=== PATIENT | female | born 1965 | race Two or more races ===

== ENCOUNTER 2022-05-23 09:28 | Outpatient (REF) | payer OTHER, SELFPAY ==
--- NOTE | ~2022-05-23 | XR_ITS ---
EXAMINATION: XR PELVIS CLINICAL INFORMATION: Pain COMPARISON: None TECHNIQUE: AP view of the pelvis. FINDINGS: There are bilateral hip prosthesis in satisfactory alignment. No periprosthetic loosening or fracture seen. The SI joints are symmetrical. Rest of the visualized pelvis is unremarkable. XR/XR pelvis 1-2V IMPRESSION: Bilateral hip prosthesis are stable.
== END 2022-05-23 09:29 | disposition home or self-care (01) ==
LOC: HO.HOSX 09:28
PROVIDERS: Visit Provider Orthopaedic Surgery
DX: T84.84XA Pain due to internal orthopedic prosthetic devices, implants and grafts, initial encounter (principal); Z96.9 Presence of functional implant, unspecified; Z96.642 Presence of left artificial hip joint
CPT/HCPCS: 72170; 99202

== ENCOUNTER 2022-09-29 11:08 | Outpatient (REF) | payer OTHER, SELFPAY ==
--- NOTE | ~2022-09-29 | XR_ITS ---
EXAMINATION: XR AP PELVIS XR HIP, LEFT. CLINICAL INFORMATION: Pain left hip COMPARISON: None TECHNIQUE: AP pelvis 1 view. Left hip 2 views. FINDINGS: AP PELVIS: There is a bilateral hip prosthesis in satisfactory alignment. The SI joints are normal. No bony or abnormality seen. LEFT HIP: Lateral and AP view of the left hip reveals a total hip prosthesis in satisfactory alignment. No periprosthetic loosening or fracture seen. The soft tissues are normal. XR/XR pelvis 1-2V IMPRESSION: Unremarkable bilateral hip prosthesis. Especially left hip prosthesis is unremarkable. The soft tissues are normal.
--- NOTE | ~2022-09-29 | XR_ITS ---
EXAMINATION: XR AP PELVIS XR HIP, LEFT. CLINICAL INFORMATION: Pain left hip COMPARISON: None TECHNIQUE: AP pelvis 1 view. Left hip 2 views. FINDINGS: AP PELVIS: There is a bilateral hip prosthesis in satisfactory alignment. The SI joints are normal. No bony or abnormality seen. LEFT HIP: Lateral and AP view of the left hip reveals a total hip prosthesis in satisfactory alignment. No periprosthetic loosening or fracture seen. The soft tissues are normal. XR/XR hip LT 1V IMPRESSION: Unremarkable bilateral hip prosthesis. Especially left hip prosthesis is unremarkable. The soft tissues are normal.
== END 2022-09-29 11:09 | disposition home or self-care (01) ==
LOC: HO.HOSX 11:08
PROVIDERS: Visit Provider Orthopaedic Surgery
DX: Z96.642 Presence of left artificial hip joint (principal); Z96.9 Presence of functional implant, unspecified
CPT/HCPCS: 72170; 73501; 99212

== ENCOUNTER 2022-11-10 10:25 | Outpatient (REF) | payer OTHER, SELFPAY ==
--- NOTE | ~2022-11-10 | XR_ITS ---
EXAMINATION: XR PELVIS CLINICAL INFORMATION: Hip pain COMPARISON: Radiographs from 05/23/2022 and 09/29/2022. CT imaging from 11/02/2019. TECHNIQUE: AP view of the pelvis. FINDINGS: The pelvic bones are intact. Alignment is normal at the sacroiliac joints and pubic symphysis. Again noted is the changed position of the left acetabular cup compared to 11/02/2019. There is approximately 65 degrees of lateral tilt of the cup (compared to approximately 45 degrees on 11/02/2019). Again noted is the zone of lucency around the superior aspect of the cup and around the acetabular screw. No acute periprosthetic fracture. There is no evidence of loosening of the femoral component of the left hip arthroplasty. The components of the noncemented right total hip arthroplasty remain in stable position. XR/XR pelvis 1-2V IMPRESSION: * No acute findings at either hip compared to 09/29/2022. 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
== END 2022-11-10 10:26 | disposition home or self-care (01) ==
LOC: HO.HOSX 10:25
PROVIDERS: PCP Internal Medicine; Visit Provider Orthopaedic Surgery
DX: Z96.642 Presence of left artificial hip joint (principal); Z96.9 Presence of functional implant, unspecified
CPT/HCPCS: 72170; 99212

== ENCOUNTER 2022-11-14 11:26 | Outpatient (REF) | payer OTHER, SELFPAY ==
[2022-11-14 13:42] LABS: Amphetamine Screen Urine Not Detected (Not Detect); Barbiturates, Urine Not Detected (Not Detect); Benzodiazepines Screen Urine Not Detected (Not Detect); Cannabinoid Screen Urine POSITIVE (Not Detect); Cocaine Screen Urine POSITIVE (Not Detect); Fentanyl, urine POSITIVE (Not Detect); Opiate Screen Urine Not Detected (Not Detect); Phencyclidine Screen Urine Not Detected (Not Detect)
== END 2022-11-14 11:27 | disposition home or self-care (01) ==
LOC: HO.LAB 11:26
PROVIDERS: PCP Internal Medicine; Visit Provider Orthopaedic Surgery
DX: F19.20 Other psychoactive substance dependence, uncomplicated (principal)
CPT/HCPCS: 80307

== ENCOUNTER 2023-03-30 10:39 | Outpatient (AMB) | payer OTHER, SELFPAY ==
[2023-03-30 10:41] VITALS: BMI 27.5
--- NOTE | 2023-03-30 10:41 | MHC.OFFVIS ---
Intake Vital Signs 03/30/23 10:41 Height 5 ft 4 in Weight 160 lb BMI 27.5 Intake Visit Reasons: OV- Left hip pain, last seen 11/10/22 Intake Note: Leanne is a 57 year old female who presnets today for a follow up of her left hip pain. Hx of left YVONNE, 03/16/[address] Perez @ [facility]. Allergies Penicillins Allergy (Verified 05/23/22 10:11) Rash HPI OV- Left hip pain, last seen 11/10/22 HPI Details Leanne is a 57 year old woman who returns to discuss her ongoing infected left hip prosthetic and her ongoing drug abuse. She has a Hx of left YVONNE, 03/16/[address] Perez @ [facility]. She has been following with an outside clinic concerning her hip pain. Based on scanned medical records, there was a suggestion of left acetabular component loosening. There was also c. acnes growth from an aspiration performed on 03/07/22. She continues to complain of pain with daily activity and is severely limited in her physical capacity. She is unable to walk without pain or assistance, and she is unable to use stairs. She says she has been using a cane recently which has increased her hip pain.? She denies any recent drug use, and has been trying to remain clean in the hopes of discussing surgery. She says she has only been using Marijuana recently, but says this is cut with Fentanyl. She reports being clean of any MARIIA for ~3-4 months. She denies any IVDU. [facility] Medical History (Updated 05/23/22 @ 11:05 by Williams Sylvester) Anxiety Depression Surgical History (Updated 05/23/22 @ 11:05 by Williams Sylvester) History of total left hip arthroplasty (03/16/08) Review of Systems Const All systems reviewed & are unremarkable except as noted in HPI and below Physical Exam Vital Signs: BMI result Body Mass Index 27.5 Const General: no acute distress and alert Orientation/consciousness: patient oriented x3 Neuro General: patient oriented x3 Extrem Other: Left Hip: Severely antalgic gait Pain with IR Can barely weight-bear 2+DP pulse Psych Appearance: grossly normal Affect: normal affect Attitude: cooperative Assessment & Plan Assessment & Plan (1) 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: Code(s): Z96.9 - Presence of functional implant, unspecified Plan: This is a 56 year old woman with 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 Perez. She has pain with daily activity for ~4 years and is unable to engage in daily activity. She is miserable and cannot walk, even with use of an assistive device, and reports GI upset from her oral Abx. She reports smoking Marijuana with Fentanyl, but denies any MARIIA in the last ~3-4 months. She denies any IVDU. She is on Methadone and is in a support group, and she is insistent that she can stop anytime she needs to prior to surgery. I discussed treatment options. I recommend a left YVONNE with an antibiotic spacer, along with a course of IV abx followed by a second re-implantation procedure. Obviously her drug use is a severe problem for both present and future risk, mostly of continued infection. Removal of the infected prosthesis is indicated however. I discussed the risks, benefits, and alternatives including, but not limited to, the risk of pain, infection, stiffness, need for further surgery as well as potential medical complications such as blood clots, pulmonary embolism and cardiac complications. I discussed the recovery timeline and process as well as the importance of PT. Leanne would benefit from this procedure She will speak with Kelsea to coordinate. (2) History of total left hip arthroplasty: Comment: 03/16/[address] Perez @ [facility] Code(s): Z96.642 - Presence of left artificial hip joint Plan Scribed for Sam Callahan MD by Williams Sylvester medical reimbursement specialist, on 03/30/23 at 11:25 AM, EST. Coding Level of Care Code Est Pt Level 4 (52623) Diagnoses 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 Z96.9 History of total left hip arthroplasty Z96.642
== END 2023-03-30 11:58 | disposition home or self-care (01) ==
PROVIDERS: PCP Internal Medicine; Visit Provider Orthopaedic Surgery
DX: M25.552 Pain in left hip (principal); Z96.642 Presence of left artificial hip joint
CPT/HCPCS: 99214

== ENCOUNTER → 2023-03-30 10:39 | Outpatient (BNVA) | payer OTHER, SELFPAY | PROVIDERS: PCP Internal Medicine; Visit Provider Orthopaedic Surgery | DX: Z96.9 Presence of functional implant, unspecified (principal); Z96.642 Presence of left artificial hip joint | CPT/HCPCS: 99212 ==

== ENCOUNTER 2023-04-14 | Outpatient (REF) | payer OTHER, SELFPAY ==
--- NOTE | 2023-04-14 | ECG_ITS ---
Test Reason : pre op Blood Pressure : / mmHG Vent. Rate : 042 BPM Atrial Rate : 042 BPM P-R Int : 132 ms QRS Dur : 086 ms QT Int : 512 ms P-R-T Axes : 055 050 046 degrees QTc Int : 427 ms Marked sinus bradycardia Possible Left atrial enlargement Abnormal ECG No previous ECGs available Referred By: Destiny Martin Electronically Signed By:WIL WILCOX
--- NOTE | 2023-04-14 10:36 | HO.ANESPROP2 ---
HPI - Anesthesia Eval Consult details Narrative: Cx'd DOS for +utox 57yo F for Left Hip Replacement Revision Total,removal of prosthesis with insertion of anitbiotic spacer, 04/21/23 Medically optimized (Marked SB on EKG) Original Left YVONNE 2008 at outside facility. No recent illness Limited activity d/t pain No CP/SOB. Rare albuterol use for controlled asthma. Methadone daily. Will get dose at clinic DOS. PMFSH Active Problems Active Problems: All Active Problems (Updated 04/14/23 @ 10:17 by Celia Kelly, RN) History of total left hip arthroplasty (Acute) 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 (Acute) Past Medical History Medical History (Updated 04/20/23 @ 07:05 by Celia Kelly RN) Anxiety Arthritis Asthma Bilateral knee pain Cannabis abuse Cervical myelopathy Clostridium difficile infection Cocaine abuse COPD (chronic obstructive pulmonary disease) Depression Eczema Epigastric pain GERD (gastroesophageal reflux disease) Hepatitis B virus infection History of headache History of Helicobacter pylori infection Insomnia Irritable bowel syndrome Left hand paresthesia Migraine Numbness Osteoarthritis Polysubstance abuse Raspy voice Sinusitis Skull lesion Tobacco abuse disorder Vitamin B12 deficiency Vitamin D deficiency Weight loss Surgical History Surgical History (Updated 04/20/23 @ 07:10 by Celia Kelly RN) H/O tubal ligation History of appendectomy History of bilateral knee arthroplasty History of hip replacement History of total left hip arthroplasty (03/16/08) Hx of cervical spine surgery Social History Social History Are you a primary child care centre director to a significant other at home: No 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 If so, by whom?: No Are you DNR?: No Advance Directives: No Advance Directives Information Provided: Yes Advance Directives on File: No Recently lost weight without trying: No Eating poorly because of decreased appetite: No Nutrition Risks: No Nutritional Risk Patient : No : No Poor oral hygiene: Yes (missing tooth) Meds Allergies Allergy/AdvReac Type Severity Reaction Status Date / Time Penicillins Allergy Rash Verified 05/23/22 10:11 Home Medications Medication Instructions Recorded Confirmed Last Taken Type acetaminophen 500 mg tablet 500 mg PO TID PRN pain 05/23/22 04/14/23 Unknown History albuterol sulfate 90 mcg/actuation 2 puff inhalation QID PRN wheezing 05/23/22 04/14/23 Unknown History aerosol inhaler (ProAir HFA) methadone 74 mg PO DAILY 05/23/22 04/14/23 Unknown History naproxen 500 mg tablet 500 mg PO BID 05/23/22 04/14/23 Unknown History omeprazole 20 mg capsule,delayed 20 mg PO DAILY 05/23/22 04/14/23 Unknown History release cholecalciferol (vitamin D3) 50 50 mcg PO DAILY 04/20/23 04/20/23 Unknown History mcg (2,000 unit) tablet cyanocobalamin (vitamin B-12) 500 500 mcg PO DAILY 04/20/23 04/20/23 Unknown History mcg tablet diclofenac sodium 1 % topical gel 4 g topical BID 04/20/23 04/20/23 Unknown History loperamide 2 mg capsule 2 mg PO Q6H PRN Diarrhea 04/20/23 04/20/23 Unknown History loratadine 10 mg tablet 10 mg PO DAILY PRN allergies 04/20/23 04/20/23 Unknown History risperidone 1 mg tablet 1 mg PO BEDTIME 04/20/23 Unknown History tizanidine 4 mg tablet 4 mg PO Q8H PRN muscle spasm 04/20/23 Unknown History Exam Exam Date and Time: April 14, 2023 1036 Pertinent Lab Results Pertinent Lab Results: Lab Results 04/14/23 04/14/23 04/14/23 Range/Units 11:00 11:17 11:26 WBC 10.7 (4.8-10.8) X10*3/uL RBC 4.64 (4.20-5.50) X10*6/uL Hgb 14.4 (12.0-16.0) g/dl Hct 45.3 (37.0-47.0) % MCV 97.6 (80.0-98.0) fL MCH 31.0 (27.0-33.0) pg MCHC 31.8 (31.0-35.0) g/dl RDW 13.4 (11.0-16.0) % Plt Count 235 (160-400) X10*3/uL MPV 11.3 (9.4-12.3) fL Absolute Nucleated RBC 0.000 (0.0-0.012) X10*3/uL Nucleated RBC % (auto) 0.0 (0.0-0.2) /100WBC Sodium (135-145) mmol/L Potassium (3.3-5.1) mmol/L Chloride (96-108) mmol/L Carbon Dioxide (22-29) mmol/L Anion Gap (12-20) BUN (9-16) mg/dL Creatinine (0.5-1.4) mg/dL Estim Creat Clear Calc Estimated GFR Random Glucose (60-115) mg/dL Calcium (8.4-10.2) mg/dL Nasal Screen MRSA (PCR) NEGATIVE (Negative) Nasal S. aureus Screen NEGATIVE (Negative) Nasal MRSA/S.aureus Interp SEE NOTE Blood Type O Positive Antibody Screen NEGATIVE 04/14/23 Range/Units 11:26 WBC (4.8-10.8) X10*3/uL RBC (4.20-5.50) X10*6/uL Hgb (12.0-16.0) g/dl Hct (37.0-47.0) % MCV (80.0-98.0) fL MCH (27.0-33.0) pg MCHC (31.0-35.0) g/dl RDW (11.0-16.0) % Plt Count (160-400) X10*3/uL MPV (9.4-12.3) fL Absolute Nucleated RBC (0.0-0.012) X10*3/uL Nucleated RBC % (auto) (0.0-0.2) /100WBC Sodium 141 (135-145) mmol/L Potassium 4.4 (3.3-5.1) mmol/L Chloride 108 (96-108) mmol/L Carbon Dioxide 30 H (22-29) mmol/L Anion Gap 7 L (12-20) BUN 9 (9-16) mg/dL Creatinine 0.68 (0.5-1.4) mg/dL Estim Creat Clear Calc 89.6 Estimated GFR > 60 Random Glucose 99 (60-115) mg/dL Calcium 9.6 (8.4-10.2) mg/dL Nasal Screen MRSA (PCR) (Negative) Nasal S. aureus Screen (Negative) Nasal MRSA/S.aureus Interp Blood Type Antibody Screen Narrative Narrative: EKG 03/2023 Vent. Rate : 042 BPM ? ? Atrial Rate : 042 BPM ?? P-R Int : 132 ms? QRS Dur : 086 ms ? ? QT Int : 512 ms ? ? ? P-R-T Axes : 055 050 046 degrees ?? QTc Int : 427 ms ? Marked sinus bradycardia Possible Left atrial enlargement Abnormal ECG No previous ECGs available Airway Mallampati Class: II TM Dist: >3cm Neck ROM: Limited (s/p anterior c spine surgery 2022) Loose/Missing/Broken Teeth: Yes (Right upper molar broken) Heart: [place], regular Lungs: CTAB Assessment and Plan Assessment Anesthesia Assessment: Anesthesia Plan Discussed, Smoking Cess. Discussed and PAT Visit
[2023-04-14 10:44] VITALS: BP 140/81; PULSE 51; RESP 16; O2SAT 98; BMI 27.1
[2023-04-14 11:58] LABS: Hematocrit 45.3 % (37.0-47.0); Hemoglobin 14.4 g/dl (12.0-16.0); Mean Corpuscular HGB Conc 31.8 g/dl (31.0-35.0); Mean Corpuscular Volume 97.6 fL (80.0-98.0); Mean Platelet Volume 11.3 fL (9.4-12.3); Platelet Count 235 X10*3/uL (160-400); Red Blood Count 4.64 X10*6/uL (4.20-5.50); Red Cell Distribution Width 13.4 % (11.0-16.0); White Blood Count 10.7 X10*3/uL (4.8-10.8)
[2023-04-14 12:23] LABS: Anion Gap 7 (12-20); Blood Urea Nitrogen 9 mg/dL (9-16); Calcium 9.6 mg/dL (8.4-10.2); Carbon Dioxide 30 mmol/L (22-29); Chloride 108 mmol/L (96-108); Creatinine Clr Calc Pharmacy 89.6; Estimated Glomerular Filt Rate > 60; Glucose Random 99 mg/dL (60-115); Potassium 4.4 mmol/L (3.3-5.1); Sodium 141 mmol/L (135-145)
[2023-04-14 12:40] LABS: MRSA Nasal PCR NEGATIVE (Negative); SA Nasal PCR NEGATIVE (Negative)
--- NOTE | 2023-04-21 07:53 | PC.NURSE ---
pt stssmoked crack cocaine last night anesthesia and dr engle aware at bedside speaking to pateint
--- NOTE | 2023-04-21 07:59 | PC.NURSE ---
dr engle at bedside pat being cancelled reschedule in 1 week pt verbalized understanding of new careplan
== END 2023-04-14 00:01 ==
LOC: HO.PAT
PROVIDERS: Nurse Practitioner; Physician Assistant; PCP Internal Medicine; Visit Provider Orthopaedic Surgery
DX: Z01.818 Encounter for other preprocedural examination (principal); M25.552 Pain in left hip; F19.10 Other psychoactive substance abuse, uncomplicated; Z96.9 Presence of functional implant, unspecified; Z96.642 Presence of left artificial hip joint
CPT/HCPCS: 36415; 80048; 85027; 86850; 86900; 86901; 87640; 87641; 93005; J0131; J0690

== ENCOUNTER 2023-04-29 12:55 | Outpatient (AMB) | payer OTHER, SELFPAY ==
--- NOTE | 2023-04-29 12:57 | MHC.OFFVIS ---
Intake Vital Signs 04/29/23 12:59 Height 5 ft 4 in Weight 158 lb BMI 27.1 Intake Visit Reasons: Preop Removal of LT hip prosthesis 05/05/23 NE Intake Note: Leanne is a 57 year old female who presents today for a pre op appointment for a removal of left hip prosthesis on 05/05/23 NE. Allergies Penicillins Allergy (Verified 04/29/23 12:59) Rash HPI HPI Comments History of Present Illness Details Ms Back presents to the office today for preop visit. She is scheduled for removal left total hip arthroplasty and placement abx spacer with Dr. Callahan. She continues to have ongoing pain and difficulty with ambulation in the leftt hip, which is affecting her quality of life; therefore, she has elected to move forward with surgery. [facility] Medical History (Updated 04/20/23 @ 07:05 by Celia Kelly RN) Raspy voice Bilateral knee pain COPD (chronic obstructive pulmonary disease) Left hand paresthesia Vitamin D deficiency Skull lesion Irritable bowel syndrome Insomnia GERD (gastroesophageal reflux disease) History of Helicobacter pylori infection Vitamin B12 deficiency Clostridium difficile infection Weight loss Epigastric pain Cocaine abuse Cannabis abuse Eczema Hepatitis B virus infection Migraine Osteoarthritis Polysubstance abuse Sinusitis Tobacco abuse disorder Cervical myelopathy Arthritis History of headache Numbness Asthma Anxiety Depression Surgical History (Updated 04/20/23 @ 07:10 by Celia Kelly RN) History of bilateral knee arthroplasty History of hip replacement Hx of cervical spine surgery History of appendectomy H/O tubal ligation History of total left hip arthroplasty (03/16/08) Social History Are you a primary patient care representative to a significant other at home: No 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 If so, by whom?: No Advance Directives: No Advance Directives Information Provided: No Advance Directives on File: No Recently lost weight without trying: No Eating poorly because of decreased appetite: No Nutrition Risks: No Nutritional Risk Patient : No : No Poor oral hygiene: No Review of Systems Const All systems reviewed & are unremarkable except as noted in HPI and below Physical Exam Vital Signs: BMI result Body Mass Index 27.1 Const General: no acute distress and alert Orientation/consciousness: patient oriented x3 Neuro General: patient oriented x3 Extrem Other: Left Hip: Severely antalgic gait Pain with IR Can barely weight-bear 2+DP pulse Psych Appearance: grossly normal Affect: normal affect Attitude: cooperative Assessment & Plan Assessment & Plan (1) 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: Code(s): Z96.9 - Presence of functional implant, unspecified (2) History of total left hip arthroplasty: Comment: 03/16/[address] Perez @ [facility] Code(s): Z96.642 - Presence of left artificial hip joint Plan I discussed in detail the procedure and what to expect pre and post operatively. We discussed the risks, benefits and alternatives to the surgery as well as the rehabilitation course. The risks; which include, but are not limited to infection, bleeding, nerve injury, ongoing pain, swelling, and stiffness, perioperative risk of injury to bones and soft tissues, and blood clots. I?ve answered all questions and with their understanding they have consented to move forward with Removal Left total hip arthroplasty with placement abx spacer with Dr. Callahan Coding Level of Care Code Est Pt Level 3 (09734) Diagnoses 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 Z96.9 History of total left hip arthroplasty Z96.642
[2023-04-29 12:59] VITALS: BMI 27.1
== END 2023-04-29 15:21 | disposition home or self-care (01) ==
PROVIDERS: PCP Internal Medicine; Visit Provider Physician Assistant
DX: Z96.9 Presence of functional implant, unspecified (principal); Z96.642 Presence of left artificial hip joint
CPT/HCPCS: 99024

== ENCOUNTER → 2023-04-29 12:55 | Outpatient (BNVA) | payer OTHER, SELFPAY | PROVIDERS: PCP Internal Medicine; Visit Provider Physician Assistant ==

== ENCOUNTER → 2023-05-05 11:51 | Outpatient (BNV) | payer OTHER, SELFPAY | PROVIDERS: PCP Internal Medicine; Visit Provider Orthopaedic Surgery | DX: Z89.629 Acquired absence of unspecified hip joint (principal) | CPT/HCPCS: 27091; 99024 ==

== ENCOUNTER 2023-05-05 17:07 | Inpatient (IN) | payer OTHER, SELFPAY ==
[2023-04-24 09:56] VITALS: BMI 27.5
--- NOTE | 2023-05-04 08:50 | HO.ANESPROP2 ---
Documented by User: Destiny Martin NP 05/04/23 08:50 HPI - Anesthesia Eval Consult details Narrative: Previously Cx'd DOS for +utox 57yo F for Left Hip Replacement Revision Total,removal of prosthesis with insertion of anitbiotic spacer, 04/21/23 Medically optimized (Marked SB on EKG) Original Left YVONNE 2008 at outside facility. No recent illness Limited activity d/t pain No CP/SOB. Rare albuterol use for controlled asthma. Methadone daily. Will get dose at clinic DOS. PMFSH Active Problems Active Problems: All Active Problems (Updated 04/20/23 @ 07:10 by Celia Kelly RN) 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 (Acute) History of total left hip arthroplasty (Acute) Past Medical History Medical History Raspy voice Bilateral knee pain COPD (chronic obstructive pulmonary disease) Left hand paresthesia Vitamin D deficiency Skull lesion Irritable bowel syndrome Insomnia GERD (gastroesophageal reflux disease) History of Helicobacter pylori infection Vitamin B12 deficiency Clostridium difficile infection Weight loss Epigastric pain Cocaine abuse Cannabis abuse Eczema Hepatitis B virus infection Migraine Osteoarthritis Polysubstance abuse Sinusitis Tobacco abuse disorder Cervical myelopathy Arthritis History of headache Numbness Asthma Anxiety Depression Surgical History Surgical History History of bilateral knee arthroplasty History of hip replacement Hx of cervical spine surgery History of appendectomy H/O tubal ligation History of total left hip arthroplasty (03/16/08) Social History Social History Are you a primary progressive care unit registered nurse to a significant other at home: No Do you presently have visiting nurse or 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 If so, by whom?: No Advance Directives: No Advance Directives Information Provided: Yes Advance Directives on File: No Recently lost weight without trying: No Eating poorly because of decreased appetite: No Nutrition Risks: No Nutritional Risk Patient : No : No Poor oral hygiene: No Meds Allergies Allergy/AdvReac Type Severity Reaction Status Date / Time Penicillins Allergy Rash Verified 05/05/23 12:03 Home Medications Medication Instructions Recorded Confirmed Last Taken Type acetaminophen 500 mg tablet 500 mg PO TID PRN pain 05/23/22 05/05/23 05/05/23 History albuterol sulfate 90 mcg/actuation 2 puff inhalation QID PRN wheezing 05/23/22 05/05/23 Unknown History aerosol inhaler (ProAir HFA) methadone 74 mg PO DAILY 05/23/22 05/05/23 05/05/23 History naproxen 500 mg tablet 500 mg PO BID 05/23/22 05/05/23 Unknown History omeprazole 20 mg capsule,delayed 20 mg PO DAILY 05/23/22 05/05/23 Unknown History release cholecalciferol (vitamin D3) 50 50 mcg PO DAILY 04/20/23 05/05/23 Unknown History mcg (2,000 unit) tablet cyanocobalamin (vitamin B-12) 500 500 mcg PO DAILY 04/20/23 05/05/23 Unknown History mcg tablet diclofenac sodium 1 % topical gel 4 g topical BID 04/20/23 05/05/23 Unknown History loratadine 10 mg tablet 10 mg PO DAILY PRN allergies 04/20/23 05/05/23 Unknown History tizanidine 4 mg tablet 4 mg PO Q8H PRN muscle spasm 04/20/23 05/05/23 Unknown History Exam Exam Date and Time: May 04, 2023 0850 Height,Weight and Vital Signs: Height 5 ft 4 in Weight 72.575 kg Pertinent Lab Results Pertinent Lab Results: Lab Results 04/14/23 04/14/23 04/14/23 Range/Units 11:00 11:17 11:26 WBC 10.7 (4.8-10.8) X10*3/uL RBC 4.64 (4.20-5.50) X10*6/uL Hgb 14.4 (12.0-16.0) g/dl Hct 45.3 (37.0-47.0) % MCV 97.6 (80.0-98.0) fL MCH 31.0 (27.0-33.0) pg MCHC 31.8 (31.0-35.0) g/dl RDW 13.4 (11.0-16.0) % Plt Count 235 (160-400) X10*3/uL MPV 11.3 (9.4-12.3) fL Absolute Nucleated RBC 0.000 (0.0-0.012) X10*3/uL Nucleated RBC % (auto) 0.0 (0.0-0.2) /100WBC Sodium (135-145) mmol/L Potassium (3.3-5.1) mmol/L Chloride (96-108) mmol/L Carbon Dioxide (22-29) mmol/L Anion Gap (12-20) BUN (9-16) mg/dL Creatinine (0.5-1.4) mg/dL Estim Creat Clear Calc Estimated GFR Random Glucose (60-115) mg/dL Calcium (8.4-10.2) mg/dL Nasal Screen MRSA (PCR) NEGATIVE (Negative) Nasal S. aureus Screen NEGATIVE (Negative) Nasal MRSA/S.aureus Interp SEE NOTE Blood Type O Positive Antibody Screen NEGATIVE 04/14/23 Range/Units 11:26 WBC (4.8-10.8) X10*3/uL RBC (4.20-5.50) X10*6/uL Hgb (12.0-16.0) g/dl Hct (37.0-47.0) % MCV (80.0-98.0) fL MCH (27.0-33.0) pg MCHC (31.0-35.0) g/dl RDW (11.0-16.0) % Plt Count (160-400) X10*3/uL MPV (9.4-12.3) fL Absolute Nucleated RBC (0.0-0.012) X10*3/uL Nucleated RBC % (auto) (0.0-0.2) /100WBC Sodium 141 (135-145) mmol/L Potassium 4.4 (3.3-5.1) mmol/L Chloride 108 (96-108) mmol/L Carbon Dioxide 30 H (22-29) mmol/L Anion Gap 7 L (12-20) BUN 9 (9-16) mg/dL Creatinine 0.68 (0.5-1.4) mg/dL Estim Creat Clear Calc 89.6 Estimated GFR > 60 Random Glucose 99 (60-115) mg/dL Calcium 9.6 (8.4-10.2) mg/dL Nasal Screen MRSA (PCR) (Negative) Nasal S. aureus Screen (Negative) Nasal MRSA/S.aureus Interp Blood Type Antibody Screen Narrative Narrative: EKG 03/2023 Vent. Rate : 042 BPM ? ? Atrial Rate : 042 BPM ?? P-R Int : 132 ms? QRS Dur : 086 ms ? ? QT Int : 512 ms ? ? ? P-R-T Axes : 055 050 046 degrees ?? QTc Int : 427 ms ? Marked sinus bradycardia Possible Left atrial enlargement Abnormal ECG No previous ECGs available Airway Mallampati Class: II TM Dist: >3cm Neck ROM: Limited (s/p anterior c spine surgery 2022) Loose/Missing/Broken Teeth: Yes (Right upper molar broken) Heart: [place], regular Lungs: CTAB Assessment and Plan Assessment Anesthesia Assessment: Chart Reviewed (Seen in PAT 04/14/23) Documented by User: Randy Shankar MD 05/05/23 18:00 HPI - Anesthesia Eval Consult details Narrative: Previously Cx'd DOS for +utox 57yo F for Left Hip Replacement Revision Total,removal of prosthesis with insertion of anitbiotic spacer, 04/21/23 Medically optimized (Marked SB on EKG) Original Left YVONNE 2007 at outside facility. No recent illness Limited activity d/t pain No CP/SOB. Rare albuterol use for controlled asthma. Methadone daily. Will get dose at clinic DOS. Patient still positive for fentanyl . Case discussed with the surgeon , as per him she has an ongoing infection and this procedure needs to be done urgently as benefits outweighs the risks . Discussed with the patient as well . She understands the increased risk and would like to proceed as well PMFSH Past Medical History Medical History Raspy voice Bilateral knee pain COPD (chronic obstructive pulmonary disease) Left hand paresthesia Vitamin D deficiency Skull lesion Irritable bowel syndrome Insomnia GERD (gastroesophageal reflux disease) History of Helicobacter pylori infection Vitamin B12 deficiency Clostridium difficile infection Weight loss Epigastric pain Cocaine abuse Cannabis abuse Eczema Hepatitis B virus infection Migraine Osteoarthritis Polysubstance abuse Sinusitis Tobacco abuse disorder Cervical myelopathy Arthritis History of headache Numbness Asthma Anxiety Depression Family History Family history of problems with anesthesia: No Surgical History Surgical History History of bilateral knee arthroplasty History of hip replacement Hx of cervical spine surgery History of appendectomy H/O tubal ligation History of total left hip arthroplasty (03/16/08) History of Problems with Anesthesia: No Social History Social History Are you a primary progressive care unit registered nurse to a significant other at home: No Do you presently have visiting nurse or 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 If so, by whom?: No Advance Directives: No Advance Directives Information Provided: Yes Advance Directives on File: No Recently lost weight without trying: No Eating poorly because of decreased appetite: No Nutrition Risks: No Nutritional Risk Patient : No : No Poor oral hygiene: No Meds Allergies Allergy/AdvReac Type Severity Reaction Status Date / Time Penicillins Allergy Rash Verified 05/05/23 12:03 Home Medications Medication Instructions Recorded Confirmed Last Taken Type acetaminophen 500 mg tablet 500 mg PO TID PRN pain 05/23/22 05/05/23 05/05/23 History albuterol sulfate 90 mcg/actuation 2 puff inhalation QID PRN wheezing 05/23/22 05/05/23 Unknown History aerosol inhaler (ProAir HFA) methadone 74 mg PO DAILY 05/23/22 05/05/23 05/05/23 History naproxen 500 mg tablet 500 mg PO BID 05/23/22 05/05/23 Unknown History omeprazole 20 mg capsule,delayed 20 mg PO DAILY 05/23/22 05/05/23 Unknown History release cholecalciferol (vitamin D3) 50 50 mcg PO DAILY 04/20/23 05/05/23 Unknown History mcg (2,000 unit) tablet cyanocobalamin (vitamin B-12) 500 500 mcg PO DAILY 04/20/23 05/05/23 Unknown History mcg tablet diclofenac sodium 1 % topical gel 4 g topical BID 04/20/23 05/05/23 Unknown History loratadine 10 mg tablet 10 mg PO DAILY PRN allergies 04/20/23 05/05/23 Unknown History tizanidine 4 mg tablet 4 mg PO Q8H PRN muscle spasm 04/20/23 05/05/23 Unknown History Exam Airway Loose/Missing/Broken Teeth: Yes (Right upper molar broken, poor dentition globally) Assessment and Plan Assessment Anesthesia Assessment: Anesthesia Plan Discussed Final Anesthetic Review Family History of Problems with Anesthesia: No History of Problems with Anesthesia: No NPO: Yes ASA Class: III (urgent ) Final Preanesthetic Review: Consent Obtained/Reviewed and Anes Risks/Benef Reviewed Patient Risk: High Procedure Risk: Intermediate Anesthetic Plan Anesthetic Plan: GA and Agree w/ Assess. and Plan Disposition: Standard PACU
[2023-05-05] VITALS (8 sets, daily range): BP systolic 124–140; BP diastolic 64–94; PULSE 47–76; RESP 14–18; TEMP 36.2–36.6; O2SAT 94–100
--- NOTE | ~2023-05-05 | XR_ITS ---
EXAMINATION: XR PELVIS CLINICAL INFORMATION: Left hip prosthesis removal and placement of antibiotic spacer. COMPARISON: Radiographs of the pelvis done on 11/10/2022. TECHNIQUE: AP view of the pelvis. FINDINGS: Postsurgical changes are noted at right hip with the visualized hardware appear intact. Interval removal of left hip prosthesis and placement of antibiotic spacer. Multiple Cerclage wires are present within the proximal femur. Specific note is made of significant asymmetric soft tissue swelling and presence of soft tissue gas, likely represent postsurgical changes. The findings may represent soft tissue hematoma. Attention to follow-up is recommended. XR/XR pelvis 1-2V IMPRESSION: Interval removal of left hip prosthesis and placement of antibiotic spacer. Asymmetric soft tissue swelling and presence of soft tissue gas within the proximal left thigh, may represent postsurgical changes. Possibility of soft tissue hematoma is not excluded. Attention to follow-up and clinical correlation as appropriate is recommended.
[2023-05-05 12:23] LABS: Amphetamine Screen Urine Not Detected (Not Detect); Barbiturates, Urine Not Detected (Not Detect); Benzodiazepines Screen Urine Not Detected (Not Detect); Cannabinoid Screen Urine POSITIVE (Not Detect); Cocaine Screen Urine Not Detected (Not Detect); Fentanyl, urine POSITIVE (Not Detect); Opiate Screen Urine Not Detected (Not Detect); Phencyclidine Screen Urine Not Detected (Not Detect)
[2023-05-05] MEDS: Lactated Ringers 1,000 ML 100 ML IVCONT ×2 (12:56→19:50)
[2023-05-05] MEDS: Albuterol/Iprat 2.5/0.5MG 3 ML AMPUL.NEB INHALE (13:00)
--- NOTE | 2023-05-05 13:01 | PC.NURSE ---
dr. valero and dr. engle aware of toxicology screen results. okay to proceed.
--- NOTE | 2023-05-05 13:56 | PC.NURSE ---
per dr. engle no preop antibiotic
[2023-05-05 16:24] LABS: Hemoglobin 11.8 g/dl (12.0-16.0); Mean Corpuscular HGB Conc 32.8 g/dl (31.0-35.0); Mean Corpuscular Hemoglobin 31.6 pg (27.0-33.0); Mean Corpuscular Volume 96.5 fL (80.0-98.0); Mean Platelet Volume 11.4 fL (9.4-12.3); Platelet Count 201 X10*3/uL (160-400); Red Blood Count 3.73 X10*6/uL (4.20-5.50); Red Cell Distribution Width 13.3 % (11.0-16.0); White Blood Count 9.9 X10*3/uL (4.8-10.8)
--- NOTE | 2023-05-05 16:58 | P.BOP_ITS ---
Brief Operative Note Date of Service: 05/05/23 Pre-op diagnosis: Infected left hip prosthesis Post-op diagnosis: same Procedure: Resection arthroplasty left hip and placement of antibiotic spacer Implants: osteoremedy small long femoral componenet with 46 unipolar head Surgeon: Sam Callahan MD Anesthesia: GETA and local Was an Park Landscape [employer] used for this Procedure?: Yes [employer] Landscape Architect: Daniella Aguirre Estimated blood loss (mL): 450 IV fluids (mL): 1,200 Pathology: other Condition: stable Disposition: PACU
[2023-05-05] MEDS: Gabapentin 600 MG TABLET PO (17:59)
--- NOTE | 2023-05-05 18:00 | PC.NURSE ---
patient taking po fluids. medicated 600 mg gabapentin at 1747. unable scan barcode.
--- NOTE | 2023-05-05 18:43 | PHA.MEDREC ---
Pharmacy Consult ? Medication Reconciliation Pharmacy has reviewed the medication reconciliation completed by nursing.
--- NOTE | 2023-05-05 19:20 | P.HPHOSP_ITS ---
History of Present Illness Date of Service: 05/05/23 Attending physician on admission: Sam Callahan Chief Complaint: medical management 57-year-old female with history of COPD, GERD, history C diff, history of polysubstance abuse, opiate dependence on methadone, asthma, and unspecified mood disorder current for cigarette per day smoker admitted to Orthopedic surgery for resection of left hip prosthesis due to infection with consult placed to hospitalist service for medical management. [facility] Medical History Raspy voice Bilateral knee pain COPD (chronic obstructive pulmonary disease) Left hand paresthesia Vitamin D deficiency Skull lesion Irritable bowel syndrome Insomnia GERD (gastroesophageal reflux disease) History of Helicobacter pylori infection Vitamin B12 deficiency Clostridium difficile infection Weight loss Epigastric pain Cocaine abuse Cannabis abuse Eczema Hepatitis B virus infection Migraine Osteoarthritis Polysubstance abuse Sinusitis Tobacco abuse disorder Cervical myelopathy Arthritis History of headache Numbness Asthma Anxiety Depression Surgical History History of bilateral knee arthroplasty History of hip replacement Hx of cervical spine surgery History of appendectomy H/O tubal ligation History of total left hip arthroplasty (03/16/08) Social History Are you a primary rn critical care to a significant other at home: No Do you presently have visiting nurse or 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 If so, by whom?: No Advance Directives: No Advance Directives Information Provided: Yes Advance Directives on File: No Recently lost weight without trying: No Eating poorly because of decreased appetite: No Nutrition Risks: No Nutritional Risk Patient : No : No Poor oral hygiene: No Meds Allergies Allergy/AdvReac Type Severity Reaction Status Date / Time Penicillins Allergy Rash Verified 05/05/23 12:03 Active Medications: Current Medications Acetaminophen (Acetaminophen 325 Mg Tablet) 650 mg PO Q6H PRN PRN Reason: Pain, Mild (Pain Scale 1-3) Aspirin (Aspirin 325 Mg Tablet) 325 mg PO BID [facility] Celecoxib (Celecoxib 200 Mg Capsule) 200 mg PO BID [facility] Docusate Sodium (Docusate Sodium 100 Mg Capsule) 100 mg PO BID [facility] Hydromorphone HCl (Hydromorphone Hcl 0.5 Mg/0.5 Ml Syringe) 0.25 mg IVPUSH Q5M PRN; Protocol PRN Reason: Pain, Severe (Pain Scale 7-10) Hydromorphone HCl (Hydromorphone Hcl 0.5 Mg/0.5 Ml Syringe) 0.25 mg IVPUSH Q4H PRN; Protocol PRN Reason: Pain, Severe (Pain Scale 7-10) Lactated Ringer's (Lr) 1,000 mls @ 100 mls/hr IVCONT .Q10H [facility] Stop: 05/06/23 17:09 Vancomycin HCl 750 mg/ Sodium (Chloride) 265 mls @ 265 mls/hr IV Q12H [facility] Non-Formulary Medication (Methadone) 74 mg PO DAILY [facility] Omeprazole (Omeprazole 20 Mg Capsule.Dr) 20 mg PO DAILY@0630 [facility] Ondansetron HCl (Ondansetron Hcl 4 Mg/2 Ml Vial) 4 mg IVPUSH Q8H PRN PRN Reason: Nausea and Vomiting Oxycodone HCl (Oxycodone Hcl Immed Release 5 Mg Tablet) 10 mg PO Q4H PRN PRN Reason: Pain, Moderate(Pain Scale 4-6) Oxycodone HCl (Oxycodone Hcl Er 10 Mg Tab.Er.12h) 10 mg PO BID [facility] Pharmacy Consult (Consult Rx Vancomycin Dosing) 1 each MISCELLANE DAILY PRN PRN Reason: Consult order Sodium Chloride (0.9 % Sodium Chloride Flush 3 Ml Syringe) 3 ml IVFLUSH QSHIFT [facility] Tizanidine HCl (Tizanidine Hcl 4 Mg Tablet) 4 mg PO Q8H PRN PRN Reason: muscle spasm Home Medications Medication Instructions Recorded Confirmed Last Taken Type acetaminophen 500 mg tablet 500 mg PO TID PRN pain 05/23/22 05/05/23 05/05/23 History albuterol sulfate 90 mcg/actuation 2 puff inhalation QID PRN wheezing 05/23/22 05/05/23 Unknown History aerosol inhaler (ProAir HFA) methadone 74 mg PO DAILY 05/23/22 05/05/23 05/05/23 History naproxen 500 mg tablet 500 mg PO BID 05/23/22 05/05/23 Unknown History omeprazole 20 mg capsule,delayed 20 mg PO DAILY 05/23/22 05/05/23 Unknown History release cholecalciferol (vitamin D3) 50 50 mcg PO DAILY 04/20/23 05/05/23 Unknown History mcg (2,000 unit) tablet cyanocobalamin (vitamin B-12) 500 500 mcg PO DAILY 04/20/23 05/05/23 Unknown History mcg tablet diclofenac sodium 1 % topical gel 4 g topical BID 04/20/23 05/05/23 Unknown History loratadine 10 mg tablet 10 mg PO DAILY PRN allergies 04/20/23 05/05/23 Unknown History tizanidine 4 mg tablet 4 mg PO Q8H PRN muscle spasm 04/20/23 05/05/23 Unknown History Physical Exam 2 Vital Signs and Narrative: Vital Signs: Last Vital Signs Temp 97.6 F 05/05/23 18:20 Pulse 65 05/05/23 18:20 Resp 16 05/05/23 18:20 BP 131/72 05/05/23 18:20 Pulse Ox 100 05/05/23 18:20 O2 Del Method Nasal Cannula 05/05/23 18:20 O2 Flow Rate 2 05/05/23 18:20 BMI result Body Mass Index 27.5 Results Labs 05/05/23 16:20 Labs: Laboratory Results - last 24 hr 05/05/23 05/05/23 05/05/23 11:45 12:22 16:20 MCV 96.5 MCH 31.6 MCHC 32.8 RDW 13.3 Plt Count 201 MPV 11.4 Absolute Nucleated RBC 0.000 Nucleated RBC % (auto) 0.0 Urine Opiates Screen Not Detected Urine Fentanyl Screen POSITIVE H Ur Barbiturates Screen Not Detected Ur Phencyclidine Scrn Not Detected Ur Amphetamines Screen Not Detected U Benzodiazepines Scrn Not Detected Urine Cocaine Screen Not Detected U Marijuana (THC) Screen POSITIVE H Blood Type O Positive Antibody Screen NEGATIVE Crossmatch See Detail Assessment and Plan Time Spent With Patient Time: Total time managing care of this patient today ____ minutes.
--- NOTE | 2023-05-05 19:36 | P.CONHOSP_ITS ---
History of Present Illness Data of Consult Service Date: 05/05/23 Requesting physician: Sam Callahan Primary Care Provider: Barbara Wolf MD HPI Reason for consult: medical management 57-year-old female with history of COPD, GERD, history C diff, history of polysubstance abuse, opiate dependence on methadone, asthma, and unspecified mood disorder current for cigarette per day smoker admitted to Orthopedic surgery for resection of left hip prosthesis due to infection with consult placed to hospitalist service for medical management. She tells me she has not used illicit substances in months but does smoke MJ regularly. Utox positive for fentanyl and MJ. Currently reporting pain LLE. No other complaints at this time. Review of Systems 2 Review of Systems: General: No fevers, malaise, unintentional weight loss HEENT: No blurred vision, diplopia. No sore throat, nasal congestion, rhinorrhea, sinus pain, ear pain Cardiovascular: No chest pain, palpitations, or leg edema Respiratory: No shortness of breath, wheezing, cough GI: No abdominal pain, nausea, vomiting, diarrhea, constipation, melena, hematochezia : No dysuria, hematuria, increased urinary frequency, decreased urinary output MSK: No myalgia, back pain. +pain lle Neuro: No headaches, weakness, paresthesias Skin: No rashes or lesions PMFSH Medical History Raspy voice Bilateral knee pain COPD (chronic obstructive pulmonary disease) Left hand paresthesia Vitamin D deficiency Skull lesion Irritable bowel syndrome Insomnia GERD (gastroesophageal reflux disease) History of Helicobacter pylori infection Vitamin B12 deficiency Clostridium difficile infection Weight loss Epigastric pain Cocaine abuse Cannabis abuse Eczema Hepatitis B virus infection Migraine Osteoarthritis Polysubstance abuse Sinusitis Tobacco abuse disorder Cervical myelopathy Arthritis History of headache Numbness Asthma Anxiety Depression Surgical History History of bilateral knee arthroplasty History of hip replacement Hx of cervical spine surgery History of appendectomy H/O tubal ligation History of total left hip arthroplasty (03/16/08) Social History Are you a primary director of medicare to a significant other at home: No Do you presently have visiting nurse or other home services: Yes (director of consumer affairs) Patient Tobacco Use Status: Current everyday Tobacco user Tobacco use type: Cigarette Cigarettes Per Day: 4 Smoked in Last 30 Days: Yes Use of substances other than those prescribed or required for medical reasons: Yes Substance Use Frequency: Daily Have you been hit, kicked, punched, or otherwise hurt by someone within the past year? If so, by whom?: No Advance Directives: No Advance Directives Information Provided: Yes Advance Directives on File: No Recently lost weight without trying: No Eating poorly because of decreased appetite: No Nutrition Risks: No Nutritional Risk Patient : No : No Poor oral hygiene: No Meds Allergies Allergy/AdvReac Type Severity Reaction Status Date / Time Penicillins Allergy Rash Verified 05/05/23 12:03 Active Medications: Current Medications Acetaminophen (Acetaminophen 325 Mg Tablet) 650 mg PO Q6H PRN PRN Reason: Pain, Mild (Pain Scale 1-3) Aspirin (Aspirin 325 Mg Tablet) 325 mg PO BID [facility] Celecoxib (Celecoxib 200 Mg Capsule) 200 mg PO BID [facility] Docusate Sodium (Docusate Sodium 100 Mg Capsule) 100 mg PO BID [facility] Hydromorphone HCl (Hydromorphone Hcl 0.5 Mg/0.5 Ml Syringe) 0.25 mg IVPUSH Q5M PRN; Protocol PRN Reason: Pain, Severe (Pain Scale 7-10) Hydromorphone HCl (Hydromorphone Hcl 0.5 Mg/0.5 Ml Syringe) 0.25 mg IVPUSH Q4H PRN; Protocol PRN Reason: Pain, Severe (Pain Scale 7-10) Lactated Ringer's (Lr) 1,000 mls @ 100 mls/hr IVCONT .Q10H [facility] Stop: 05/06/23 17:09 Vancomycin HCl 750 mg/ Sodium (Chloride) 265 mls @ 265 mls/hr IV Q12H [facility] Non-Formulary Medication (Methadone) 74 mg PO DAILY [facility] Omeprazole (Omeprazole 20 Mg Capsule.Dr) 20 mg PO DAILY@0630 [facility] Ondansetron HCl (Ondansetron Hcl 4 Mg/2 Ml Vial) 4 mg IVPUSH Q8H PRN PRN Reason: Nausea and Vomiting Oxycodone HCl (Oxycodone Hcl Immed Release 5 Mg Tablet) 10 mg PO Q4H PRN PRN Reason: Pain, Moderate(Pain Scale 4-6) Oxycodone HCl (Oxycodone Hcl Er 10 Mg Tab.Er.12h) 10 mg PO BID [facility] Pharmacy Consult (Consult Rx Vancomycin Dosing) 1 each MISCELLANE DAILY PRN PRN Reason: Consult order Sodium Chloride (0.9 % Sodium Chloride Flush 3 Ml Syringe) 3 ml IVFLUSH QSHIFT [facility] Tizanidine HCl (Tizanidine Hcl 4 Mg Tablet) 4 mg PO Q8H PRN PRN Reason: muscle spasm Home Medications Medication Instructions Recorded Confirmed Last Taken Type acetaminophen 500 mg tablet 500 mg PO TID PRN pain 05/23/22 05/05/23 05/05/23 History albuterol sulfate 90 mcg/actuation 2 puff inhalation QID PRN wheezing 05/23/22 05/05/23 Unknown History aerosol inhaler (ProAir HFA) methadone 74 mg PO DAILY 05/23/22 05/05/23 05/05/23 History naproxen 500 mg tablet 500 mg PO BID 05/23/22 05/05/23 Unknown History omeprazole 20 mg capsule,delayed 20 mg PO DAILY 05/23/22 05/05/23 Unknown History release cholecalciferol (vitamin D3) 50 50 mcg PO DAILY 04/20/23 05/05/23 Unknown History mcg (2,000 unit) tablet cyanocobalamin (vitamin B-12) 500 500 mcg PO DAILY 04/20/23 05/05/23 Unknown History mcg tablet diclofenac sodium 1 % topical gel 4 g topical BID 04/20/23 05/05/23 Unknown History loratadine 10 mg tablet 10 mg PO DAILY PRN allergies 04/20/23 05/05/23 Unknown History tizanidine 4 mg tablet 4 mg PO Q8H PRN muscle spasm 04/20/23 05/05/23 Unknown History Physical Exam 2 Vital Signs and Narrative: Vital Signs: Last Vital Signs Temp 97.6 F 05/05/23 18:20 Pulse 65 05/05/23 18:20 Resp 16 05/05/23 18:20 BP 131/72 05/05/23 18:20 Pulse Ox 100 05/05/23 18:20 O2 Del Method Nasal Cannula 05/05/23 18:20 O2 Flow Rate 2 05/05/23 18:20 BMI result Body Mass Index 27.5 Constitutional - Awake and Alert, No apparent distress Eyes - PERRLA, EOMI Cardiovascular - S1S2, RRR, No edema Respiratory - Normal lung expansion, Normal respiratory effort, No respiratory distress, CTA bilaterally Gastrointestinal - NT / ND; +BS; No rebound or guarding Extremities - pain lle, no swelling or palpable cords Skin - Warm/Dry Neurological - Alert & oriented x3 Psychological - Appropriate affect Results Labs 05/05/23 16:20 Labs: Laboratory Results - last 24 hr 05/05/23 05/05/23 05/05/23 11:45 12:22 16:20 MCV 96.5 MCH 31.6 MCHC 32.8 RDW 13.3 Plt Count 201 MPV 11.4 Absolute Nucleated RBC 0.000 Nucleated RBC % (auto) 0.0 Urine Opiates Screen Not Detected Urine Fentanyl Screen POSITIVE H Ur Barbiturates Screen Not Detected Ur Phencyclidine Scrn Not Detected Ur Amphetamines Screen Not Detected U Benzodiazepines Scrn Not Detected Urine Cocaine Screen Not Detected U Marijuana (THC) Screen POSITIVE H Blood Type O Positive Antibody Screen NEGATIVE Crossmatch See Detail Assessment and Plan (1) Infected prosthesis of left hip: Status: Acute Plan 57-year-old female with history of COPD, GERD, history C diff, history of polysubstance abuse, opiate dependence on methadone, asthma, and unspecified mood disorder current for cigarette per day smoker admitted to Orthopedic surgery for resection of left hip prosthesis due to infection with consult placed to hospitalist service for medical management. #Infected left hip s/p resesction hip prosthesis POD0 -plan per ortho surgery -reports LLE pain. No swelling erythema. Low suspicion DVT, only hours post op. Continue monitoring #asthma/COPD overlap -no acute exacerbation -albuterol prn #History polysubstance abuse/opioid dependence -continue methadone -Tox screen positive for MJ and fentanyl. Declines addiction med consult #GERD -continue ppi #Nicotine dependence -declines nrt -cessation encouraged Thank you for allowing me to participate in this consult. Signing off at this time. Please do not hesitate to call for further questions. Time Spent With Patient Time: Total time managing care of this patient today ____ minutes.
[2023-05-05] MEDS: HYDROmorphone HCl 0.5 MG/0.5 ML SYRINGE 0.25 MG IVPUSH (19:48)
[2023-05-05] MEDS: Celecoxib 200 MG CAPSULE PO (19:52)
[2023-05-05] MEDS: oxyCODONE HCl ER 10 MG TAB.ER.12H PO (19:52)
[2023-05-05] MEDS: 0.9 % Sodium Chloride Flush 3 ML SYRINGE IVFLUSH (19:52)
[2023-05-05] MEDS: Docusate Sodium 100 MG CAPSULE PO (19:52)
[2023-05-05] MEDS: TiZANidine HCL 4 MG TABLET PO (20:42)
[2023-05-05] MEDS: oxyCODONE HCl Immed Release 5 MG TABLET 10 MG PO (20:42)
[2023-05-05] MEDS: Acetaminophen 325 MG TABLET 650 MG PO (20:42)
[2023-05-05 21:26] LABS: Hematocrit 34.6 % (37.0-47.0); Mean Corpuscular HGB Conc 31.8 g/dl (31.0-35.0); Mean Corpuscular Hemoglobin 31.1 pg (27.0-33.0); Mean Corpuscular Volume 97.7 fL (80.0-98.0); Mean Platelet Volume 12.7 fL (9.4-12.3); Platelet Count 216 X10*3/uL (160-400); Red Blood Count 3.54 X10*6/uL (4.20-5.50); Red Cell Distribution Width 13.4 % (11.0-16.0)
[2023-05-05 21:38] LABS: Creatinine Clr Calc Pharmacy 105.7; Estimated Glomerular Filt Rate > 60
[2023-05-06] VITALS: BP 142/86; PULSE 73; RESP 16; TEMP 36.2; O2SAT 97
[2023-05-06 03:15] VITALS: BP 130/69; PULSE 78; RESP 17; TEMP 36.3; O2SAT 96
[2023-05-06] MEDS: vancomycin HCL 1,500 MG in 0.9 % Sodium Chloride 500 ML 333.33 MG IV ×2 (04:19→15:56)
[2023-05-06] MEDS: Lactated Ringers 1,000 ML 100 ML IVCONT (04:21)
[2023-05-06] MEDS: HYDROmorphone HCl 0.5 MG/0.5 ML SYRINGE 0.25 MG IVPUSH ×4 (05:34→23:39)
[2023-05-06] MEDS: Omeprazole 20 MG CAPSULE.DR PO (05:35)
[2023-05-06 06:13] LABS: Basophils Percent Auto 0.3 % (0-2); Hemoglobin 9.8 g/dl (12.0-16.0); Imm Gran Abs Auto 0.03 X10*3/uL (0.00-0.03); Imm Gran Pct Auto 0.3 % (0.0-0.4); Lymphocytes Absolute Auto 1.4 X10*3/uL (1.2-4.9); Lymphocytes Percent Auto 16.2 % (20-40); MANUAL DIFF FLAG NO; Mean Corpuscular HGB Conc 32.7 g/dl (31.0-35.0); Mean Corpuscular Hemoglobin 31.2 pg (27.0-33.0); Mean Corpuscular Volume 95.5 fL (80.0-98.0); Mean Platelet Volume 11.7 fL (9.4-12.3); Monocytes Absolute Auto 0.7 X10*3/uL (0.1-1.2); Monocytes Percent Auto 8.3 % (2-11); Neutrophils Absolute Auto 6.6 x10*3/uL (2.0-8.3); Neutrophils Percent Auto 74.9 % (45-73); Platelet Count 200 X10*3/uL (160-400); Red Blood Count 3.14 X10*6/uL (4.20-5.50); Red Cell Distribution Width 13.2 % (11.0-16.0); White Blood Count 8.8 X10*3/uL (4.8-10.8)
[2023-05-06 06:38] LABS: Anion Gap 11 (12-20); Blood Urea Nitrogen 5 mg/dL (9-16); Calcium 8.3 mg/dL (8.4-10.2); Carbon Dioxide 26 mmol/L (22-29); Chloride 107 mmol/L (96-108); Estimated Glomerular Filt Rate > 60; Glucose Fasting 144 mg/dL (60-99); Potassium 4.6 mmol/L (3.3-5.1); Sodium 139 mmol/L (135-145)
[2023-05-06] MEDS: Celecoxib 200 MG CAPSULE PO ×2 (07:14→20:01)
[2023-05-06] MEDS: oxyCODONE HCl ER 10 MG TAB.ER.12H PO ×2 (07:15→20:00)
[2023-05-06] MEDS: methADONE HCl 20 MG/2 ML ORAL.CONC 64 MG PO (07:15)
[2023-05-06 07:31] VITALS: BP 154/73; PULSE 70; RESP 18; TEMP 36; O2SAT 96
--- NOTE | 2023-05-06 08:15 | PM.PNORT ---
Subjective Subjective Date of Service: 05/06/23 Interval history: POD1 s/p left total hip arthroplasty resection with antibiotic spacer. Patient is resting in bed comfortably. Complains of pain. No overnight events. No additional complaints. Physical Exam Vital Signs: Vital Signs: Last Vital Signs Temp 96.8 F 05/06/23 07:31 Pulse 70 05/06/23 07:31 Resp 18 05/06/23 07:31 BP 154/73 H 05/06/23 07:31 Pulse Ox 96 05/06/23 07:31 O2 Del Method Room Air 05/06/23 07:31 O2 Flow Rate 2 05/05/23 18:20 BMI result Body Mass Index 27.5 Const: General: cooperative, healthy appearing and no acute distress Resp: Effort & Inspection: normal respiratory effort and able to speak in complete sentences Cardio: Rate: regular rate Peripheral pulses: Peripheral pulses 2+ throughout GI: Palpation (GI): Soft to palpation Skin: Lesions: no lesions Rashes: no rashes Extrem: Other: Left hip Aquacel is c/d/i. Able to dorsi/plantar flex. NVI. Procedures Date of Service Date of Service: 05/06/23 Progress Note: A&P Assessment and plan (1) Infected prosthesis of left hip: Status: Acute Assessment and Plan: Continue pain mgmnt Begin ASA for dvt ppx begin PT for LTHA - NWB x 3 months Dispo planning-Pending PT eval, pain mgmnt (2) History of total left hip arthroplasty: Status: Acute (3) 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: Status: Acute Time Spent With Patient Time: Total time managing care of this patient today ____ minutes. Quality Stroke Does the patient have a stroke diagnosis?: No VTE Prior VTE?: No VTE Risk Level:: Medical - moderate - high VTE Device Contraindication: N/A - Device Ordered VTE Drug Contraindication: N/A - Med Ordered
--- NOTE | 2023-05-06 08:25 | HO.POSTANES ---
Post Anesthesia Evaluation Post Anesthesia Evaluation Date of Service: 05/06/23 Vital Signs: Vital Signs Temp Pulse Resp BP Pulse Ox O2 Del Method 05/06/23 07:31 96.8 F 70 18 154/73 H 96 Room Air 05/06/23 03:15 97.3 F 78 17 130/69 96 Room Air 05/06/23 00:00 97.2 F 73 16 142/86 H 97 Room Air Anesthesia: General Mental Status: Awake Pain Control: Satisfactory Nausea/Vomiting: None Hydration: Adequate Anesthesia-Related Issues: No Anes. Related Issues
[2023-05-06 12:00] VITALS: BP 127/69; PULSE 71; RESP 18; TEMP 36.3; O2SAT 94
--- NOTE | 2023-05-06 12:05 | MHC.CM.PN ---
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
[2023-05-06 14:03] LABS: Vancomycin Random 10.9 mcg/mL (15-20)
--- NOTE | 2023-05-06 14:09 | HE.PHANOTE ---
RE:VANCO DOSING TROUGH 10.9 AFTER 2 DOSES. CONTINUE CURRENT REGIMEN AND RECHECK LEVEL 05/07/23 @1400 AFTER 2 MORE DOSES GIVEN.
[2023-05-06] MEDS: oxyCODONE HCl Immed Release 5 MG TABLET 10 MG PO ×2 (14:56→20:01)
[2023-05-06] MEDS: Acetaminophen 325 MG TABLET 650 MG PO (14:56)
[2023-05-06] MEDS: Aspirin 325 MG TABLET PO ×2 (14:56→20:01)
[2023-05-06] MEDS: 0.9 % Sodium Chloride Flush 3 ML SYRINGE IVFLUSH ×2 (14:57→20:01)
[2023-05-06 15:28] VITALS: BP 120/68; PULSE 72; RESP 16; TEMP 36.4; O2SAT 97
[2023-05-06 19:23] VITALS: BP 131/67; PULSE 79; RESP 18; TEMP 36.8; O2SAT 97
[2023-05-06] MEDS: TiZANidine HCL 4 MG TABLET PO (20:01)
[2023-05-06] MEDS: Docusate Sodium 100 MG CAPSULE PO (20:01)
[2023-05-07] MEDS: Acetaminophen 325 MG TABLET 650 MG PO ×2 (03:02→20:06)
[2023-05-07] MEDS: oxyCODONE HCl Immed Release 5 MG TABLET 10 MG PO ×3 (03:03→20:06)
[2023-05-07] MEDS: vancomycin HCL 1,500 MG in 0.9 % Sodium Chloride 500 ML 333.33 MG IV (03:04)
[2023-05-07 03:07] VITALS: BP 128/66; PULSE 81; RESP 18; TEMP 36.7; O2SAT 97
[2023-05-07] MEDS: Omeprazole 20 MG CAPSULE.DR PO (04:38)
--- NOTE | 2023-05-07 05:29 | PC.NURSE ---
Addendum entered by Val Sahni RN 05/07/23 05:59: Pt let them draw labs when they went back in for second attempt. Original Note: Pt refused lab work this morning, BÁRBARA - Naomie Saucedo aware.
[2023-05-07 06:32] LABS: MANUAL DIFF FLAG NO
[2023-05-07 06:45] LABS: Basophils Percent Auto 0.4 % (0-2); Eosinophils Absolute Auto 0.1 X10*3/uL (0.0-0.4); Eosinophils Percent Auto 0.6 % (0-4); Hematocrit 25.1 % (37.0-47.0); Hemoglobin 8.1 g/dl (12.0-16.0); Imm Gran Abs Auto 0.03 X10*3/uL (0.00-0.03); Imm Gran Pct Auto 0.4 % (0.0-0.4); Lymphocytes Absolute Auto 1.2 X10*3/uL (1.2-4.9); Lymphocytes Percent Auto 15.3 % (20-40); Mean Corpuscular HGB Conc 32.3 g/dl (31.0-35.0); Mean Corpuscular Hemoglobin 31.2 pg (27.0-33.0); Mean Corpuscular Volume 96.5 fL (80.0-98.0); Mean Platelet Volume 11.9 fL (9.4-12.3); Monocytes Absolute Auto 0.7 X10*3/uL (0.1-1.2); Monocytes Percent Auto 8.5 % (2-11); Neutrophils Percent Auto 74.8 % (45-73); Platelet Count 168 X10*3/uL (160-400); Red Cell Distribution Width 13.6 % (11.0-16.0)
[2023-05-07 06:57] LABS: Anion Gap 10 (12-20); Blood Urea Nitrogen 6 mg/dL (9-16); Calcium 8.2 mg/dL (8.4-10.2); Carbon Dioxide 24 mmol/L (22-29); Chloride 109 mmol/L (96-108); Creatinine Clr Calc Pharmacy 111.4; Estimated Glomerular Filt Rate > 60; Glucose Fasting 115 mg/dL (60-99); Potassium 3.8 mmol/L (3.3-5.1); Sodium 139 mmol/L (135-145)
[2023-05-07] MEDS: Celecoxib 200 MG CAPSULE PO ×2 (07:10→20:07)
[2023-05-07] MEDS: Aspirin 325 MG TABLET PO ×2 (07:10→20:06)
[2023-05-07] MEDS: oxyCODONE HCl ER 10 MG TAB.ER.12H PO ×2 (07:10→20:07)
[2023-05-07] MEDS: methADONE HCl 20 MG/2 ML ORAL.CONC 64 MG PO (07:11)
[2023-05-07] MEDS: 0.9 % Sodium Chloride Flush 3 ML SYRINGE IVFLUSH ×3 (07:11→20:07)
[2023-05-07 07:47] VITALS: BP 93/52; PULSE 72; RESP 18; TEMP 36.1; O2SAT 96
--- NOTE | 2023-05-07 09:09 | PM.PNORT ---
Subjective Subjective Date of Service: 05/07/23 Interval history: POD2 s/p left total hip arthroplasty resection with antibiotic spacer. Patient is resting in chair No overnight events. No additional complaints. Physical Exam Vital Signs: Vital Signs: Last Vital Signs Temp 97.0 F 05/07/23 07:47 Pulse 72 05/07/23 07:47 Resp 18 05/07/23 07:47 BP 93/52 L 05/07/23 07:47 Pulse Ox 96 05/07/23 07:47 O2 Del Method Room Air 05/07/23 07:47 O2 Flow Rate 2 05/05/23 18:20 BMI result Body Mass Index 27.5 Const: General: cooperative, healthy appearing and no acute distress Resp: Effort & Inspection: normal respiratory effort and able to speak in complete sentences Cardio: Rate: regular rate Peripheral pulses: Peripheral pulses 2+ throughout GI: Palpation (GI): Soft to palpation Skin: Lesions: no lesions Rashes: no rashes Extrem: Other: Left hip Aquacel is c/d/i. Able to dorsi/plantar flex. NVI. 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 Quality Stroke Does the patient have a stroke diagnosis?: No VTE Prior VTE?: No VTE Risk Level:: Medical - moderate - high VTE Device Contraindication: N/A - Device Ordered VTE Drug Contraindication: N/A - Med Ordered
[2023-05-07] MEDS: HYDROmorphone HCl 0.5 MG/0.5 ML SYRINGE 0.25 MG IVPUSH ×2 (11:48→23:32)
[2023-05-07 15:35] LABS: Vancomycin Random 11.5 mcg/mL (15-20)
--- NOTE | 2023-05-07 15:46 | HE.PHANOTE ---
RE: VANCO TROUGH WAS 11.5, WILL INCREASE TO 1000MG Q8H, SUSPECTED AUC 503, TROUGH 14.4 TRISH
[2023-05-07] MEDS: vancomycin HCL 1,000 MG in 0.9 % Sodium Chloride 250 ML 270 MG IV ×2 (15:50→23:25)
[2023-05-07 15:58] VITALS: BP 124/74; PULSE 80; RESP 20; TEMP 36.3; O2SAT 97
[2023-05-07 19:57] VITALS: BP 133/72; PULSE 82; RESP 20; TEMP 36.3; O2SAT 97
[2023-05-07] MEDS: TiZANidine HCL 4 MG TABLET PO (20:06)
[2023-05-07] MEDS: Docusate Sodium 100 MG CAPSULE PO (20:07)
[2023-05-08] MEDS: Acetaminophen 325 MG TABLET 650 MG PO (03:31)
[2023-05-08] MEDS: Omeprazole 20 MG CAPSULE.DR PO (03:31)
[2023-05-08] MEDS: oxyCODONE HCl Immed Release 5 MG TABLET 10 MG PO ×2 (03:32→19:25)
[2023-05-08 03:34] VITALS: BP 133/73; PULSE 73; RESP 19; TEMP 36.3; O2SAT 97
[2023-05-08 06:13] LABS: MANUAL DIFF FLAG NO
[2023-05-08 06:17] LABS: Basophils Percent Auto 0.4 % (0-2); Eosinophils Absolute Auto 0.1 X10*3/uL (0.0-0.4); Eosinophils Percent Auto 1.6 % (0-4); Hematocrit 23.4 % (37.0-47.0); Hemoglobin 7.6 g/dl (12.0-16.0); Imm Gran Abs Auto 0.03 X10*3/uL (0.00-0.03); Imm Gran Pct Auto 0.4 % (0.0-0.4); Lymphocytes Absolute Auto 1.4 X10*3/uL (1.2-4.9); Lymphocytes Percent Auto 16.7 % (20-40); Mean Corpuscular HGB Conc 32.5 g/dl (31.0-35.0); Mean Corpuscular Hemoglobin 31.5 pg (27.0-33.0); Mean Corpuscular Volume 97.1 fL (80.0-98.0); Mean Platelet Volume 11.7 fL (9.4-12.3); Monocytes Absolute Auto 0.7 X10*3/uL (0.1-1.2); Monocytes Percent Auto 8.3 % (2-11); Neutrophils Percent Auto 72.6 % (45-73); Platelet Count 170 X10*3/uL (160-400); Red Blood Count 2.41 X10*6/uL (4.20-5.50); Red Cell Distribution Width 13.5 % (11.0-16.0); White Blood Count 8.2 X10*3/uL (4.8-10.8)
[2023-05-08 06:31] LABS: Anion Gap 10 (12-20); Blood Urea Nitrogen 7 mg/dL (9-16); Calcium 8.3 mg/dL (8.4-10.2); Carbon Dioxide 23 mmol/L (22-29); Chloride 110 mmol/L (96-108); Creatinine Clr Calc Pharmacy 107.5; Estimated Glomerular Filt Rate > 60; Glucose Fasting 110 mg/dL (60-99); Potassium 3.3 mmol/L (3.3-5.1); Sodium 140 mmol/L (135-145)
[2023-05-08 07:12] VITALS: BP 110/56; PULSE 73; RESP 18; TEMP 36.1; O2SAT 93
[2023-05-08] MEDS: 0.9 % Sodium Chloride Flush 3 ML SYRINGE IVFLUSH ×3 (07:57→19:15)
[2023-05-08] MEDS: methADONE HCl 20 MG/2 ML ORAL.CONC 64 MG PO (07:58)
[2023-05-08] MEDS: Aspirin 325 MG TABLET PO ×2 (07:59→21:12)
[2023-05-08] MEDS: Celecoxib 200 MG CAPSULE PO ×2 (07:59→21:13)
[2023-05-08] MEDS: vancomycin HCL 1,000 MG in 0.9 % Sodium Chloride 250 ML 270 MG IV ×2 (08:01→17:43)
[2023-05-08] MEDS: HYDROmorphone HCl 0.5 MG/0.5 ML SYRINGE 0.25 MG IVPUSH ×4 (08:10→21:28)
--- NOTE | 2023-05-08 09:03 | PM.PNORT ---
Subjective Subjective Date of Service: 05/08/23 Interval history: POD3 s/p left total hip arthroplasty resection with antibiotic spacer. No overnight events. Resting at edge of bed eating breakfast No additional complaints. Physical Exam Vital Signs: Vital Signs: Last Vital Signs Temp 97 F 05/08/23 07:12 Pulse 73 05/08/23 07:12 Resp 18 05/08/23 07:12 BP 110/56 L 05/08/23 07:12 Pulse Ox 93 05/08/23 07:12 O2 Del Method Room Air 05/08/23 07:12 O2 Flow Rate 2 05/05/23 18:20 BMI result Body Mass Index 27.5 Const: General: cooperative, healthy appearing and no acute distress Resp: Effort & Inspection: normal respiratory effort and able to speak in complete sentences Cardio: Rate: regular rate Peripheral pulses: Peripheral pulses 2+ throughout GI: Palpation (GI): Soft to palpation Skin: Lesions: no lesions Rashes: no rashes Extrem: Other: Left hip Aquacel is c/d/i. Able to dorsi/plantar flex. NVI. 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 Quality Stroke Does the patient have a stroke diagnosis?: No VTE Prior VTE?: No VTE Risk Level:: Medical - moderate - high VTE Device Contraindication: N/A - Device Ordered VTE Drug Contraindication: N/A - Med Ordered
--- NOTE | 2023-05-08 11:46 | HO.PICC ---
PICC Line Insertion NPICC Diagnosis: hip infection Indication: custodial antibiotics Pertinent Labs: Reviewed Technique: Following informed consent including risks, benefits and alternatives and using sterile technique including cap and mask, sterile gown, glove and drape, the right arm was prepped and draped in the usual sterile fashion of full barrier technique with CHG. Following completion of Liz[place]ores Protocol the skin and soft tissues were anesthetized with 1% Lidocaine plain. Using ultrasound guidance, the right basilic vein access was obtained in a second attempt by this RN. Over an 0.018 wire through peel-away sheath, a 4 cuban single lumen PASV PICC line was positioned. Catheter length is 46 cm internal length, the external length is a the 0 cm external natalia, for a total trimmed length of 46 cm. The procedure was performed in S272. Tip verification was performed by Damion Alexander with Sherlock 3CG. Tip located in SVC. Ultrasound was used to document vein patency and for needle entry. A formal ultrasound picture and cardiac rhythm strip was recorded. Vascular Registered Representative has released the line for use and it is currently dressed with a StatLock, Tegaderm, and CHG disc. Verification has been performed for blood return and line patency. Arm Circumference: 31 cm Equipment: [employer] SOLO Catheter with Sherlock 3 CG Catheter Type: 4 cuban single lumen PASV PICC Lot #: [id number]
--- NOTE | 2023-05-08 13:24 | MHC.CM.PN ---
Plan is for Thursday05/11/23 vt to [facility] with methadone guest dosing start of care on 05/12/23. RN and patient aware of plan.
[2023-05-08 14:29] LABS: Vancomycin Random 16.8 mcg/mL (15-20)
--- NOTE | 2023-05-08 14:39 | HE.PHANOTE ---
RE VANCO DOSING SCR STABLE AND TROUGH 16.8 TODAY. RECHECK LEVEL 05/09 @1400 TO ENSURE SAFETY AND EFFICACY.
--- NOTE | 2023-05-08 14:44 | P.DS_ITS ---
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 During their stay, their vitals were stable, afebrile at 96.9 . POD 3 h/h dropped to 7.6/23.4, she was transfused with @ unites of PRBCs. Labs were unremarkable on discharge , H/H 9.8/31.2 . POD 1 she was started on Aspirin 325mg tabs po bid for DVT ppx, they also received Physical Therapy services twice a day. Physical therapy should include gait training, hip/quad/glute strength. She is NWB LLE Prior to discharge, her dressing was changed, incision clean dry and intact, new Aquacel dressing applied. The Aquacel dressing should remain intact and dry at all times. Any concerns with the dressing, please contact orthopedic office. No showering. The plan is to be discharged to [facility]. 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 Following completion of [place] Protocol the skin and soft tissues were anesthetized with 1% Lidocaine plain. Using ultrasound guidance, the right basilic vein access was obtained in a second attempt by this RN. Over an 0.018 wire through peel-away sheath, a 4 turkmen single lumen PASV PICC line was positioned. Catheter length is 46 cm internal length, the external length is a the 0 cm external natalia, for a total trimmed length of 46 cm. The procedure was performed in S272. Tip verification was performed by Damion Alexander with Sherlock 3CG. Tip located in SVC. Ultrasound was used to document vein patency and for needle entry. A formal ultrasound picture and cardiac rhythm strip was recorded. [employer] has released the line for use and it is currently dressed with a StatLock, Tegaderm, and CHG disc. Verification has been performed for blood return and line patency. Arm Circumference: 31 cm Equipment: PowerPICC SOLO Catheter with Sherlock 3 CG Catheter Type: 4 turkmen single lumen PASV PICC Lot #: [id number] * Weekly BUN/creatinine * Check Vanco trough levels after 4th dose * Keep Vanco trough level between 10 and 20 * Flush PICC line with 10 cc of normal saline 3 times a day * Routine discharge flushing with 10 mL of normal saline after blood specimen withdrawal, medication administration or post transfusion flushing Time Spent with Patient Time attestation: Total time managing care of this patient today ____ minutes. Discharge coordination time: Less than 30 minutes Quality: Safe Use of Opioids Does Pt have an Active Cancer Diagnosis on the Problem List?: No Quality: Stroke Does the patient have a stroke diagnosis?: No Physical Exam Vital Signs: Vital Signs: Last Vital Signs Temp 97 F 05/08/23 07:12 Pulse 73 05/08/23 07:12 Resp 18 05/08/23 07:12 BP 110/56 L 05/08/23 07:12 Pulse Ox 93 05/08/23 07:12 O2 Del Method Room Air 05/08/23 07:12 O2 Flow Rate 2 05/05/23 18:20 BMI result Body Mass Index 27.5 DS: Data Data Completed and Pending Labs on day of discharge: Laboratory Results - last 24 hr 05/05/23 05/07/23 05/08/23 12:22 14:19 05:56 WBC 8.2 RBC 2.41 L Hgb 7.6 L Hct 23.4 L MCV 97.1 MCH 31.5 MCHC 32.5 RDW 13.5 Plt Count 170 MPV 11.7 Immature Gran % (Auto) 0.4 Neut % (Auto) 72.6 Lymph % (Auto) 16.7 L [place] % (Auto) 8.3 Eos % (Auto) 1.6 Baso % (Auto) 0.4 Lymph # (Auto) 1.4 [place] # (Auto) 0.7 Eos # (Auto) 0.1 Baso # (Auto) 0.0 Abs Immat Gran (auto) 0.03 Absolute Neuts (auto) 6.0 Absolute Nucleated RBC 0.000 Nucleated RBC % (auto) 0.0 Sodium 140 Potassium 3.3 Chloride 110 H Carbon Dioxide 23 Anion Gap 10 L BUN 7 L Creatinine 0.57 Estim Creat Clear Calc 107.5 Estimated GFR > 60 Fasting Glucose 110 H Calcium 8.3 L Random Vancomycin 11.5 L Blood Type O Positive Antibody Screen NEGATIVE Crossmatch See Detail 05/08/23 13:49 WBC RBC Hgb Hct MCV MCH MCHC RDW Plt Count MPV Immature Gran % (Auto) Neut % (Auto) Lymph % (Auto) [place] % (Auto) Eos % (Auto) Baso % (Auto) Lymph # (Auto) [place] # (Auto) Eos # (Auto) Baso # (Auto) Abs Immat Gran (auto) Absolute Neuts (auto) Absolute Nucleated RBC Nucleated RBC % (auto) Sodium Potassium Chloride Carbon Dioxide Anion Gap BUN Creatinine Estim Creat Clear Calc Estimated GFR Fasting Glucose Calcium Random Vancomycin 16.8 Blood Type O Positive Antibody Screen NEGATIVE Crossmatch Preliminary micro results at discharge 05/05/23 15:35 Anaerobic Culture - Preliminary Hip Left No growth to date. 05/05/23 15:35 Anaerobic Culture - Preliminary Hip Left No growth to date. 05/05/23 15:35 Anaerobic Culture - Preliminary Hip Left No growth to date. Discharge Plan Discharge Anticipated Discharge Date/Time: 05/13/23 18:12 Patient Disposition: Xfer SNF Discharge Diagnosis: Revision LTHA Referrals: [facility] [Outside] - 1 Week Barbara Wolf MD [Primary Care Provider] - 1 Week Discharge Medications: New oxycodone 10 mg tablet 10 mg PO Q4H PRN (Reason: Pain, Moderate(Pain Scale 4-6)) 7 Days Qty: 42 0RF Rx Instructions: Partial Fill upon patient request. docusate sodium 100 mg Capsule 100 mg PO BID 14 Days Qty: 28 0RF methadone [Methadose] 10 mg/mL Concentrate 64 mg PO DAILY 42 Days Qty: 268.8 0RF Rx Instructions: Partial Fill upon patient request. vancomycin in 0.9 % sodium chl 1 gram/250 mL solution 1 g IV Q8H 42 Days celecoxib 200 mg Capsule 200 mg PO BID 30 Days Qty: 60 0RF acetaminophen 325 mg Tablet 650 mg PO Q6H PRN (Reason: Pain, Mild (Pain Scale 1-3)) 30 Days Qty: 240 0RF aspirin 325 mg Tablet 325 mg PO BID 42 Days Qty: 84 0RF Continued loratadine 10 mg tablet 10 mg PO DAILY PRN (Reason: allergies) cholecalciferol (vitamin D3) 50 mcg (2,000 unit) tablet 50 mcg PO DAILY cyanocobalamin (vitamin B-12) 500 mcg Tablet 500 mcg PO DAILY tizanidine 4 mg tablet 4 mg PO Q8H PRN (Reason: muscle spasm) omeprazole 20 mg capsule,delayed release(DR/EC) 20 mg PO DAILY albuterol sulfate [ProAir HFA] 90 mcg/actuation HFA aerosol inhaler 2 puff inhalation QID PRN (Reason: wheezing) Discontinued diclofenac sodium 1 % Gel 4 g TOPICAL BID Rx Instructions: apply to single knee, ankle, foot; for foot includes sole/toes/top of foot naproxen 500 mg tablet 500 mg PO BID acetaminophen 500 mg tablet 500 mg PO TID PRN (Reason: pain) methadone 74 mg PO DAILY Discharge Orders: Discharge Order (Routine); Ordered 05/13/23 Ordered By: Daniella Aguirre Diet: Regular diet Activity on Discharge: Use cane or walker Stand Alone Forms: Patient Portal Discharge page Care Plan Goals: Restore function of joint Health Concerns: none Plan of Treatment: * Physical Therapy for Revision Total hip arthroplasty: NWB LLE * No showering, no tub bath-keep dressing clean, dry and intact * Weekly BUN/creatinine * Check Vanco trough levels after 4th dose * Keep Vanco trough level between 10 and 20 * Flush PICC line with 10 cc of normal saline 3 times a day * Routine discharge flushing with 10 mL of normal saline after blood specimen withdrawal, medication administration or post transfusion flushing * Continue Aspirin twice a day x 6 weeks * Follow up with [facility] Orthopedics in 2 weeks: Assessment: as above
[2023-05-08 15:54] VITALS: BP 134/68; PULSE 72; TEMP 36.4; O2SAT 98
[2023-05-08] MEDS: 0.9 % Sodium Chloride Flush 10 ML SYRINGE 5 ML IVFLUSH (17:43)
--- NOTE | 2023-05-08 17:47 | PC.NURSE ---
Pt blood band today at 1230; new type and screen ordered at 1349. At 1530 this Rn called the blood bank to check on blood status; this health technical writer was told a new ordered needed to be place along with the new type and screen. Provider notified and new PRBC order placed. At 1740 when completing the blood product pickup form noted that no new wrist band placed. Spoke with [facility] [facility] , and per supervisor home restoration service the same blood band can be used up to 3 specimens and ok to bulk picker blood . Vancomycin running at this time through PICC to right upper arm. Pt only has one access and does not want a peripheral obtained at this time. PRBC to be hung after completion of antibiotic.
[2023-05-08 19:35] VITALS: BP 116/57; PULSE 76; RESP 20; TEMP 36.9; O2SAT 96
[2023-05-08 22:01] VITALS: BP 116/57; PULSE 76; RESP 20; TEMP 36.9
[2023-05-08 22:25] VITALS: BP 134/71; PULSE 77; RESP 17; TEMP 35.8
[2023-05-09] VITALS (10 sets, daily range): BP systolic 116–182; BP diastolic 56–92; PULSE 65–73; RESP 18–20; TEMP 36.1–36.7; O2SAT 97–98
[2023-05-09] MEDS: vancomycin HCL 1,000 MG in 0.9 % Sodium Chloride 250 ML 270 MG IV ×3 (01:46→16:35)
[2023-05-09] MEDS: Omeprazole 20 MG CAPSULE.DR PO (05:50)
[2023-05-09 06:07] LABS: Creatinine Clr Calc Pharmacy 122.7; Estimated Glomerular Filt Rate > 60
[2023-05-09] MEDS: methADONE HCl 20 MG/2 ML ORAL.CONC 64 MG PO (07:54)
[2023-05-09] MEDS: oxyCODONE HCl ER 10 MG TAB.ER.12H PO ×2 (07:56→20:18)
[2023-05-09] MEDS: Celecoxib 200 MG CAPSULE PO ×2 (07:56→20:18)
[2023-05-09] MEDS: Aspirin 325 MG TABLET PO ×2 (07:56→20:17)
[2023-05-09] MEDS: 0.9 % Sodium Chloride Flush 3 ML SYRINGE IVFLUSH ×3 (07:58→20:19)
[2023-05-09 10:01] LABS: Hemoglobin 9.8 g/dl (12.0-16.0)
--- NOTE | 2023-05-09 13:17 | PM.PNORT ---
Subjective Subjective Date of Service: 05/09/23 Interval history: POD 4 s/p left total hip arthroplasty resection with antibiotic spacer. No overnight events. Resting at edge of bed eating breakfast No additional complaints. Physical Exam Vital Signs: Vital Signs: Last Vital Signs Temp 97.0 F 05/09/23 07:16 Pulse 68 05/09/23 07:16 Resp 18 05/09/23 07:16 BP 182/87 H 05/09/23 07:16 Pulse Ox 98 05/09/23 07:16 O2 Del Method Room Air 05/09/23 07:16 O2 Flow Rate 2 05/05/23 18:20 BMI result Body Mass Index 27.5 Const: General: cooperative, healthy appearing and no acute distress Resp: Effort & Inspection: normal respiratory effort and able to speak in complete sentences Cardio: Rate: regular rate Peripheral pulses: Peripheral pulses 2+ throughout GI: Palpation (GI): Soft to palpation Skin: Lesions: no lesions Rashes: no rashes Extrem: Other: Left hip Aquacel is c/d/i. Able to dorsi/plantar flex. NVI. 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 Quality Stroke Does the patient have a stroke diagnosis?: No VTE Prior VTE?: No VTE Risk Level:: Medical - moderate - high VTE Device Contraindication: N/A - Device Ordered VTE Drug Contraindication: N/A - Med Ordered
[2023-05-09] MEDS: Acetaminophen 325 MG TABLET 650 MG PO (14:18)
[2023-05-09] MEDS: oxyCODONE HCl Immed Release 5 MG TABLET 10 MG PO ×2 (14:18→18:10)
[2023-05-09 14:30] LABS: Vancomycin Random 18.1 mcg/mL (15-20)
--- NOTE | 2023-05-09 14:51 | HE.PHANOTE ---
Vanco trough 18.1, auc ~465 mg/L.hr, keep same dose and recheck level 1400 tomorrow
[2023-05-10] MEDS: vancomycin HCL 1,000 MG in 0.9 % Sodium Chloride 250 ML 270 MG IV ×4 (00:35→23:36)
[2023-05-10] MEDS: oxyCODONE HCl Immed Release 5 MG TABLET 10 MG PO ×3 (00:43→16:47)
[2023-05-10 03:42] VITALS: BP 155/78; PULSE 67; RESP 20; TEMP 36; O2SAT 97
[2023-05-10] MEDS: Omeprazole 20 MG CAPSULE.DR PO (05:32)
[2023-05-10 06:37] LABS: Creatinine Clr Calc Pharmacy 122.7; Estimated Glomerular Filt Rate > 60
[2023-05-10 07:48] VITALS: BP 135/80; PULSE 68; RESP 20; TEMP 36.4; O2SAT 96
[2023-05-10] MEDS: methADONE HCl 20 MG/2 ML ORAL.CONC 64 MG PO (07:56)
[2023-05-10] MEDS: Celecoxib 200 MG CAPSULE PO ×2 (07:57→20:17)
[2023-05-10] MEDS: Aspirin 325 MG TABLET PO ×2 (07:57→20:17)
[2023-05-10] MEDS: oxyCODONE HCl ER 10 MG TAB.ER.12H PO ×2 (07:58→20:17)
[2023-05-10] MEDS: 0.9 % Sodium Chloride Flush 3 ML SYRINGE IVFLUSH ×3 (07:59→20:18)
[2023-05-10 15:02] LABS: Vancomycin Random 14.9 mcg/mL (15-20)
--- NOTE | 2023-05-10 15:16 | HE.PHANOTE ---
Vanco level 14.9. keep same dose, auc ~463
[2023-05-10 15:56] VITALS: BP 137/82; PULSE 63; RESP 16; TEMP 36.1; O2SAT 97
[2023-05-10] MEDS: Acetaminophen 325 MG TABLET 650 MG PO (16:48)
[2023-05-10 17:00] VITALS: O2SAT 97
[2023-05-10] MEDS: HYDROmorphone HCl 0.5 MG/0.5 ML SYRINGE 0.25 MG IVPUSH ×2 (18:08→23:36)
[2023-05-10 19:15] VITALS: BP 117/62; PULSE 74; RESP 16; TEMP 37.2; O2SAT 95
--- NOTE | 2023-05-10 19:55 | PM.PNORT ---
Subjective Subjective Date of Service: 05/10/23 Interval history: POD 5 s/p left total hip arthroplasty resection with antibiotic spacer. No overnight events. Resting in bed No additional complaints. Physical Exam Vital Signs: Vital Signs: Last Vital Signs Temp 98.9 F 05/10/23 19:15 Pulse 74 05/10/23 19:15 Resp 16 05/10/23 19:15 BP 117/62 05/10/23 19:15 Pulse Ox 95 05/10/23 19:15 O2 Del Method Room Air 05/10/23 19:15 O2 Flow Rate 2 05/05/23 18:20 BMI result Body Mass Index 27.5 Const: General: cooperative, healthy appearing and no acute distress Resp: Effort & Inspection: normal respiratory effort and able to speak in complete sentences Cardio: Rate: regular rate Peripheral pulses: Peripheral pulses 2+ throughout GI: Palpation (GI): Soft to palpation Skin: Lesions: no lesions Rashes: no rashes Extrem: Other: Left hip Aquacel is c/d/i. Able to dorsi/plantar flex. NVI. 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 Quality Stroke Does the patient have a stroke diagnosis?: No VTE Prior VTE?: No VTE Risk Level:: Medical - moderate - high VTE Device Contraindication: N/A - Device Ordered VTE Drug Contraindication: N/A - Med Ordered
[2023-05-10] MEDS: Docusate Sodium 100 MG CAPSULE PO (20:17)
[2023-05-11] MEDS: oxyCODONE HCl Immed Release 5 MG TABLET 10 MG PO ×4 (02:47→18:39)
[2023-05-11 04:00] VITALS: BP 138/70; PULSE 62; RESP 18; TEMP 36.7; O2SAT 94
--- NOTE | 2023-05-11 05:28 | PC.NURSE ---
pt in room 363 meds are to be crushed. She has Colace ordered for bedtime but they are not in liquid form. I tried to cut the pills open with scissors but it didn't work. Dr. Avitia was notified. He asked me to contact pharmacy for the same and they can change it. I contacted pharmacy and they put in an order for liquid Colace.
[2023-05-11] MEDS: Omeprazole 20 MG CAPSULE.DR PO (05:33)
[2023-05-11] MEDS: HYDROmorphone HCl 0.5 MG/0.5 ML SYRINGE 0.25 MG IVPUSH ×4 (05:44→23:20)
[2023-05-11 06:23] LABS: Creatinine Clr Calc Pharmacy 107.5; Estimated Glomerular Filt Rate > 60
[2023-05-11] MEDS: oxyCODONE HCl ER 10 MG TAB.ER.12H PO ×2 (07:51→19:34)
[2023-05-11] MEDS: Aspirin 325 MG TABLET PO ×2 (07:51→21:27)
[2023-05-11] MEDS: methADONE HCl 20 MG/2 ML ORAL.CONC 64 MG PO (07:52)
[2023-05-11] MEDS: Acetaminophen 325 MG TABLET 650 MG PO ×2 (07:52→14:29)
[2023-05-11] MEDS: Celecoxib 200 MG CAPSULE PO ×2 (07:52→19:35)
[2023-05-11] MEDS: 0.9 % Sodium Chloride Flush 3 ML SYRINGE IVFLUSH ×3 (07:53→19:36)
[2023-05-11] MEDS: vancomycin HCL 1,000 MG in 0.9 % Sodium Chloride 250 ML 270 MG IV ×3 (07:55→23:20)
[2023-05-11 07:58] VITALS: BP 127/80; PULSE 67; RESP 18; TEMP 36.4; O2SAT 96
--- NOTE | 2023-05-11 10:31 | MHC.CM.PN ---
Addendum entered by Maki Butler 05/11/23 16:10: JUAN PABLO WILL FOLLOW UP ON PTS GUEST DOSING TOMORROW IF IT IS NOT YET CONFIRMED, CM WILL CONTACT PTS COUNSELOR AT [facility] AGAIN. PT IS MEDICALLY CLEARED AND SHOULD DC TO STR TOMORROW Addendum entered by Maki Butler 05/11/23 12:36: JUAN PABLO LIAISON CONTACTED CM REPORTING [facility] HAS NOT RECEIVED THE GUEST DOSING FORM FROM [facility] HOME [facility] CM CALLED [facility] [phone] AND SPOKE TO PTS COUNSELOR, KARLOS (CHRIS GUILLEN) KARLOS REPORTS SHE WILL CALL [facility] AND FIND OUT WHAT THEY HAVE NOT YET RECEIVED Original Note: PT WAS MEDICALLY CLEARED TO DC THURSDAY, HOWEVER HER GUEST DOSING AT THE [facility] WAS NOT COMPLETE JUAN PABLO IS CURRENTLY AWAITING CONFIRMATION FROM [facility] ONCE MMT IS CONFIRMED, PT WILL DC VIA BLS
[2023-05-11 11:27] VITALS: RESP 19
[2023-05-11 14:24] LABS: Vancomycin Random 15.5 mcg/mL (15-20)
--- NOTE | 2023-05-11 14:44 | HE.PHANOTE ---
VANCO DOSE ADJUSMENT BASED ON SCR AND TROUGH OF 15.5 DOSE CONTINUED AT 1000 Q 8H. NEXT TROUGH AT 05/12 @ 1400
[2023-05-11 15:50] VITALS: RESP 19
[2023-05-11 16:00] VITALS: BP 131/79; PULSE 57; RESP 18; TEMP 36.4; O2SAT 95
--- NOTE | 2023-05-11 16:11 | PM.PNORT ---
Subjective Subjective Date of Service: 05/11/23 Interval history: POD 6 s/p left total hip arthroplasty resection with antibiotic spacer. No overnight events. Resting in bed No additional complaints. Physical Exam Vital Signs: Vital Signs: Last Vital Signs Temp 97.5 F 05/11/23 07:58 Pulse 67 05/11/23 07:58 Resp 19 05/11/23 15:50 BP 127/80 05/11/23 07:58 Pulse Ox 96 05/11/23 07:58 O2 Del Method Room Air 05/11/23 15:27 O2 Flow Rate 2 05/05/23 18:20 BMI result Body Mass Index 27.5 Const: General: cooperative, healthy appearing and no acute distress Resp: Effort & Inspection: normal respiratory effort and able to speak in complete sentences Cardio: Rate: regular rate Peripheral pulses: Peripheral pulses 2+ throughout GI: Palpation (GI): Soft to palpation Skin: Lesions: no lesions Rashes: no rashes Extrem: Other: Left hip Aquacel is c/d/i. Able to dorsi/plantar flex. NVI. 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 Quality Stroke Does the patient have a stroke diagnosis?: No VTE Prior VTE?: No VTE Risk Level:: Medical - moderate - high VTE Device Contraindication: N/A - Device Ordered VTE Drug Contraindication: N/A - Med Ordered
[2023-05-11] MEDS: Docusate Sodium 100 MG CAPSULE PO (19:35)
[2023-05-11 20:00] VITALS: BP 125/86; PULSE 72; RESP 18; TEMP 36.5; O2SAT 96
[2023-05-12] MEDS: Acetaminophen 325 MG TABLET 650 MG PO ×3 (00:35→15:58)
[2023-05-12] MEDS: HYDROmorphone HCl 0.5 MG/0.5 ML SYRINGE 0.25 MG IVPUSH ×5 (03:32→23:40)
[2023-05-12 03:38] VITALS: BP 113/69; PULSE 64; RESP 16; TEMP 36; O2SAT 94
[2023-05-12] MEDS: Omeprazole 20 MG CAPSULE.DR PO (05:34)
[2023-05-12] MEDS: oxyCODONE HCl Immed Release 5 MG TABLET 10 MG PO ×3 (05:44→15:58)
[2023-05-12] MEDS: oxyCODONE HCl ER 10 MG TAB.ER.12H PO ×2 (07:38→20:12)
[2023-05-12] MEDS: Aspirin 325 MG TABLET PO ×2 (07:38→20:12)
[2023-05-12 07:39] VITALS: RESP 19
[2023-05-12] MEDS: methADONE HCl 20 MG/2 ML ORAL.CONC 64 MG PO (07:39)
[2023-05-12] MEDS: Celecoxib 200 MG CAPSULE PO ×2 (07:39→20:12)
[2023-05-12] MEDS: 0.9 % Sodium Chloride Flush 3 ML SYRINGE IVFLUSH ×3 (07:40→20:13)
[2023-05-12] MEDS: vancomycin HCL 1,000 MG in 0.9 % Sodium Chloride 250 ML 270 MG IV (07:40)
[2023-05-12 07:42] LABS: Creatinine Clr Calc Pharmacy 109.5; Estimated Glomerular Filt Rate > 60
[2023-05-12 07:47] VITALS: BP 146/81; PULSE 64; RESP 18; TEMP 36.4; O2SAT 96
--- NOTE | 2023-05-12 09:34 | PM.PNORT ---
Subjective Subjective Date of Service: 05/12/23 Interval history: POD 7 s/p left total hip arthroplasty resection with antibiotic spacer. No overnight events. Resting in bed No additional complaints. Physical Exam Vital Signs: Vital Signs: Last Vital Signs Temp 97.6 F 05/12/23 07:47 Pulse 64 05/12/23 07:47 Resp 18 05/12/23 07:47 BP 146/81 H 05/12/23 07:47 Pulse Ox 96 05/12/23 07:47 O2 Del Method Room Air 05/12/23 07:47 O2 Flow Rate 2 05/05/23 18:20 BMI result Body Mass Index 27.5 Const: General: cooperative, healthy appearing and no acute distress Resp: Effort & Inspection: normal respiratory effort and able to speak in complete sentences Cardio: Rate: regular rate Peripheral pulses: Peripheral pulses 2+ throughout GI: Palpation (GI): Soft to palpation Skin: Lesions: no lesions Rashes: no rashes Extrem: Other: Left hip incision c/d/i. Able to dorsi/plantar flex. NVI. 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 Quality Stroke Does the patient have a stroke diagnosis?: No VTE Prior VTE?: No VTE Risk Level:: Medical - moderate - high VTE Device Contraindication: N/A - Device Ordered VTE Drug Contraindication: N/A - Med Ordered
--- NOTE | 2023-05-12 12:39 | MHC.CM.PN ---
Addendum entered by Leanna Corona 05/12/23 14:08: CTC has refaxed to [facility]. Latonya ANGUIANO confirms that the patient will be set for discharge tomorrow. Original Note: Methadone guest dosing has not been set up. Multiple calls to [facility] and [facility]. [facility] claims to have faxed Thursday. [facility] has not received the information. [facility] Wan[place] stated that she will fax again. [facility] is aware of the delay.
[2023-05-12 14:57] VITALS: RESP 19
[2023-05-12 15:20] LABS: Vancomycin Random 18.4 mcg/mL (15-20)
[2023-05-12] MEDS: vancomycin HCL 750 MG in 0.9 % Sodium Chloride 250 ML 265 MG IV ×2 (15:58→23:44)
[2023-05-12 16:00] VITALS: BP 113/82; PULSE 74; RESP 20; TEMP 36.1; O2SAT 97
[2023-05-12 19:28] VITALS: BP 134/71; PULSE 69; RESP 16; TEMP 36.6; O2SAT 93
[2023-05-13] MEDS: Acetaminophen 325 MG TABLET 650 MG PO ×2 (01:40→12:23)
[2023-05-13] MEDS: HYDROmorphone HCl 0.5 MG/0.5 ML SYRINGE 0.25 MG IVPUSH ×3 (03:47→15:58)
[2023-05-13 04:00] VITALS: BP 107/56; PULSE 66; RESP 18; TEMP 36.1; O2SAT 96
[2023-05-13] MEDS: Omeprazole 20 MG CAPSULE.DR PO (04:57)
[2023-05-13 06:33] LABS: Hematocrit 31.2 % (37.0-47.0); Hemoglobin 9.8 g/dl (12.0-16.0)
[2023-05-13] MEDS: oxyCODONE HCl Immed Release 5 MG TABLET 10 MG PO ×3 (06:50→18:26)
[2023-05-13 06:52] LABS: Creatinine Clr Calc Pharmacy 105.7; Estimated Glomerular Filt Rate > 60
[2023-05-13 07:20] VITALS: BP 139/69; PULSE 79; RESP 16; TEMP 36; O2SAT 97
[2023-05-13] MEDS: vancomycin HCL 750 MG in 0.9 % Sodium Chloride 250 ML 265 MG IV (07:46)
[2023-05-13] MEDS: methADONE HCl 20 MG/2 ML ORAL.CONC 64 MG PO (09:03)
[2023-05-13] MEDS: oxyCODONE HCl ER 10 MG TAB.ER.12H PO (09:06)
[2023-05-13] MEDS: Aspirin 325 MG TABLET PO (09:07)
[2023-05-13] MEDS: Docusate Sodium 100 MG CAPSULE PO (09:07)
[2023-05-13] MEDS: 0.9 % Sodium Chloride Flush 3 ML SYRINGE IVFLUSH (09:08)
[2023-05-13] MEDS: Celecoxib 200 MG CAPSULE PO (09:22)
--- NOTE | 2023-05-13 14:39 | MHC.CM.PN ---
Addendum entered by Leanna Corona 05/13/23 15:57: Insurance authorization has been received. Patient discharged today to [facility] for STR and IV ABX. She will transport via BLS. prop making supervisor at [facility] [place] scheduled for 6pm. Original Note: Patient has accepted a bed offer from [facility]. Methadone is set up for guest dosing with [facility]. Insurance authorization is pending. DP to [facility] via BLS.
--- NOTE | 2023-05-13 14:52 | HE.PHANOTE ---
RE: VANCO Patients level came back at 15. Increasing to 1000 mg Q8H. Patients next draw will be tomorrow 05/14 @1400. Predicted AUC 525
[2023-05-13 15:08] VITALS: BP 128/64; PULSE 57; RESP 16; TEMP 36.1; O2SAT 94
[2023-05-13] MEDS: vancomycin HCL 1,000 MG in 0.9 % Sodium Chloride 250 ML 270 MG IV (16:04)
[2023-05-13 17:00] VITALS: O2SAT 95
--- NOTE | 2023-05-18 14:32 | P.OP_ITS ---
Operative Note Operative Note Date of Service: 05/05/23 Narrative: Date of Service: 05/05/23 Pre-op diagnosis: Infected left hip prosthesis Post-op diagnosis: same Procedure: Resection arthroplasty left hip and placement of antibiotic spacer Implants: osteoremedy small long femoral componenet with 46 unipolar head Surgeon: Sam Callahan MD Anesthesia: GETA and local Was an Networking Technology Instructor used for this Procedure?: Yes Networking Technology Instructor: Daniella Aguirre Estimated blood loss (mL): 450 IV fluids (mL): 1,200 Pathology: other Condition: stable Disposition: PACU Procedure in detail: Patient was brought into the operating room and placed in the right lateral decubitus position. All bony prominences were well padded and the limb was prepped and draped in standard sterile fashion. A time-out was called to identify proper site procedure proper surgeon IV antibiotics and 1 g of transaxemic acid were administered. I began by making a curvilinear incision over the prior posterolateral incision. I extended this distally about 5 cm. Dissection was taken down to the tensor fascia which was incised in line with the incision and a Charnley retractor was placed. Cautery was used to maintain hemostasis. The hip was internally rotated and the prosthesis was identified. I slowly removed fibrous tissue and dislocated the head. The cup was mobile and this was removed along with the screw. There was abnormal looking tissue but given her long exposure to antibiotics cultures were not sent. I used a curette and copious irrigation to remove all necrotic debris and debride the acetabulum down to bleeding bone. Copious irrigation was employed. Once I felt that this area had been sufficiently debrided I then turned my attendion to the femur. The head was removed and I began dissecting around the femur. This was well fixed and a flexible osteotome was used circumferentially but I was unable to remove this easily. After considerable attempts to dislodge this I felt that an extended trochanteric osteotomy would best serve the patient and this was made with an osteotome from the base of the greater trochanter distally approximately 5 cm to the distal aspect of the stem. This allowed for excellent exposure and I removed the prosthesis. There was a fragmentation at the distal aspect of the osteotomy and poor bone quality. There was no obvious evidence of infection. Once this was removed I irrigated copiously and then sized to a small long osteo remedy prosthesis that bypassed the osteotomy site. I copiously irrigated about the femoral stem and canal and vancomycin impregnated cement was mixed on the back table. The temporary prosthesis was then implanted with a 46 femoral head that matched the size of the cup. Antibiotic impregnated bone cement was placed at the head neck junction and 4 cerclage wires were used to stabilize the osteotomy of the lateral femoral cortex. I was satisfied with the position of the bony fragments in the stability of the construct the wound was irrigated gently and closed with monofilament suture and roland. Patient was placed into a sterile dressing.Patient was extubated brought to the recovery room in stable condition. There were no known complications.
== END 2023-05-13 18:38 | disposition skilled nursing facility (03) | DRG 309 ==
LOC: HO.S3 17:19
PROVIDERS: Anesthesiology; Nurse Practitioner; Student in an Organized Health Care Education/Training Program; Admitting Provider Physician Assistant; PCP Internal Medicine; Visit Provider Orthopaedic Surgery
PROC: 0SPB0JZ Removal of Synthetic Substitute from Left Hip Joint, Open Approach (ICD-10-PCS; principal; 2023-05-05 14:20)
PROC: 02HV33Z Insertion of Infusion Device into Superior Vena Cava, Percutaneous Approach (ICD-10-PCS; principal; 2023-05-08 09:00)
DX: T84.52XA Infection and inflammatory reaction due to internal left hip prosthesis, initial encounter (principal); I96 Gangrene, not elsewhere classified; F11.20 Opioid dependence, uncomplicated; J44.9 Chronic obstructive pulmonary disease, unspecified; K21.9 Gastro-esophageal reflux disease without esophagitis; F17.210 Nicotine dependence, cigarettes, uncomplicated; Z71.6 Tobacco abuse counseling; Z79.899 Other long term (current) drug therapy
CPT/HCPCS: 36415; 36573; 72170; 80048; 80202; 80307; 82565; 85014; 85018; 85025; 85027; 86850; 86900; 86901; 86923; 87070; 87073; 87205; 94640; 97110; 97116; 97163; 97166; 97535; C1713; C1751; C1776; J0131; J1170; J2250; J2371; J2795; J3010; J3370; J3371; P9016

== ENCOUNTER → 2023-05-05 17:07 | Outpatient (BNV) | payer OTHER, SELFPAY | PROVIDERS: Admitting Provider Physician Assistant; PCP Internal Medicine; Visit Provider Physician Assistant | DX: T84.52XA Infection and inflammatory reaction due to internal left hip prosthesis, initial encounter (principal) | CPT/HCPCS: 99222 ==

== ENCOUNTER 2023-05-18 12:46 | Outpatient (AMB) | payer OTHER, SELFPAY ==
--- NOTE | 2023-05-18 12:50 | A.OFFVIS_ITS ---
Intake Vital Signs 05/18/23 12:54 Height 5 ft 4 in Weight 157 lb BMI 26.9 Intake Visit Reasons: PO Removal of LT hip prosthesis 05/05/23 NE Intake Note: Leanne is a 57 year old female who presents today for a post op appointment for a removal of left hip prosthesis on 05/05/23 NE. Patient reports her hip is feel better than before, no pain or discomfort. Patient having concerns of left ankle pain for 2 weeks. Allergies Penicillins Allergy (Verified 05/18/23 12:50) Rash HPI PO Removal of LT hip prosthesis 05/05/23 NE HPI Details 57-year-old female who returns to the [facility] today for post-op left hip prosthesis removal 05/05/[address] Callahan. She states she no pain and discomfort in her hip and reports having improvement in her pain since the surgery. She does c/o left ankle pain for about 2 weeks. She is doing well otherwise and has no concerns today. [facility] Medical History Raspy voice Bilateral knee pain COPD (chronic obstructive pulmonary disease) Left hand paresthesia Vitamin D deficiency Skull lesion Irritable bowel syndrome Insomnia GERD (gastroesophageal reflux disease) History of Helicobacter pylori infection Vitamin B12 deficiency Clostridium difficile infection Weight loss Epigastric pain Cocaine abuse Cannabis abuse Eczema Hepatitis B virus infection Migraine Osteoarthritis Polysubstance abuse Sinusitis Tobacco abuse disorder Cervical myelopathy Arthritis History of headache Numbness Asthma Anxiety Depression Surgical History History of bilateral knee arthroplasty History of hip replacement Hx of cervical spine surgery History of appendectomy H/O tubal ligation History of total left hip arthroplasty (03/16/08) Social History Household Members: Spouse Housing: Apartment Are you a primary workforce investment act career manager to a significant other at home: No Do you presently have visiting nurse or other home services: Yes Patient Tobacco Use Status: Current everyday Tobacco user Tobacco use type: Cigarette Cigarettes Per Day: 3 Second Hand Smoke Exposure: No service: No Review of Systems Const All systems reviewed & are unremarkable except as noted in HPI and below Physical Exam Vital Signs: BMI result Body Mass Index 26.9 Extrem Other: Left hip: Incision clean, dry and intact. No erythema or drainage around the incision. She does have some lower extremity swelling and calf pain. Foot is also cool to touch. She does appear to have good color. 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 She will continue to work on physical therapy and occupational therapy non weight bearing on the LLE. She will continue with her IV antibiotics and a stat US has been ordered for the LLE to evaluate for blood clots. She will see us back as planned. Orders: Orders US venous duplex LE LT Today R60.9 - Edema, unspecified Patient Instructions: Scribed for Daniella Aguirre PA-C, by Sung Abraham medical historian, on 05/18/2023 at 1:15 PM EST. I, Daniella Aguirre PA-C, have personally reviewed and agree with the information entered by the scribe. Coding Level of Care Code Global (72739) Diagnoses Acquired absence of left hip joint following removal of joint prosthesis with presence of antibiotic-impregnated cement spacer Z89.622 Laterality: left
[2023-05-18 12:54] VITALS: BMI 26.9
== END 2023-05-18 13:41 | disposition home or self-care (01) ==
PROVIDERS: PCP Internal Medicine; Visit Provider Physician Assistant
DX: T84.52XA Infection and inflammatory reaction due to internal left hip prosthesis, initial encounter (principal); Z89.622 Acquired absence of left hip joint
CPT/HCPCS: 99024

== ENCOUNTER → 2023-05-18 12:46 | Outpatient (BNVA) | payer OTHER, SELFPAY | PROVIDERS: PCP Internal Medicine; Visit Provider Physician Assistant ==

== ENCOUNTER 2023-05-18 14:15 | Outpatient (REF) | payer OTHER, SELFPAY ==
--- NOTE | ~2023-05-18 | US_ITS ---
EXAMINATION: US VENOUS ULTRASOUND WITH DOPPLER LOWER EXTREMITY, LEFT CLINICAL INFORMATION: Left lower extremity swelling and pain. COMPARISON: None available. TECHNIQUE: Ultrasound of the deep veins is performed from the hip to the calf with compression sonography and color and pulse Doppler assessment. Spectral analysis with color-flow imaging is performed. FINDINGS: There is normal venous compression and respiratory variation and augmented flow. The visualized common femoral vein, superficial femoral vein, profunda femoral vein, popliteal vein, and the trifurcation region shows no evidence of deep venous thrombosis. There is no significant popliteal fossa cyst. If the patient's symptoms persist, followup ultrasound in 5 days 7 days might be of value to exclude proximal propagation from a non-visualized calf vein. US/US venous duplex LE LT IMPRESSION: No DVT demonstrated in the left lower extremity.
== END 2023-05-18 14:16 | disposition home or self-care (01) ==
LOC: HO.US 14:15
PROVIDERS: PCP Internal Medicine; Visit Provider Physician Assistant
DX: R60.9 Edema, unspecified (principal)
CPT/HCPCS: 93971

== ENCOUNTER → 2023-05-29 13:56 | Outpatient (BNVA) | payer OTHER, SELFPAY | PROVIDERS: PCP Internal Medicine; Visit Provider Internal Medicine ==

== ENCOUNTER 2023-06-15 10:13 | Outpatient (REF) | payer OTHER, SELFPAY ==
--- NOTE | ~2023-06-15 | XR_ITS ---
EXAMINATION: XR HIP, LEFT CLINICAL INFORMATION: Hip pain. COMPARISON: Prior radiographs, most recently 05/05/2023. TECHNIQUE: AP and frog-leg lateral views of the left hip are submitted, together with a frontal view of the pelvis. FINDINGS: There is bony demineralization. There is a stable appearance of a left hip antibiotic spacer. As compared with 05/05/2023, the spacer is mildly migrated superiorly within the left acetabulum. Again, there is bony erosion of the left acetabular surfaces, with a mild protrusio defect. Cerclage wires are again applied to the proximal left femur. There is an intact right hip total arthroplasty. No hardware failure or loosening is seen. There is diminished left hip soft tissue postoperative gas. A tiny crescentic metallic foreign body is again seen in the lateral left upper thigh soft tissues. There is no foreign body. XR/XR hip LT w PEL1V IMPRESSION: There is mild interim cephalad migration of the antibiotic spacer within the eroded left acetabular joint space. This may be positional. The examination is otherwise stable. A mild protrusio defect is again seen of the left acetabulum.
== END 2023-06-15 10:14 | disposition home or self-care (01) ==
LOC: HO.HOSX 10:13
PROVIDERS: Visit Provider Physician Assistant
DX: M25.552 Pain in left hip (principal); Z89.622 Acquired absence of left hip joint
CPT/HCPCS: 73502

== ENCOUNTER 2023-06-15 13:08 | Outpatient (AMB) | payer OTHER, SELFPAY ==
--- NOTE | 2023-06-15 13:29 | A.OFFVIS_ITS ---
Intake Vital Signs 06/15/23 13:33 Height 5 ft 4 in Weight 177 lb BMI 30.4 Intake Visit Reasons: PO Removal of LT hip prosthesis 05/05/23 NE Intake Note: Leanne a 57 year old female presents today for a post operative removal of left hip prosthesis, DOS 05/05/23 NE. Patient reports she is doing well, states no pain. She has no concerns today. Allergies Penicillins Allergy (Verified 06/15/23 13:35) Rash HPI PO Removal of LT hip prosthesis 05/05/23 NE HPI Details 57-year-old female who [facility] post-op left hip prosthesis removal, 05/05/[address]ahan. She states she has no pain and is doing well overall. She has no concerns today. [facility] Medical History Raspy voice Bilateral knee pain COPD (chronic obstructive pulmonary disease) Left hand paresthesia Vitamin D deficiency Skull lesion Irritable bowel syndrome Insomnia GERD (gastroesophageal reflux disease) History of Helicobacter pylori infection Vitamin B12 deficiency Clostridium difficile infection Weight loss Epigastric pain Cocaine abuse Cannabis abuse Eczema Hepatitis B virus infection Migraine Osteoarthritis Polysubstance abuse Sinusitis Tobacco abuse disorder Cervical myelopathy Arthritis History of headache Numbness Asthma Anxiety Depression Surgical History History of total left hip arthroplasty History of bilateral knee arthroplasty History of hip replacement Hx of cervical spine surgery History of appendectomy H/O tubal ligation History of total left hip arthroplasty (03/16/08) Social History Household Members: Spouse Housing: Apartment Are you a primary career advisor to a significant other at home: No Do you presently have visiting nurse or other home services: Yes Patient Tobacco Use Status: Current everyday Tobacco user Tobacco use type: Cigarette Cigarettes Per Day: 3 Second Hand Smoke Exposure: No service: No Review of Systems Const All systems reviewed & are unremarkable except as noted in HPI and below Physical Exam Vital Signs: BMI result Body Mass Index 30.4 Const General: cooperative and no acute distress Orientation/consciousness: patient oriented x3 Resp Effort & Inspection: normal respiratory effort and able to speak in complete sentences Cardio Peripheral pulses: Peripheral pulses 2+ throughout Neuro General: patient oriented x3 Extrem Other: Left hip: incision well healed. No erythema or drainage around the incision. calf supple, non tender. NVI. Results Reviewed Results Reviewed: Xrays were obtained in the office today and personally reviewed by me of the left hip show intact prosthesis( spacer) with hardware. 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 Callahan was available to see the patient with me today. Her pickline can be removed at the rehab. She should obtain labs for CBC with differential, ESR and CRP while at rehab. A prescription of clindamycin 300 mg QID for 6 weeks was sent to her pharmacy. I also asked that the rehab facility start her on this while she is there. She will continue to remain non weight bearing on the LLE for the next 2 months and see us back in 6 weeks for a follow-up, sooner if needed. Orders: Orders XR hip LT w PEL1V Today M25.559 - Pain in unspecified hip Medications: New clindamycin HCl 300 mg PO QID 168 caps 0RF 6 weeks Patient Instructions: Scribed for Daniella Aguirre PA-C, by Sung Abraham medical pathologist, on 06/15/2023 at 1:30 PM EST. I, Daniella Aguirre PA-C, have personally reviewed and agree with the information entered by the scribe. Coding Level of Care Code Global (76900) Diagnoses Acquired absence of left hip joint following removal of joint prosthesis with presence of antibiotic-impregnated cement spacer Z89.622 Laterality: left
[2023-06-15 13:33] VITALS: BMI 30.4
== END 2023-06-15 14:20 | disposition home or self-care (01) ==
PROVIDERS: PCP Internal Medicine; Visit Provider Physician Assistant
DX: Z89.622 Acquired absence of left hip joint (principal)
CPT/HCPCS: 99024

== ENCOUNTER 2023-07-27 10:18 | Outpatient (AMB) | payer OTHER, SELFPAY ==
--- NOTE | 2023-07-27 10:19 | MHC.OFFVIS ---
Intake Vital Signs 07/27/23 10:19 Height 5 ft 4 in Intake Visit Reasons: PO Removal of LT hip prosthesis 05/05/23 NE Intake Note: Leanne is a 57 year old female who presents today for a post op appointment for a removal of left hip prosthesis on 05/05/23 NE. Allergies Penicillins Allergy (Verified 06/15/23 13:35) Rash HPI PO Removal of LT hip prosthesis 05/05/23 NE HPI Details Leanne is a 57 year old woman ~3 months S/P left hip removal of prosthesis. She states she is doing well with no new complaints and no pain at rest. 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 Raspy voice Bilateral knee pain COPD (chronic obstructive pulmonary disease) Left hand paresthesia Vitamin D deficiency Skull lesion Irritable bowel syndrome Insomnia GERD (gastroesophageal reflux disease) History of Helicobacter pylori infection Vitamin B12 deficiency Clostridium difficile infection Weight loss Epigastric pain Cocaine abuse Cannabis abuse Eczema Hepatitis B virus infection Migraine Osteoarthritis Polysubstance abuse Sinusitis Tobacco abuse disorder Cervical myelopathy Arthritis History of headache Numbness Asthma Anxiety Depression Surgical History (Updated 07/27/23 @ 10:20 by Cecy King CMA) History of total left hip arthroplasty History of bilateral knee arthroplasty History of hip replacement Hx of cervical spine surgery History of appendectomy H/O tubal ligation Social History Household Members: Spouse Housing: Apartment Are you a primary wound care specialist to a significant other at home: No Do you presently have visiting nurse or other home services: Yes Patient Tobacco Use Status: Current everyday Tobacco user Tobacco use type: Cigarette Cigarettes Per Day: 3 Second Hand Smoke Exposure: No service: No Review of Systems Const All systems reviewed & are unremarkable except as noted in HPI and below Physical Exam Const General: no acute distress, alert and awake Orientation/consciousness: patient oriented x3 HEENT Head: Yes normocephalic and Yes atraumatic Eyes EOM: EOMs intact bilaterally Resp Effort & Inspection: normal respiratory effort and able to speak in complete sentences Cardio Jugular venous distension: no JVD Skin General skin exam: turgor normal Rashes: no rashes Neuro General: patient oriented x3 Extrem Other: inc c/d/i Psych Appearance: grossly normal Affect: normal affect Attitude: cooperative Assessment & Plan Assessment & Plan (1) 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 prosthesis with presence of antibiotic-impregnated cement spacer: Code(s): Z89.629 - Acquired absence of unspecified hip joint Qualifiers: Laterality: left Qualified Code(s): Z89.622 - Acquired absence of left hip joint Plan: Needs to stop clinda po and obtain ESR and CRP in 2 weeks Orders: Orders C Reactive Protein Today Z89.629 - Acquired absence of unspecified hip joint Erythrocyte Sedimentation Rate Today Z89.629 - Acquired absence of unspecified hip joint Coding Level of Care Code Global (03262) Diagnoses Acquired absence of left hip joint following removal of joint prosthesis with presence of antibiotic-impregnated cement spacer Z89.622 Laterality: left
== END 2023-07-27 11:20 | disposition home or self-care (01) ==
PROVIDERS: PCP Internal Medicine; Visit Provider Orthopaedic Surgery
DX: Z89.622 Acquired absence of left hip joint (principal)
CPT/HCPCS: 99024

== ENCOUNTER → 2023-07-27 10:18 | Outpatient (BNVA) | payer OTHER, SELFPAY | PROVIDERS: PCP Internal Medicine; Visit Provider Orthopaedic Surgery | DX: Z47.89 Encounter for other orthopedic aftercare (principal); Z89.622 Acquired absence of left hip joint | CPT/HCPCS: 99212 ==

== ENCOUNTER 2023-08-10 09:23 | Outpatient (REF) | payer OTHER, SELFPAY ==
[2023-08-10 11:01] LABS: C Reactive Protein 1.96 mg/dL (< or = 0.50)
[2023-08-10 11:42] LABS: Erythrocyte Sedimentation Rate 17 MM/HR (0-20)
== END 2023-08-10 09:24 | disposition home or self-care (01) ==
LOC: HO.10HDL 09:23
PROVIDERS: Visit Provider Orthopaedic Surgery
DX: Z89.622 Acquired absence of left hip joint (principal)
CPT/HCPCS: 36415; 85652; 86140

== ENCOUNTER 2023-09-24 08:39 | Outpatient (REF) | payer OTHER, SELFPAY ==
[2023-09-24 09:51] LABS: Erythrocyte Sedimentation Rate 10 MM/HR (0-20)
[2023-09-24 10:05] LABS: C Reactive Protein 0.47 mg/dL (< or = 0.50)
== END 2023-09-24 08:40 | disposition home or self-care (01) ==
LOC: HO.LAB 08:39
PROVIDERS: Visit Provider Orthopaedic Surgery
DX: I10 Essential (primary) hypertension (principal); Z89.622 Acquired absence of left hip joint
CPT/HCPCS: 36415; 85652; 86140

== ENCOUNTER 2023-09-28 07:22 | Outpatient (REF) | payer OTHER, SELFPAY ==
--- NOTE | ~2023-09-28 | XR_ITS ---
EXAMINATION: Left Hip and pelvis x-ray. CLINICAL INFORMATION: Left hip pain. COMPARISON: Left hip x-rays on 06/15/2023. TECHNIQUE: Frontal x-ray of the pelvis, Frontal and Crosstable lateral x-rays of left hip. FINDINGS: BONES: Persistent marked fragmentation of left femoral greater trochanter and lateral proximal femoral shaft with superior migration, mild left acetabular protrusio are seen. Curved left femoral head and neck intramedullary gamma nail extending to left femoral head and neck, left femoral head prosthesis, proximal left femoral shaft cerclage wire loops are again visualized. There is no focal bone destruction or periosteal reaction seen. JOINTS: There is normal alignment of right total hip arthroplasty prostheses. SOFT TISSUE: Soft tissue is normal. No radiopaque foreign body or abnormal air collection is seen. XR/XR hip LT 1V IMPRESSION: 1. Unchanged intact right hip arthroplasty prostheses. 2. Persistent marked fragmentation of the left femoral greater trochanter and lateral proximal femoral shaft with superior migration of the greater trochanter and proximal femur fragments, internal fixation with left femoral head and neck gamma nail, femoral head prosthesis, mild left acetabular protrusio, unchanged since 06/15/2023.
--- NOTE | ~2023-09-28 | XR_ITS ---
EXAMINATION: Left Hip and pelvis x-ray. CLINICAL INFORMATION: Left hip pain. COMPARISON: Left hip x-rays on 06/15/2023. TECHNIQUE: Frontal x-ray of the pelvis, Frontal and Crosstable lateral x-rays of left hip. FINDINGS: BONES: Persistent marked fragmentation of left femoral greater trochanter and lateral proximal femoral shaft with superior migration, mild left acetabular protrusio are seen. Curved left femoral head and neck intramedullary gamma nail extending to left femoral head and neck, left femoral head prosthesis, proximal left femoral shaft cerclage wire loops are again visualized. There is no focal bone destruction or periosteal reaction seen. JOINTS: There is normal alignment of right total hip arthroplasty prostheses. SOFT TISSUE: Soft tissue is normal. No radiopaque foreign body or abnormal air collection is seen. XR/XR pelvis 1-2V IMPRESSION: 1. Unchanged intact right hip arthroplasty prostheses. 2. Persistent marked fragmentation of the left femoral greater trochanter and lateral proximal femoral shaft with superior migration of the greater trochanter and proximal femur fragments, internal fixation with left femoral head and neck gamma nail, femoral head prosthesis, mild left acetabular protrusio, unchanged since 06/15/2023.
== END 2023-09-28 07:23 | disposition home or self-care (01) ==
LOC: HO.HOSX 07:22
PROVIDERS: Visit Provider Orthopaedic Surgery
DX: M25.552 Pain in left hip (principal); Z89.622 Acquired absence of left hip joint
CPT/HCPCS: 72170; 73501; 99212

== ENCOUNTER 2023-09-28 10:17 | Outpatient (AMB) | payer OTHER, SELFPAY ==
--- NOTE | 2023-09-28 10:19 | MHC.OFFVIS ---
Intake Intake Visit Reasons: OV - Lab Review Intake Note: Leanne is a 57 year old female who presents today for a post op appointment for a removal of left hip prosthesis on 05/05/23 NE. Today we are reviewing completed labs Allergies Penicillins Allergy (Verified 06/15/23 13:35) Rash HPI OV - Lab Review HPI Details Leanne is a 58 year old woman ~5 months S/P left hip removal of prosthesis. She states she is doing well overall. She is here to discuss her labwork results. 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 Raspy voice Bilateral knee pain COPD (chronic obstructive pulmonary disease) Left hand paresthesia Vitamin D deficiency Skull lesion Irritable bowel syndrome Insomnia GERD (gastroesophageal reflux disease) History of Helicobacter pylori infection Vitamin B12 deficiency Clostridium difficile infection Weight loss Epigastric pain Cocaine abuse Cannabis abuse Eczema Hepatitis B virus infection Migraine Osteoarthritis Polysubstance abuse Sinusitis Tobacco abuse disorder Cervical myelopathy Arthritis History of headache Numbness Asthma Anxiety Depression Surgical History (Updated 07/27/23 @ 10:20 by Cecy King CMA) History of total left hip arthroplasty History of bilateral knee arthroplasty History of hip replacement Hx of cervical spine surgery History of appendectomy H/O tubal ligation Social History Household Members: Spouse Housing: Apartment Are you a primary critical care physician assistant to a significant other at home: No Do you presently have visiting nurse or other home services: Yes Patient Tobacco Use Status: Current everyday Tobacco user Tobacco use type: Cigarette Cigarettes Per Day: 3 Second Hand Smoke Exposure: No service: No Review of Systems Const All systems reviewed & are unremarkable except as noted in HPI and below Physical Exam Const General: no acute distress, alert and awake Orientation/consciousness: patient oriented x3 HEENT Head: Yes normocephalic and Yes atraumatic Eyes EOM: EOMs intact bilaterally Resp Effort & Inspection: normal respiratory effort and able to speak in complete sentences Cardio Jugular venous distension: no JVD Skin General skin exam: turgor normal Rashes: no rashes Neuro General: patient oriented x3 Extrem Other: no pain with hip ROM inc c/d/i Psych Appearance: grossly normal Affect: normal affect Attitude: cooperative Results Reviewed Results Reviewed: I personally reviewed relevant radiographs. Spacer in expected position. The greater trochanter is displaced and there is fragmentation. 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 Orders: Orders XR pelvis 1-2V 09/28/23 M25.559 - Pain in unspecified hip XR hip LT 1V 09/28/23 M25.552 - Pain in left hip Coding Level of Care Code Est Pt Level 3 (12672) Diagnoses Acquired absence of left hip joint following removal of joint prosthesis with presence of antibiotic-impregnated cement spacer Z89.622 Laterality: left
== END 2023-09-28 11:01 | disposition home or self-care (01) ==
PROVIDERS: PCP Internal Medicine; Visit Provider Orthopaedic Surgery
DX: S72.111A Displaced fracture of greater trochanter of right femur, initial encounter for closed fracture (principal); Z89.622 Acquired absence of left hip joint
CPT/HCPCS: 99213

== ENCOUNTER 2023-10-06 08:51 | Day surgery (SDC) | payer OTHER, SELFPAY ==
--- NOTE | 2023-10-05 09:31 | HO.ANESPROP2 ---
Documented by User: Destiny Martin NP 10/05/23 09:36 HPI - Anesthesia Eval Consult details Narrative: 58yo F for Left Hip Aspiration s/p L YVONNE with antibiotic spacer 04/2023 with GA-ETT 7 (elective use of ProVu d/t hx c-spine surgery) Methadone daily with hx polysub. 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 with presence of antibiotic-impregnated cement spacer (Acute) Past Medical History Medical History Infected prosthesis of left hip 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 Raspy voice Bilateral knee pain COPD (chronic obstructive pulmonary disease) Left hand paresthesia Vitamin D deficiency Skull lesion Irritable bowel syndrome Insomnia GERD (gastroesophageal reflux disease) History of Helicobacter pylori infection Vitamin B12 deficiency Clostridium difficile infection Weight loss Epigastric pain Cocaine abuse Cannabis abuse Eczema Hepatitis B virus infection Migraine Osteoarthritis Polysubstance abuse Sinusitis Tobacco abuse disorder Cervical myelopathy Arthritis History of headache Numbness Asthma Anxiety Depression Family History Family history of problems with anesthesia: No Surgical History Surgical History (Updated 07/27/23 @ 10:20 by Cecy King CMA) History of total left hip arthroplasty History of bilateral knee arthroplasty History of hip replacement Hx of cervical spine surgery History of appendectomy H/O tubal ligation History of Problems with Anesthesia: No Social History Social History Household Members: Spouse Housing: Apartment Are you a primary child care lead teacher to a significant other at home: No Do you presently have visiting nurse or other home services: Yes Patient Tobacco Use Status: Current everyday Tobacco user Tobacco use type: Cigarette Cigarettes Per Day: 3 Second Hand Smoke Exposure: No Use of substances other than those prescribed or required for medical reasons: Yes Are you DNR?: No Advance Directives: No Advance Directives Information Provided: Yes service: No Meds Allergies Allergy/AdvReac Type Severity Reaction Status Date / Time Penicillins Allergy Rash Verified 06/15/23 13:35 Home Medications Medication Instructions Recorded Confirmed Last Taken Type albuterol sulfate 90 mcg/actuation 2 puff inhalation QID PRN wheezing 05/23/22 05/05/23 Unknown History aerosol inhaler (ProAir HFA) omeprazole 20 mg capsule,delayed 20 mg PO DAILY 05/23/22 10/06/23 10/06/23 History release cholecalciferol (vitamin D3) 50 50 mcg PO DAILY 04/20/23 05/05/23 Unknown History mcg (2,000 unit) tablet cyanocobalamin (vitamin B-12) 500 500 mcg PO DAILY 04/20/23 05/05/23 Unknown History mcg tablet loratadine 10 mg tablet 10 mg PO DAILY PRN allergies 04/20/23 05/05/23 Unknown History tizanidine 4 mg tablet 4 mg PO Q8H PRN muscle spasm 04/20/23 05/05/23 Unknown History Exam Pertinent Lab Results Pertinent Lab Results: Laboratory Tests 05/08/23 05/08/23 05/08/23 05:56 05:56 05:56 WBC 8.2 Hgb Hct Plt Count 170 Sodium 140 Potassium 3.3 Chloride 110 H Carbon Dioxide 23 BUN 7 L Creatinine 05/13/23 05/13/23 05:52 05:54 WBC Hgb 9.8 L Hct 31.2 L Plt Count Sodium Potassium Chloride Carbon Dioxide BUN Creatinine 0.58 Narrative Narrative: EKG 03/2023 Vent. Rate : 042 BPM ? ? Atrial Rate : 042 BPM ?? P-R Int : 132 ms? QRS Dur : 086 ms ? ? QT Int : 512 ms ? ? ? P-R-T Axes : 055 050 046 degrees ?? QTc Int : 427 ms ? Marked sinus bradycardia Possible Left atrial enlargement Abnormal ECG No previous ECGs available Assessment and Plan Assessment Anesthesia Assessment: Chart Reviewed Final Anesthetic Review Family History of Problems with Anesthesia: No History of Problems with Anesthesia: No Documented by User: Lam Terrazas MD 10/06/23 10:11 PMF Past Medical History Medical History Infected prosthesis of left hip 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 Raspy voice Bilateral knee pain COPD (chronic obstructive pulmonary disease) Left hand paresthesia Vitamin D deficiency Skull lesion Irritable bowel syndrome Insomnia GERD (gastroesophageal reflux disease) History of Helicobacter pylori infection Vitamin B12 deficiency Clostridium difficile infection Weight loss Epigastric pain Cocaine abuse Cannabis abuse Eczema Hepatitis B virus infection Migraine Osteoarthritis Polysubstance abuse Sinusitis Tobacco abuse disorder Cervical myelopathy Arthritis History of headache Numbness Asthma Anxiety Depression Surgical History Surgical History (Updated 07/27/23 @ 10:20 by Cecy King CMA) History of total left hip arthroplasty History of bilateral knee arthroplasty History of hip replacement Hx of cervical spine surgery History of appendectomy H/O tubal ligation Social History Social History Household Members: Spouse Housing: Apartment Are you a primary child care lead teacher to a significant other at home: No Do you presently have visiting nurse or other home services: Yes Patient Tobacco Use Status: Current everyday Tobacco user Tobacco use type: Cigarette Cigarettes Per Day: 3 Second Hand Smoke Exposure: No Use of substances other than those prescribed or required for medical reasons: Yes Are you DNR?: No Advance Directives: No Advance Directives Information Provided: Yes service: No Meds Allergies Allergy/AdvReac Type Severity Reaction Status Date / Time Penicillins Allergy Rash Verified 06/15/23 13:35 Home Medications Medication Instructions Recorded Confirmed Last Taken Type albuterol sulfate 90 mcg/actuation 2 puff inhalation QID PRN wheezing 05/23/22 05/05/23 Unknown History aerosol inhaler (ProAir HFA) omeprazole 20 mg capsule,delayed 20 mg PO DAILY 05/23/22 10/06/23 10/06/23 History release cholecalciferol (vitamin D3) 50 50 mcg PO DAILY 04/20/23 05/05/23 Unknown History mcg (2,000 unit) tablet cyanocobalamin (vitamin B-12) 500 500 mcg PO DAILY 04/20/23 05/05/23 Unknown History mcg tablet loratadine 10 mg tablet 10 mg PO DAILY PRN allergies 04/20/23 05/05/23 Unknown History tizanidine 4 mg tablet 4 mg PO Q8H PRN muscle spasm 04/20/23 05/05/23 Unknown History Exam Airway Mallampati Class: I TM Dist: >3cm Neck ROM: Full Loose/Missing/Broken Teeth: Yes Assessment and Plan Assessment Anesthesia Assessment: Anesthesia Plan Discussed Final Anesthetic Review NPO: Yes ASA Class: III Final Preanesthetic Review: No Changes in Pt Med Stat, Meds/Allgs Chart Reviewed, Consent Obtained/Reviewed and Anes Risks/Benef Reviewed Patient Risk: Intermediate Procedure Risk: Low Anesthetic Plan Anesthetic Plan: MAC: Disposition: Standard PACU
--- NOTE | ~2023-10-06 | FL_ITS ---
EXAMINATION: XR FLUOROSCOPY WITH IMAGES CLINICAL INFORMATION: Left hip aspiration. COMPARISON: Left hip radiographs 09/28/2023. TECHNIQUE: Fluoroscopy Supervised By: Dr. Callahan. Fluoroscopy Time: 0.2 minutes. Cumulative Dose: 3.78 mGy. DAP: 0.0657 Gycm2. Images: 4. FINDINGS: Fluoroscopic guidance was provided for procedure. Total hip prosthesis partially imaged. A catheter projects at the level of the femoral neck/hip. Please refer to operative report for more detailed evaluation. FL/FL guidance in OR IMPRESSION: Fluoroscopic guidance was provided for procedure.
[2023-10-06 09:44] VITALS: BP 111/62; PULSE 46; RESP 16; TEMP 36.4; O2SAT 96
[2023-10-06 09:47] VITALS: BMI 27.1
[2023-10-06] MEDS: Lactated Ringers 1,000 ML 100 ML IVCONT (10:27)
--- NOTE | 2023-10-06 10:27 | MHC.SHP ---
Pre-Procedural Eval Section A - 24 Hr Update-Section A only Date of Service: 10/06/23 The patient is an INPATIENT: No Changes since office visit: No Cold of Flu in the past 2 weeks, No New Medical Problems, No Changes in Medication and No Patient answered all questions The patient has been examined within 24 hours of the surgical procedure. The History & Physical has been completed within 30 days and I have reviewed it.: Yes Section B - Complete if H&P > 30 days Chief Complaint: Effusion, left hip Allergies: Allergies Allergy/AdvReac Type Severity Reaction Status Date / Time Penicillins Allergy Rash Verified 06/15/23 13:35 Plan I have reviewed the history and physical and performed a pertinent physical examination on my patient. No changes have occurred unless specified. Time Spent With Patient Time: Total time managing care of this patient today ____ minutes.
--- NOTE | 2023-10-06 11:06 | PM.OP ---
Brief Operative Note Date of Service: 10/06/23 Pre-op diagnosis: Infected left hip prosthesis Post-op diagnosis: same Procedure: Aspiration left hip Surgeon: Sam Callahan MD Anesthesia: GLMA and local Was an Lighting Director used for this Procedure?: No Estimated blood loss (mL): 1 IV fluids (mL): 500 Pathology: other Condition: stable Disposition: PACU
[2023-10-06 11:13] VITALS: BP 92/49; PULSE 63; RESP 10; TEMP 36.4; O2SAT 97
[2023-10-06 11:28] VITALS: BP 120/71; PULSE 59; RESP 12; O2SAT 96
[2023-10-06 11:43] VITALS: BP 136/72; PULSE 59; RESP 12; O2SAT 95
[2023-10-06 11:58] VITALS: BP 141/76; PULSE 48; RESP 14; O2SAT 95
[2023-10-06 12:13] VITALS: BP 144/82; PULSE 53; RESP 14; TEMP 36.3; O2SAT 96
[2023-10-06 12:14] LABS: MN% 42.7 %; PMN% 57.3 %; RBC Synovial Fluid 1.979 X10*6/uL; WBC Synovial Fluid 2.026 X10*3/uL
[2023-10-06 14:59] LABS: BF Shift QC OK YES; Lymphocytes Synovial Fluid 38 %; Man Diluent Bkgrd OK YES; Monocytes Synovial Fluid 1 %; Neutrophils Synovial Fluid 61 %
--- NOTE | 2023-10-07 08:27 | W.PM.OPN ---
Operative Note Operative Note Date of Service: 10/06/23 Narrative: Date of Service: 10/06/23 Pre-op diagnosis: Infected left hip prosthesis Post-op diagnosis: same Procedure: Aspiration left hip Surgeon: Sam Callahan MD Anesthesia: GLMA and local Was an Director Investment Banking used for this Procedure?: No Estimated blood loss (mL): 1 IV fluids (mL): 500 Pathology: other Condition: stable Disposition: PACU Patient was brought to the operating room and placed supine on the surgical table. She was prepped and draped in standard sterile fashion and a time out was called to identify proper site, proper procedure and IV antibiotics were NOT administered. I injected ~10 ml 0.5% marcaine and , using an 18g spinal needle aspirated ~10-12 ml of serosanguinous fluid from the hip. a start site inferior and lateral to the ASIS was used. Fluoro was used to confirm the location of the needle and subsequent aspiration. Once satisfied with the amount of aspirate a band-aid was placed and the patient was awakened from anesthesia and brought to the recovery room is stable condition. There were no known complications.
== END 2023-10-06 12:50 | disposition home or self-care (01) ==
PROVIDERS: Physician Assistant; PCP Internal Medicine; Visit Provider Orthopaedic Surgery
PROC: (CPT 20610; principal; 2023-10-06 11:10)
DX: T84.52XA Infection and inflammatory reaction due to internal left hip prosthesis, initial encounter (principal); Y79.2 Prosthetic and other implants, materials and accessory orthopedic devices associated with adverse incidents; M25.452 Effusion, left hip; M25.552 Pain in left hip; Z96.642 Presence of left artificial hip joint; Z89.622 Acquired absence of left hip joint; Z86.19 Personal history of other infectious and parasitic diseases; J44.9 Chronic obstructive pulmonary disease, unspecified; Z79.899 Other long term (current) drug therapy; F11.20 Opioid dependence, uncomplicated; F17.210 Nicotine dependence, cigarettes, uncomplicated; F10.11 Alcohol abuse, in remission; F14.11 Cocaine abuse, in remission; F12.11 Cannabis abuse, in remission; Z88.0 Allergy status to penicillin
CPT/HCPCS: 20610; 87070; 87073; 87205; 89051; J2250; J2704; J2795; J3010

== ENCOUNTER → 2023-10-06 08:51 | Outpatient (BNV) | payer OTHER, SELFPAY | PROVIDERS: PCP Internal Medicine; Visit Provider Orthopaedic Surgery | DX: T84.52XA Infection and inflammatory reaction due to internal left hip prosthesis, initial encounter (principal) | CPT/HCPCS: 20610; 77002 ==

== ENCOUNTER 2023-11-05 09:10 | Outpatient (REF) | payer OTHER, SELFPAY ==
--- NOTE | ~2023-11-05 | XR_ITS ---
EXAMINATION: XR PELVIS AND BILATERAL HIPS CLINICAL INFORMATION: Pain in unspecified hip. COMPARISON: 09/28/2023 radiographs and prior. TECHNIQUE: 2 AP views of the pelvis to include bilateral hips. Frog lateral views and AP views of each hip. FINDINGS: Redemonstration of right total hip arthroplasty prosthesis. Hardware appears stable. Degenerative changes in the imaged lower lumbar spine. Mild degenerative changes in the bilateral sacroiliac joints. Redemonstration of left femoral head and neck prosthesis and nail with proximal left femoral shaft cerclage wire. Persistent marked fragmentation of the left femoral greater trochanter and proximal lateral femoral shaft with superior migration and left acetabular protrusio, as previously noted. XR/XR hip LT w PEL1V Impression: 1. Redemonstration of right total hip arthroplasty prosthesis. Hardware appears stable. 2. Redemonstration of left femoral head and neck prosthesis and nail with proximal left femoral shaft cerclage wire. Persistent marked fragmentation of the left femoral greater trochanter and proximal lateral femoral shaft with superior migration and left acetabular protrusio, as previously noted. There is increased associated sclerosis.
== END 2023-11-05 09:11 | disposition home or self-care (01) ==
LOC: HO.HOSX 09:10
PROVIDERS: Visit Provider Physician Assistant
DX: Z01.818 Encounter for other preprocedural examination (principal); M25.552 Pain in left hip; Z89.622 Acquired absence of left hip joint
CPT/HCPCS: 73502; 99212

== ENCOUNTER 2023-11-05 09:30 | Outpatient (AMB) | payer OTHER, SELFPAY ==
--- NOTE | 2023-11-05 10:36 | MHC.OFFVIS ---
Intake Intake Visit Reasons: Pre-Op Lt TH revision/arthroplasty 11/09 NE Intake Note: Leanne a 58 year old male presents today for a preoperative left TH revision/arthroplasty on 11/10/23 NE. Pain management agreement reviewed and signed. Patient is concerns of lump on the lateral aspect of thigh that is tender and painful. Patient reports she is not taking any medication by PO. Allergies Penicillins Allergy (Verified 11/05/23 10:52) Rash HPI HPI Comments History of Present Illness Details Ms Back presents to the office today for preop visit. She is scheduled for revision Left total hip revision arthroplasty with Dr. Callahan. She continues to have ongoing pain and difficulty with ambulation in the Left hip, which is affecting her quality of life; therefore, she has elected to move forward with surgery. [facility] Medical History Back pain Bradycardia Infected prosthesis of left hip Raspy voice Bilateral knee pain COPD (chronic obstructive pulmonary disease) Left hand paresthesia Vitamin D deficiency Skull lesion Irritable bowel syndrome Insomnia GERD (gastroesophageal reflux disease) History of Helicobacter pylori infection Vitamin B12 deficiency Clostridium difficile infection Weight loss Epigastric pain Cocaine abuse Cannabis abuse Eczema Hepatitis B virus infection Migraine Osteoarthritis Polysubstance abuse Sinusitis Tobacco abuse disorder Cervical myelopathy Arthritis History of headache Numbness Asthma 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 Anxiety Depression Surgical History H/O colonoscopy History of bilateral knee arthroplasty History of hip replacement Hx of cervical spine surgery History of appendectomy H/O tubal ligation History of total left hip arthroplasty Social History Household Members: Spouse Housing: Apartment Are you a primary resident care assistant to a significant other at home: No Do you 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 have 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) Patient Tobacco Use Status: Current everyday Tobacco user Tobacco use type: Cigarette Cigarettes Per Day: 3 Second Hand Smoke Exposure: No service: No Review of Systems Const All systems reviewed & are unremarkable except as noted in HPI and below Physical Exam Const General: cooperative and no acute distress Orientation/consciousness: patient oriented x3 HEENT Head: Yes normal to inspection, Yes normocephalic and Yes atraumatic Eyes General: appearance normal, both eyes and all related structures Neck Neck: Yes normal visual inspection and Yes no lymphadenopathy Resp Effort & Inspection: normal respiratory effort and able to speak in complete sentences Cardio Rate: regular rate Peripheral pulses: Peripheral pulses 2+ throughout GI Inspection: Yes normal to inspection Palpation (GI): Soft to palpation Skin General skin exam: no rashes or lesions noted Neuro General: patient oriented x3 Extrem Other: Left hip: incision well healed. Pain and limited rom of the hip. calf supple, non tender. NVI. 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 We discussed the risks, benefits and alternatives to the surgery as well as the rehabilitation course. The risks; which include, but are not limited to infection, bleeding, nerve injury, ongoing pain, swelling, and stiffness, perioperative risk of injury to bones and soft tissues, and blood clots. I?ve answered all questions and with their understanding they have consented to move forward with Left total hip revision arthroplasty with Dr. Callahan Orders: Orders XR hip LT w PEL1V Today M25.559 - Pain in unspecified hip Patient Instructions: Scribed for Daniella Aguirre PA-C, by Sung Abraham medical collections specialist, on 11/05/2023 at 10:45 AM LAURA. Daniella Salcedo PA-C, have personally reviewed and agree with the information entered by the scribe. Coding Level of Care Code Est Pt Level 3 (37881) Diagnoses Acquired absence of left hip joint following removal of joint prosthesis with presence of antibiotic-impregnated cement spacer Z89.622 Laterality: left
== END 2023-11-05 12:01 | disposition home or self-care (01) ==
PROVIDERS: PCP Internal Medicine; Visit Provider Physician Assistant
DX: Z89.622 Acquired absence of left hip joint (principal)
CPT/HCPCS: 99024

== ENCOUNTER 2023-11-09 10:53 | Outpatient (REF) | payer OTHER, SELFPAY ==
--- NOTE | ~2023-11-09 | XR_ITS ---
EXAMINATION: XR PELVIS AND BILATERAL HIPS CLINICAL INFORMATION: Pain in unspecified hip. COMPARISON: 09/28/2023 radiographs and prior. TECHNIQUE: 2 AP views of the pelvis to include bilateral hips. Frog lateral views and AP views of each hip. FINDINGS: Redemonstration of right total hip arthroplasty prosthesis. Hardware appears stable. Degenerative changes in the imaged lower lumbar spine. Mild degenerative changes in the bilateral sacroiliac joints. Redemonstration of left femoral head and neck prosthesis and nail with proximal left femoral shaft cerclage wire. Persistent marked fragmentation of the left femoral greater trochanter and proximal lateral femoral shaft with superior migration and left acetabular protrusio, as previously noted. XR/XR pelvis 1-2V Impression: 1. Redemonstration of right total hip arthroplasty prosthesis. Hardware appears stable. 2. Redemonstration of left femoral head and neck prosthesis and nail with proximal left femoral shaft cerclage wire. Persistent marked fragmentation of the left femoral greater trochanter and proximal lateral femoral shaft with superior migration and left acetabular protrusio, as previously noted. There is increased associated sclerosis.
--- NOTE | ~2023-11-09 | XR_ITS ---
EXAMINATION: XR PELVIS AND BILATERAL HIPS CLINICAL INFORMATION: Pain in unspecified hip. COMPARISON: 09/28/2023 radiographs and prior. TECHNIQUE: 2 AP views of the pelvis to include bilateral hips. Frog lateral views and AP views of each hip. FINDINGS: Redemonstration of right total hip arthroplasty prosthesis. Hardware appears stable. Degenerative changes in the imaged lower lumbar spine. Mild degenerative changes in the bilateral sacroiliac joints. Redemonstration of left femoral head and neck prosthesis and nail with proximal left femoral shaft cerclage wire. Persistent marked fragmentation of the left femoral greater trochanter and proximal lateral femoral shaft with superior migration and left acetabular protrusio, as previously noted. XR/XR hip LT 1V Impression: 1. Redemonstration of right total hip arthroplasty prosthesis. Hardware appears stable. 2. Redemonstration of left femoral head and neck prosthesis and nail with proximal left femoral shaft cerclage wire. Persistent marked fragmentation of the left femoral greater trochanter and proximal lateral femoral shaft with superior migration and left acetabular protrusio, as previously noted. There is increased associated sclerosis.
--- NOTE | ~2023-11-09 | XR_ITS ---
EXAMINATION: XR PELVIS AND BILATERAL HIPS CLINICAL INFORMATION: Pain in unspecified hip. COMPARISON: 09/28/2023 radiographs and prior. TECHNIQUE: 2 AP views of the pelvis to include bilateral hips. Frog lateral views and AP views of each hip. FINDINGS: Redemonstration of right total hip arthroplasty prosthesis. Hardware appears stable. Degenerative changes in the imaged lower lumbar spine. Mild degenerative changes in the bilateral sacroiliac joints. Redemonstration of left femoral head and neck prosthesis and nail with proximal left femoral shaft cerclage wire. Persistent marked fragmentation of the left femoral greater trochanter and proximal lateral femoral shaft with superior migration and left acetabular protrusio, as previously noted. XR/XR hip RT 1V Impression: 1. Redemonstration of right total hip arthroplasty prosthesis. Hardware appears stable. 2. Redemonstration of left femoral head and neck prosthesis and nail with proximal left femoral shaft cerclage wire. Persistent marked fragmentation of the left femoral greater trochanter and proximal lateral femoral shaft with superior migration and left acetabular protrusio, as previously noted. There is increased associated sclerosis.
== END 2023-11-09 10:54 | disposition home or self-care (01) ==
LOC: HO.HOSX 10:53
PROVIDERS: Visit Provider Orthopaedic Surgery
DX: M25.552 Pain in left hip (principal); Z96.641 Presence of right artificial hip joint
CPT/HCPCS: 72170; 73501; 73502; 99212

== ENCOUNTER 2023-11-09 11:34 | Outpatient (AMB) | payer OTHER, SELFPAY ==
--- NOTE | 2023-11-09 11:44 | A.OFFVIS_ITS ---
Intake Intake Visit Reasons: Surgical x-rays Intake Note: Leanne is a 58 year old female who presents today for an XRay only appointment. She is booked for Left YVONNE 11/10/23 Allergies Penicillins Allergy (Verified 11/05/23 10:52) Rash [facility] Medical History Back pain Bradycardia Infected prosthesis of left hip Raspy voice Bilateral knee pain COPD (chronic obstructive pulmonary disease) Left hand paresthesia Vitamin D deficiency Skull lesion Irritable bowel syndrome Insomnia GERD (gastroesophageal reflux disease) History of Helicobacter pylori infection Vitamin B12 deficiency Clostridium difficile infection Weight loss Epigastric pain Cocaine abuse Cannabis abuse Eczema Hepatitis B virus infection Migraine Osteoarthritis Polysubstance abuse Sinusitis Tobacco abuse disorder Cervical myelopathy Arthritis History of headache Numbness Asthma 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 Anxiety Depression Surgical History H/O colonoscopy History of bilateral knee arthroplasty History of hip replacement Hx of cervical spine surgery History of appendectomy H/O tubal ligation History of total left hip arthroplasty Social History Household Members: Spouse Housing: Apartment Are you a primary healthcare economics consultant to a significant other at home: No 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) Patient Tobacco Use Status: Current everyday Tobacco user Tobacco use type: Cigarette Cigarettes Per Day: 3 Second Hand Smoke Exposure: No service: No Assessment & Plan Assessment & Plan (1) 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622 Laterality: left
== END 2023-11-09 11:57 | disposition home or self-care (01) ==
LOC: HO.HOS 11:34
PROVIDERS: PCP Internal Medicine; Visit Provider Orthopaedic Surgery
DX: Z89.622 Acquired absence of left hip joint (principal)
CPT/HCPCS: 99024

== ENCOUNTER → 2023-11-16 13:46 | Outpatient (BNVA) | payer OTHER, SELFPAY | PROVIDERS: PCP Internal Medicine; Visit Provider Orthopaedic Surgery ==

== ENCOUNTER 2023-12-04 10:38 | Outpatient (AMB) | payer OTHER, SELFPAY ==
--- NOTE | 2023-12-04 10:58 | A.OFFVIS_ITS ---
Intake Intake Visit Reasons: F/U discussion; surgery booked 01/05/24 Intake Note: Leanne is a 58 year old female who presents today for a discussion in regards to her upcoming surgery, Left YVONNE 01/05/24. Allergies Penicillins Allergy (Verified 12/04/23 11:00) Rash HPI F/U discussion; surgery booked 01/05/24 HPI Details Leanne is a 58 year old female who presents today for a discussion in regards to her upcoming surgery, Left YVONNE 01/05/24. She denies changes in physical symptoms. SHe states she has been clean . She does continue to smoke marijuana. [facility] Medical History Back pain Bradycardia Infected prosthesis of left hip Raspy voice Bilateral knee pain COPD (chronic obstructive pulmonary disease) Left hand paresthesia Vitamin D deficiency Skull lesion Irritable bowel syndrome Insomnia GERD (gastroesophageal reflux disease) History of Helicobacter pylori infection Vitamin B12 deficiency Clostridium difficile infection Weight loss Epigastric pain Cocaine abuse Cannabis abuse Eczema Hepatitis B virus infection Migraine Osteoarthritis Polysubstance abuse Sinusitis Tobacco abuse disorder Cervical myelopathy Arthritis History of headache Numbness Asthma 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 Anxiety Depression Surgical History H/O colonoscopy History of bilateral knee arthroplasty History of hip replacement Hx of cervical spine surgery History of appendectomy H/O tubal ligation History of total left hip arthroplasty Social History Household Members: Spouse Housing: Apartment Are you a primary pharmacy care coordinator to a significant other at home: No Do you 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 have 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 She continues to remain infection free but her revision surgery was cancelled because of + tox screen. She is on the schedule for mid December. At this point there is no alternative to going forward with surgery. We will continue to screen her urine and see her closer to her surgery date for pre op eval. Coding Level of Care Code Est Pt Level 2 (71318) Diagnoses Acquired absence of left hip joint following removal of joint prosthesis with presence of antibiotic-impregnated cement spacer Z89.622 Laterality: left
== END 2023-12-04 11:53 | disposition home or self-care (01) ==
PROVIDERS: PCP Internal Medicine; Visit Provider Orthopaedic Surgery
DX: T84.52XA Infection and inflammatory reaction due to internal left hip prosthesis, initial encounter (principal); Z89.622 Acquired absence of left hip joint
CPT/HCPCS: 99212

== ENCOUNTER → 2023-12-04 10:38 | Outpatient (BNVA) | payer OTHER, SELFPAY | PROVIDERS: PCP Internal Medicine; Visit Provider Orthopaedic Surgery | DX: Z89.622 Acquired absence of left hip joint (principal) | CPT/HCPCS: 99212 ==

== ENCOUNTER 2023-12-31 09:20 | Outpatient (REF) | payer OTHER, SELFPAY ==
--- NOTE | ~2023-12-31 | XR_ITS ---
EXAMINATION: XR HIP, LEFT CLINICAL INFORMATION: Pain in left hip, preop. COMPARISON: 11/09/2023 TECHNIQUE: AP view of the pelvis as well as 2 views of the left hip. FINDINGS: Redemonstration of right total hip prosthesis, stable in alignment on AP view. Radiopaque rounded and horizontal linear markers overlying the central pelvis on the AP view. Redemonstration of left femoral head and neck prosthetic device and nail with proximal left femoral shaft cerclage wire. Persistent marked fragmentation of the left femoral greater trochanter and proximal lateral femoral shaft with superior migration and left acetabular protrusio. Redemonstration of tiny crescentic metallic foreign body in the lateral left upper thigh soft tissues, also present on exams dating back to 06/15/2023. XR/XR hip LT min 2V IMPRESSION: Similar appearance of left hip total arthroplasty with fragmentation, preoperative.
== END 2023-12-31 09:21 | disposition home or self-care (01) ==
LOC: HO.HOSX 09:20
PROVIDERS: Visit Provider Physician Assistant
DX: Z01.818 Encounter for other preprocedural examination (principal); M25.552 Pain in left hip; Z89.622 Acquired absence of left hip joint
CPT/HCPCS: 73502; 99212

== ENCOUNTER 2023-12-31 09:47 | Outpatient (AMB) | payer OTHER, SELFPAY ==
--- NOTE | 2023-12-31 09:57 | MHC.OFFVIS ---
Intake Visit Reasons: L Hip w/NE 01/05/24 Intake Note: Leanne a 58 year old female who presents today for a preoperative left YVONNE, DOS 01/05/24 NE. Pain management agreement reviewed and signed. Allergies Penicillins Allergy (Verified 12/31/23 10:02) Rash HPI HPI L Hip w/NE 01/05/24: Details: Ms Back returns to the office today for a pre op appt Left hip removal of antibiotic spacer with placement of revision total hip arthroplasty. She has completed a course of IV abx and the plan has been to proceed with surgical intervention to restore the function of her left hip; however, she has been postponed on several occasions due to positive drug tox screens. She has a substance use history with cocaine and marijuana. She is on Methadone. [facility] Medical History Back pain Bradycardia Infected prosthesis of left hip Raspy voice Bilateral knee pain COPD (chronic obstructive pulmonary disease) Left hand paresthesia Vitamin D deficiency Skull lesion Irritable bowel syndrome Insomnia GERD (gastroesophageal reflux disease) History of Helicobacter pylori infection Vitamin B12 deficiency Clostridium difficile infection Weight loss Epigastric pain Cocaine abuse Cannabis abuse Eczema Hepatitis B virus infection Migraine Osteoarthritis Polysubstance abuse Sinusitis Tobacco abuse disorder Cervical myelopathy Arthritis History of headache Numbness Asthma 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 Anxiety Depression Surgical History H/O colonoscopy History of bilateral knee arthroplasty History of hip replacement Hx of cervical spine surgery History of appendectomy H/O tubal ligation History of total left hip arthroplasty Social History Household Members: Spouse Housing: Apartment Are you a primary director of medicare to a significant other at home: No 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) Patient Tobacco Use Status: Current everyday Tobacco user Tobacco use type: Cigarette Cigarettes Per Day: 3 Second Hand Smoke Exposure: No service: No Review of Systems Const All systems reviewed & are unremarkable except as noted in HPI and below Physical Exam Const General: cooperative and no acute distress Orientation/consciousness: patient oriented x3 HEENT Head: Yes normal to inspection, Yes normocephalic and Yes atraumatic Eyes General: appearance normal, both eyes and all related structures Neck Neck: Yes normal visual inspection and Yes no lymphadenopathy Resp Effort & Inspection: normal respiratory effort and able to speak in complete sentences Cardio Rate: regular rate Peripheral pulses: Peripheral pulses 2+ throughout GI Inspection: Yes normal to inspection Palpation (GI): Soft to palpation Skin General skin exam: no rashes or lesions noted Neuro General: patient oriented x3 Extrem Other: Left hip: incision well healed. Pain and limited rom of the hip. calf supple, non tender. NVI. 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 We discussed the risks, benefits and alternatives to the surgery as well as the rehabilitation course. The risks; which include, but are not limited to infection, bleeding, nerve injury, ongoing pain, swelling, and stiffness, perioperative risk of injury to bones and soft tissues, and blood clots. She has had multiple positive tox screens for Marijuana and cocaine and after discussing this with Dr Callahan, at this point there is no alternative to going forward with surgery. I?ve answered all questions and with the patients understanding they have consented to move forward with Left hip removal antibiotic spacer with revision left total hip arthroplasty with Dr. Callahan Orders: Orders XR hip LT min 2V 12/31/23 M25.552 - Pain in left hip Patient Instructions: Scribed for Daniella Aguirre PA-C, by Sung Abraham medical office supervisor, on 12/31/2023 at 9:45 AM EST. I, Daniella Aguirre PA-C, have personally reviewed and agree with the information entered by the scribe. Coding Level of Care Code Est Pt Level 4 (58827) Diagnoses Acquired absence of left hip joint following removal of joint prosthesis with presence of antibiotic-impregnated cement spacer Z89.622 Laterality: left
== END 2023-12-31 11:40 | disposition home or self-care (01) ==
PROVIDERS: PCP Internal Medicine; Visit Provider Physician Assistant
DX: Z89.622 Acquired absence of left hip joint (principal)
CPT/HCPCS: 99024

== ENCOUNTER 2023-12-31 10:31 | Outpatient (REF) | payer OTHER, SELFPAY ==
[2023-12-31 12:04] LABS: Amphetamine Screen Urine Not Detected (Not Detect); Barbiturates, Urine Not Detected (Not Detect); Benzodiazepines Screen Urine Not Detected (Not Detect); Buprenorphine Scr Not Detected (Not Detect); Cannabinoid Screen Urine POSITIVE (Not Detect); Cocaine Screen Urine POSITIVE (Not Detect); Fentanyl, urine Not Detected (Not Detect); Methadone Screen, Urine Positive (Not Detect); Opiate Screen Urine Not Detected (Not Detect); Oxycodone Screen Urine Not Detected (Not Detect); Phencyclidine Screen Urine Not Detected (Not Detect)
== END 2023-12-31 10:32 | disposition home or self-care (01) ==
LOC: HO.LAB 10:31
PROVIDERS: PCP Internal Medicine; Visit Provider Physician Assistant
DX: F19.11 Other psychoactive substance abuse, in remission (principal)
CPT/HCPCS: 80307

== ENCOUNTER → 2024-01-05 08:30 | Outpatient (BNV) | payer OTHER, SELFPAY | PROVIDERS: Admitting Provider Physician Assistant; PCP Internal Medicine; Visit Provider Internal Medicine Cardiovascular Disease | DX: Z01.810 Encounter for preprocedural cardiovascular examination (principal) | CPT/HCPCS: 93010 ==

== ENCOUNTER 2024-01-21 12:34 | Outpatient (REF) | payer OTHER, SELFPAY ==
[2024-01-21 13:33] LABS: Amphetamine Screen Urine Not Detected (Not Detect); Barbiturates, Urine Not Detected (Not Detect); Benzodiazepines Screen Urine Not Detected (Not Detect); Buprenorphine Scr Not Detected (Not Detect); Cannabinoid Screen Urine POSITIVE (Not Detect); Cocaine Screen Urine Not Detected (Not Detect); Fentanyl, urine Not Detected (Not Detect); Methadone Screen, Urine Not Detected (Not Detect); Opiate Screen Urine Not Detected (Not Detect); Oxycodone Screen Urine Not Detected (Not Detect); Phencyclidine Screen Urine Not Detected (Not Detect)
== END 2024-01-21 12:35 | disposition home or self-care (01) ==
LOC: HO.LAB 12:34
PROVIDERS: Absent Provider Orthopaedic Surgery; PCP Internal Medicine; Visit Provider Physician Assistant
DX: Z89.622 Acquired absence of left hip joint (principal)
CPT/HCPCS: 80307

== ENCOUNTER 2024-01-28 09:28 | Outpatient (REF) | payer OTHER, SELFPAY ==
[2024-01-28 11:15] LABS: Amphetamine Screen Urine Not Detected (Not Detect); Barbiturates, Urine Not Detected (Not Detect); Benzodiazepines Screen Urine Not Detected (Not Detect); Buprenorphine Scr Not Detected (Not Detect); Cannabinoid Screen Urine POSITIVE (Not Detect); Cocaine Screen Urine POSITIVE (Not Detect); Fentanyl, urine Not Detected (Not Detect); Methadone Screen, Urine Not Detected (Not Detect); Opiate Screen Urine Not Detected (Not Detect); Oxycodone Screen Urine Not Detected (Not Detect); Phencyclidine Screen Urine Not Detected (Not Detect)
== END 2024-01-28 09:29 | disposition home or self-care (01) ==
LOC: HO.LAB 09:28
PROVIDERS: PCP Internal Medicine; Visit Provider Physician Assistant
DX: Z89.622 Acquired absence of left hip joint (principal)
CPT/HCPCS: 80307; 99212

== ENCOUNTER 2024-01-28 09:55 | Outpatient (AMB) | payer OTHER, SELFPAY ==
--- NOTE | 2024-01-28 09:57 | MHC.OFFVIS ---
Intake Visit Reasons: Discussion- drug test beforehand Intake Note: Leanne is a 58 year old female who presents today for a pre operative visit to discuss preadmission drug testing Allergies Penicillins Allergy (Verified 02/05/24 16:33) Rash HPI HPI Discussion- drug test beforehand: Details: Leanne is a 58 year old female who presents today for a pre operative visit to discuss preadmission drug testing for upcoming Left YVONNE Revision PFS Medical History Seizure Back pain Bradycardia Infected prosthesis of left hip Raspy voice Bilateral knee pain COPD (chronic obstructive pulmonary disease) Left hand paresthesia Vitamin D deficiency Skull lesion Irritable bowel syndrome Insomnia GERD (gastroesophageal reflux disease) History of Helicobacter pylori infection Vitamin B12 deficiency Clostridium difficile infection Weight loss Epigastric pain Cocaine abuse Cannabis abuse Eczema Hepatitis B virus infection Migraine Osteoarthritis Polysubstance abuse Sinusitis Tobacco abuse disorder Cervical myelopathy Arthritis History of headache Numbness Asthma 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 Anxiety Depression Surgical History H/O colonoscopy History of bilateral knee arthroplasty History of hip replacement Hx of cervical spine surgery History of appendectomy H/O tubal ligation History of total left hip arthroplasty Social History Household Members: Significant Other Household Members Other:: 2 Housing: House Are you a primary critical care unit nurse to a significant other at home: No 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) Alcohol intake: never Patient Tobacco Use Status: Current everyday Tobacco user Tobacco use type: Cigarette Cigarettes Per Day: 5 Second Hand Smoke Exposure: No Substance Use Type: Marijuana service: No Physical Exam Extrem Other: unable to ambulate inc c/d/i no warmth or erythema Assessment & Plan Assessment & Plan (1) 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 prosthesis with presence of antibiotic-impregnated cement spacer: Code(s): Z89.629 - Acquired absence of unspecified hip joint Category: Medical Qualifiers: Laterality: left Qualified Code(s): Z89.622 - Acquired absence of left hip joint Plan: Leanne is unable to ambulate. She had the first surgery in a two stage treatment of prosthetic joint infection. I recommedn we complete the procedure. She states she has been clean although her drug tests intermittantly return + for cocaine. This is an obvious risk factor but I think she is as healthy as she will be and we should complete the surgery. She theo lretunr next week to review and undergo pre operative visit. Coding Level of Care Code Est Pt Level 3 (74359) Diagnoses Acquired absence of left hip joint following removal of joint prosthesis with presence of antibiotic-impregnated cement spacer Z89.622 Laterality: left
== END 2024-01-28 10:36 | disposition home or self-care (01) ==
LOC: HO.HOS 09:55
PROVIDERS: PCP Internal Medicine; Visit Provider Orthopaedic Surgery
DX: T84.84XA Pain due to internal orthopedic prosthetic devices, implants and grafts, initial encounter (principal)
CPT/HCPCS: 99213

== ENCOUNTER 2024-02-04 09:38 | Outpatient (AMB) | payer OTHER, SELFPAY ==
[2024-02-04 09:48] VITALS: BMI 26.4
--- NOTE | 2024-02-04 09:48 | A.OFFVIS_ITS ---
Vital Signs 02/04/24 09:48 Height 5 ft 4 in Weight 154 lb BMI 26.4 Intake Visit Reasons: Pre-Op: L YVONNE Revision w/NE 02/10/24 Intake Note: Leanne is a 58 year old female who presents today for a pre op appointment for her L YVONNE Revision w/NE 02/10/24. Allergies Penicillins Allergy (Verified 02/04/24 09:49) Rash HPI HPI Pre-Op: L YVONNE Revision w/NE 02/10/24: Details: 58-year-old female who presents in the office today for her preoperative history and physical exam prior to a left hip total hip arthroplasty revision to be performed on 02/10/[address] Sam Callahan. Patient has an allergy history, as follows: -Penicillin; rash Patient is currently taking, as follows: -Acetaminophen 500 mg PO Q6H PRN -Albuterol sulfate 2.5 mg inhalation Q4H PRN -Albuterol sulfate 90 mcg/actuation 2 puffs inhalation QID PRN -Calcium carbonate 200 mg PO TID -Cyanocobalamin 500 mcg PO daily -Diclofenac sodium 1% 4 grams topical BID PRN -Fremanezumab-vfrm 225 mg subcut Q28D -Hydroxyzine HCI 25 mg PO bedtime -Lidocaine 5% 1 patch topical daily -Loperamide 2 mg PO QID PRN -Loratadine 10 mg PO daily PRN -Methadone 36 mg PO daily -Montelukast 10 mg PO bedtime -Naproxen 500 mg PO BIDWM -Omeprazole 20 mg PO daily -Ondansetron HCI 8 mg PO daily PRN Patient has a medical history, as follows: -Bradycardia -COPD -Left hand paresthesia -Vitamin D deficiency -Irritable bowel syndrome -Insomnia -GERD -Hx of Helicobacter pylori infection -Vitamin B12 deficiency -Clostridium difficile infection -Epigastric pain -Cocaine abuse -Cannabis abuse -Eczema -Hepatitis B virus infection -Migraine -Tobacco abuse disorder -Cervical myelopathy -Numbness; bilateral hands -Asthma -Anxiety -Depression Patient has a surgical history, as follows: -Hx of colonoscopy -Hx of bilateral knee arthroplasty; 2016 Dr. Alcazar -Hx of hip replacement; Right YVONNE 2004, Left YVONNE 03/16/2008 Dr. Perez at [facility]. -Hx of cervical spine surgery C3-4, C4-5, C5-[address] Heard 01/15/2022. 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 -Tobacco use: Current, cigarettes, 5 per day -Substance use: Marijuana [facility] Medical History Back pain Bradycardia Infected prosthesis of left hip Raspy voice Bilateral knee pain COPD (chronic obstructive pulmonary disease) Left hand paresthesia Vitamin D deficiency Skull lesion Irritable bowel syndrome Insomnia GERD (gastroesophageal reflux disease) History of Helicobacter pylori infection Vitamin B12 deficiency Clostridium difficile infection Weight loss Epigastric pain Cocaine abuse Cannabis abuse Eczema Hepatitis B virus infection Migraine Osteoarthritis Polysubstance abuse Sinusitis Tobacco abuse disorder Cervical myelopathy Arthritis History of headache Numbness Asthma 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 Anxiety Depression Surgical History H/O colonoscopy History of bilateral knee arthroplasty History of hip replacement Hx of cervical spine surgery History of appendectomy H/O tubal ligation History of total left hip arthroplasty Social History (Updated 02/04/24 @ 09:50 by Jayashree Hannah) Household Members: Spouse Housing: Apartment Are you a primary childcare teacher to a significant other at home: No 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 If so, by whom?: No Are you DNR?: No Advance Directives: No Advance Directives Information Provided: No Advance Directives on File: No Recently lost weight without trying: No Eating poorly because of decreased appetite: No Nutrition Risks: No Nutritional Risk Patient : No : No Poor oral hygiene: Yes (missing teeth upper and lower) service: No Review of Systems Const All systems reviewed & are unremarkable except as noted in HPI and below Physical Exam Vital Signs: BMI result Body Mass Index 26.4 Const General: cooperative, healthy appearing, comfortable, no acute distress, well developed, alert and awake Orientation/consciousness: patient oriented x3 HEENT Head: Yes normal to inspection, Yes normocephalic and Yes atraumatic Eyes General: appearance normal, both eyes and all related structures Neck Neck: Yes normal visual inspection and Yes no lymphadenopathy Resp Effort & Inspection: normal respiratory effort and able to speak in complete sentences Cardio Rate: regular rate Peripheral pulses: Peripheral pulses 2+ throughout GI Inspection: Yes normal to inspection Palpation (GI): Soft to palpation Skin General skin exam: no rashes or lesions noted Neuro General: patient oriented x3 Extrem Other: Left hip: Skin is clean, dry and intact. Incision well healed. Limited ROM with pain. Calf is supple and non-tender. NVI. 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 Back is a 58-year-old female who presents in the office today for her preoperative history and physical exam prior to a left hip total hip arthroplasty revision to be performed on 02/10/[address] Sam Callahan. Patient has an allergy history, as follows: -Penicillin; rash Patient is currently taking, as follows: -Acetaminophen 500 mg PO Q6H PRN -Albuterol sulfate 2.5 mg inhalation Q4H PRN -Albuterol sulfate 90 mcg/actuation 2 puffs inhalation QID PRN -Calcium carbonate 200 mg PO TID -Cyanocobalamin 500 mcg PO daily -Diclofenac sodium 1% 4 grams topical BID PRN -Fremanezumab-vfrm 225 mg subcut Q28D -Hydroxyzine HCI 25 mg PO bedtime -Lidocaine 5% 1 patch topical daily -Loperamide 2 mg PO QID PRN -Loratadine 10 mg PO daily PRN -Methadone 36 mg PO daily -Montelukast 10 mg PO bedtime -Naproxen 500 mg PO BIDWM -Omeprazole 20 mg PO daily -Ondansetron HCI 8 mg PO daily PRN Patient has a medical history, as follows: -Bradycardia -COPD -Left hand paresthesia -Vitamin D deficiency -Irritable bowel syndrome -Insomnia -GERD -Hx of Helicobacter pylori infection -Vitamin B12 deficiency -Clostridium difficile infection -Epigastric pain -Cocaine abuse -Cannabis abuse -Eczema -Hepatitis B virus infection -Migraine -Tobacco abuse disorder -Cervical myelopathy -Numbness; bilateral hands -Asthma -Anxiety -Depression Patient has a surgical history, as follows: -Hx of colonoscopy -Hx of bilateral knee arthroplasty; 2017 Dr. Alcazar -Hx of hip replacement; Right YVONNE 2004, Left YVONNE 03/16/2008 Dr. Perez at [facility]. -Hx of cervical spine surgery C3-4, C4-5, C5-[address] Heard 01/15/2022. 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 We discussed the risks, benefits and alternatives to the surgery and the rehabilitation course. The risks include infection, bleeding, nerve injury, ongoing pain, swelling, and stiffness, perioperative risk of injury to bones and soft tissues, and blood clots. I have answered all questions and with their understanding they have consented to move forward with a left hip total hip arthroplasty revision to be performed on 02/10/[address] Dr. Callahan was available to see the patient with me while in the office today. He reiterated to the patient the importance of cessation of any recreational drug use and the potential risk for postponement/cancellation of surgery. She also understands that a urine drug screen will be obtained the day of surgery. Follow-up will be at the post operative appointment on 02/26/2024 at 12:30 pm, or sooner if needed. Patient Instructions: Scribed by Annie Freed medical transcription radiology, for Naomie Saucedo PA-C on 02/04/2024 at 9:43 am, EST. Coding Level of Care Code Global (21782) Diagnoses Acquired absence of left hip joint following removal of joint prosthesis with presence of antibiotic-impregnated cement spacer Z89.622 Laterality: left
== END 2024-02-04 10:24 | disposition home or self-care (01) ==
PROVIDERS: PCP Internal Medicine; Visit Provider Physician Assistant
DX: Z89.622 Acquired absence of left hip joint (principal)
CPT/HCPCS: 99024

== ENCOUNTER → 2024-02-04 09:38 | Outpatient (BNVA) | payer OTHER, SELFPAY | PROVIDERS: PCP Internal Medicine; Visit Provider Physician Assistant | DX: Z89.622 Acquired absence of left hip joint (principal) | CPT/HCPCS: 99212 ==

== ENCOUNTER → 2024-02-10 11:20 | Outpatient (BNV) | payer OTHER, SELFPAY | PROVIDERS: Admitting Provider Physician Assistant; PCP Internal Medicine; Visit Provider Orthopaedic Surgery | DX: T84.52XA Infection and inflammatory reaction due to internal left hip prosthesis, initial encounter (principal) | CPT/HCPCS: 27134; 99024; G0180 ==

== ENCOUNTER → 2024-02-10 11:20 | Outpatient (BNV) | payer OTHER, SELFPAY | PROVIDERS: Admitting Provider Physician Assistant; PCP Internal Medicine; Visit Provider Internal Medicine Cardiovascular Disease | DX: R00.1 Bradycardia, unspecified (principal); R94.31 Abnormal electrocardiogram [ECG] [EKG] | CPT/HCPCS: 93010; 99222 ==

== ENCOUNTER 2024-02-10 16:44 | Inpatient (IN) | payer OTHER, SELFPAY ==
[2023-11-04 12:15] VITALS: BP 128/76; PULSE 51; RESP 18; O2SAT 95; BMI 26.8
--- NOTE | 2023-11-04 13:01 | HO.ANESPROP2 ---
HPI - Anesthesia Eval Consult details Narrative: 58 yo female patient for Left YVONNE. Left YVONNE 03/16/2008. Removal of infected Left hip prosthesis 04/2023 with placement of antibiotic spacer. Joint aspiration 09/2023 negative for infection. For revision Left YVONNE under GA. Patient states does not want Spinal anesthesia. Previously intubated electively with Proview because of h/o cervical surgery. H/o polysubstance abuse. Previous cancellation for +ve Utox screen. 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 Takes zofran almost daily GERD Anxiety/ Depression Asthma COPD Smoker Past Medical History Medical History Back pain Bradycardia Infected prosthesis of left hip Raspy voice Bilateral knee pain COPD (chronic obstructive pulmonary disease) Left hand paresthesia Vitamin D deficiency Skull lesion Irritable bowel syndrome Insomnia GERD (gastroesophageal reflux disease) History of Helicobacter pylori infection Vitamin B12 deficiency Clostridium difficile infection Weight loss Epigastric pain Cocaine abuse Cannabis abuse Eczema Hepatitis B virus infection Migraine Osteoarthritis Polysubstance abuse Sinusitis Tobacco abuse disorder Cervical myelopathy Arthritis History of headache Numbness Asthma 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 Anxiety Depression Family History Family history of problems with anesthesia: No Surgical History Surgical History H/O colonoscopy History of bilateral knee arthroplasty History of hip replacement Hx of cervical spine surgery History of appendectomy H/O tubal ligation History of total left hip arthroplasty History of Problems with Anesthesia: No Social History Social History Household Members: Spouse Housing: Apartment Are you a primary pharmacist critical care to a significant other at home: No 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) Patient Tobacco Use Status: Current everyday Tobacco user Tobacco use type: Cigarette Cigarettes Per Day: 3 Second Hand Smoke Exposure: No service: No Meds Allergies Allergy/AdvReac Type Severity Reaction Status Date / Time Penicillins Allergy Rash Verified 11/05/23 10:52 Home Medications Medication Instructions Recorded Confirmed Last Taken Type albuterol sulfate 90 mcg/actuation 2 puff inhalation QID PRN wheezing 05/23/22 11/04/23 Unknown History aerosol inhaler (ProAir HFA) omeprazole 20 mg capsule,delayed 20 mg PO DAILY 05/23/22 11/04/23 10/06/23 History release loratadine 10 mg tablet 10 mg PO DAILY PRN allergies 04/20/23 11/04/23 Unknown History calcium carbonate 200 mg calcium 200 mg PO TID 11/03/23 11/03/23 Unknown History (500 mg) chewable tablet hydroxyzine HCl 25 mg tablet 25 mg PO BEDTIME 11/03/23 11/03/23 Unknown History ondansetron HCl 8 mg tablet 8 mg PO DAILY 11/03/23 11/03/23 Unknown History methadone 10 mg/mL oral 48 mg PO DAILY 11/04/23 11/04/23 Unknown History concentrate (Methadose) Exam Height,Weight and Vital Signs: Height 5 ft 4 in Weight 70.76 kg Last Vital Signs Pulse 51 11/04/23 12:15 Resp 18 11/04/23 12:15 BP 128/76 11/04/23 12:15 Pulse Ox 95 11/04/23 12:15 O2 Del Method Room Air 11/04/23 12:15 Airway Mallampati Class: II TM Dist: >3cm Neck ROM: Limited (S/p C3-4, C4-5, C5-6 cervical fusion) Partial: Upper and Lower Loose/Missing/Broken Teeth: Yes (Partials top and bottom. Does not wear. Denies broken or loose teeth) Heart: RRR Lungs: CTAB Assessment and Plan Assessment Anesthesia Assessment: Anesthesia Plan Discussed, PAT Visit and Chart Reviewed Final Anesthetic Review Family History of Problems with Anesthesia: No History of Problems with Anesthesia: No NPO: Yes ASA Class: III Final Preanesthetic Review: No Changes in Pt Med Stat, Meds/Allgs Chart Reviewed, Consent Obtained/Reviewed and Anes Risks/Benef Reviewed Patient Risk: Intermediate Procedure Risk: Intermediate Anesthetic Plan Anesthetic Plan: GA Disposition: Standard PACU and Inp. Admit - Standard Bed
[2023-11-04 14:04] LABS: Hematocrit 43.9 % (37.0-47.0); Hemoglobin 14.6 g/dl (12.0-16.0); Mean Corpuscular HGB Conc 33.3 g/dl (31.0-35.0); Mean Corpuscular Hemoglobin 30.4 pg (27.0-33.0); Mean Corpuscular Volume 91.5 fL (80.0-98.0); Mean Platelet Volume 11.6 fL (9.4-12.3); Platelet Count 228 X10*3/uL (160-400); Red Cell Distribution Width 16.1 % (11.0-16.0); White Blood Count 7.4 X10*3/uL (4.8-10.8)
[2023-11-04 14:25] LABS: MRSA Nasal PCR NEGATIVE (Negative); SA Nasal PCR NEGATIVE (Negative)
[2023-11-04 14:29] LABS: Anion Gap 9 (12-20); Blood Urea Nitrogen 8 mg/dL (9-16); Calcium 9.8 mg/dL (8.4-10.2); Carbon Dioxide 31 mmol/L (22-29); Chloride 107 mmol/L (96-108); Estimated Glomerular Filt Rate > 60; Glucose Fasting 104 mg/dL (60-99); Potassium 3.8 mmol/L (3.3-5.1); Sodium 143 mmol/L (135-145)
[2023-11-10 08:43] VITALS: BP 144/76; PULSE 54; RESP 18; TEMP 36.3; O2SAT 97
[2023-11-10] MEDS: oxyCODONE HCl ER 10 MG TAB.ER.12H PO (08:45)
[2023-11-10 08:54] LABS: Amphetamine Screen Urine Not Detected (Not Detect); Barbiturates, Urine Not Detected (Not Detect); Benzodiazepines Screen Urine Not Detected (Not Detect); Cannabinoid Screen Urine POSITIVE (Not Detect); Fentanyl, urine Not Detected (Not Detect); Opiate Screen Urine Not Detected (Not Detect); Phencyclidine Screen Urine Not Detected (Not Detect)
[2023-11-10] MEDS: Lactated Ringers 1,000 ML 100 ML IVCONT (09:04)
[2023-11-10 09:05] LABS: Cocaine Screen Urine POSITIVE (Not Detect)
--- NOTE | 2023-11-10 09:08 | PC.NURSE ---
pt sts did cocaine 4 days ago
--- NOTE | 2023-11-10 12:10 | PC.NURSE ---
patient cancelled positive cocaine awaiting dr engle to speak to patient
--- NOTE | 2023-11-10 12:12 | PC.NURSE ---
dr engle at bedside speaking to patient concerning cancellation
--- NOTE | 2023-11-10 12:21 | PC.NURSE ---
pt dressed called family will reschedule per patient call in few days office
--- NOTE | 2024-01-04 08:27 | P.CONAN_ITS ---
Documented by User: Destiny Martin NP 01/04/24 08:28 HPI - Anesthesia Eval Consult details Narrative: 58 yo female patient for Left YVONNE. Left YVONNE 03/16/2008. Removal of infected Left hip prosthesis 04/2023 with placement of antibiotic spacer. Joint aspiration 09/2023 negative for infection. For revision Left YVONNE under [place]. Patient states does not want Spinal anesthesia. Previously intubated electively with Proview because of h/o cervical surgery. H/o polysubstance abuse. Previous cancellation for +ve Utox screen. (10/2023 and 12/31/23) On methadone 48mg po daily PMFSH Active Problems Active Problems: All Active Problems 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 prosthesis with presence of antibiotic-impregnated cement spacer (Acute) Past Medical History Medical History Back pain Bradycardia Infected prosthesis of left hip Raspy voice Bilateral knee pain COPD (chronic obstructive pulmonary disease) Left hand paresthesia Vitamin D deficiency Skull lesion Irritable bowel syndrome Insomnia GERD (gastroesophageal reflux disease) History of Helicobacter pylori infection Vitamin B12 deficiency Clostridium difficile infection Weight loss Epigastric pain Cocaine abuse Cannabis abuse Eczema Hepatitis B virus infection Migraine Osteoarthritis Polysubstance abuse Sinusitis Tobacco abuse disorder Cervical myelopathy Arthritis History of headache Numbness Asthma 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 Anxiety Depression Family History Family history of problems with anesthesia: No Surgical History Surgical History H/O colonoscopy History of bilateral knee arthroplasty History of hip replacement Hx of cervical spine surgery History of appendectomy H/O tubal ligation History of total left hip arthroplasty History of Problems with Anesthesia: No Social History Social History Household Members: Spouse Housing: Apartment Are you a primary acute care physical therapist to a significant other at home: No 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) Patient Tobacco Use Status: Current everyday Tobacco user Tobacco use type: Cigarette Cigarettes Per Day: 5 Second Hand Smoke Exposure: No Use of substances other than those prescribed or required for medical reasons: Yes Substance Use Frequency: Daily Are you DNR?: No Advance Directives: No Advance Directives Information Provided: No service: No Meds Allergies Allergy/AdvReac Type Severity Reaction Status Date / Time Penicillins Allergy Rash Verified 12/31/23 10:02 Home Medications ?Medication ?Instructions ?Recorded ?Confirmed ?Last Taken ?Type albuterol sulfate 90 mcg/actuation 2 puff inhalation QID PRN wheezing 05/23/22 11/04/23 11/09/23 History aerosol inhaler (ProAir HFA) omeprazole 20 mg capsule,delayed 20 mg PO DAILY 05/23/22 01/05/24 11/10/23 05:45 History release loratadine 10 mg tablet 10 mg PO DAILY PRN allergies 04/20/23 01/05/24 01/04/24 History calcium carbonate 200 mg PO TID 11/03/23 01/05/24 11/09/23 History hydroxyzine HCl 25 mg tablet 25 mg PO BEDTIME 11/03/23 11/03/23 11/09/23 History ondansetron HCl 8 mg tablet 8 mg PO DAILY PRN Nausea And 11/03/23 01/05/24 11/09/23 History Vomiting methadone 10 mg/mL oral 38 mg PO DAILY 11/04/23 01/05/24 01/05/24 History concentrate (Methadose) acetaminophen 500 mg capsule 500 mg PO Q6H PRN Pain 12/04/23 Unknown History albuterol sulfate 2.5 mg/3 mL 2.5 mg inhalation Q4H PRN wheezing 01/05/24 Unknown History (0.083 %) solution for nebulization cholecalciferol (vitamin D3) 50 50 mcg PO DAILY 01/05/24 Unknown History mcg (2,000 unit) tablet (Vitamin D3) cyanocobalamin (vitamin B-12) 500 500 mcg PO DAILY 01/05/24 Unknown History mcg tablet diclofenac sodium 1 % topical gel 4 g topical BID PRN Pain 01/05/24 Unknown History fremanezumab-vfrm 225 mg/1.5 mL 225 mg subcut Q28D 01/05/24 Unknown History subcutaneous auto-injector (Ajovy) lidocaine 5 % topical patch 1 patch topical DAILY 01/05/24 Unknown History loperamide 2 mg capsule 2 mg PO QID PRN diarrhea 01/05/24 Unknown History montelukast 10 mg tablet 10 mg PO BEDTIME 01/05/24 Unknown History naproxen 500 mg tablet 500 mg PO BIDWM 01/05/24 01/05/24 Unknown History Exam Height,Weight and Vital Signs: Height 5 ft 4 in Weight 70.76 kg Last Vital Signs Temp 97.3 F 11/10/23 08:43 Pulse 54 11/10/23 08:43 Resp 18 11/10/23 08:43 BP 144/76 H 11/10/23 08:43 Pulse Ox 97 11/10/23 08:43 O2 Del Method Room Air 11/10/23 08:43 Pertinent Lab Results Pertinent Lab Results: Laboratory Tests 11/04/23 11/04/23 11/04/23 12:25 13:13 13:17 WBC 7.4 RBC 4.80 D Hgb 14.6 D Hct 43.9 D MCV 91.5 MCH 30.4 MCHC 33.3 RDW 16.1 H Plt Count 228 D MPV 11.6 Absolute Nucleated RBC 0.000 Nucleated RBC % (auto) 0.0 Sodium 143 Potassium 3.8 Chloride 107 Carbon Dioxide 31 H Anion Gap 9 L BUN 8 L Creatinine 0.63 Estim Creat Clear Calc 95.0 Estimated GFR > 60 Fasting Glucose 104 H Calcium 9.8 D Nasal Screen MRSA (PCR) NEGATIVE Nasal S. aureus Screen NEGATIVE Nasal MRSA/S.aureus Interp SEE NOTE Urine Opiates Screen Urine Fentanyl Screen Ur Barbiturates Screen Ur Phencyclidine Scrn Ur Amphetamines Screen U Benzodiazepines Scrn Urine Cocaine Screen U Marijuana (THC) Screen Blood Type O Positive Antibody Screen NEGATIVE 11/10/23 08:30 WBC RBC Hgb Hct MCV MCH MCHC RDW Plt Count MPV Absolute Nucleated RBC Nucleated RBC % (auto) Sodium Potassium Chloride Carbon Dioxide Anion Gap BUN Creatinine Estim Creat Clear Calc Estimated GFR Fasting Glucose Calcium Nasal Screen MRSA (PCR) Nasal S. aureus Screen Nasal MRSA/S.aureus Interp Urine Opiates Screen Not Detected Urine Fentanyl Screen Not Detected Ur Barbiturates Screen Not Detected Ur Phencyclidine Scrn Not Detected Ur Amphetamines Screen Not Detected U Benzodiazepines Scrn Not Detected Urine Cocaine Screen POSITIVE H U Marijuana (THC) Screen POSITIVE H Blood Type Antibody Screen Assessment and Plan Assessment Anesthesia Assessment: Chart Reviewed Final Anesthetic Review Family History of Problems with Anesthesia: No History of Problems with Anesthesia: No Documented by User: Araceli Francisco MD 01/05/24 10:37 PMFSH Past Medical History Medical History Back pain Bradycardia Infected prosthesis of left hip Raspy voice Bilateral knee pain COPD (chronic obstructive pulmonary disease) Left hand paresthesia Vitamin D deficiency Skull lesion Irritable bowel syndrome Insomnia GERD (gastroesophageal reflux disease) History of Helicobacter pylori infection Vitamin B12 deficiency Clostridium difficile infection Weight loss Epigastric pain Cocaine abuse Cannabis abuse Eczema Hepatitis B virus infection Migraine Osteoarthritis Polysubstance abuse Sinusitis Tobacco abuse disorder Cervical myelopathy Arthritis History of headache Numbness Asthma 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 Anxiety Depression Surgical History Surgical History H/O colonoscopy History of bilateral knee arthroplasty History of hip replacement Hx of cervical spine surgery History of appendectomy H/O tubal ligation History of total left hip arthroplasty Social History Social History Household Members: Spouse Housing: Apartment Are you a primary acute care physical therapist to a significant other at home: No 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) Patient Tobacco Use Status: Current everyday Tobacco user Tobacco use type: Cigarette Cigarettes Per Day: 5 Second Hand Smoke Exposure: No Use of substances other than those prescribed or required for medical reasons: Yes Substance Use Frequency: Daily Are you DNR?: No Advance Directives: No Advance Directives Information Provided: No service: No Meds Allergies Allergy/AdvReac Type Severity Reaction Status Date / Time Penicillins Allergy Rash Verified 12/31/23 10:02 Home Medications ?Medication ?Instructions ?Recorded ?Confirmed ?Last Taken ?Type albuterol sulfate 90 mcg/actuation 2 puff inhalation QID PRN wheezing 05/23/22 11/04/23 11/09/23 History aerosol inhaler (ProAir HFA) omeprazole 20 mg capsule,delayed 20 mg PO DAILY 05/23/22 01/05/24 11/10/23 05:45 History release loratadine 10 mg tablet 10 mg PO DAILY PRN allergies 04/20/23 01/05/24 01/04/24 History calcium carbonate 200 mg PO TID 11/03/23 01/05/24 11/09/23 History hydroxyzine HCl 25 mg tablet 25 mg PO BEDTIME 11/03/23 11/03/23 11/09/23 History ondansetron HCl 8 mg tablet 8 mg PO DAILY PRN Nausea And 11/03/23 01/05/24 11/09/23 History Vomiting methadone 10 mg/mL oral 38 mg PO DAILY 11/04/23 01/05/24 01/05/24 History concentrate (Methadose) acetaminophen 500 mg capsule 500 mg PO Q6H PRN Pain 12/04/23 Unknown History albuterol sulfate 2.5 mg/3 mL 2.5 mg inhalation Q4H PRN wheezing 01/05/24 Unknown History (0.083 %) solution for nebulization cholecalciferol (vitamin D3) 50 50 mcg PO DAILY 01/05/24 Unknown History mcg (2,000 unit) tablet (Vitamin D3) cyanocobalamin (vitamin B-12) 500 500 mcg PO DAILY 01/05/24 Unknown History mcg tablet diclofenac sodium 1 % topical gel 4 g topical BID PRN Pain 01/05/24 Unknown History fremanezumab-vfrm 225 mg/1.5 mL 225 mg subcut Q28D 01/05/24 Unknown History subcutaneous auto-injector (Ajovy) lidocaine 5 % topical patch 1 patch topical DAILY 01/05/24 Unknown History loperamide 2 mg capsule 2 mg PO QID PRN diarrhea 01/05/24 Unknown History montelukast 10 mg tablet 10 mg PO BEDTIME 01/05/24 Unknown History naproxen 500 mg tablet 500 mg PO BIDWM 01/05/24 01/05/24 Unknown History Assessment and Plan Assessment Anesthesia Assessment: Anesthesia Plan Discussed (urine positive for coccaine, as i was attempting to ask her when last use of coccaine was , pt gets aggressive and states she wants to punch me in the face , immediately i left her bedside afterwhich she used abusive language and threatens to leave )
--- NOTE | 2024-02-09 09:16 | P.CONAN_ITS ---
Documented by User: Destiny Martin NP 02/09/24 09:18 HPI - Anesthesia Eval Consult details Narrative: 58 yo female patient for Left YVONNE Revision Left YVONNE 03/16/2008. Removal of infected Left hip prosthesis 04/2023 with placement of antibiotic spacer. Joint aspiration 09/2023 negative for infection. For revision Left YVONNE under GA. Patient states does not want Spinal anesthesia. Previously intubated electively with Proview because of h/o cervical surgery. H/o polysubstance abuse. Previous cancellation for +ve Utox screen. (10/2023, 12/31/23, 01/04/24) On methadone 48mg po daily PMFSH Active Problems Active Problems: All Active Problems 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 prosthesis with presence of antibiotic-impregnated cement spacer (Acute) Past Medical History Medical History Seizure Back pain Bradycardia Infected prosthesis of left hip Raspy voice Bilateral knee pain COPD (chronic obstructive pulmonary disease) Left hand paresthesia Vitamin D deficiency Skull lesion Irritable bowel syndrome Insomnia GERD (gastroesophageal reflux disease) History of Helicobacter pylori infection Vitamin B12 deficiency Clostridium difficile infection Weight loss Epigastric pain Cocaine abuse Cannabis abuse Eczema Hepatitis B virus infection Migraine Osteoarthritis Polysubstance abuse Sinusitis Tobacco abuse disorder Cervical myelopathy Arthritis History of headache Numbness Asthma 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 Anxiety Depression Family History Family history of problems with anesthesia: No Surgical History Surgical History H/O colonoscopy History of bilateral knee arthroplasty History of hip replacement Hx of cervical spine surgery History of appendectomy H/O tubal ligation History of total left hip arthroplasty History of Problems with Anesthesia: No Social History Social History Household Members: Spouse Housing: Apartment Are you a primary care process manager to a significant other at home: No 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 If so, by whom?: No Are you DNR?: No Advance Directives: No Advance Directives Information Provided: No Advance Directives on File: No Recently lost weight without trying: No Eating poorly because of decreased appetite: No Nutrition Risks: No Nutritional Risk Patient : No : No Poor oral hygiene: Yes (missing teeth upper and lower) service: No Meds Allergies Allergy/AdvReac Type Severity Reaction Status Date / Time Penicillins Allergy Rash Verified 02/05/24 16:33 Home Medications ?Medication ?Instructions ?Recorded ?Confirmed ?Last Taken ?Type albuterol sulfate 90 mcg/actuation 2 puff inhalation QID PRN wheezing 05/23/22 02/05/24 02/03/24 History aerosol inhaler (ProAir HFA) omeprazole 20 mg capsule,delayed 20 mg PO DAILY 05/23/22 02/05/24 10/06/23 History release loratadine 10 mg tablet 10 mg PO DAILY PRN allergies 04/20/23 02/05/24 01/04/24 History calcium carbonate 200 mg PO TID 11/03/23 02/10/24 02/09/24 History hydroxyzine HCl 25 mg tablet 25 mg PO BEDTIME 11/03/23 02/05/24 Unknown History ondansetron HCl 8 mg tablet 8 mg PO DAILY PRN Nausea And 11/03/23 02/05/24 02/10/24 05:30 History Vomiting methadone 10 mg/mL oral 36 mg PO DAILY 11/04/23 02/10/24 02/10/24 05:30 History concentrate (Methadose) acetaminophen 500 mg capsule 500 mg PO Q6H PRN Pain 12/04/23 02/10/24 02/10/24 05:30 History albuterol sulfate 2.5 mg/3 mL 2.5 mg inhalation Q4H PRN wheezing 01/05/24 02/10/24 02/03/24 History (0.083 %) solution for nebulization cholecalciferol (vitamin D3) 50 50 mcg PO DAILY 01/05/24 02/10/24 02/09/24 History mcg (2,000 unit) tablet (Vitamin D3) cyanocobalamin (vitamin B-12) 500 500 mcg PO DAILY 01/05/24 02/10/24 02/09/24 History mcg tablet diclofenac sodium 1 % topical gel 4 g topical BID PRN Pain 01/05/24 02/10/24 Unknown History fremanezumab-vfrm 225 mg/1.5 mL 225 mg subcut Q28D 01/05/24 02/10/24 02/01/24 History subcutaneous auto-injector (Ajovy) lidocaine 5 % topical patch 1 patch topical DAILY 01/05/24 02/10/24 Unknown History loperamide 2 mg capsule 2 mg PO QID PRN diarrhea 01/05/24 02/10/24 Unknown History montelukast 10 mg tablet 10 mg PO BEDTIME 01/05/24 02/10/24 Unknown History naproxen 500 mg tablet 500 mg PO BID PRN Pain (Scale 01/05/24 02/10/24 Unknown History Score 4-6) Exam Height,Weight and Vital Signs: Height 5 ft 4 in Weight 70.76 kg Last Vital Signs Temp 97.3 F 11/10/23 08:43 Pulse 54 11/10/23 08:43 Resp 18 11/10/23 08:43 BP 144/76 H 11/10/23 08:43 Pulse Ox 97 11/10/23 08:43 O2 Del Method Room Air 11/10/23 08:43 Pertinent Lab Results Pertinent Lab Results: Laboratory Tests 11/04/23 11/04/23 11/04/23 12:25 13:13 13:17 WBC 7.4 RBC 4.80 D Hgb 14.6 D Hct 43.9 D MCV 91.5 MCH 30.4 MCHC 33.3 RDW 16.1 H Plt Count 228 D MPV 11.6 Absolute Nucleated RBC 0.000 Nucleated RBC % (auto) 0.0 Sodium 143 Potassium 3.8 Chloride 107 Carbon Dioxide 31 H Anion Gap 9 L BUN 8 L Creatinine 0.63 Estim Creat Clear Calc 95.0 Estimated GFR > 60 Fasting Glucose 104 H Calcium 9.8 D Nasal Screen MRSA (PCR) NEGATIVE Nasal S. aureus Screen NEGATIVE Nasal MRSA/S.aureus Interp SEE NOTE Urine Opiates Screen Urine Fentanyl Screen Ur Barbiturates Screen Ur Phencyclidine Scrn Ur Amphetamines Screen U Benzodiazepines Scrn Urine Cocaine Screen U Marijuana (THC) Screen Blood Type O Positive Antibody Screen NEGATIVE 11/10/23 08:30 WBC RBC Hgb Hct MCV MCH MCHC RDW Plt Count MPV Absolute Nucleated RBC Nucleated RBC % (auto) Sodium Potassium Chloride Carbon Dioxide Anion Gap BUN Creatinine Estim Creat Clear Calc Estimated GFR Fasting Glucose Calcium Nasal Screen MRSA (PCR) Nasal S. aureus Screen Nasal MRSA/S.aureus Interp Urine Opiates Screen Not Detected Urine Fentanyl Screen Not Detected Ur Barbiturates Screen Not Detected Ur Phencyclidine Scrn Not Detected Ur Amphetamines Screen Not Detected U Benzodiazepines Scrn Not Detected Urine Cocaine Screen POSITIVE H U Marijuana (THC) Screen POSITIVE H Blood Type Antibody Screen Narrative Narrative: EKG 12/2023 Vent. Rate : 047 BPM Atrial Rate : 047 BPM P-R Int : 134 ms QRS Dur : 108 ms QT Int : 498 ms P-R-T Axes : 056 046 044 degrees QTc Int : 440 ms Sinus bradycardia Otherwise normal ECG When compared with ECG of 14-APR-2023 11:09, No significant change was found Assessment and Plan Assessment Anesthesia Assessment: Chart Reviewed Final Anesthetic Review Family History of Problems with Anesthesia: No History of Problems with Anesthesia: No Documented by User: Araceli Francisco MD 02/10/24 09:33 [facility] Past Medical History Medical History Seizure Back pain Bradycardia Infected prosthesis of left hip Raspy voice Bilateral knee pain COPD (chronic obstructive pulmonary disease) Left hand paresthesia Vitamin D deficiency Skull lesion Irritable bowel syndrome Insomnia GERD (gastroesophageal reflux disease) History of Helicobacter pylori infection Vitamin B12 deficiency Clostridium difficile infection Weight loss Epigastric pain Cocaine abuse Cannabis abuse Eczema Hepatitis B virus infection Migraine Osteoarthritis Polysubstance abuse Sinusitis Tobacco abuse disorder Cervical myelopathy Arthritis History of headache Numbness Asthma 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 Anxiety Depression Surgical History Surgical History H/O colonoscopy History of bilateral knee arthroplasty History of hip replacement Hx of cervical spine surgery History of appendectomy H/O tubal ligation History of total left hip arthroplasty Social History Social History Household Members: Spouse Housing: Apartment Are you a primary care process manager to a significant other at home: No 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 If so, by whom?: No Are you DNR?: No Advance Directives: No Advance Directives Information Provided: No Advance Directives on File: No Recently lost weight without trying: No Eating poorly because of decreased appetite: No Nutrition Risks: No Nutritional Risk Patient : No : No Poor oral hygiene: Yes (missing teeth upper and lower) service: No Meds Allergies Allergy/AdvReac Type Severity Reaction Status Date / Time Penicillins Allergy Rash Verified 02/05/24 16:33 Home Medications ?Medication ?Instructions ?Recorded ?Confirmed ?Last Taken ?Type albuterol sulfate 90 mcg/actuation 2 puff inhalation QID PRN wheezing 05/23/22 02/05/24 02/03/24 History aerosol inhaler (ProAir HFA) omeprazole 20 mg capsule,delayed 20 mg PO DAILY 05/23/22 02/05/24 10/06/23 History release loratadine 10 mg tablet 10 mg PO DAILY PRN allergies 04/20/23 02/05/24 01/04/24 History calcium carbonate 200 mg PO TID 11/03/23 02/10/24 02/09/24 History hydroxyzine HCl 25 mg tablet 25 mg PO BEDTIME 11/03/23 02/05/24 Unknown History ondansetron HCl 8 mg tablet 8 mg PO DAILY PRN Nausea And 11/03/23 02/05/24 02/10/24 05:30 History Vomiting methadone 10 mg/mL oral 36 mg PO DAILY 11/04/23 02/10/24 02/10/24 05:30 History concentrate (Methadose) acetaminophen 500 mg capsule 500 mg PO Q6H PRN Pain 12/04/23 02/10/24 02/10/24 05:30 History albuterol sulfate 2.5 mg/3 mL 2.5 mg inhalation Q4H PRN wheezing 01/05/24 02/10/24 02/03/24 History (0.083 %) solution for nebulization cholecalciferol (vitamin D3) 50 50 mcg PO DAILY 01/05/24 02/10/24 02/09/24 History mcg (2,000 unit) tablet (Vitamin D3) cyanocobalamin (vitamin B-12) 500 500 mcg PO DAILY 01/05/24 02/10/24 02/09/24 History mcg tablet diclofenac sodium 1 % topical gel 4 g topical BID PRN Pain 01/05/24 02/10/24 Unknown History fremanezumab-vfrm 225 mg/1.5 mL 225 mg subcut Q28D 01/05/24 02/10/24 02/01/24 History subcutaneous auto-injector (Ajovy) lidocaine 5 % topical patch 1 patch topical DAILY 01/05/24 02/10/24 Unknown History loperamide 2 mg capsule 2 mg PO QID PRN diarrhea 01/05/24 02/10/24 Unknown History montelukast 10 mg tablet 10 mg PO BEDTIME 01/05/24 02/10/24 Unknown History naproxen 500 mg tablet 500 mg PO BID PRN Pain (Scale 01/05/24 02/10/24 Unknown History Score 4-6) Exam Airway Mallampati Class: II TM Dist: >3cm Neck ROM: Limited Heart: rrr Lungs: cta Assessment and Plan Assessment Anesthesia Assessment: Anesthesia Plan Discussed Final Anesthetic Review NPO: Yes ASA Class: IV (polysubstance persistant abuser, today tox screen checked discussed with surgeon, will proceed at his discretion, 12 lead ekg reviewed.) Final Preanesthetic Review: No Changes in Pt Med Stat, Meds/Allgs Chart Reviewed, Consent Obtained/Reviewed and Anes Risks/Benef Reviewed Patient Risk: Intermediate Procedure Risk: Intermediate Anesthetic Plan Anesthetic Plan: GA Disposition: Standard PACU (persistant uncontrolled pain anticipated in pacu, pt aware, agrees to proceed.)
[2024-02-10] VITALS (14 sets, daily range): BP systolic 95–172; BP diastolic 60–95; PULSE 48–78; RESP 14–24; TEMP 35.9–36.6; O2SAT 94–98; BMI 26.6
--- NOTE | ~2024-02-10 | XR_ITS ---
EXAMINATION: XR PELVIS CLINICAL INFORMATION: Left total hip arthroplasty revision COMPARISON: 12/31/2023 TECHNIQUE: AP view of the pelvis. FINDINGS: Status post revision of the left total hip arthroplasty. The femoral head prosthesis is well centered within the acetabular cup which exhibits normal lateral version and is stabilized by superior screws. 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 No acute fracture. The long femoral stem is well-positioned in the medullary cavity of the femoral diaphysis. There appears to be insertion of a new 10-11 cm long bone graft in the lateral trochanteric/subtrochanteric region as well as an old greater trochanteric fragment with the bone stabilized by a lateral claw plate and cable fixation wires. There is postoperative soft tissue emphysema and soft tissue swelling of the lateral hip with lateral skin roland in place. XR/XR pelvis 1-2V IMPRESSION: * Status post revision of the left hip arthroplasty. The components of the left total hip arthroplasty are in satisfactory position. No acute periprosthetic fracture. * There is postoperative soft tissue swelling and soft tissue gas at the lateral hip.
--- NOTE | 2024-02-10 07:01 | ECG_ITS ---
Test Reason : preop Blood Pressure : / mmHG Vent. Rate : 039 BPM Atrial Rate : 039 BPM P-R Int : 134 ms QRS Dur : 082 ms QT Int : 504 ms P-R-T Axes : 057 032 035 degrees QTc Int : 405 ms Marked sinus bradycardia Abnormal ECG When compared with ECG of 05-JAN-2024 08:43, No significant change was found Referred By: Destiny Martin Electronically Signed By:Jose Tanner
[2024-02-10 07:22] LABS: Amphetamine Screen Urine Not Detected (Not Detect); Barbiturates, Urine Not Detected (Not Detect); Benzodiazepines Screen Urine Not Detected (Not Detect); Buprenorphine Scr Not Detected (Not Detect); Cannabinoid Screen Urine POSITIVE (Not Detect); Cocaine Screen Urine Not Detected (Not Detect); Fentanyl, urine Not Detected (Not Detect); Methadone Screen, Urine Positive (Not Detect); Opiate Screen Urine Not Detected (Not Detect); Oxycodone Screen Urine Not Detected (Not Detect); Phencyclidine Screen Urine Not Detected (Not Detect)
[2024-02-10] MEDS: Lactated Ringers 1,000 ML 100 ML IVCONT ×2 (09:14→18:06)
--- NOTE | 2024-02-10 09:19 | MHC.SHP ---
Pre-Procedural Eval Section A - 24 Hr Update-Section A only Date of Service: 02/10/24 The patient is an INPATIENT: No Changes since office visit: No Cold of Flu in the past 2 weeks, No New Medical Problems, No Changes in Medication and No Patient answered all questions The patient has been examined within 24 hours of the surgical procedure. The History & Physical has been completed within 30 days and I have reviewed it.: Yes Section B - Complete if H&P > 30 days Chief Complaint: revision LT YVONNE Allergies: Allergies Allergy/AdvReac Type Severity Reaction Status Date / Time Penicillins Allergy Rash Verified 02/05/24 16:33 Plan I have reviewed the history and physical and performed a pertinent physical examination on my patient. No changes have occurred unless specified. Time Spent With Patient Time: Total time managing care of this patient today ____ minutes.
[2024-02-10] MEDS: oxyCODONE HCl ER 10 MG TAB.ER.12H PO ×2 (09:22→20:48)
--- NOTE | 2024-02-10 14:07 | PM.CNCAR ---
History of Present Illness History of Present Illness Date of Service: 02/10/24 Requesting physician: Araceli Francisco Chief complaint: revision LT YVONNE, sinus bradycardia Narrative: [age] year female who we have been asked to see before surgery for sinus bradycardia. The patient has history of polysubstance abuse as reporting that she has chronic bradycardia. She has not been significantly symptomatic. She is on methadone. She has been using multiple drugs and is currently positive for opiates 2. No chest pain or shortness of breath. Occasionally she gets dizzy but difficult to know whether is in the setting of substance use or not. Heart rate is in 40s currently on telemetry. She is here for left knee surgery. He is able to move right leg and even with straight leg raises on the right side for few seconds her heart rate went into 50s. [facility] Past Medical History Medical History Seizure Back pain Bradycardia Infected prosthesis of left hip Raspy voice Bilateral knee pain COPD (chronic obstructive pulmonary disease) Left hand paresthesia Vitamin D deficiency Skull lesion Irritable bowel syndrome Insomnia GERD (gastroesophageal reflux disease) History of Helicobacter pylori infection Vitamin B12 deficiency Clostridium difficile infection Weight loss Epigastric pain Cocaine abuse Cannabis abuse Eczema Hepatitis B virus infection Migraine Osteoarthritis Polysubstance abuse Sinusitis Tobacco abuse disorder Cervical myelopathy Arthritis History of headache Numbness Asthma 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 Anxiety Depression Surgical History Surgical History H/O colonoscopy History of bilateral knee arthroplasty History of hip replacement Hx of cervical spine surgery History of appendectomy H/O tubal ligation History of total left hip arthroplasty Social History Social History Household Members: Spouse Housing: Apartment Are you a primary healthcare corporate account director to a significant other at home: No Do you presently have visiting nurse or 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 home services: 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) Alcohol intake: never Patient Tobacco Use Status: Current everyday Tobacco user Tobacco use type: Cigarette Cigarettes Per Day: 5 Second Hand Smoke Exposure: No Substance Use Type: Marijuana service: No Meds Allergies Allergy/AdvReac Type Severity Reaction Status Date / Time Penicillins Allergy Rash Verified 02/05/24 16:33 Active Medications: Current Medications Albuterol Sulfate (Albuterol Sulfate (0.083%) 2.5 Mg/3 Ml Vial.Neb) 2.5 mg INHALE ONCE PRN PRN Reason: Shortness of Breath/Wheezing Lactated Ringer's (Lr) 1,000 mls @ 100 mls/hr IVCONT .Q10H FIDEL Last Admin: 02/10/24 09:14 Dose: 100 mls/hr Home Medications ?Medication ?Instructions ?Recorded ?Confirmed ?Last Taken ?Type albuterol sulfate 90 mcg/actuation 2 puff inhalation QID PRN wheezing 05/23/22 02/05/24 02/03/24 History aerosol inhaler (ProAir HFA) omeprazole 20 mg capsule,delayed 20 mg PO DAILY 05/23/22 02/05/24 10/06/23 History release loratadine 10 mg tablet 10 mg PO DAILY PRN allergies 04/20/23 02/05/24 01/04/24 History calcium carbonate 200 mg PO TID 11/03/23 02/10/24 02/09/24 History hydroxyzine HCl 25 mg tablet 25 mg PO BEDTIME 11/03/23 02/05/24 Unknown History ondansetron HCl 8 mg tablet 8 mg PO DAILY PRN Nausea And 11/03/23 02/05/24 02/10/24 05:30 History Vomiting methadone 10 mg/mL oral 36 mg PO DAILY 11/04/23 02/10/24 02/10/24 05:30 History concentrate (Methadose) acetaminophen 500 mg capsule 500 mg PO Q6H PRN Pain 12/04/23 02/10/24 02/10/24 05:30 History albuterol sulfate 2.5 mg/3 mL 2.5 mg inhalation Q4H PRN wheezing 01/05/24 02/10/24 02/03/24 History (0.083 %) solution for nebulization cholecalciferol (vitamin D3) 50 50 mcg PO DAILY 01/05/24 02/10/24 02/09/24 History mcg (2,000 unit) tablet (Vitamin D3) cyanocobalamin (vitamin B-12) 500 500 mcg PO DAILY 01/05/24 02/10/24 02/09/24 History mcg tablet diclofenac sodium 1 % topical gel 4 g topical BID PRN Pain 01/05/24 02/10/24 Unknown History fremanezumab-vfrm 225 mg/1.5 mL 225 mg subcut Q28D 01/05/24 02/10/24 02/01/24 History subcutaneous auto-injector (Ajovy) lidocaine 5 % topical patch 1 patch topical DAILY 01/05/24 02/10/24 Unknown History loperamide 2 mg capsule 2 mg PO QID PRN diarrhea 01/05/24 02/10/24 Unknown History montelukast 10 mg tablet 10 mg PO BEDTIME 01/05/24 02/10/24 Unknown History naproxen 500 mg tablet 500 mg PO BID PRN Pain (Scale 01/05/24 02/10/24 Unknown History Score 4-6) Physical Exam Vital Signs: Vital Signs: Last Vital Signs Temp 97.7 F 02/10/24 09:00 Pulse 48 L 02/10/24 09:00 Resp 16 02/10/24 09:00 BP 107/60 02/10/24 09:00 Pulse Ox 95 02/10/24 09:00 O2 Del Method Room Air 02/10/24 09:00 BMI result Body Mass Index 26.6 GENERAL APPEARANCE: in no acute distress, pleasant. NECK: no carotid bruit, no jugular venous distention. SKIN: no suspicious lesions, warm and dry. HEART: no murmurs, regular rate and rhythm. LUNGS: clear to auscultation bilaterally. ABDOMEN: soft, nontender. EXTREMITIES: no edema. PERIPHERAL PULSES: equal. NEUROLOGIC: No gross deficits, AAO X 3 Objective Labs and Meds 11/04/23 13:17 11/04/23 13:17 Lab results: Laboratory Results - last 24 hr 02/10/24 02/10/24 07:00 09:07 Urine Opiates Screen Not Detected Ur Buprenorphine Scrn Not Detected Ur Oxycodone Screen Not Detected Urine Methadone Screen Positive H Urine Fentanyl Screen Not Detected Ur Barbiturates Screen Not Detected Ur Phencyclidine Scrn Not Detected Ur Amphetamines Screen Not Detected U Benzodiazepines Scrn Not Detected Urine Cocaine Screen Not Detected U Marijuana (THC) Screen POSITIVE H Blood Type O Positive Antibody Screen NEGATIVE Assessment and Plan (1) Sinus bradycardia: Status: Acute Plan 58 year female with polysubstance abuse presenting for surgery to left knee and noticed to be bradycardic. She is reporting that she has chronic bradycardia. Not symptomatic. Has appropriate rise in heart rate with minimal activity. I think she can tolerate anesthesia with close monitoring. Currently no further recommendations. If any concerns please consult our service. Thank you for allowing me to participate in the care of your patient. Please feel free to contact me if you have any questions. Procedures Date of Service Date of Service: 02/10/24
--- NOTE | 2024-02-10 15:32 | PM.OP ---
Brief Operative Note Date of Service: 02/10/24 Pre-op diagnosis: infected left total hip Post-op diagnosis: same Procedure: revision left hip arthroplasty ORIF greater trochanter with allograft Implants: Bonesteel modular yazidism 155 x 17 conical stem prox cone body 21 +0 +5 36 head cortical strut allograft with 150 mm trochanteric claw plate with 5 2.0 dall miles cables Surgeon: Sam Callahan MD Anesthesia: GETA and local Was an [employer] Special [employer] Teacher used for this Procedure?: Yes [employer] Teacher: Naomie Saucedo Estimated blood loss (mL): 500 IV fluids (mL): 2,000 Pathology: none sent Condition: stable Disposition: PACU
[2024-02-10] MEDS: fentaNYL citrate/PF 100 MCG/2 ML VIAL 50 MCG IVPUSH ×4 (16:10→16:30)
[2024-02-10] MEDS: LORazepam 2 MG/ML VIAL 1 MG IVPUSH (16:34)
--- NOTE | 2024-02-10 17:45 | PC.NURSE ---
Pt arrived to unit at approximately 1715. At this time pt drowsy but alert to voice, A&Ox4. Surgical dressing CDI. LS clear, on room air. Abd soft non-tender. +CMS in bilateral LE, no edema noted. Per PACU last void unknown, pt bladder scanned for 220ml states she does not have the urge to void at this time. All safety measures in place. Pt not endorsing pain at this time.
--- NOTE | 2024-02-10 18:00 | PHA.MEDREC ---
Pharmacy Consult ? Medication Reconciliation Pharmacy has completed the medication reconciliation.
[2024-02-10] MEDS: ceFAZolin Sodium/Dextrose,Iso 2 GM/50 ML PIGGYBACK IV (18:21)
[2024-02-10] MEDS: 0.9 % Sodium Chloride Flush 3 ML SYRINGE IVFLUSH (18:21)
--- NOTE | 2024-02-10 20:39 | P.CONHOSP_ITS ---
History of Present Illness Data of Consult Service Date: 02/10/24 Requesting physician: Naomie Saucedo Primary Care Provider: Barbara Wolf MD [facility] Reason for consult: medical management 58-year-old female with history of asthma/COPD, remote history of seizure no longer on antiepileptic medication, GERD, polysubstance abuse, mood disorder, and opiate use disorder on methadone admitted to Orthopedic surgery for management of infected left total hip s/p revision left hip arthroplasty with consult placed to hospitalist service for medical management. She was evaluated by Cardiology preoperatively due to bradycardia likely in setting of methadone use. The patient is asymptomatic. Currently she is sleeping with heart rate 49-55. She is arousable and is reporting pain in left hip but otherwise has no complaints. Per Cardiology, bradycardia is chronic and given lack of symptoms and appropriate rise in heart rate with minimal activity she was cleared for surgery and underwent revision of left hip arthroplasty this afternoon which was uncomplicated. Outside of bradycardia as mentioned, vitals are stable. Urine tox screen was positive for methadone and marijuana however she also endorses inhaled cocaine use. Denies any alcohol use. Reports smoking 3 cigarettes per day but declines replacement therapy. Review of Systems 2 Review of Systems: Yes all other systems are reviewed and are negative PMFSH Medical History Seizure Back pain Bradycardia Infected prosthesis of left hip Raspy voice Bilateral knee pain COPD (chronic obstructive pulmonary disease) Left hand paresthesia Vitamin D deficiency Skull lesion Irritable bowel syndrome Insomnia GERD (gastroesophageal reflux disease) History of Helicobacter pylori infection Vitamin B12 deficiency Clostridium difficile infection Weight loss Epigastric pain Cocaine abuse Cannabis abuse Eczema Hepatitis B virus infection Migraine Osteoarthritis Polysubstance abuse Sinusitis Tobacco abuse disorder Cervical myelopathy Arthritis History of headache Numbness Asthma 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 Anxiety Depression Surgical History H/O colonoscopy History of bilateral knee arthroplasty History of hip replacement Hx of cervical spine surgery History of appendectomy H/O tubal ligation History of total left hip arthroplasty Social History Household Members: Significant Other Household Members Other:: 2 Housing: House Are you a primary skin care technician to a significant other at home: No Do you presently have visiting nurse or 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 If so, by whom?: No Are you DNR?: No Advance Directives: No Advance Directives Information Provided: No Advance Directives on File: No Do you have a plan to hurt others: No Plan Recently lost weight without trying: No Eating poorly because of decreased appetite: No Nutrition Risks: No Nutritional Risk Patient : No : No Poor oral hygiene: No service: No Meds Allergies Allergy/AdvReac Type Severity Reaction Status Date / Time Penicillins Allergy Rash Verified 02/05/24 16:33 Active Medications: Current Medications Acetaminophen (Acetaminophen 325 Mg Tablet) 650 mg PO Q6H PRN PRN Reason: Pain, Mild (Pain Scale 1-3), fever or headache Albuterol Sulfate (Albuterol Sulfate (0.083%) 2.5 Mg/3 Ml Vial.Neb) 2.5 mg INHALE ONCE PRN PRN Reason: Shortness of Breath/Wheezing Albuterol Sulfate (Albuterol Sulfate (0.083%) 2.5 Mg/3 Ml Vial.Neb) 2.5 mg INHALE Q4H PRN PRN Reason: wheezing Albuterol Sulfate (Albuterol Sulfate 90 Mcg 8 Gm Inhaler) 2 puff INHALE QID PRN PRN Reason: wheezing Calcium Carbonate (Calcium Carbonate 750 Mg Tab.Chew) 750 mg PO Q4H PRN PRN Reason: Heartburn Celecoxib (Celecoxib 200 Mg Capsule) 200 mg PO BID FIDEL Cyanocobalamin (Cyanocobalamin (Vitamin B-12) 500 Mcg Tablet) 500 mcg PO DAILY FIDEL Droperidol (Droperidol 5 Mg/2 Ml Vial) 0.625 mg IVPUSH ONCE PRN PRN Reason: intractable nausea Stop: 02/10/24 22:07 Hydromorphone HCl (Hydromorphone Hcl 0.5 Mg/0.5 Ml Syringe) 0.5 mg IVPUSH Q5M PRN PRN Reason: Pain, Severe (Pain Scale 7-10) Stop: 02/10/24 22:07 Hydromorphone HCl (Hydromorphone Hcl 0.5 Mg/0.5 Ml Syringe) 0.5 mg IVPUSH Q4H PRN; Protocol PRN Reason: Pain, Severe (Pain Scale 7-10) Hydroxyzine HCl (Hydroxyzine Hcl 25 Mg Tablet) 25 mg PO BEDTIME [facility] Lactated Ringer's (Lr) 1,000 mls @ 100 mls/hr IVCONT .Q10H [facility] Last Admin: 02/10/24 18:06 Dose: 100 mls/hr Cefazolin Sodium/Dextrose (Ancef) 2 gm in 50 mls @ 100 mls/hr IV Q8H [facility] Last Infusion: 02/10/24 19:27 Dose: Infused Lidocaine (Lidocaine 4 % Patch Adh..Patch) 1 patch TRANSDERMA DAILY [facility] Loperamide HCl (Loperamide Hcl 2 Mg Capsule) 2 mg PO QID PRN PRN Reason: diarrhea Loratadine (Loratadine 10 Mg Tablet) 10 mg PO DAILY PRN PRN Reason: allergies Magnesium Hydroxide (Milk Of Magnesia 30 Ml Oral.Susp) 30 ml PO DAILY PRN PRN Reason: Constipation Melatonin (Melatonin 3 Mg Tablet) 6 mg PO BEDTIME PRN PRN Reason: Insomnia Methadone HCl (Methadone Hcl 20 Mg/2 Ml Oral.Conc) 36 mg PO DAILY [facility] Montelukast Sodium (Montelukast Sodium 10 Mg Tablet) 10 mg PO BEDTIME [facility] Omeprazole (Omeprazole 20 Mg Capsule.Dr) 20 mg PO DAILY@0630 [facility] Ondansetron HCl (Ondansetron Odt 8 Mg Tab.Rapdis) 8 mg TRANSLINGU DAILY PRN PRN Reason: Nausea And Vomiting Oxycodone HCl (Oxycodone Hcl Immed Release 5 Mg Tablet) 10 mg PO Q4H PRN PRN Reason: Pain, Moderate(Pain Scale 4-6) Oxycodone HCl (Oxycodone Hcl Er 10 Mg Tab.Er.12h) 10 mg PO BID [facility] Sodium Chloride (0.9 % Sodium Chloride Flush 3 Ml Syringe) 3 ml IVFLUSH QSHIFT [facility] Last Admin: 02/10/24 18:21 Dose: 3 ml Vitamin D (Cholecalciferol (Vitamin D3) 25 Mcg Tablet) 50 mcg PO DAILY FIDEL Home Medications ?Medication ?Instructions ?Recorded ?Confirmed ?Last Taken ?Type albuterol sulfate 90 mcg/actuation 2 puff inhalation QID PRN wheezing 05/23/22 02/05/24 02/03/24 History aerosol inhaler (ProAir HFA) omeprazole 20 mg capsule,delayed 20 mg PO DAILY 05/23/22 02/05/24 10/06/23 History release loratadine 10 mg tablet 10 mg PO DAILY PRN allergies 04/20/23 02/05/24 01/04/24 History calcium carbonate 200 mg PO TID 11/03/23 02/10/24 02/09/24 History hydroxyzine HCl 25 mg tablet 25 mg PO BEDTIME 11/03/23 02/05/24 Unknown History ondansetron HCl 8 mg tablet 8 mg PO DAILY PRN Nausea And 11/03/23 02/05/24 02/10/24 05:30 History Vomiting methadone 10 mg/mL oral 36 mg PO DAILY 11/04/23 02/10/24 02/10/24 05:30 History concentrate (Methadose) acetaminophen 500 mg capsule 500 mg PO Q6H PRN Pain 12/04/23 02/10/24 02/10/24 05:30 History albuterol sulfate 2.5 mg/3 mL 2.5 mg inhalation Q4H PRN wheezing 01/05/24 02/10/24 02/03/24 History (0.083 %) solution for nebulization cholecalciferol (vitamin D3) 50 50 mcg PO DAILY 01/05/24 02/10/24 02/09/24 History mcg (2,000 unit) tablet (Vitamin D3) cyanocobalamin (vitamin B-12) 500 500 mcg PO DAILY 01/05/24 02/10/24 02/09/24 History mcg tablet diclofenac sodium 1 % topical gel 4 g topical BID PRN Pain 01/05/24 02/10/24 Unknown History fremanezumab-vfrm 225 mg/1.5 mL 225 mg subcut Q28D 01/05/24 02/10/24 02/01/24 History subcutaneous auto-injector (Ajovy) lidocaine 5 % topical patch 1 patch topical DAILY 01/05/24 02/10/24 Unknown History loperamide 2 mg capsule 2 mg PO QID PRN diarrhea 01/05/24 02/10/24 Unknown History montelukast 10 mg tablet 10 mg PO BEDTIME 01/05/24 02/10/24 Unknown History naproxen 500 mg tablet 500 mg PO BID PRN Pain (Scale 01/05/24 02/10/24 Unknown History Score 4-6) Physical Exam 2 Vital Signs and Narrative: Vital Signs: Last Vital Signs Temp 97.1 F 02/10/24 19:34 Pulse 78 02/10/24 19:34 Resp 16 02/10/24 19:34 BP 130/71 02/10/24 19:34 Pulse Ox 98 02/10/24 19:34 O2 Del Method Room Air 02/10/24 19:34 O2 Flow Rate 2 02/10/24 16:35 BMI result Body Mass Index 26.6 Constitutional - Awake and Alert, No apparent distress Eyes - PERRLA, EOMI Cardiovascular - S1S2, RRR, No edema Respiratory - Normal lung expansion, Normal respiratory effort, No respiratory distress, CTA bilaterally Gastrointestinal - NT / ND; +BS; No rebound or guarding Extremities - no calf tenderness bilaterally, no swelling Skin - Warm/Dry Neurological - Alert & oriented x3 Psychological - Appropriate affect Results Labs 11/04/23 13:17 11/04/23 13:17 Labs: Laboratory Results - last 24 hr 02/10/24 02/10/24 07:00 09:07 Urine Opiates Screen Not Detected Ur Buprenorphine Scrn Not Detected Ur Oxycodone Screen Not Detected Urine Methadone Screen Positive H Urine Fentanyl Screen Not Detected Ur Barbiturates Screen Not Detected Ur Phencyclidine Scrn Not Detected Ur Amphetamines Screen Not Detected U Benzodiazepines Scrn Not Detected Urine Cocaine Screen Not Detected U Marijuana (THC) Screen POSITIVE H Blood Type O Positive Antibody Screen NEGATIVE Imaging Radiologist's Impressions: Impressions Pelvis X-Ray 02/10/24 16:35 IMPRESSION: * Status post revision of the left hip arthroplasty. The components of the left total hip arthroplasty are in satisfactory position. No acute periprosthetic fracture. * There is postoperative soft tissue swelling and soft tissue gas at the lateral hip. 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 #Revision L total hip arthroplasty -plan per ortho surgery #Chronic bradycardia -likely r/t methadone use, asymptomatic with appropriate rise with minimal activity -cleared for surgery by cardiology -heart rate 49-55 on exam while patient is sleeping. Monitor on telemetry -can continue methadone, not on any bb/ccb # asthma/COPD overlap -no exacerbation -continue Singulair, home inhalers # GERD -PPI # substance abuse -declines addiction medicine consult -continue methadone #Cigarette smoking -declines nrt Thank you for allowing me to participate in this consult. Signing off at this time. Please do not hesitate to call for further questions or for any acute medical issues
[2024-02-10] MEDS: hydrOXYzine HCL 25 MG TABLET PO (20:48)
[2024-02-10] MEDS: Celecoxib 200 MG CAPSULE PO (20:48)
[2024-02-10] MEDS: Montelukast Sodium 10 MG TABLET PO (20:50)
[2024-02-11] VITALS (13 sets, daily range): BP systolic 100–157; BP diastolic 50–90; PULSE 60–75; RESP 14–20; TEMP 36–36.7; O2SAT 93–98
[2024-02-11] MEDS: 0.9 % Sodium Chloride Flush 3 ML SYRINGE IVFLUSH ×3 (02:48→23:01)
[2024-02-11] MEDS: ceFAZolin Sodium/Dextrose,Iso 2 GM/50 ML PIGGYBACK IV ×3 (02:48→18:34)
[2024-02-11] MEDS: Lactated Ringers 1,000 ML 100 ML IVCONT ×2 (02:48→22:29)
[2024-02-11] MEDS: oxyCODONE HCl Immed Release 5 MG TABLET 10 MG PO ×4 (02:59→23:00)
--- NOTE | 2024-02-11 04:17 | PC.NURSE ---
Pt. requested to get OOB to urinate. Pt. able to stand pivot to commode with 1 assist and urinated 300 mls. Aquacel dressing CDI.
[2024-02-11] MEDS: Omeprazole 20 MG CAPSULE.DR PO (05:14)
[2024-02-11 06:05] LABS: MANUAL DIFF FLAG NO
[2024-02-11 06:17] LABS: Basophils Percent Auto 0.2 % (0-2); Hematocrit 31.7 % (37.0-47.0); Hemoglobin 10.6 g/dl (12.0-16.0); Imm Gran Abs Auto 0.04 X10*3/uL (0.00-0.03); Imm Gran Pct Auto 0.4 % (0.0-0.4); Lymphocytes Absolute Auto 1.7 X10*3/uL (1.2-4.9); Lymphocytes Percent Auto 17.4 % (20-40); Mean Corpuscular HGB Conc 33.4 g/dl (31.0-35.0); Mean Corpuscular Hemoglobin 31.5 pg (27.0-33.0); Mean Corpuscular Volume 94.3 fL (80.0-98.0); Mean Platelet Volume 12.6 fL (9.4-12.3); Monocytes Absolute Auto 0.8 X10*3/uL (0.1-1.2); Monocytes Percent Auto 8.1 % (2-11); Neutrophils Absolute Auto 7.4 x10*3/uL (2.0-8.3); Neutrophils Percent Auto 73.9 % (45-73); Platelet Count 172 X10*3/uL (160-400); Red Blood Count 3.36 X10*6/uL (4.20-5.50); Red Cell Distribution Width 12.9 % (11.0-16.0)
[2024-02-11 06:32] LABS: Anion Gap 12 (12-20); Blood Urea Nitrogen 8 mg/dL (9-16); Calcium 8.6 mg/dL (8.4-10.2); Carbon Dioxide 25 mmol/L (22-29); Chloride 107 mmol/L (96-108); Creatinine Clr Calc Pharmacy 93.3; Estimated Glomerular Filt Rate > 60; Glucose Fasting 131 mg/dL (60-99); Sodium 140 mmol/L (135-145)
[2024-02-11] MEDS: Cholecalciferol (Vitamin D3) 25 MCG TABLET 50 MCG PO (07:53)
[2024-02-11] MEDS: HYDROmorphone HCl 0.5 MG/0.5 ML SYRINGE IVPUSH ×2 (07:53→21:08)
[2024-02-11] MEDS: Celecoxib 200 MG CAPSULE PO ×2 (07:53→19:04)
[2024-02-11] MEDS: oxyCODONE HCl ER 10 MG TAB.ER.12H PO ×2 (07:53→19:03)
[2024-02-11] MEDS: Cyanocobalamin (Vitamin B-12) 500 MCG TABLET PO (07:54)
--- NOTE | 2024-02-11 08:24 | P.PNOP_ITS ---
Subjective Subjective Date of Service: 02/11/24 Interval history: POD 1 s/p Revision LT YVONNE no overnight events pain is better managed seen working with PT/OT today denies sob, cp, palpitations Physical Exam Vital Signs: Vital Signs: Last Vital Signs Temp 97.8 F 02/11/24 07:40 Pulse 70 02/11/24 07:40 Resp 14 02/11/24 07:40 BP 154/90 H 02/11/24 07:40 Pulse Ox 97 02/11/24 07:40 O2 Del Method Room Air 02/11/24 07:40 O2 Flow Rate 2 02/10/24 16:35 BMI result Body Mass Index 26.6 Const: General: cooperative, healthy appearing and no acute distress Resp: Effort & Inspection: normal respiratory effort and able to speak in complete sentences Cardio: Rate: regular rate Peripheral pulses: Peripheral pulses 2+ throughout GI: Palpation (GI): Soft to palpation Skin: General skin exam: no rashes or lesions noted Extrem: Other: bandage clean dry and intact. Dieudonne intact. No erythema or effusion. Calf supple nontender. Neurovascularly intact. Procedures Date of Service Date of Service: 02/11/24 Progress Note: A&P Assessment and plan (1) History of revision of total replacement of left hip joint: Status: Acute Assessment and Plan: * Continue pain mgmnt * Begin Aspirin for dvt ppx * begin PT/OT for LT YVONNE revision * Dispo planning-Pending PT eval, pain mgmnt Need for continued inpatient stay: PT eval and pain mgmnt Time Spent With Patient Time: Total time managing care of this patient today ____ minutes. Quality Stroke Does the patient have a stroke diagnosis?: No VTE Prior VTE?: No VTE Risk Level:: Surgical - very high VTE Device Contraindication: N/A - Device Ordered VTE Drug Contraindication: N/A - Med Ordered
--- NOTE | 2024-02-11 08:42 | MHC.CM.PN ---
PATIENT LIVES WITH HER SIGNIFICANT OTHER/HCP (ON FILE AND VERIFIED). SHE IS FULLY INDEPENDENT. NO PHYSICIAN OFFICE CLIN [facility] OR [facility]. PATIENT WILL STAY IN THE DOWNSTAIRS APARTMENT WITH HER SISTER WHILE SHE RECEIVES P.T. SERVICES. SHE DOES HAVE A WALKER AND WHEEL CHAIR IN THE HOME. SHE IS HOPING TO DC HOME TODAY WITH [facility] REFERRAL PLACED. PATIENT HAS TRANSPORT HOME
--- NOTE | 2024-02-11 10:22 | HE.PHANOTE ---
RE: METHADONE DOSING Last dose of methadone 36 mg was given on 02/08/24 @4836 6 take homes per Elle at [facility].
[2024-02-11] MEDS: methADONE HCl 20 MG/2 ML ORAL.CONC 36 MG PO (10:38)
--- NOTE | 2024-02-11 11:27 | HO.POSTANES ---
Post Anesthesia Evaluation Post Anesthesia Evaluation Date of Service: 02/10/24 Vital Signs: Vital Signs Temp Pulse Resp BP Pulse Ox O2 Del Method 02/11/24 09:22 70 154/90 H 97 02/11/24 08:42 70 154/90 H 97 02/11/24 07:40 97.8 F 70 14 154/90 H 97 Room Air 02/11/24 02:46 96.8 F 60 16 141/88 H 98 Room Air 02/10/24 23:49 97.2 F 56 16 160/89 H 94 Room Air Anesthesia: General Mental Status: Awake Pain Control: Satisfactory Nausea/Vomiting: None Hydration: Adequate Anesthesia-Related Issues: No Anes. Related Issues
[2024-02-11] MEDS: Aspirin 325 MG TABLET PO ×2 (13:06→19:03)
[2024-02-11] MEDS: Montelukast Sodium 10 MG TABLET PO (19:04)
[2024-02-11] MEDS: hydrOXYzine HCL 25 MG TABLET PO (19:04)
--- NOTE | 2024-02-11 22:00 | PC.NURSE ---
Assumed care of patient at 19:00. Pt seen on s3, POD 1 s/p Revision LT YVONNE. Pt is A&Ox4, c/o 06/02 pain at left hip despite scheduled ER oxycodone and prn oxycodone. Surgical site assessed, moderate swelling noted with pt reporting most tenderness along inner length of aquacel dressing which was clean, dry, and intact without shadowing. This site was semi-firm to palpation. +radial and dp/pt pulses, +cms. Prn dilaudid given as ordered and appropriate with reassessment 04/[address]ics covering Dr. Matt Dacosta notified of concerns with swelling and pain, photos sent via [employer]; film writer reviewed BP trend, CBC/Labs with . advised to continue with morning labs as ordered. No further orders at this time. Ice packs applied over thin pants for skin protection.
[2024-02-12] MEDS: ceFAZolin Sodium/Dextrose,Iso 2 GM/50 ML PIGGYBACK IV (02:26)
[2024-02-12 04:00] VITALS: BP 140/76; PULSE 73; RESP 16; TEMP 36.5; O2SAT 97
[2024-02-12] MEDS: Omeprazole 20 MG CAPSULE.DR PO (05:43)
--- NOTE | 2024-02-12 07:04 | W.MHC.F2F ---
Service Date Service Date: 02/12/24 Encounter Date of encounter: 02/12/24 Reasons for Services Signs and symptoms assessed: Weakness, poor balance, poor gait mechanics Reason for prison: postoperative assessment and/or care Reason for physical therapy: home safety and mobility, therapeutic exercises, restore joint function, gait/transfer training, ADL training and energy conservation Reason for occupational therapy: home safety and mobility, therapeutic exercises, restore joint function, gait/transfer training, ADL training and energy conservation Homebound: Leaving the home is medically contraindicated at this time without the asist of a device and/or another person due th the listed conditions above and below. Reason homebound: unsteady gait / fall risk, pain with ambulation, poor balance / fall risk and unable to drive Homebound supporting statement: Pt. is considered home bound due to recent surgery. Unable to drive, poor balance, poor gait mechanics. Certification: Based on the above findings, I certify that this patient is confined to the home and needs intermittent prison care, physical therapy and/or speech therapy, or continues to need occupational therapy. The patient is under my care, and I have initiated the establishment of the plan of care. The patient will be followed by a physician who will periodically review the plan of care. Time Spent With Patient Time: Total time managing care of this patient today ____ minutes.
[2024-02-12 07:14] VITALS: BP 138/74; PULSE 68; RESP 16; TEMP 36.3; O2SAT 100
[2024-02-12 07:20] LABS: MANUAL DIFF FLAG NO
[2024-02-12 07:29] LABS: Basophils Percent Auto 0.5 % (0-2); Eosinophils Absolute Auto 0.1 X10*3/uL (0.0-0.4); Eosinophils Percent Auto 1.2 % (0-4); Hematocrit 27.8 % (37.0-47.0); Hemoglobin 9.4 g/dl (12.0-16.0); Imm Gran Abs Auto 0.03 X10*3/uL (0.00-0.03); Imm Gran Pct Auto 0.4 % (0.0-0.4); Lymphocytes Percent Auto 25.2 % (20-40); Mean Corpuscular HGB Conc 33.8 g/dl (31.0-35.0); Mean Corpuscular Hemoglobin 31.9 pg (27.0-33.0); Mean Corpuscular Volume 94.2 fL (80.0-98.0); Mean Platelet Volume 12.8 fL (9.4-12.3); Monocytes Absolute Auto 0.7 X10*3/uL (0.1-1.2); Monocytes Percent Auto 8.4 % (2-11); Neutrophils Absolute Auto 5.2 x10*3/uL (2.0-8.3); Neutrophils Percent Auto 64.3 % (45-73); Platelet Count 146 X10*3/uL (160-400); Red Blood Count 2.95 X10*6/uL (4.20-5.50); Red Cell Distribution Width 13.2 % (11.0-16.0); White Blood Count 8.1 X10*3/uL (4.8-10.8)
--- NOTE | 2024-02-12 07:31 | P.DS_ITS ---
DS: Providers Provider Date of Service: 02/12/24 Date of admission: 02/10/24 16:44 Primary care physician: Barbara Wolf MD Consults: 02/10/24 17:27 Consult to Hospitalist Routine Comment: Consulting Provider: Hospitalist Reason For Exam: routine medical management DS: Diagnosis Discharge Diagnosis (1) History of revision of total replacement of left hip joint: Status: Acute DS: Summary Hospital Course Hospital Course: The patient underwent a successful revision of left total hip arthroplasty with ORIF of greater trochanter with bone allograft, they were transferred to PACU and then to the floor to recover. During their stay, their vitals were stable, afebrile at 97.4. Labs were unremarkable, H/H 9.4/27.8. POD 1 they were started on Aspirin 325mg po bid for DVT ppx, they also received Physical Therapy services twice a day. Prior to discharge, their dressing was clean dry and intact, and the plan was to be discharged home with VNA services. Time Attestation Discharge Coordination Time (in mins): 30 Quality: Safe Use of Opioids Does Pt have an Active Cancer Diagnosis on the Problem List?: No Quality: Stroke Does the patient have a stroke diagnosis?: No Physical Exam Vital Signs: Vital Signs: Last Vital Signs Temp 97.4 F 02/12/24 07:14 Pulse 68 02/12/24 07:14 Resp 16 02/12/24 07:14 BP 138/74 02/12/24 07:14 Pulse Ox 100 02/12/24 07:14 O2 Del Method Room Air 02/12/24 07:14 O2 Flow Rate 2 02/10/24 16:35 BMI result Body Mass Index 26.6 Const: General: cooperative, healthy appearing and no acute distress Resp: Effort & Inspection: normal respiratory effort and able to speak in complete sentences Cardio: Rate: regular rate Peripheral pulses: Peripheral pulses 2+ thro ughout GI: Palpation (GI): Soft to palpation Skin: Lesions: no lesions Rashes: no rashes Extrem: Other: right hip dressing is c/d/i. Able to dorsi/plantar flex. Calf is supple and nontender. Sensation intact. Pedal pulse intact. DS: Data Data Completed and Pending Completed studies during hospitalization [Text1]: Procedures Insertion of Infusion Device into Superior Vena Cava, Percutaneous Approach (05/05/23) Insertion of Spacer into Left Hip Joint, Open Approach (05/05/23) Removal of Synthetic Substitute from Left Hip Joint, Open Approach (05/05/23) Transfusion of Nonautologous Red Blood Cells into Peripheral Vein, Percutaneous Approach (05/05/23) Ultrasonography of Superior Vena Cava, Guidance (05/05/23) Labs on day of discharge: Laboratory Results - last 24 hr 02/12/24 05:37 WBC 8.1 RBC 2.95 L Hgb 9.4 L Hct 27.8 L MCV 94.2 MCH 31.9 MCHC 33.8 RDW 13.2 Plt Count 146 L MPV 12.8 H Immature Gran % (Auto) 0.4 Neut % (Auto) 64.3 Lymph % (Auto) 25.2 Bleckley % (Auto) 8.4 Eos % (Auto) 1.2 Baso % (Auto) 0.5 Lymph # (Auto) 2.0 Bleckley # (Auto) 0.7 Eos # (Auto) 0.1 Baso # (Auto) 0.0 Abs Immat Gran (auto) 0.03 Absolute Neuts (auto) 5.2 Absolute Nucleated RBC 0.000 Nucleated RBC % (auto) 0.0 Discharge Plan Discharge Anticipated Discharge Date/Time: 02/12/24 06:56 Patient Disposition: Home Health Service Discharge Diagnosis: S/p Revision LT YVONNE Referrals: Daniella Aguirre PA-C [Physician Visual Journalist] - 11/26/23 12:30 pm Discharge Medications: New oxycodone 10 mg tablet 10 mg PO Q6H PRN (Reason: Pain, Moderate(Pain Scale 4-6)) 7 Days Qty: 28 0RF Rx Instructions: Partial Fill upon patient request. celecoxib 200 mg Capsule 200 mg PO BID 30 Days Qty: 60 0RF acetaminophen 325 mg Tablet 650 mg PO Q6H PRN (Reason: Pain, Mild (Pain Scale 1-3), fever or headache) 30 Days Qty: 240 0RF nicotine 14 mg/24 hr Patch 24 Hour 14 mg transdermal DAILY 30 Days Qty: 30 3RF aspirin 325 mg Tablet 325 mg PO BID 42 Days Qty: 84 0RF Continued (DME) walker Misc See Rx Instructions .MEDSUPPLY Qty: 1 0RF Rx Instructions: Folding Front wheeled walker (DME) Carriage Operator See Rx Instructions .Route .MEDSUPPLY Qty: 1 0RF Rx Instructions: As directed loratadine 10 mg tablet 10 mg PO DAILY PRN (Reason: allergies) ondansetron HCl 8 mg tablet 8 mg PO DAILY PRN (Reason: Nausea And Vomiting) calcium carbonate 200 mg calcium (500 mg) tablet,chewable 200 mg PO TID hydroxyzine HCl 25 mg Tablet 25 mg PO BEDTIME methadone [Methadose] 10 mg/mL concentrate 36 mg PO DAILY Rx Instructions: Partial Fill upon patient request. albuterol sulfate 2.5 mg /3 mL (0.083 %) solution for nebulization 2.5 mg inhalation Q4H PRN (Reason: wheezing) loperamide 2 mg capsule 2 mg PO QID PRN (Reason: diarrhea) cyanocobalamin (vitamin B-12) 500 mcg tablet 500 mcg PO DAILY lidocaine 5 % adhesive patch,medicated 1 patch topical DAILY montelukast 10 mg tablet 10 mg PO BEDTIME diclofenac sodium 1 % gel 4 g topical BID PRN (Reason: Pain) cholecalciferol (vitamin D3) [Vitamin D3] 50 mcg (2,000 unit) tablet 50 mcg PO DAILY Ajovy Autoinjector 225 mg/1.5 mL auto-injector 225 mg subcut Q28D omeprazole 20 mg capsule,delayed release(DR/EC) 20 mg PO DAILY albuterol sulfate [ProAir HFA] 90 mcg/actuation HFA aerosol inhaler 2 puff inhalation QID PRN (Reason: wheezing) Discontinued naproxen 500 mg tablet 500 mg PO BID PRN (Reason: Pain (Scale Score 4-6)) acetaminophen 500 mg capsule 500 mg PO Q6H PRN (Reason: Pain) Discharge Orders: Discharge Order (Routine); Ordered 02/12/24 Ordered By: Daniella Aguirre Diet: Advance to usual diet Activity on Discharge: Use cane or walker Stand Alone Forms: Patient Portal Discharge page Print Language: Belarusian Care Plan Goals: Restore function of joint Health Concerns: Smoking Cessation Plan of Treatment: Physical Therapy Pain management DVT prophylaxis Assessment: * Physical Therapy for Total hip arthroplasty: TTWB, posterior precautions, gait training, ROM, strength * Limit stair climbing * No showering, no tub bath-keep dressing clean, dry and intact * No driving x6 weeks * Continue Aspirin twice a day x 6 weeks * Follow up with [facility] [place] in 2 weeks:
[2024-02-12 07:44] LABS: Anion Gap 11 (12-20); Blood Urea Nitrogen 5 mg/dL (9-16); Calcium 8.7 mg/dL (8.4-10.2); Carbon Dioxide 26 mmol/L (22-29); Chloride 110 mmol/L (96-108); Creatinine Clr Calc Pharmacy 110.6; Estimated Glomerular Filt Rate > 60; Glucose Fasting 105 mg/dL (60-99); Potassium 3.5 mmol/L (3.3-5.1); Sodium 143 mmol/L (135-145)
[2024-02-12] MEDS: Aspirin 325 MG TABLET PO (08:24)
[2024-02-12] MEDS: oxyCODONE HCl ER 10 MG TAB.ER.12H PO (08:25)
[2024-02-12] MEDS: Cholecalciferol (Vitamin D3) 25 MCG TABLET 50 MCG PO (08:25)
[2024-02-12] MEDS: Cyanocobalamin (Vitamin B-12) 500 MCG TABLET PO (08:25)
[2024-02-12] MEDS: Celecoxib 200 MG CAPSULE PO (08:25)
[2024-02-12] MEDS: methADONE HCl 20 MG/2 ML ORAL.CONC 36 MG PO (08:27)
--- NOTE | 2024-02-12 08:30 | MHC.CM.PN ---
PT WILL DC HOME TODAY WITH [facility] VIA PRIVATE TRANSPORT SHE WILL BE STAYING ON THE FIRST FLOOR WITH HER SISTER WHILE RECOVERING VNA AWARE
[2024-02-12 08:49] VITALS: BP 138/74; PULSE 68; O2SAT 100
--- NOTE | 2024-03-15 11:06 | W.PM.OPN ---
Operative Note Operative Note Date of Service: 02/10/24 Narrative: Date of Service: 02/10/24 Pre-op diagnosis: infected left total hip Post-op diagnosis: same Procedure: revision left hip arthroplasty ORIF greater trochanter with allograft Implants: [place] modular presybeterian 155 x 17 conical stem prox cone body 21 +0 +5 36 head cortical strut allograft with 150 mm trochanteric claw plate with 5 2.0 dall miles cables Surgeon: Sam Callahan MD Anesthesia: GETA and local Was an Manager Activities used for this Procedure?: Yes Manager Activities: Naomie Saucedo Estimated blood loss (mL): 500 IV fluids (mL): 2,000 Pathology: none sent Condition: stable Disposition: PACU Patient was brought into the operating room and placed in the right lateral decubitus position. All bony prominences were well padded and the limb was prepped and draped in standard sterile fashion. A time-out was called to identify proper site procedure proper surgeon IV antibiotics and 1 g of tranexamic acid were administered. I began by making a curvilinear incision over the posterolateral aspect of the greater trochanter. I incised through the prior incision and extended this distally. Dissection was taken down to the tensor fascia which was incised in line with the incision and a Charnley retractor was placed. A werewolf device ( [employer]) was used to maintain hemostasis. Prior suture were removed. There was no unusual appearance of the joint fluid. The hip was internally rotated and attempts at dioslocation failed as she was tight. I used a small osteotome to break the cement femoral head and neck. These pieces were removed piecemeal and I finally was able to dislocate what remoaned of the head. I used cautery to debride the calcar and the femoral componenet was removed easily. Again the bone and soft tissues did not look suspicious for infection. I used copious pulse irrigation ( 6 liters) and a currette and rongeur to clean the femoral canal and acetbulum and surrounding soft tissues. The greater trochanter was proximally retracted and this was released with cautery but was still uanble to return to an anatomic position. I returned to the acetabulum and I started with a 44 reamer and this was already medialized to the inner table. I sequentially reamed up to a size 56 and impacted a 56mm revision cup at 45 degrees of inclination and 25 degrees of version. I placed 2 6.5 mm [id number] screws through the illium superor and slightly posterior to midline. I then placed a 20 deg posterior lipped liner and turned my attention to the femur. I turned my attention to the femur. I prepared the canal was a blanket cutter hand and then reamed up to a 17. A 155 mm COLON coated conical stem was inserted using the top of the trochanter ( estimating where is should be) as reference. I then trialed with a 21 + 0 proximal cone body. Using a +5/35 femoral head I took the hip through a full ROM. It was tight in extension as I would expect but stable. I was satisfied with this and so the final femoral implants were placed. I then placed aq 150 mm troahanteric claw plate over the lateral proximal femur. There was a large gap between the greater trochanter ( with attached abductor) and the lateral femroal shaft ( ~2-3 c) therfore a prepared a demetria femoral frozen allograft. I used a high speed guera to create more concavity so that the allograft would fit over the alteral femoral corteex. Once I was satisfied with this the allograft was placed under the hook plate and 5 2.0 Dall Miles cerclage wires were placed using standard AO technique. Therse were tightened and I was satisfied with the stability of the construt. I again took the hip through a full ROM and it was stable and some length had been restored. I then irrigated copiously and placed 1 g of local tranexamic acid. I performed a capsular closure with 2.0 fiberwire, Demar's fascia with 0 Vicryl, subcuticular with 2-0 Vicryl and the skin with roland. Patient was placed into a sterile dressing. Patient was extubated brought to the recovery room in stable condition. There were no known complications.
== END 2024-02-12 09:39 | disposition home health service (06) | DRG 323 ==
LOC: HO.S3 16:46
PROVIDERS: Anesthesiology; Nurse Practitioner; Physician Assistant; Admitting Provider Physician Assistant; PCP Internal Medicine; Visit Provider Orthopaedic Surgery
PROC: 0SRS0JA Replacement of Left Hip Joint, Femoral Surface with Synthetic Substitute, Uncemented, Open Approach (ICD-10-PCS; principal; 2024-02-10 11:20)
DX: T84.52XA Infection and inflammatory reaction due to internal left hip prosthesis, initial encounter (principal); F11.20 Opioid dependence, uncomplicated; Y79.2 Prosthetic and other implants, materials and accessory orthopedic devices associated with adverse incidents; J44.9 Chronic obstructive pulmonary disease, unspecified; F17.210 Nicotine dependence, cigarettes, uncomplicated; K21.9 Gastro-esophageal reflux disease without esophagitis; F19.10 Other psychoactive substance abuse, uncomplicated; R00.1 Bradycardia, unspecified; Z71.6 Tobacco abuse counseling; Z79.899 Other long term (current) drug therapy
CPT/HCPCS: 36415; 72170; 80048; 80307; 85025; 85027; 86850; 86900; 86901; 87640; 87641; 93005; 97110; 97116; 97162; 97165; 97530; 97535; C1713; C1762; C1776; J0131; J0690; J1100; J1170; J1596; J1885; J2060; J2250; J2405; J2704; J2795; J3010; J7120

== ENCOUNTER → 2024-02-10 16:44 | Outpatient (BNV) | payer OTHER, SELFPAY | PROVIDERS: Admitting Provider Physician Assistant; PCP Internal Medicine; Visit Provider Physician Assistant | DX: R00.1 Bradycardia, unspecified (principal); Z89.622 Acquired absence of left hip joint | CPT/HCPCS: 99222 ==

== ENCOUNTER 2024-02-26 13:48 | Outpatient (REF) | payer OTHER, SELFPAY ==
--- NOTE | ~2024-02-26 | XR_ITS ---
EXAMINATION: XR PELVIS CLINICAL INFORMATION: Pain in unspecified hip. COMPARISON: 02/10/2024. TECHNIQUE: 2 AP views of the pelvis. FINDINGS: Redemonstration of right total hip arthroplasty. Similar appearance of small focal lucency with superolateral femoral component of the right prosthesis. Postsurgical changes with roland on the left. Status post revision of the left total hip arthroplasty with superior screws. Redemonstration of acetabular protrusio with erosive change of the acetabulum. Left femoral component stem in the medullary cavity of the femur appears intact. Lateral claw plate and cable fixation wires redemonstrated spanning previously noted old fracture fragments and bone graft. Hardware appears intact. XR/XR pelvis 1-2V IMPRESSION: Postsurgical changes in bilateral hips, as detailed above.
== END 2024-02-26 13:49 | disposition home or self-care (01) ==
LOC: HO.HOSX 13:48
PROVIDERS: Visit Provider Orthopaedic Surgery
DX: M25.552 Pain in left hip (principal); M54.9 Dorsalgia, unspecified; Z47.89 Encounter for other orthopedic aftercare; R26.2 Difficulty in walking, not elsewhere classified; Z96.642 Presence of left artificial hip joint; Z98.890 Other specified postprocedural states
CPT/HCPCS: 72170; 99212

== ENCOUNTER 2024-02-26 14:34 | Outpatient (AMB) | payer OTHER, SELFPAY ==
--- NOTE | 2024-02-26 14:46 | A.OFFVIS_ITS ---
Intake Visit Reasons: 2WK PO: L YVONNE Revision w/NE 02/10/24 Intake Note: Leanne is a 58 year old female who presents with a cane today 2 weeks post operatively s/p Left YVONNE Revision w/NE 02/10/24. Patient reports she has been having increased back pain due to her limping with ambulation. She is concerned on how long would she be limping for. She did 2 weeks of PT at home and says it went well and she continues doing the exercises. She would like to also receive another referral for formal PT. Allergies Penicillins Allergy (Verified 02/26/24 14:51) Rash Medication List - Last Reconciled 02/26/24 by Daniella Aguirre PA-C acetaminophen 650 mg (2 x 325 mg) PO Q6H PRN 30 days albuterol sulfate 2.5 mg inhalation Q4H PRN albuterol sulfate 90 mcg/actuation (ProAir HFA) 2 puffs inhalation QID PRN aspirin 325 mg PO BID 42 days calcium carbonate 200 mg PO TID celecoxib 200 mg PO BID 30 days cholecalciferol (vitamin D3) (Vitamin D3) 50 mcg PO DAILY cyanocobalamin (vitamin B-12) 500 mcg PO DAILY diclofenac sodium 1% 4 grams topical BID PRN fremanezumab-vfrm (Ajovy) 225 mg subcut Q28D hydroxyzine HCl 25 mg PO BEDTIME lidocaine 5% 1 patch topical DAILY loperamide 2 mg PO QID PRN loratadine 10 mg PO DAILY PRN methadone (Methadose) 36 mg PO DAILY montelukast 10 mg PO BEDTIME nicotine 14 mg transdermal DAILY 30 days omeprazole 20 mg PO DAILY ondansetron HCl 8 mg PO DAILY PRN [Caisson Worker As directed] walker Folding Front wheeled walker HPI HPI 2WK PO: L YVONNE Revision w/NE 02/10/24: Details: 58-year-old female who returns to the office today for post-op left YVONNE revision, 02/10/[address] Callahan. She reports she has increased back pain due to her limping with ambulation. She is working on home physical therapy as instructed. She has no other concerns today. 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 with presence of antibiotic-impregnated cement spacer Seizure Back pain Bradycardia Infected prosthesis of left hip Raspy voice Bilateral knee pain COPD (chronic obstructive pulmonary disease) Left hand paresthesia Vitamin D deficiency Skull lesion Irritable bowel syndrome Insomnia GERD (gastroesophageal reflux disease) History of Helicobacter pylori infection Vitamin B12 deficiency Clostridium difficile infection Weight loss Epigastric pain Cocaine abuse Cannabis abuse Eczema Hepatitis B virus infection Migraine Osteoarthritis Polysubstance abuse Sinusitis Tobacco abuse disorder Cervical myelopathy Arthritis History of headache Numbness Asthma 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 Anxiety Depression Surgical History H/O colonoscopy History of bilateral knee arthroplasty History of hip replacement Hx of cervical spine surgery History of appendectomy H/O tubal ligation History of total left hip arthroplasty Social History Household Members: Significant Other Household Members Other:: 2 Housing: House Are you a primary palliative care specialist to a significant other at home: No Do you presently have visiting nurse or other home services: 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 No redness or drainage. She had mild discomfort with hip flexion. Calf supple, nontender. NVI. Results Reviewed Results Reviewed: Xrays were obtained in the office today and personally reviewed by me of the left hip show intact prosthesis and hardware with stable position. Assessment & Plan Assessment & Plan (1) History of revision of total replacement of left hip joint: Code(s): Z96.642 - Presence of left artificial hip joint Category: Medical Plan Dieudonne removed, steri strips applied. She will begin to transition to Outpatient PT to continue working on Gait training,core and glute strength. No driving for another 4 weeks. She will require ppx abx for dental procedures. She will f/u in 4 weeks, sooner if needed. Orders: Orders XR pelvis 1-2V Today M25.559 - Pain in unspecified hip Patient Instructions: Scribed for Ta-Miryam Aguirre PA-C, by Sung Abhang, medical records specialist, on 02/26/2024 at 2:30 PM EST.? I, Daniella Aguirre PA-C, have personally reviewed and agree with the information entered by the scribe. Coding Level of Care Code Global (45869) Diagnoses History of revision of total replacement of left hip joint Z96.642
== END 2024-02-26 15:24 | disposition home or self-care (01) ==
PROVIDERS: PCP Internal Medicine; Visit Provider Physician Assistant
DX: Z96.642 Presence of left artificial hip joint (principal)
CPT/HCPCS: 99024

== ENCOUNTER 2024-03-11 10:03 | Outpatient (AMB) | payer OTHER, SELFPAY ==
--- NOTE | 2024-03-11 10:05 | A.OFFVIS_ITS ---
Intake Visit Reasons: PO-wound check LT YVONNE Revision w/NE 02/10/24 Intake Note: Leanne is a 58 year old female who presents to the office today for a PO wound check LT YVONNE revision. Pt states she is still in some pain especially when she is sitting. She states she is still walking on her tippy toes without bending. Allergies Penicillins Allergy (Verified 03/11/24 10:05) Rash HPI HPI PO-wound check LT YVONNE Revision w/NE 02/10/24: Details: 58-year-old female who returns to the office today for post-op left YVONNE revision, 02/10/[address] Callahan. She presents today for a wound check. She states she has pain in her hip that is aggravated with sitting and bending. She continues to walk on her tippy toes without bending. She has no other concerns today. 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 with presence of antibiotic-impregnated cement spacer Seizure Back pain Bradycardia Infected prosthesis of left hip Raspy voice Bilateral knee pain COPD (chronic obstructive pulmonary disease) Left hand paresthesia Vitamin D deficiency Skull lesion Irritable bowel syndrome Insomnia GERD (gastroesophageal reflux disease) History of Helicobacter pylori infection Vitamin B12 deficiency Clostridium difficile infection Weight loss Epigastric pain Cocaine abuse Cannabis abuse Eczema Hepatitis B virus infection Migraine Osteoarthritis Polysubstance abuse Sinusitis Tobacco abuse disorder Cervical myelopathy Arthritis History of headache Numbness Asthma 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 Anxiety Depression Surgical History H/O colonoscopy History of bilateral knee arthroplasty History of hip replacement Hx of cervical spine surgery History of appendectomy H/O tubal ligation History of total left hip arthroplasty Social History Household Members: Significant Other Household Members Other:: 2 Housing: House Are you a primary care trainer to a significant other at home: No Do you presently have visiting nurse or other home services: Yes (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 No surrounding erythema or swelling. NVI. Assessment & Plan Assessment & Plan (1) History of revision of total replacement of left hip joint: Code(s): Z96.642 - Presence of left artificial hip joint Category: Medical Plan She will continue working with physical therapy. I did stress the importance of ambulating with her walker at all times even when she is coming to the office with her cane. We also discussed her history of drug use and that she should continue to avoid IV drugs, even marijuana and if she is not taking it from the dispensary, it might be dirty and we want to avoid any type of infection. She does express understanding and will see me back for her follow-up appointment with routine x-rays, sooner if needed. Patient Instructions: Scribed for Daniella Aguirre PA-C, by Sung Abraham durable medical equipment repairer, on 03/11/2024 at 10:15 AM EST.? I, Daniella Aguirre PA-C, have personally reviewed and agree with the information entered by the scribe. Coding Level of Care Code Global (92074) Diagnoses History of revision of total replacement of left hip joint Z96.642
== END 2024-03-11 10:23 | disposition home or self-care (01) ==
PROVIDERS: PCP Internal Medicine; Visit Provider Physician Assistant
DX: Z96.642 Presence of left artificial hip joint (principal)
CPT/HCPCS: 99024

== ENCOUNTER → 2024-03-11 10:03 | Outpatient (BNVA) | payer OTHER, SELFPAY | PROVIDERS: PCP Internal Medicine; Visit Provider Physician Assistant | DX: Z47.1 Aftercare following joint replacement surgery (principal); Z96.642 Presence of left artificial hip joint | CPT/HCPCS: 99212 ==

== ENCOUNTER 2024-03-17 08:45 | Outpatient (REF) | payer OTHER, SELFPAY ==
--- NOTE | ~2024-03-17 | XR_ITS ---
EXAMINATION: XR PELVIS CLINICAL INFORMATION: Pain in the unspecified hip. COMPARISON: Pelvic x-rays of 02/26/2024, 02/10/2024. TECHNIQUE: AP view of the pelvis. FINDINGS: Right total knee arthroplasty hardware is unchanged in appearance. There is no evidence of hardware fracture. Periprosthetic lucency measuring 0.3 cm on the lateral aspect of the portion of the prosthesis in the intertrochanteric region is a stable finding compared to previous x-rays. Left total hip arthroplasty hardware with 2 acetabular fixation screws is stable in appearance. The distalmost portion of the femoral stem prosthesis is not included in the [id number]. Bone graft in the proximal metadiaphysis with lateral claw plate and cable fixation wires in the region are stable findings. Pubis symphysis is intact. Sacroiliac joints are unremarkable in appearance. No evidence of acute osseous fracture or dislocation. Large stool burden is noted in the visualized colon. XR/XR pelvis 1-2V IMPRESSION: Stable appearance of the surgical hardware in the bilateral hips as detailed above. Interval removal of cutaneous roland from the left hip. No evidence of acute osseous abnormality.
== END 2024-03-17 08:46 | disposition home or self-care (01) ==
LOC: HO.HOSX 08:45
PROVIDERS: Visit Provider Orthopaedic Surgery
DX: Z47.89 Encounter for other orthopedic aftercare (principal); Z96.642 Presence of left artificial hip joint
CPT/HCPCS: 72170; 99212

== ENCOUNTER 2024-03-17 09:16 | Outpatient (AMB) | payer OTHER, SELFPAY ==
--- NOTE | 2024-03-17 09:43 | A.OFFVIS_ITS ---
Vital Signs 03/17/24 09:48 Weight 142 lb 8 oz Intake Visit Reasons: 6WK PO: L YVONNE Revision w/NE 02/10/24 Intake Note: Leanne is a 58 year old female who presents today post operatively S/P Left YVONNE Revision 02/10/24. Patient reports she feels well. Her main concern is when will she start walking without the walker. She expresses she starts PT next week. She says the methadone clinic wants her to stop taking the oxycodone unless she is having severe pain. Allergies Penicillins Allergy (Verified 03/17/24 09:46) Rash HPI HPI 6WK PO: L YVONNE Revision w/NE 02/10/24: Details: Leanne is a 58 year old female who presents today post operatively S/P Left YVONNE Revision 02/10/24. Patient reports she feels well. Her main concern is when will she start walking without the walker. She expresses she starts PT next week. She says the methadone clinic wants her to stop taking the oxycodone unless she is having severe pain. 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 prosthesis with presence of antibiotic-impregnated cement spacer Seizure Back pain Bradycardia Infected prosthesis of left hip Raspy voice Bilateral knee pain COPD (chronic obstructive pulmonary disease) Left hand paresthesia Vitamin D deficiency Skull lesion Irritable bowel syndrome Insomnia GERD (gastroesophageal reflux disease) History of Helicobacter pylori infection Vitamin B12 deficiency Clostridium difficile infection Weight loss Epigastric pain Cocaine abuse Cannabis abuse Eczema Hepatitis B virus infection Migraine Osteoarthritis Polysubstance abuse Sinusitis Tobacco abuse disorder Cervical myelopathy Arthritis History of headache Numbness Asthma 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 Anxiety Depression Surgical History H/O colonoscopy History of bilateral knee arthroplasty History of hip replacement Hx of cervical spine surgery History of appendectomy H/O tubal ligation History of total left hip arthroplasty Social History Household Members: Significant Other Household Members Other:: 2 Housing: House Are you a primary healthcare sales representative to a significant other at home: No Do you presently have visiting nurse or other home services: Yes ([employer]) Alcohol intake: never Patient Tobacco Use Status: Current everyday Tobacco user Tobacco use type: Cigarette Cigarettes Per Day: 5 Second Hand Smoke Exposure: No Substance Use Type: Marijuana service: No Physical Exam Extrem Other: No hip pain with ROM TTWB with walker Inc c/d/i Results Reviewed Results Reviewed: I personally reviewed relevant radiographs. Unchanged left YVONNE with allograft and troch plate in position unchanged from prior Assessment & Plan Assessment & Plan (1) History of revision of total replacement of left hip joint: Code(s): Z96.642 - Presence of left artificial hip joint Category: Medical Plan: Continue TTWB Continue walker COntinue outpatient PT f/u 6 weeks Orders: Orders XR pelvis 1-2V Today M25.559 - Pain in unspecified hip Coding Level of Care Code Global (44560) Diagnoses History of revision of total replacement of left hip joint Z96.642
== END 2024-03-17 09:56 | disposition home or self-care (01) ==
PROVIDERS: PCP Internal Medicine; Visit Provider Orthopaedic Surgery
DX: Z96.642 Presence of left artificial hip joint (principal)
CPT/HCPCS: 99024

== ENCOUNTER 2024-04-06 11:00 | Outpatient (RCR) | payer OTHER, SELFPAY ==
--- NOTE | 2024-03-10 15:31 | MHC.PT.EP ---
[facility] [place] Office [place] [facility] [place] Office [address] Girish Levi [address] [phone] F: [phone] F: [phone] F: [phone] F: [phone] Physical Therapy Plan of Care Date of Evaluation: 03/10/24 Date of Surgery: 02/10/24 Diagnosis: L YVONNE revision on 02/10/24 Assessment: pt is a 58 y/o female presenting to physical therapy w/ referring diagnosis of presence of left artificial hip joint. Special instructions from referring provider: wbat posterior precautions. pt underwent revision of L YVONNE d/t presence of infection on 02/10/24. She presented today w/ concerns over her wound. Her proximal incision is ? for infection. Referring provider was alerted. She will be on hold until she is cleared by the orthopedic surgeon's office. Impairments include pain, decreased range of motion, decreased strength, impaired functional mobility, impaired postural awareness, and altered ambulation mechanics. pt is a fair candidate for skilled PT due to age, potential remediation of impairments, typical disease/condition progression and prognosis, comorbidities, and motivation. pt would benefit from skilled PT intervention to provide a tailored strengthening and stretching exercise program, functional training, gait training, postural re-training, neuromuscular re-education, modalities as needed for pain, equipment safety demonstration. Frequency and Duration: The patient will be seen 2x/wk for 8 wks Short Term Goals: pt will be I w/ HEP to promote self-management of condition. pt will ambulate >50' w/ LRAD to promote improved tolerance for household ambulation. Filling Hand Goals: pt will report a statistically significant improvement in self-reported outcome measure to promote return to PLOF. Treatment Plan: Modalities to reduce pain, spasms and effusion. Manual therapy to restore motion and function. Therapeutic exercise to improve strength and flexibility. Neuromuscular re-education for posture and balance. Therapeutic activities to return to functional activities of daily living. Electronically signed by: Maria Del Rosario Gamble PT, DPT Please sign and return to therapist. Thank you for your referral.
--- NOTE | 2024-05-10 15:24 | MHC.PT.DC ---
[facility] [place] Office [place] Office [place] Office [address] Girish Levi [address] [phone] F: [phone] F: [phone] F: [phone] F: [phone] Physical Therapy Discharge Report Diagnosis: L YVONNE revision on 02/10/24 Date of Surgery: 02/10/24 Date of Evaluation: 03/10/24 Date of Discharge: 05/10/24 Treatments to Date: 4 Cancellations to Date: 4 No Shows to Date: 1 Discharge Status: Recommend MD Follow-up Visit Non-compliance Discharge Summary: The patient has not been seen by PT in 33 days. She cancelled and no showed her last five visits. She is discharged for non-compliance. Electronically signed by: Maria Del Rosario Gamble PT, DPT Please sign and return to therapist. Thank you for your referral.
== END 2024-05-10 15:24 | disposition home or self-care (01) ==
LOC: HO.PT 11:00
PROVIDERS: PCP Internal Medicine; Visit Provider Physician Assistant
DX: Z96.642 Presence of left artificial hip joint (principal)
CPT/HCPCS: 97110; 97163

== ENCOUNTER 2024-05-09 12:47 | Outpatient (REF) | payer OTHER, SELFPAY ==
--- NOTE | ~2024-05-09 | XR_ITS ---
EXAMINATION: XR PELVIS CLINICAL INFORMATION: Pain COMPARISON: X-ray dated March 17, 2024 TECHNIQUE: AP view of the pelvis. FINDINGS: Submitted for interpretation on June 28, 2024. Status post total right hip arthroplasty procedure that appears intact with normal alignment and well seated in the osseous structures. Status post total left hip arthroplasty procedure and cerclage with questionable loosening and the intertrochanteric region and left acetabulum. XR/XR pelvis 1-2V IMPRESSION: Questionable loosening in the intertrochanteric and acetabular component of the left hip prosthesis. Electronically signed by: Christian Fleming MD 06/28/2024 03:18 PM LAURA
== END 2024-05-09 12:48 | disposition home or self-care (01) ==
LOC: HO.XRAY 12:47
PROVIDERS: PCP Internal Medicine; Visit Provider Orthopaedic Surgery
DX: M25.551 Pain in right hip (principal); M25.552 Pain in left hip
CPT/HCPCS: 72170; 99212

== ENCOUNTER → 2024-05-09 12:53 | Outpatient (BNV) | payer OTHER, SELFPAY | PROVIDERS: PCP Internal Medicine; Visit Provider Radiology Diagnostic Radiology | DX: M25.551 Pain in right hip (principal); Z96.641 Presence of right artificial hip joint | CPT/HCPCS: 72170 ==

== ENCOUNTER 2024-05-09 13:24 | Outpatient (AMB) | payer OTHER, SELFPAY ==
--- NOTE | 2024-05-09 13:27 | A.OFFVIS_ITS ---
Intake Visit Reasons: 6WK PO: L YVONNE Revision w/NE 02/10/24 Intake Note: Leanne is a 58 year old female who presents today post operatively S/P Left YVONNE Revision 02/10/24. Patient states that she has been having back pain since she had the surgery, but she feels she is doing better. Allergies Penicillins Allergy (Verified 05/09/24 13:28) Rash HPI HPI 6WK PO: L YVONNE Revision w/NE 02/10/24: Details: Leanne is a 58 year old female who presents today post operatively S/P Left YVONNE Revision 02/10/24. Patient states that she has been having back pain since she had the surgery, but she feels she is doing better. [facility] Medical History Sinus bradycardia 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 prosthesis with presence of antibiotic-impregnated cement spacer Seizure Back pain Bradycardia Infected prosthesis of left hip Raspy voice Bilateral knee pain COPD (chronic obstructive pulmonary disease) Left hand paresthesia Vitamin D deficiency Skull lesion Irritable bowel syndrome Insomnia GERD (gastroesophageal reflux disease) History of Helicobacter pylori infection Vitamin B12 deficiency Clostridium difficile infection Weight loss Epigastric pain Cocaine abuse Cannabis abuse Eczema Hepatitis B virus infection Migraine Osteoarthritis Polysubstance abuse Sinusitis Tobacco abuse disorder Cervical myelopathy Arthritis History of headache Numbness Asthma 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 Anxiety Depression Surgical History H/O colonoscopy History of bilateral knee arthroplasty History of hip replacement Hx of cervical spine surgery History of appendectomy H/O tubal ligation History of total left hip arthroplasty Social History Household Members: Significant Other Household Members Other:: 2 Housing: House Are you a primary career coach to a significant other at home: No Do you presently have 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 She continues to be tentative and walking. Results Reviewed Results Reviewed: I personally reviewed relevant radiographs. There is a plate and revision stem present in position unchanged from prior. There is a cortical strut allograft with diminutive bone over the greater trochanter consistent with prior radiographs . No hardware complications. Assessment & Plan Assessment & Plan (1) History of revision of total replacement of left hip joint: Code(s): Z96.642 - Presence of left artificial hip joint Category: Medical Plan: History of revision left hip with minimal pain. Her abductor function remains limited and I recommend she continue to use a walker. She may put the weight of her leg down while she uses it. Follow up in 3 months. Orders: Orders XR pelvis 1-2V 05/09/24 M25.559 - Pain in unspecified hip XR pelvis 1-2V 05/09/24 M25.559 - Pain in unspecified hip Coding Level of Care Code Global (91286) Diagnoses History of revision of total replacement of left hip joint Z96.642
== END 2024-05-09 13:55 | disposition home or self-care (01) ==
PROVIDERS: PCP Internal Medicine; Visit Provider Orthopaedic Surgery
DX: Z96.642 Presence of left artificial hip joint (principal)
CPT/HCPCS: 99024

== ENCOUNTER 2024-08-08 10:46 | Outpatient (REF) | payer OTHER, SELFPAY | END 2024-08-08 10:47 | disposition home or self-care (01) | LOC: HO.HOSX 10:46 | PROVIDERS: Visit Provider Orthopaedic Surgery | DX: Z13.89 Encounter for screening for other disorder (principal) ==

== ENCOUNTER 2024-09-01 12:46 | Outpatient (RCR) | payer OTHER, SELFPAY ==
--- NOTE | 2024-09-02 09:40 | MHC.PT.DC ---
[facility] [place] Office [place] Office [place] Office [address] Girish Levi [address] [phone] F: [phone] F: [phone] F: [phone] F: [phone] Physical Therapy Discharge Report Diagnosis: Presence of L total hip revision. Date of Surgery: Date of Evaluation: 06/23/24 Date of Discharge: Treatments to Date: 8 Cancellations to Date: No Shows to Date: Discharge Status: Discharge Summary: Leanne has been an active participant in her therapy in the clinic with inconsistent to poor home compliance; she reports her pain and walking has improved and has no pain today though her gait persists with abnormality with some L hip IR and lateral trunk deviations likely d/t considerable leg length discrepancy and has been instructed to ask MD provider if a built up shoe would be appropriate as heel lift provides some improvement though not nearly enough to provide symmetry. She logging 2 cancellations and 4 no-show apts. She presents today for DC visit reporting she is feeling OK though does not wish to participate in activities. Electronically signed by: Please sign and return to therapist. Thank you for your referral.
--- NOTE | 2024-09-02 09:42 | MHC.PT.DC ---
[facility] [place] Office [place] Office [place] Office [address] Girish Levi [address] [phone] F: [phone] F: [phone] F: [phone] F: [phone] Physical Therapy Discharge Report Diagnosis: Presence of L total hip revision. Date of Surgery: Date of Evaluation: 06/23/24 Date of Discharge: 09/02/24 Treatments to Date: 8 Cancellations to Date: No Shows to Date: Discharge Status: Improved Function Independent with HEP Recommend MD Follow-up Discharge Summary: Leanne has been an active participant in her therapy in the clinic with inconsistent to poor home compliance; she reports her pain and walking has improved and has no pain today though her gait persists with abnormality with some L hip IR and lateral trunk deviations likely d/t considerable leg length discrepancy and has been instructed to ask MD provider if a built up shoe would be appropriate as heel lift provides some improvement though not nearly enough to provide symmetry. She logged 2 cancellations and 4 no-show apts. She presents today for DC visit reporting she is feeling OK though does not wish to participate in activities. Electronically signed by: Lalito Patten PT. Please sign and return to therapist. Thank you for your referral.
== END 2024-09-02 09:43 | disposition home or self-care (01) ==
LOC: HO.PT 12:46
PROVIDERS: PCP Internal Medicine; Visit Provider Orthopaedic Surgery
DX: Z96.642 Presence of left artificial hip joint (principal)
CPT/HCPCS: 97110; 97112; 97116; 97161; 97530; 97535

== ENCOUNTER 2024-09-22 09:40 | Outpatient (REF) | payer OTHER, SELFPAY ==
--- NOTE | ~2024-09-22 | XR_ITS ---
EXAMINATION: XR PELVIS 1-2 VIEWS HISTORY: M25.559 - Pain in unspecified hip COMPARISON: Comparison is made with the prior examination dated 05/09/2024. FINDINGS: Two AP views of the pelvis are submitted. The patient is status post bilateral total hip arthroplasty. The distal portion of the left femoral stem component is excluded. The orthopedic elements are unchanged in position. No fracture or dislocation. Soft tissues are unremarkable. XR/XR pelvis 1-2V IMPRESSION: Status post bilateral total hip arthroplasty. Electronically signed by: Aden Balderrama MD 09/22/2024 11:46 AM EST
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
--- OUTSIDE RECORDS SUMMARY | 2024-09-22 13:25 | XMS_ITS | Encounter Summary ---
Author Organization [facility] Address [address] [place] [address] Care Team Providers Care Validation Consultant Name Role Phone Barbara Wolf MD Primary Care Provider [phone] Reason for Visit * Reason Comments SDMV Encounter Details Date Type Department Care Team (Late st Contact Info) Description 09/06/2024 2:30 PM EST Office Visit Lung Screening Program - [place] [address] [place] [address] Carol Allison NP [address] [place] [address] Encounter for screening for malignant neoplasm of lung in current smoker with 30 pack year history or greater (Primary Dx) Social History Tobacco Use Types Packs/Day Years Used Date Smoking Tobacco: Every Day Cigarettes 1 48 Started: 02/1975 Alcohol Use Standard Drinks/Week Comments Yes 0 (1 standard drink = 0.6 oz pur e alcohol) Sex and Gender Information Value Date Recorded Sex Assigned at Female 08/01/2024 9:01 AM EST Gender Identity Female 08/01/2024 9:01 AM EST Sexual Orientation Straight 08/01/2024 9: 01 AM EST Job Start Date Occupation Industry Not on file Not on file Not on file documented as of this encounter Last Filed Vital Signs Vital Sign Reading Time Taken Comments Blood Pressure - - Pulse - - Temperature 36.6 ??C (97.9 ??F) 09/06/2024 2:11 PM ES T Respiratory Rate - - Oxygen Saturation - - Inhaled Oxygen Concentration - - Weight - - Height - - Body Mass Index - - documented in this encounter Progress Notes * Carol Allison NP - 09/06/2024 2:30 PM EST Images from the original note were not included. Lung Cancer Screening Program Shared Decision Making Visit Patient name: Leanne Back : 1965 Date of Visit: 09/06/2024 Care Team Referring Provider: Catina Zaidi PA PCP: Barbara Wolf MD History of Present Illness Ms. Back is a 59 y.o. female who patient presents to the Lung Cancer Screening Program at [facility] for her Shared Decision Making visit. At time of this visit the patient denies any signs or symptoms concerning for active lung cancer including new or worsening cough, hemoptysis, significant chest pain, significant dyspnea, or unintentional weight loss. She denies any recent respiratory illnesses or hospitalizations for a respiratoryillness. She denies any CT scan of the chest in the past year. Past Medical History: Diagnosis Date Anxiety state DX:Anxiety state Asthma 05/26/2017 DX:Asthma Bronchitis DX:Bronchitis Cocaine abuse ([facility]) 04/25/2021 DX:Cocaine abuse ([facility]); COMMENT: 04/13 positive UDS Constipation DX:Constipation Depression 12/15/2017 DX:Depression Enteritis DX:Enteritis Epigastric pain DX:Epigastric pain Esophagitis DX:Esophagitis GERD (gastroesophageal reflux disease) 12/15/2017 DX:GERD (gastroesophageal reflux disease) History of Helicobacter pylori infection 03/19/2018 DX:History of Helicobacter pylori infection History of hip replacement 07/06/2018 DX:History of hip replacement History of substance abuse ([facility]) 07/06/2018 DX:History of substance abuse ([facility]); COMMENT: Recovering alcoholic Insomnia 12/15/2017 DX:Insomnia Iron deficiency anemia secondary to inadequate dietary iron intake DX:Iron deficiency anemia secondary to inadequate dietary iron intake Irritable bowel syndrome 10/22/2017 DX:Irritable bowel syndrome Skull lesion 07/15/2017 DX:Skull lesion; COMMENT: ? Unclear history Vitamin B12 deficiency 12/28/2017 DX:Vitamin B12 deficiency Vitamin D deficiency 11/09/2016 DX:Vitamin D deficiency Vomiting DX:Vomiting Patient Active Problem List Diagnosis Asthma Depression GERD (gastroesophageal reflux disease) History of substance abuse ([facility]) Insomnia Irritable bowel syndrome Vitamin B12 deficiency Vitamin D deficiency Weight loss Skull lesion Clostridium difficile infection Epigastric pain Cocaine abuse ([facility]) Sinusitis Raspy voice Polysubstance abuse ([facility]) Osteoarthritis of hip Migraine headache Low back pain radiating to right lower extremity Left hand paresthesia Hepatitis B virus infection Eczema COPD (chronic obstructive pulmonary disease) ([facility]) Chronic headaches Cannabis abuse Bradycardia Allergic rhinitis Bilateral knee pain Cervical myelopathy ([facility]) Allergies Allergen Reactions Penicillins Rash Current Outpatient Medications Medication Sig Dispense Refill acetaminophen (TYLENOL) 500 mg tablet Take 1,000 mg by mouth. acetaminophen (TYLENOL) 500 mg tablet Take 1 Tablet by mouth 3 times daily as needed for Pain. (Patient not taking: Reported on 07/20/2024) albuterol 2.5 mg /3 mL (0.083 %) nebulizer solution Take 3 mL (2.5 mg total) by nebulization every 6 (six) hours if needed for wheezing. 360 mL 2 albuterol HFA (ProAir HFA) 90 mcg/actuation inhaler Inhale 2 puffs by mouth every 6 (six) hours if needed for wheezing. 18 g 3 aluminum-magnesium hydroxide-simethicone (MAALOX) 200-200-20 mg/5 mL suspension Take 15 mL by mouth4 times daily as needed (heartburn and nausea). cholecalciferol (VITAMIN D-3) 50 mcg (2,000 unit) tablet Take 1 Tablet by mouth daily. cyanocobalamin (VITAMIN B-12) 500 mcg tablet Take 1 Tablet by mouth daily for 360 days. cyclobenzaprine (FLEXERIL) 5 mg tablet Take 1 Tablet by mouth at bedtime as needed for Muscle spasms. diclofenac (VOLTAREN) 1 % topical gel Apply 4 g topically 2 times daily as needed (left hip or leftknee pain). (Patient not taking: Reported on 07/20/2024) fluticasone propion-salmeteroL (Advair HFA) 230-21 mcg/actuation inhaler Inhale 2 puffs by mouth 2 (two) times a day. Rinse mouth with water after use to reduce aftertaste and incidence of candidiasis. Do not swallow. 1 each 2 hydrOXYzine HCL (ATARAX) 25 mg tablet TAKE 1 TABLET BY MOUTH EVERYDAY AT BEDTIME (Patient not taking: Reported on 07/20/2024) 90 tablet 1 lidocaine (LIDODERM) 5 % patch Place 1 Patch onto the skin every 12 hours. Apply for no more than 12 hours in any 24 hour period. loperamide (IMODIUM) 2 mg capsule Take 1 Capsule by mouth 4 times daily as needed for Diarrhea. loratadine (CLARITIN) 10 mg tablet TAKE 1 TABLET BY MOUTH DAILY NEEDED FOR ALLERGIES. megestroL (MEGACE) 20 mg tablet Take 1 tablet (20 mg total) by mouth 1 (one) time each day 30 each 3 montelukast (SINGULAIR) 10 mg tablet Take 1 Tablet by mouth at bedtime for 360 days. naproxen (NAPROSYN) 500 mg tablet TAKE 1 TABLET BY MOUTH TWICE A DAY WITH MEALS nicotine polacrilex (Nicorette) [address] 1 each (4 mg total) into mouth between cheek and gumevery 2 (two) hours if needed for smoking cessation. 260 each 1 pantoprazole (PROTONIX) 40 mg EC tablet Take 1 tablet (40 mg total) by mouth 2 (two) times a day before meals. Do not crush, chew, or split. 60 tablet 3 risperiDONE (RisperDAL) 1 mg tablet TAKE 1 TABLET BY MOUTH EVERYDAY AT BEDTIME sucralfate (CARAFATE) 100 mg/mL suspension Take 10 mL (1 g total) by mouth 2 (two) times a day before meals. Take 1 hour before meals and at bedtime 600 mL 3 UNABLE TO FIND Elastic Bandages & Supports (Lumbar Back Brace/Support Pad) Misc 1 Each by Does not apply route daily. Dx: LBP/lumbar strain - Does not apply No current facility-administered medications for this visit. Social History Tobacco Use Smoking status: Every Day Average packs/day: 1 pack/day for 48.0 years (48.0 ttl pk-yrs) Types: Cigarettes Start date: 02/1975 Substance Use Topics Alcohol use: Yes Drug use: Yes Frequency: 7.0 times per week Types: Marijuana/Cannabis, Crack cocaine Social History Social History Narrative Single, 2 kids, 7 grandchildren Family History Problem Relation Name Age of Onset Diabetes Sister [place] Breast cancer Cousin Exposure History Patient denies any significant exposure history Physical Exam Physical Exam Assessment and Plan: Ms. Back is a 59 y.o. female, current smoker, with a 48 pack-year total. The patient was determined to be eligible for LDCT scan given their age, tobacco history, and current asymptomatic state of health. All of the patient's questions were answered and understood at time of this visit. The patient wishes to proceed with Lung Cancer Screening at [facility]. The patient will be having their first LDCT today following this visit. Please be aware that primary care physicians are responsible for all incidental findings that may be found on screening LDCT scans. Patient Information / Education The benefits and risks of lung cancer screening were discussed with the patient including but not limited to oncology outcomes, false-positives/negatives, over- diagnosis, potential need for further testing and/or procedures, incidental findings, and radiation exposure. The patient was educated on the potential management decisions for suspicious findings potentially found on the screening LDCT scans. Any patient with a Lung- RADS score 4 will be reviewed by a multidisciplinary team at [facility] to form a plan of action in regards to the specific suspicious finding. If any further work-up is warranted for a suspicious lung nodule finding this will be followed up by the our program in conjunction with the Thoracic Surgery office at [facility]. The patient, referring physician, and primary care physician will be notified of the LDCT scan results and associated plan. Patient educated that their primary care physician will be responsible for all incidental findings found on screening LDCT scans. Patient educated on the importance of adherence to their personalized lung cancer-screening regimen. Smoking Cessation Smoking cessation resources were made available to patient during this visit. Carol Allison NP [facility] Lung Cancer Screening Program [address] [address] documented in this encounter Plan of Treatment Upcoming Encounters Date Type Department Care Team ([facility] st Contact Info) Description 10/17/2024 1:15 PM EST Consult General Surgery - [place] [address] [phone] Pawel Hanna, DO [address] [facility] [address] [place] [address] 11/08/2024 8:30 AM EDT Appointment [facility] Xray [address] [place] [address] documented as of this encounter Visit Diagnoses Diagnosis Encounter for screening for malignant neoplasm of lung in current smoker with 30 pack year history or greater- Primary documented in this encounter Care Teams Validation Consultant Relationship Specialty Start Date End Date Barbara Wolf MD [address] [address] PCP - General Internal Medicine 07/05/24 documented as of this encounter
--- OUTSIDE RECORDS SUMMARY | 2024-09-22 13:25 | XMS_ITS | Clinical Summary ---
Author Organization [address] [employer] [place] [address] Address [address] [place] [address] Phone Care Team Providers Care Vineyard Supervisor Name Role Phone Barbara Wolf MD Primary Care Provider [phone] Allergies Active Allergy Reactions Criticality Noted Date Comments Penicillins Rash 06/06/2015 Medications Medication Sig Dispensed Refills Start Date End Date Status UNABLE TO FIND Elastic Bandages & Supports (Lumbar Back Brace/Support Pad) Misc 1 Each by Does not apply route daily. Dx: LBP/lumbar strain - Does not apply Active acetaminophen (TYLENOL) 500 mg tablet Take 1,000 mg by mouth. Active acetaminophen (TYLENOL) 500 mg tablet Take 1 Tablet by mouth 3 times daily as needed for Pain. Active cholecalciferol (VITAMIN D-3) 50 mcg (2,000 unit) tablet Take 1 Tablet by mouth daily. Active cyanocobalamin (VITAMIN B-12) 500 mcg tablet Take 1 Tablet by mouth daily for 360 days. Active cyclobenzaprine (FLEXERIL) 5 mg tablet Take 1 Tablet by mouth at bedtime as needed for Muscle spasms. Active diclofenac (VOLTAREN) 1 % topical gel Apply 4 g topically 2 times daily as needed (left hip or left knee pain). Active lidocaine (LIDODERM) 5 % patch Place 1 Patch onto the skin every 12 hours. Apply for no more than 12 hours in any 24 hour period. Active loperamide (IMODIUM) 2 mg capsule Take 1 Capsule by mouth 4 times daily as needed for Diarrhea. Active loratadine (CLARITIN) 10 mg tablet TAKE 1 TABLET BY MOUTH DAILY NEEDED FOR ALLERGIES. Active aluminum-magnesi um hydroxide-simeth icone (MAALOX) 200-200-20 mg/5 mL suspension Take 15 mL by mouth 4 times daily as needed (heartburn and nausea). Active montelukast (SINGULAIR) 10 mg tablet Take 1 Tablet by mouth at bedtime for 360 days. Active naproxen (NAPROSYN) 500 mg tablet TAKE 1 TABLET BY MOUTH TWICE A DAY WITH MEALS Active risperiDONE (RisperDAL) 1 mg tablet TAKE 1 TABLET BY MOUTH EVERYDAY AT BEDTIME Active hydrOXYzine HCL (ATARAX) 25 mg tabletIndication s:Pain in left knee,Low back pain, unspecified TAKE 1 TABLET BY MOUTH EVERYDAY AT BEDTIME 90 tablet 1 4 Active Additional Information Patient not taking.Reported on 07/20/2024 fluticasone propion-salmeter oL (Advair HFA) 230-21 mcg/actuation inhalerIndicatio ns:Moderate persistent asthma without complication Inhale 2 puffs by mouth 2 (two) times a day. Rinse mouth with water after use to reduce aftertaste and incidence of candidiasis. Do not swallow. 1 each 2 4 07/20/20 25 Active albuterol 2.5 mg /3 mL (0.083 %) nebulizer solutionIndicati ons:Moderate persistent asthma without complication Take 3 mL (2.5 mg total) by nebulization every 6 (six) hours if needed for wheezing. 360 mL 2 4 Active nicotine polacrilex (Nicorette) 4 mg gumIndications:T obacco dependency Place 1 each (4 mg total) into mouth between cheek and gum every 2 (two) hours if needed for smoking cessation. 260 each 1 4 10/24/19 25 Active pantoprazole (PROTONIX) 40 mg EC tablet Take 1 tablet (40 mg total) by mouth 2 (two) times a day before meals. Do not crush, chew, or split. 60 tablet 3 5 Active sucralfate (CARAFATE) 100 mg/mL suspension Take 10 mL (1 g total) by mouth 2 (two) times a day before meals. Take 1 hour before meals and at bedtime 600 mL 3 5 09/01/19 26 Active megestroL (MEGACE) 20 mg tablet Take 1 tablet (20 mg total) by mouth 1 (one) time each day 30 each 3 5 09/01/19 26 Active albuterol HFA (Ventolin HFA) 90 mcg/actuation inhalerIndicatio ns:Moderate persistent asthma without complication Inhale 2 puffs by mouth 4 (four) times a day. 18 each 1 5 Active pantoprazole (PROTONIX) 40 mg EC tablet Take 1 Tablet by mouth 2 times daily (before meals). Take on empty stomach, wait 30 mins and then eat to activate the medication- before breakfast and supper 09/01/19 25 Discontinued(Reo rder) albuterol HFA (ProAir HFA) 90 mcg/actuation inhalerIndicatio ns:Moderate persistent asthma without complication Inhale 2 puffs by mouth every 6 (six) hours if needed for wheezing. 18 g 3 4 09/12/19 25 Discontinued Active Problems Problem Noted Date Diagnosed Date Bradycardia 09/17/2023 Cervical myelopathy 09/09/2021 Overview (06/07/2024): Last Assessment & Plan: Patient is 3 weeks s/p C3-4, C4-5, C5-6 fusion, is complaining of persistent neck pain and spasm, difficulty with range of motion. She states she still has headache and dizziness, I reminded her that surgery was aimed at helping progression of cervical myelopathy symptoms, not headache and dizziness. I explained it still early, hopefully with time she will note some improvement in her preop symptoms in her neck and arms, at this point patient denies seeing any improvement. She states she is out of oxycodone, has not been getting any meds from anyone else, is on Suboxone. I checked [facility] records, only recent prescription was our prescription from hospital discharge oxycodone 5 mg #40. I told patient I would give her 1 more refill for postop pain. She denies any fevers, sweats chills, wound drainage. She is having typical postop posterior neck and intrascapular discomfort. She is able to eat and swallow. Patient will follow up in 6 weeks with cervical spine x-rays with Dr. Heard. All postop questions answered, I asked the patient to call with any concerns or questions. Sinusitis 09/06/2021 Polysubstance abuse 09/06/2021 Overview (06/07/2024): H/o etoh, crack/cocaine. Osteoarthritis of hip 09/06/2021 Migraine headache 09/06/2021 Hepatitis B virus infection 09/06/2021 Overview (06/07/2024): unclear if active Hep B. History of HepBsAB positive Eczema 09/06/2021 Cannabis abuse 09/06/2021 Cocaine abuse 04/25/2021 Overview (06/07/2024): 04/13 positive UDS Weight loss 12/02/2018 Epigastric pain 12/02/2018 Clostridium difficile infection 10/05/2018 History of substance abuse 07/06/2018 Overview (06/07/2024): Recovering alcoholic Vitamin B12 deficiency 12/28/2017 Depression 12/15/2017 GERD (gastroesophageal reflux disease) 8 Insomnia 12/15/2017 Irritable bowel syndrome 10/22/2017 Skull lesion 07/15/2017 Overview (06/07/2024): ? Unclear history Asthma 05/26/2017 Vitamin D deficiency 11/09/2016 Left hand paresthesia 12/29/2013 COPD (chronic obstructive pulmonary disease) 03/2014 Bilateral knee pain 12/29/2013 Allergic rhinitis 05/11/2013 Chronic headaches 08/12/2012 Raspy voice 09/19/2011 Overview (06/07/2024): F/u ENT; s/p laryngoscopy 12/09/[address] Back. Barium swallow (11/11/11) revealed mild GERD. Low back pain radiating to right lower extremity 09/19/2011 Overview (06/07/2024): F/u [facility]. Encounters Date Type Department Care Team Description 09/06/2024 2:30 PM EST Office Visit Lung Screening Program - [address] [place] [phone] Carol Allison NP Encounter for screening for malignant neoplasm of lung in current smoker with 30 pack year history or greater (Primary Dx) 09/06/2024 2:18 PM EST - 09/06/2024 11:59 PM EST Hospital Encounter [facility] CT Scan [address] [place] [phone] Encounter for screening for malignant neoplasm of respiratory organs; Nicotine dependence, cigarettes, uncomplicated Discharge Disposition: Home or Self Care 09/01/2024 10:20 AM EST Office Visit Gastroenterology - [place] [address] [phone] Linda Moore PA Cannabinoid hyperemesis syndrome (Primary Dx); Gastroesophageal reflux disease, unspecified whether esophagitis present; Epigastric abdominal pain 08/29/2024 Telephone Internal Medicine - [place] [address] [phone] Barbara Wolf MD Error 08/04/2024 8:02 AM EST - 08/04/2024 11:59 PM EST Hospital Encounter [facility] [address] [place] [phone] Encounter for screening mammogram for breast cancer Discharge Disposition: Home or Self Care 07/26/2024 Telephone Internal Medicine - [place] [address] [phone] Gale Back [place] faxed order (L&C) 07/20/2024 1:20 PM EST Consult Pulmonolgy - [place] [address] [phone] Jackie Vazquez NP Moderate persistent asthma without complication (Primary Dx); Tobacco dependency; Encounter for screening for lung cancer; Snoring; PND (paroxysmal nocturnal dyspnea); Excessive daytime sleepiness 07/20/2024 11:15 AM EST Office Visit Internal Medicine - [place] [address] [phone] Barbara Wolf MD Other fatigue (Primary Dx); Vitamin D deficiency; Depression, unspecified depression type 07/05/2024 Telephone Internal Medicine - [address] [place] [address] Gale Back [place] Faxed order (L&C) from Last 3 Months Immunizations Name Administration Dates Next Due Influenza Quadravalent, MDCK , 0.5ml, preservative free (Flucelvax) 6mo and older 06/18/2017 Influenza Quadravalent, MDCK , 0.5ml, with preservative (Flucelvax) 6mo and older 06/01/2020 Influenza trivalent, with pr eservative (Fluzone; Afluria) 6mo and older 05/11/2013,07/09/2012 Influenza, Unspecified 07/26/2008 Pneumococcal polysaccharide 23 valent (Pneumovax 23) 2yo and older 09/22/2006 TD, Adsorbed, Preservative Free 07/26/2008 Surgical History Surgery Date Site/Laterality Comments HIP ARTHROPLASTY Bilateral PROCEDURE: HISTORICAL HIP REPLACEMENT; COMMENT: Right YVONNE 2004, Left YVONNE 2008 APPENDECTOMY PROCEDURE: HISTORICAL APPENDECTOMY TUBAL LIGATION PROCEDURE: HISTORICAL TUBAL LIGATION APPENDECTOMY PROCEDURE: PA APPENDECTOMY KNEE ARTHROSCOPY 2017 Bilateral PROCEDURE: PA ARTHROSCOPY AID TX SPINE&/FX KNEE W/O FIXJ; COMMENT: Dr. Alcazar OTHER SURGICAL HISTORY PROCEDURE: BIOPSY OF THROAT, HYPOPHARYNX; COMMENT: pt states benign OTHER SURGICAL HISTORY 01/15/2022 PROCEDURE: PA ARTHRD ANT INTERBODY MIN DSC CRV BELOW C2; COMMENT: C3-4, C4-5, C5-6 fusion, Dr. Heard Medical History Medical History Date Comments Asthma 05/26/2017 DX:Asthma Depression 12/15/2017 DX:Depression GERD (gastroesophageal reflu x disease) 12/15/2017 DX:GERD (gastroesophageal re flux disease) History of Helicobacter pylo ri infection 03/19/2018 DX:History of Helicobacter p ylori infection Insomnia 12/15/2017 DX:Insomnia Irritable bowel syndrome 10/22/2017 DX:Irri table bowel syndrome Skull lesion 07/15/2017 DX:Skull lesion; COMMENT: ? Unclear history Vitamin B12 deficiency 12/28/2017 DX:Vitami n B12 deficiency Vitamin D deficiency 11/09/2016 DX:Vitamin D deficiency History of hip replacement 07/06/2018 DX:Hi story of hip replacement History of substance abuse ([facility]) 07/06/2018 DX:History of substance abuse ([facility]); COMMENT: Recovering alcoholic Cocaine abuse ([facility]) 04/25/2021 DX:Cocai ne abuse ([facility]); COMMENT: 04/13 positive UDS Anxiety state DX:Anxiety state Bronchitis DX:Bronchitis Iron deficiency anemia secon walt to inadequate dietary iron intake DX:Iron deficiency anem ia secondary to inadequate dietary iron intake Epigastric pain DX:Epigastric pa in Vomiting DX:Vomiting Enteritis DX:Enteritis Constipation DX:Constipation Esophagitis DX:Esophagitis Family History Medical History Relation Name Comments Breast cancer Cousin Diabetes Sister [place] Relation Name Status Comments Cousin Alive Father Mother Sister [place] Social History Tobacco Use Types Packs/Day Years [...] file Not on file Not on file Obstetrics History Para Term AB IAB SAB Ectopic Multiple Livin g Live Births 2 Last Filed Vital Signs Vital Sign Reading Time Taken Comments Blood Pressure 108/62 09/01/2024 10:05 AM EST Pulse 58 09/01/2024 10:05 AM EST Temperature 36.6 ??C (97.9 ??F) 09/06/2024 2:11 PM ES T Respiratory Rate 16 07/20/2024 1:13 PM EST Oxygen Saturation 94% 09/01/2024 10:05 AM EST Inhaled Oxygen Concentration - - Weight 64.9 kg (143 lb) 09/01/2024 10:05 AM EST Height 157.5 cm (5' 2 ) 09/01/2024 10:05 AM EST Body Mass Index 26.16 09/01/2024 10:05 AM EST Plan of Treatment Upcoming Encounters Date Type Department Care Team (Late st Contact Info) Description 10/17/2024 1:15 PM EST Consult General Surgery - [address] [place] [phone] Pawel Hanna, DO [address] [phone] 11/08/2024 8:30 AM EDT Appointment [facility] Xray [address] [place] [phone] Health Maintenance Due Date Last Done Comments Hepatitis A Vaccines (1 of 2 - Risk 2-dose series) 1985 Hepatitis B Vaccines (1 of 3 - 19+ 3-dose series) 1985 Cervical Cancer Screening: Pap Smear 1987 Pneumococcal Vaccine: Pediatrics (0 to 5 Years) and At-Risk Patients (6 to 64 Years) (2 of 2 - PCV) 09/22/2007 09/22/2006 DTaP,Tdap,and Td Vaccines (1 - Tdap) 07/27/2008 07/26/2008 Zoster Vaccines (1 of 2) 2016 HIV Screening 08/02/2022 Hepatitis C Screening 08/02/2022 Social Influencers of Health Screening 08/02/2022 COVID-19 Vaccine ( season) 2024 08/21/2021, 12/05/2020, 11/07/2020 Influenza Vaccine (#1) 2024 , 06/18/2017, 05/11/2013, Additional history exists Depression Screening 03/08/2025 03/08/2024 Lung Cancer Screening (Low Dose CT) 09/06/2025 09/06/2024 Breast Cancer Screening 08/04/2026 08/04/2024 Colorectal Cancer Screening: Colonoscopy 10/02/2027 10/02/2017 Cholesterol Screening (Lipid Panel) 04/08/2028 04/08/2023 HIB Vaccines Aged Out No longer eligi ble based on patient's age to complete this topic HPV Vaccines Aged Out No longer eligi ble based on patient's age to complete this topic IPV Vaccines Aged Out No longer eligi ble based on patient's age to complete this topic MMR Vaccines Aged Out No longer eligi ble based on patient's age to complete this topic Meningococcal ACWY Vaccine Aged Out N o longer eligible based on patient's age to complete this topic RSV Immunization Patients Under 20 months Aged Out No longer eligible based on patient's age to complete this topic Varicella Vaccines Aged Out No longer eligible based on patient's age to complete this topic Procedures Procedure Name Priority Date/Time Associated Diagnosis Comments CT LUNG SCREENING Routine 09/06/2024 2:3 4 PM EST Encounter for screening for malignant neoplasm of respiratory organs Nicotine dependence, cigarettes, uncomplicated MG MAMMO DIGITAL SCREENING W HESHAM BILAT Routine 08/04/2024 8:26 AM EST Encounter for screening mammogram for breast cancer CBC WITH AUTO DIFFERENTIAL Routine 07/20/2024 12:09 PM EST Vitamin D deficiency Depression, unspecified depression type Other fatigue THYROID STIMULATING HORMONE WITH REFLEX TO FREE T4 AND FREE T3 Routine 07/20/2024 12:09 PM EST Vitamin D deficiency Depression, unspecified depression type Other fatigue CBC AND DIFFERENTIAL Routine 07/20/2024 12:09 PM EST Vitamin D deficiency Depression, unspecified depression type Other fatigue COMPREHENSIVE METABOLIC PANEL Routine 07/20/2024 12:09 PM EST Vitamin D deficiency Depression, unspecified depression type Other fatigue HM DEPRESSION SCREENING Routine 03/08/2024 LIPID PANEL Routine 04/08/2023 COLONOSCOPY Routine 10/02/2017 from Last 3 Months or Most Recently Relevant to Health Maintenance Results * CT Lung Screening (09/06/2024 2:34 PM EST) Anatomical Region Laterality Modality Chest Computed Tomogra phy 09/14/2024 12:4 9 PM EST Impressions 09/14/2024 12:58 PM EST Impression: No suspicious pulmonary nodule. Lung-RADS Category: ??Lung-RADS 1: No nodules or definitely benign nodules. Continue annual screening with Low Dose Chest CT in 12 months. Telealexandra GRANGER ([id number]) -------- FINAL REPORT -------- Dictated By: Estephania Lockwood Dictated Date: 09/14/2024 12:49 ET Assigned Physician: Estephania Lockwood Reviewed and Electronically Signed By: Estephania Lockwood Signed Date: 09/14/2024 12:58 ET Workstation ID: [id number] Transcribed By: Self Edit Transcribed Date: 09/14/2024 12:49 ET Narrative 09/14/2024 12:58 PM EST History: ??59 year-old 48 pack-year current smoker, asymptomatic, for lung cancer screening. Baseline exam. Comparison: No comparison imaging at this institution. Technique: Helical volumetric imaging of the thorax was performed, using low- dose technique, without IV contrast. DLP: 161.03 mGy/cm ??CTDIvol: 4.83 mGy iMemoriespeed VCT Iterative reconstruction technique Findings: Lungs and Airways: This is a suboptimal inspiration. The trachea and central bronchial tree are patent. Centrilobular emphysema is noted. Groundglass opacity throughout the dependent portions of the lower lobes may represent hypoventilatory artifact. No pulmonary nodule is seen. Pleura: No pleural or pericardial effusions are seen. Base of neck, mediastinum and heart: There is mild multichamber cardiomegaly. The thoracic aorta is normal in caliber. No thoracic lymphadenopathy is seen. Soft tissues: A 4 x 2 x 4 cm circumscribed round mass of homogeneous water attenuation is seen in the anterior subcutaneous fat in the midline of the upper abdomen, abutting the skin line, possibly an epidermal inclusion cyst. This is visible on prior abdominal CTs dating back to 2018. Abdomen: This study was performed without contrast and with lower than standard dose. These factors reduce the sensitivity for detection of small lesions in the upper abdomen. No significant abnormality is seen. Procedure Note Estephania Lockwood MD - 09/14/2024 History: 59 year-old 48 pack-year current smoker, asymptomatic, for lungcancer screening. Baseline exam. Comparison: No comparison imaging at this institution. Technique: Helical volumetric imaging of the thorax was performed, usinglow-dose technique, without IV contrast. DLP: 161.03 mGy/cm CTDIvol: 4.83 mGy GE Call[employer] Biopharmapeed VCT Iterative reconstruction technique Findings: Lungs and Airways: This is a suboptimal inspiration. The trachea andcentral bronchial tree are patent. Centrilobular emphysema is noted.Groundglass opacity throughout the dependent portions of the lower lobesmay represent hypoventilatory artifact. No pulmonary nodule is seen. Pleura: No pleural or pericardial effusions are seen. Base of neck, mediastinum and heart: There is mild multichambercardiomegaly. The thoracic aorta is normal in caliber. No thoraciclymphadenopathy is seen. Soft tissues: A 4 x 2 x 4 cm circumscribed round mass of homogeneous waterattenuation is seen in the anterior subcutaneous fat in the midline of theupper abdomen, abutting the skin line, possibly an epidermal inclusioncyst. This is visible on prior abdominal CTs dating back to 2018. Abdomen: This study was performed without contrast and with lower thanstandard dose. These factors reduce the sensitivity for detection of smalllesions in the upper abdomen. No significant abnormality is seen. IMPRESSION: Impression: No suspicious pulmonary nodule. Lung-RADS Category: Lung-RADS 1: No nodules or definitely benign nodules.Continue annual screening with Low Dose Chest CT in 12 months. [place] [place] ([id number]) -------- FINAL REPORT -------- Dictated By: Estephania Lockwood Dictated Date: 09/14/2024 12:49 ET Assigned Physician: Estephania Lockwood Reviewed and Electronically Signed By: Estephania Lockwood Signed Date: 09/14/2024 12:58 ET Workstation ID: [id number] Transcribed By: Self Edit Transcribed Date: 09/14/2024 12:49 ET Julian Garza MD IMG CT PROCEDURES * MG Mammo Digital Screening w Hesham bilat (08/04/2024 8:26 AM EST) Anatomical Region Laterality Modality Breast Bilateral Mammography 08/04/2024 9:43 AM EST Impressions 08/04/2024 9:49 AM EST No mammographic evidence of malignancy. ?? A negative mammogram in the presence of a clinically suspicious palpable abnormality does not preclude the possibility of malignancy or alter the indications for biopsy. ASSESSMENT: ?? BI-RADS 1: NEGATIVE RECOMMENDATION(S): 1: Routine screening mammogram BILATERAL in 1 year. -------- FINAL REPORT -------- Dictated By: Chan French Dictated Date: 08/04/2024 09:43 ET Assigned Physician: Chan French Reviewed and Electronically Signed By: Chan French Signed Date: 08/04/2024 09:49 ET Workstation ID: [id number] Transcribed By: Self Edit Transcribed Date: 08/04/2024 09:43 ET Narrative 08/04/2024 9:49 AM EST EXAM: ??SCREENING MAMMOGRAPHY, BILATERAL HISTORY: ??SCREENING. ??No additional history. COMPARISON: ??Initial exam TECHNIQUE: Synthesized CC and MLO projections of each breast. ??Tomosynthesis of each breast in the CC and MLO projections. ADDITIONAL IMAGING: None Computer-aided detection was employed with the iCAD ??profound AI 3-D. TISSUE DENSITY: There are scattered areas of fibroglandular density. (BI-RADS category B) FINDINGS: RIGHT BREAST: No suspicious mass. No suspicious calcification. No distortion. ?? No additional suspicious right breast findings LEFT BREAST: No suspicious mass. No suspicious calcification. No distortion. ?? No additional suspicious left breast findings Procedure Note Chan French MD - 08/04/2024 EXAM: SCREENING MAMMOGRAPHY, BILATERAL HISTORY: SCREENING. No additional history. COMPARISON: Initial exam TECHNIQUE: Synthesized CC and MLO projections of each breast.Tomosynthesis of each breast in the CC and MLO projections. ADDITIONAL IMAGING: None Computer-aided detection was employed with the iCAD profound AI 3-D. TISSUE DENSITY: There are scattered areas of fibroglandular density.(BI-RADS category B) FINDINGS: RIGHT BREAST: No suspicious mass. No suspicious calcification. No distortion. Noadditional suspicious right breast findings LEFT BREAST: No suspicious mass. No suspicious calcification. No distortion. Noadditional suspicious left breast findings IMPRESSION: No mammographic evidence of malignancy. A negative mammogram in the presence of a clinically suspicious palpableabnormality does not preclude the possibility of malignancy or alter theindications for biopsy. ASSESSMENT: BI-RADS 1: NEGATIVE RECOMMENDATION(S): 1: Routine screening mammogram BILATERAL in 1 year. -------- FINAL REPORT -------- Dictated By: Chan French Dictated Date: 08/04/2024 09:43 ET Assigned Physician: Chan French Reviewed and Electronically Signed By: Chan French Signed Date: 08/04/2024 09:49 ET Workstation ID: [id number] Transcribed By: Self Edit Transcribed Date: 08/04/2024 09:43 ET Self Referral Sppl IMG BI PROCEDURES * Thyroid stimulating hormone with reflex to free t4 and free t3 (07/20/2024 12:09 PM EST) TSH 0.83 0.40 - 4.00 mcIU/mL LAB CHEMISTRY METHOD 07/20/2024 5:08 PM [facility] Blood Venous blood specimen / Unknown Venipuncture / Unknown 07/20/2024 12:09 PM EST 07/20/2024 12:09 PM EST Barbara Wolf MD LAB BLOOD ORDERABLES [facility] [address] [place] [address], * (ABNORMAL) CBC auto differential (07/20/2024 12:09 PM EST) Pathologist [facility] WBC 7.2 4.8 - 10.8 K/mcL LAB HEMETOLOGY METHOD 07/20/2024 2:08 PM [facility] RBC 4.40 3.80 - 4.80 M/mcL LAB HEMETOLOGY METHOD 07/20/2024 2:08 PM [facility] Hemoglobin 12.7 11.5 - 16.0 g/dL LAB HEMETOLOGY METHOD 07/20/2024 2:08 PM [facility] Hematocrit 39.7 35.0 - 47.0 % LAB HEMETOLOGY METHOD 07/20/2024 2:08 PM [facility] MCV 90.4 79.0 - 98.0 FL LAB HEMETOLOGY METHOD 07/20/2024 2:08 PM [facility] MCH 28.9 27.0 - 32.0 pcg LAB HEMETOLOGY METHOD 07/20/2024 2:08 PM [facility] MCHC 32.0 32.0 - 37.0 g/dL LAB HEMETOLOGY METHOD 07/20/2024 2:08 PM [facility] RDW 19.2(H) 11.0 - 15.0 % LAB HEMETOLOGY METHOD 07/20/2024 2:08 PM [facility] Platelets 232 130 - 400 K/mcL LAB HEMETOLOGY METHOD 07/20/2024 2:08 PM [facility] MPV 12.0(H) 7.0 - 11.0 FL LAB HEMETOLOGY METHOD 07/20/2024 2:08 PM [facility] NRBC 0.0 <1.0 % LAB HEMETOLOGY METHOD 07/20/2024 2:08 PM [facility] NRBC Absolute 0.00 <0.10 K/mcL LAB HEMETOLOGY METHOD 07/20/2024 2:08 PM [facility] Neutrophils Relative 43.2 % LAB HEMETOLOGY METHOD 07/20/2024 2:08 PM [facility] Lymphocytes Relative 43.9 % LAB HEMETOLOGY METHOD 07/20/2024 2:08 PM [facility] Monocytes Relative 9.6 % LAB HEMETOLOGY METHOD 07/20/2024 2:08 PM [facility] Eosinophils Relative 2.2 % LAB HEMETOLOGY METHOD 07/20/2024 2:08 PM [facility] [facility] Basophils Relative 0.8 % LAB HEMETOLOGY METHOD 07/20/2024 2:08 PM [facility] Immature Granulocytes Relative 0.3 % LAB HEMETOLOGY METHOD 07/20/2024 2:08 PM EST [facility] Neutrophils Absolute 3.09 1.50 - 7.00 K/mcL LAB HEMETOLOGY METHOD 07/20/2024 2:08 PM EST [facility] Lymphocytes Absolute 3.14 1.00 - 5.00 K/mcL LAB HEMETOLOGY METHOD 07/20/2024 2:08 PM EST [facility] Monocytes Absolute 0.69 0.20 - 1.00 K/mcL LAB HEMETOLOGY METHOD 07/20/2024 2:08 PM [facility] Eosinophils Absolute 0.16 0.00 - 0.50 K/mcL LAB HEMETOLOGY METHOD 07/20/2024 2:08 PM [facility] Basophils Absolute 0.06 0.00 - 0.20 K/mcL LAB HEMETOLOGY METHOD 07/20/2024 2:08 PM [facility] Immature Granulocytes Absolute 0.02 0.00 - 0.03 K/mcL LAB HEMETOLOGY METHOD 07/20/2024 2:08 PM [facility] Blood Venous blood specimen / Unknown Venipuncture / Unknown 07/20/2024 12:09 PM EST 07/20/2024 12:09 PM EST Barbara Wolf MD LAB BLOOD ORDERABLES [facility] [address] [place] [address], * (ABNORMAL) Comprehensive metabolic panel (07/20/2024 12:09 PM EST) Sodium 138 133 - 145 mmol/L LAB CHEMISTRY METHOD 07/20/2024 5:48 PM EST [facility] Potassium 4.2 3.5 - 5.5 mmol/L LAB CHEMISTRY METHOD 07/20/2024 5:48 PM [facility] Chloride 108 96 - 110 mmol/L LAB CHEMISTRY METHOD 07/20/2024 5:48 PM [facility] CO2 23 21 - 32 mmol/L LAB CHEMISTRY METHOD 07/20/2024 5:48 PM [facility] Anion Gap 7 3 - 11 LAB CHEMISTRY METHOD 07/20/2024 5:48 PM [facility] Glucose 73 70 - 100 mg/dL LAB CHEMISTRY METHOD 07/20/2024 5:48 PM [facility] BUN 9 5 - 25 mg/dL LAB CHEMISTRY METHOD 07/20/2024 5:48 PM [facility] Creatinine 0.62 0.50 - 1.10 mg/dL LAB CHEMISTRY METHOD 07/20/2024 5:48 PM [facility] eGFR 104 >=60 mL/min/1. 73m2 LAB CHEMISTRY METHOD 07/20/2024 5:48 PM [facility] Comment:Calculation based on the??Chronic Kidney Disease Epidemiology Collaboration (CKD-EPI) equation refit??without adjustment for race. BUN/Creatinine Ratio 14.5 LAB CHEMISTRY METHOD 07/20/2024 5:48 PM [facility] Calcium 9.1 8.5 - 10.5 mg/dL LAB CHEMISTRY METHOD 07/20/2024 5:48 PM [facility] AST (SGOT) 21 10 - 42 unit/L LAB CHEMISTRY METHOD 07/20/2024 5:48 PM [facility] ALT (SGPT) 17 10 - 60 unit/L LAB CHEMISTRY METHOD 07/20/2024 5:48 PM [facility] Alkaline Phosphatase 125(H) 42 - 121 unit/L LAB CHEMISTRY METHOD 07/20/2024 5:48 PM [facility] Total Protein 6.8 6.0 - 8.0 g/dL LAB CHEMISTRY METHOD 07/20/2024 5:48 PM [facility] Albumin 3.7 3.2 - 5.0 g/dL LAB CHEMISTRY METHOD 07/20/2024 5:48 PM EST [facility] Total Bilirubin 0.9 0.0 - 1.4 mg/dL LAB CHEMISTRY METHOD 07/20/2024 5:48 PM EST [facility] Blood Venous blood specimen / Unknown Venipuncture / Unknown 07/20/2024 12:09 PM EST 07/20/2024 12:09 PM EST Barbara Wolf MD LAB BLOOD ORDERABLES [facility]) [facility] [address] [place] [address], * Depression Screening (03/08/2024) [facility] Depression Screening abstracted Historical Provider MD KELLY TERRELL E * Lipid panel (04/08/2023) [facility] LDL/HDL Ratio 3 0 - 4 Triglycerides 129 0 - 150 mg/dL Cholesterol 167 0 - 200 mg/dL HDL 56 40 mg/dL LDL Cholesterol 86 0 - 100 mg/dL Blood Venous blood specimen / Unknown Historical Provider LAB BLOOD ORDERAB LES * Colonoscopy (10/02/2017) [facility] Colonoscopy no interpretation abstracted Anatomical Region Laterality Modality Other Historical Provider MD KELLY Rosario from Last 3 Months or Most Recently Relevant to Health Maintenance Care Teams Vineyard Supervisor Relationship Specialty Start Date End Date Barbara Wolf MD [address] [address] PCP - General Internal Medicine 07/05/24
--- OUTSIDE RECORDS SUMMARY | 2024-09-22 13:25 | XMS_ITS | Encounter Summary ---
Author Organization [facility] Address [address] [place] [address] Care Team Providers Care Skin Carver Name Role Phone Barbara Wolf MD Primary Care Provider [phone] Reason for Referral * Consultation (Routine) - Authorized Specialty Diagnoses / Procedures Referred By Juanita saunders Referred To Contact General Surgery Diagnoses Cannabinoid hyperemesis syndrome Gastroesophageal reflux disease, unspecified whether esophagitis present Epigastric abdominal pain Linda Moore PA 175 [facility] [address] [place] [address] [facility] [place] 175 [facility] [address] [place] [address] Referral ID Status Reason Start Date Expiration Date Visits Requested Visits Authorized [id number] Authorized Specialty Services Required 09/01/2024 09/01/2025 1 1 * Imaging (Routine) - Authorized Specialty Diagnoses / Procedures Referred By Juanita saunders Referred To Contact Radiology Diagnoses Cannabinoid hyperemesis syndrome Gastroesophageal reflux disease, unspecified whether esophagitis present Epigastric abdominal pain Procedures XR UGI w Air Contrast Linda Moore PA 175 [facility] [address] [place] [address] [facility] [address] [place] [address] Referral ID Status Reason Start Date Expiration Date V isits Requested Visits Authorized [id number] Authorized 09/01/2024 09/01/2025 1 1 Reason for Visit * Reason Comments Vomiting Encounter Details Date Type Department Care Team (Late st Contact Info) Description 09/01/2024 10:20 AM EST Office Visit Gastroenterology - [place] [address] [place] [address] Linda Moore PA [address] [place] [address] [place] [address] Cannabinoid hyperemesis syndrome (Primary Dx); Gastroesophageal reflux disease, unspecified whether esophagitis present; Epigastric abdominal pain Social History Tobacco Use Types Packs/Day Years [...] Pulse 58 09/01/2024 10:05 AM EST Temperature - - Respiratory Rate - - Oxygen Saturation 94% 09/01/2024 10:05 AM EST Inhaled Oxygen Concentration - - Weight 64.9 kg (143 lb) 09/01/2024 10:05 AM EST Height 157.5 cm (5' 2 ) 09/01/2024 10:05 AM EST Body Mass Index 26.16 09/01/2024 10:05 AM EST documented in this encounter Ordered Prescriptions Prescription Sig Dispensed Refills Start Date End Da te megestroL (MEGACE) 20 mg tablet Take 1 tablet (20 mg total) by mouth 1 (one) time each day 30 each 3 09/01/2024 09/01/2025 sucralfate (CARAFATE) 100 mg/mL suspension Take 10 mL (1 g total) by mouth 2 (two) times a day before meals. Take 1 hour before meals and at bedtime 600 mL 3 09/01/2024 09/01/2025 pantoprazole (PROTONIX) 40 mg EC tablet Take 1 tablet (40 mg total) by mouth 2 (two) times a day before meals. Do not crush, chew, or split. 60 tablet 3 09/01/2024 documented in this encounter Progress Notes * BÁRBARA Ortega - 09/01/2024 10:20 AM EST CHIEF COMPLAINT: Chief Complaint Patient presents with Vomiting IDENTIFIER: Leanne Back is a 59 y.o. old female HPI: Patient comes in for a follow-up. She has been having nausea and vomiting for more than 2 years. Nonew medications or diet. Nausea and vomiting every day. Hard time keeping up food. Losing weight. There is also nonradiating epigastric abdomen pain. Bowel movements sometimes 2-3 times a day but sometimes constipation. So far no melena or hematochezia. Patient does take naproxen but she knows about side effects, stomach ulcers. Patient states that she smokes marijuana and cigarettes. At least twice a day. She has been smoking marijuana since she was 10 years old. In addition, she does have a lump/mass that sounds like a lipoma in epigastric area. I discussed referring her to a surgeon. She agrees with the plan. ROS: GENERAL: No malaise, significant weight loss or fever HEENT: No changes in hearing or vision, nose bleeds or other nasal problems NECK: No lumps, goiter, pain or significant neck swelling RESPIRATORY: No cough, wheezing or shortness of breath CARDIOVASCULAR: No chest pain, leg swelling or palpitations GI: See HPI. MUSCULOSKELETAL: No joint pain or swelling, back pain, or muscle pain. SKIN: No lesions, rash or itching NEURO: No persistent headache, syncope, seizures, weakness or numbness PAST MEDICAL HISTORY: Past Medical History: Diagnosis Date Anxiety state DX:Anxiety state Asthma 05/26/2017 DX:Asthma Bronchitis DX:Bronchitis Cocaine abuse ([facility]/HCC) 04/25/2021 DX:Cocaine abuse ([facility]); COMMENT: 04/13 positive UDS Constipation DX:Constipation Depression 12/15/2017 DX:Depression Enteritis DX:Enteritis Epigastric pain DX:Epigastric pain Esophagitis DX:Esophagitis GERD (gastroesophageal reflux disease) 12/15/2017 DX:GERD (gastroesophageal reflux disease) History of Helicobacter pylori infection 03/19/2018 DX:History of Helicobacter pylori infection History of hip replacement 07/06/2018 DX:History of hip replacement History of substance abuse (CMS/HCC) 07/06/2018 DX:History of substance abuse (HCC); COMMENT: Recovering alcoholic Insomnia 12/15/2017 DX:Insomnia Iron deficiency anemia secondary to inadequate dietary iron intake DX:Iron deficiency anemia secondary to inadequate dietary iron intake Irritable bowel syndrome 10/22/2017 DX:Irritable bowel syndrome Skull lesion 07/15/2017 DX:Skull lesion; COMMENT: ? Unclear history Vitamin B12 deficiency 12/28/2017 DX:Vitamin B12 deficiency Vitamin D deficiency 11/09/2016 DX:Vitamin D deficiency Vomiting DX:Vomiting Past Surgical History: Procedure Laterality Date APPENDECTOMY PROCEDURE: HISTORICAL APPENDECTOMY APPENDECTOMY PROCEDURE: AK APPENDECTOMY HIP ARTHROPLASTY Bilateral PROCEDURE: HISTORICAL HIP REPLACEMENT; COMMENT: Right YVONNE 2004, Left YVONNE 2008 KNEE ARTHROSCOPY Bilateral 2017 PROCEDURE: AK ARTHROSCOPY AID TX SPINE&/FX KNEE W/O FIXJ; COMMENT: Dr. Alcazar OTHER SURGICAL HISTORY PROCEDURE: BIOPSY OF THROAT, HYPOPHARYNX; COMMENT: pt states benign OTHER SURGICAL HISTORY 01/15/2022 PROCEDURE: AK ARTHRD ANT INTERBODY MIN DSC CRV BELOW C2; COMMENT: C3-4, C4-5, C5-6 fusion, Dr. Heard TUBAL LIGATION PROCEDURE: HISTORICAL TUBAL LIGATION SOCIAL HISTORY: Social History Tobacco Use Smoking status: Every Day Average packs/day: 1 pack/day for 48.0 years (48.0 ttl pk-yrs) Types: Cigarettes Start date: 02/1975 Smokeless tobacco: Not on file Substance Use Topics Alcohol use: Yes FAMILY HISTORY: Family History Problem Relation Name Age of Onset Diabetes Sister [place] Breast cancer Cousin MEDICATIONS DISCONTINUED/REORDERED: Medications Discontinued During This Encounter Medication Reason pantoprazole (PROTONIX) 40 mg EC tablet Reorder ACTIVE MEDICATIONS: Current Outpatient Medications Medication Sig Dispense Refill aluminum-magnesium hydroxide-simethicone (MAALOX) 200-200-20 mg/5 mL suspension Take 15 mL by mouth4 times daily as needed (heartburn and nausea). cholecalciferol (VITAMIN D-3) 50 mcg (2,000 unit) tablet Take 1 Tablet by mouth daily. cyanocobalamin (VITAMIN B-12) 500 mcg tablet Take 1 Tablet by mouth daily for 360 days. pantoprazole (PROTONIX) 40 mg EC tablet Take 1 tablet (40 mg total) by mouth 2 (two) times a day before meals. Do not crush, chew, or split. 60 tablet 3 acetaminophen (TYLENOL) 500 mg tablet Take 1,000 [...] if needed for wheezing. 18 g 3 cyclobenzaprine (FLEXERIL) 5 mg tablet Take 1 [...] needed for smoking cessation. 260 each 1 risperiDONE (RisperDAL) 1 mg tablet TAKE 1 [...] No current facility-administered medications for this visit. ALLERGIES: Allergies Allergen Reactions Penicillins Rash PHYSICAL EXAM: Visit Vitals BP 108/62 (BP Location: Left arm, Patient Position: Sitting, BP Cuff Size: Adult) Pulse 58 Ht 1.575 m (62 ) Wt 64.9 kg (143 lb) SpO2 94% BMI 26.16 kg/m?? OB Status Postmenopausal Smoking Status Every Day BSA 1.66 m?? APPEARANCE: Alert and in no acute distress HEART: RRR with normal S1 and S2, no murmurs LUNG: clear to auscultation ABDOMEN: Bowel sounds normoactive, no bruits, soft, epigastric tenderness and palpable soft mass inepigastric area question of lipoma EXTREMITIES: Extremities warm and well perfused without clubbing, cyanosis, or edema NEURO: Awake, alert and oriented x 3 with symmetrical reflexes IMPRESSION: 1. Cannabinoid hyperemesis syndrome - XR UGI w Air Contrast; Future 2. Gastroesophageal reflux disease, unspecified whether esophagitis present - XR UGI w Air Contrast; Future 3. Epigastric abdominal pain - XR UGI w Air Contrast; Future PLAN: 59 years old female whose past medical history includes asthma, depression, GERD, history of substance abuse, insomnia, IBS, vitamin B12 and vitamin D deficiency, weight loss, skull lesion, history of C. difficile, epigastric pain, cocaine abuse, sinusitis, polysubstance abuse, raspy voice, osteoarthritis of hip, migraine, low back pain, left hand paresthesia, history of hepatitis B, eczema, COPD, chronic headaches, cannabis abuse, bradycardia, allergic rhinitis, knee pain, cervical myelopathy,who presents today with nausea and vomiting. Also epigastric aminal pain Cannabinoid hyperemesis syndrome. We did have a long discussion about marijuana and its side effects. Patient should definitely slowly wean herself off marijuana as it can cause severe nausea and vomiting. GERD and epigastric abd pain. I will order upper GI series. Advised her to continue pantoprazole. Iwill add Carafate. I advised her to avoid NSAIDs. For her weight loss, I will put her on Megastrol. Lipoma in epigastric area. Will refer to surgeon. I will see her for follow-up. Total time of today's encounter is 40 minutes in preparing to see the patient, reviewing labs, diagnostic studies as well as other provider notes, documenting and charting, creating an HPI, performing a medically appropriate exam as well as counseling patient. There was documentation in EMR after visit. None of which time was spend performing separately billable procedures or ancillary services. Briana OrtegaS Gastroenterology [facility] 175 [facility] [address] [place] [address] documented in this encounter Plan of Treatment Upcoming Encounters Date Type Department Care Team (Late st Contact Info) Description 10/17/2024 1:15 PM EST Consult General Surgery - [address] [phone] Pawel Hanna, DO [address] [address] 11/08/2024 8:30 AM EDT Appointment [facility] Xray [address] [place] [phone] Scheduled Orders Name Type Priority Associated Diagnoses Orde r Schedule XR UGI w Air Contrast Imaging Routine Cannabinoid hyperemesis syndrome Gastroesophageal reflux disease, unspecified whether esophagitis present Epigastric abdominal pain Expected: 09/01/2024, Expires: 09/01/2025 Scheduled Referrals Name Type Priority Associated Diagnoses Order Schedule Ambulatory referral to General Surgery Outpatient Referral Routine Cannabinoid hyperemesis syndrome Gastroesophageal reflux disease, unspecified whether esophagitis present Epigastric abdominal pain 1 Occurrences starting 09/01/2024 until 09/01/2025 documented as of this encounter Visit Diagnoses Diagnosis Cannabinoid hyperemesis syndrome- Primary Gastroesophageal reflux disease, unspecified whether esophagitis present Epigastric abdominal pain Abdominal pain, epigastric documented in this encounter Discontinued Medications Medication Sig Discontinue Reason Start Date End Da te pantoprazole (PROTONIX) 40 mg EC tablet Take 1 Tablet by mouth 2 times daily (before meals). Take on empty stomach, wait 30 mins and then eat to activate the medication- before breakfast and supper Reorder 09/01/2024 documented as of this encounter Care Teams Skin Carver Relationship Specialty Start Date End Date Barbara Wolf MD [address] [place] [phone] PCP - General Internal Medicine 07/05/24 documented as of this encounter
--- OUTSIDE RECORDS SUMMARY | 2024-09-22 13:25 | XMS_ITS | Encounter Summary ---
Author Organization [facility] Address [address] [place] [address] Care Team Providers Care Superintendent Distribution Name Role Phone Barbara Wolf MD Primary Care Provider [phone] Reason for Visit * Reason Onset Date Comments Error 08/29/2024 Encounter Details Date Type Department Care Team (Late Contact Info) Description 08/29/2024 Telephone Internal Medicine - [place] 175 [facility] [address] [place] [phone] Barbara Wolf MD 175 [facility] [address] [place] [phone] Error Social History Tobacco Use Types Packs/Day Years Used Date Smoking Tobacco: Every Day Cigarettes Smokeless Tobacco: Never Alcohol Use Standard Drinks/Week Comments Yes 0 [...] on file documented as of this encounter Plan of Treatment Upcoming Encounters Date Type Department Care Team (Late Contact Info) Description 10/17/2024 1:15 PM EST Consult General Surgery - [place] [address] [facility] [address] [place] [phone] Pawel Hanna, DO 175 [facility] [address] [place] [address] 11/08/2024 8:30 AM EDT Appointment [facility] Xray [address] [place] [phone] documented as of this encounter Visit Diagnoses Not on filedocumented in this encounter Care Teams Superintendent Distribution Relationship Specialty Start Date End Date Barbara Wolf MD 175 [facility] [address] [place] [phone] PCP - General Internal Medicine 07/05/24 documented as of this encounter
--- OUTSIDE RECORDS SUMMARY | 2024-09-22 13:25 | XMS_ITS | Encounter Summary ---
Author Organization [facility] Address [address] [place] [address] Care Team Providers Care Auger Operator Name Role Phone Barbara Wolf MD Primary Care Provider [phone] Reason for Referral * Imaging (Routine) - Closed Specialty Diagnoses / Procedures Referred By Juanita saunders Referred To Contact Radiology Diagnoses Encounter for screening for malignant neoplasm of respiratory organs Nicotine dependence, cigarettes, uncomplicated Procedures CT Lung Screening Julian Garza MD [address] [address] [facility] [address] [place] [address] Referral ID Status Reason Start Date Expiration Date Visits Re quested Visits Authorized [id number] Closed 08/05/2024 08/05/2025 1 1 Reason for Visit * Auth/Cert (Routine) Specialty Diagnoses / Procedures Referred By Juanita saunders Referred To Contact Diagnoses Nicotine dependence, cigarettes, uncomplicated Encounter for screening for malignant neoplasm of respiratory organs Procedures NE CT THORAX LOW DOSE FOR LUNG CANCER SCREENING W/O CONTRAST MATERIAL [facility] Ct Scan [address] [place] [address] Referral ID Status Reason Start Date Expiration Date Visits Re quested Visits Authorized [id number] 1 1 Encounter Details Date Type Department Care Team (Latest Contact Info) Description 09/06/2024 2:18 PM EST - 09/06/2024 11:59 PM EST Hospital Encounter [facility] CT Scan [address] [place] [address] Encounter for screening for malignant neoplasm of respiratory organs; Nicotine dependence, cigarettes, uncomplicated Discharge Disposition: Home or Self Care Social History Tobacco Use Types Packs/Day Years [...] on file documented as of this encounter Medications at Time of Discharge Medication Sig Dispensed Refills Start Date End Date acetaminophen (TYLENOL) 500 mg tablet Take 1,000 mg by mouth. acetaminophen (TYLENOL) 500 mg tablet Take 1 Tablet by mouth 3 times daily as needed for Pain. albuterol 2.5 mg /3 mL (0.083 %) nebulizer solutionIndications:Mo derate persistent asthma without complication Take 3 mL (2.5 mg total) by nebulization every 6 (six) hours if needed for wheezing. 360 mL 2 07/20/2024 aluminum-magnesium hydroxide-simethicone (MAALOX) 200-200-20 mg/5 mL suspension [...] needed (left hip or left knee pain). fluticasone propion-salmeteroL (Advair HFA) 230-21 mcg/actuation inhalerIndications:Mod erate persistent asthma without complication Inhale 2 puffs by mouth 2 (two) times a day. Rinse mouth with water after use to reduce aftertaste and incidence of candidiasis. Do not swallow. 1 each 2 07/20/2024 07/20/2025 hydrOXYzine HCL (ATARAX) 25 mg tabletIndications:Pain in left knee,Low back pain, unspecified TAKE 1 TABLET BY MOUTH EVERYDAY AT BEDTIME 90 tablet 1 06/28/2024 lidocaine (LIDODERM) 5 % patch Place 1 [...] each day 30 each 3 09/01/2024 09/01/2025 montelukast (SINGULAIR) 10 mg tablet Take 1 Tablet by mouth at bedtime for 360 days. naproxen (NAPROSYN) 500 mg tablet TAKE 1 TABLET BY MOUTH TWICE A DAY WITH MEALS nicotine polacrilex (Nicorette) 4 mg gumIndications:Tobacco dependency Place 1 each (4 mg total) into mouth between cheek and gum every 2 (two) hours if needed for smoking cessation. 260 each 1 07/25/2024 10/23/2024 pantoprazole (PROTONIX) 40 mg EC tablet Take 1 tablet (40 mg total) by mouth 2 (two) times a day before meals. Do not crush, chew, or split. 60 tablet 3 09/01/2024 risperiDONE (RisperDAL) 1 mg tablet TAKE 1 TABLET BY MOUTH EVERYDAY AT BEDTIME sucralfate (CARAFATE) 100 mg/mL suspension Take 10 mL (1 g total) by mouth 2 (two) times a day before meals. Take 1 hour before meals and at bedtime 600 mL 3 09/01/2024 09/01/2025 UNABLE TO FIND Elastic Bandages & Supports (Lumbar Back Brace/Support Pad) Misc 1 Each by Does not apply route daily. Dx: LBP/lumbar strain - Does not apply albuterol HFA (ProAir HFA) 90 mcg/actuation inhalerIndications:Mod erate persistent asthma without complication Inhale 2 puffs by mouth every 6 (six) hours if needed for wheezing. 18 g 3 07/20/2024 09/12/2024 documented as of this encounter Discharge Disposition Disposition Code Departure Means Destination Home or Self Care documented in this encounter Plan of Treatment Upcoming Encounters Date Type Department Care Team (Late st Contact Info) Description 10/17/2024 1:15 PM EST Consult General Surgery - [place] [address] [place] [phone] Pawel Hanna, DO [address] [place] [address] 11/08/2024 8:30 AM EDT Appointment [facility] Xray [address] [place] [phone] documented as of this encounter Procedures Procedure Name Priority Date/Time Associated Diagnosis Comments CT LUNG SCREENING Routine 09/06/2024 2:3 4 PM EST Encounter for screening for malignant neoplasm of respiratory organs Nicotine dependence, cigarettes, uncomplicated documented in this encounter Results * CT Lung Screening (09/06/2024 2:34 PM EST) Anatomical Region Laterality Modality Chest Computed Tomogra phy 09/14/2024 12:4 9 PM EST Impressions 09/14/2024 12:58 PM EST Impression: No suspicious pulmonary nodule. Lung-RADS Category: ??Lung-RADS 1: No nodules or definitely benign nodules. Continue annual screening with Low Dose Chest CT in 12 months. [employer]eler[employer] BÁRBARA ([id number]) -------- FINAL REPORT -------- Dictated By: Estephania Lockwood Dictated Date: 09/14/2024 12:49 ET Assigned Physician: Estephania Lockwood Reviewed and Electronically Signed By: Estephania Lockwood Signed Date: 09/14/2024 12:58 ET Workstation ID: [id number] Transcribed By: Self Edit Transcribed Date: 09/14/2024 12:49 ET Narrative 09/14/2024 12:58 PM EST History: ??59 year-old 48 pack-year current smoker, asymptomatic, for lung cancer screening. Baseline exam. Comparison: No comparison imaging at this institution. Technique: Helical volumetric imaging of the thorax was performed, using low- dose technique, without IV contrast. DLP: 161.03 mGy/cm ??CTDIvol: 4.83 mGy GE Limapeed VCT Iterative reconstruction technique Findings: Lungs and [...] contrast. DLP: 161.03 mGy/cm CTDIvol: 4.83 mGy MyLifeBrandpeed VCT Iterative reconstruction technique Findings: Lungs and [...] Low Dose Chest CT in 12 months. [employer] [place] ([id number]) -------- FINAL REPORT -------- Dictated By: Estephania Lockwood Dictated Date: 09/14/2024 12:49 ET Assigned Physician: Estephania Lockwood Reviewed and Electronically Signed By: Estephania Lockwood Signed Date: 09/14/2024 12:58 ET Workstation ID: [id number] Transcribed By: Self Edit Transcribed Date: 09/14/2024 12:49 ET Julian Garza MD IMG CT PROCEDURES documented in this encounter Visit Diagnoses Diagnosis Encounter for screening for malignant neoplasm of respiratory organs Nicotine dependence, cigarettes, uncomplicated documented in this encounter Care Teams Auger Operator Relationship Specialty Start Date End Date Barbara Wolf MD [address] [place] [phone] PCP - General Internal Medicine 07/05/24 documented as of this encounter
== END 2024-09-22 09:41 | disposition home or self-care (01) ==
LOC: HO.HOSX 09:40
PROVIDERS: PCP Internal Medicine; Visit Provider Orthopaedic Surgery
DX: M25.552 Pain in left hip (principal); Z96.642 Presence of left artificial hip joint
CPT/HCPCS: 72170; 99212

== ENCOUNTER → 2024-09-22 10:11 | Outpatient (BNV) | payer OTHER, SELFPAY | PROVIDERS: PCP Internal Medicine; Visit Provider Radiology Diagnostic Radiology | DX: M25.551 Pain in right hip (principal); M25.552 Pain in left hip | CPT/HCPCS: 72170 ==

== ENCOUNTER 2024-12-26 08:54 | Outpatient (REF) | payer OTHER, SELFPAY ==
--- NOTE | ~2024-12-26 | XR_ITS ---
CLINICAL HISTORY: M25.559 - Pain in unspecified hip 2 view pelvis Comparison: None Findings: No acute fracture or dislocation. Bilateral total hip arthroplasty with intact hardware and alignment. Soft tissues are unremarkable. IMPRESSION: Bilateral total hip arthroplasty with intact hardware and alignment. This document has been electronically signed by: Efren Shi MD on 12/26/2024 22:45:22
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
== END 2024-12-26 08:55 | disposition home or self-care (01) ==
LOC: HO.HOSX 08:54
PROVIDERS: Visit Provider Orthopaedic Surgery
DX: M25.552 Pain in left hip (principal); Z96.642 Presence of left artificial hip joint
CPT/HCPCS: 72170; 99212

== ENCOUNTER 2024-12-26 09:53 | Outpatient (AMB) | payer OTHER, SELFPAY ==
--- NOTE | 2024-12-26 09:59 | A.OFFVIS_ITS ---
Intake Visit Reasons: OV-L YVONNE Revision w/NE 02/10/24 Intake Note: Leanne is a 59 year old female who presents today for a follow up S/P Left YVONNE Revision 02/10/24. At her last visit she was advised to wear a shoe lift. Patient reports that she is doing well, her pain is off and on. Her primary concern is that her incision site is painful to the touch. Allergies Penicillins Allergy (Verified 12/26/24 10:03) Rash HPI HPI OV-L YVONNE Revision w/NE 02/10/24: Details: Leanne is a 59 year old female who presents today for a follow up S/P Left YVONNE Revision 02/10/24. At her last visit she was advised to wear a shoe lift. Patient reports that she is doing well, her pain is off and on. Her primary concern is that her incision site is painful to the touch. She otherwise does not have pain in his walking comfortably with her cane. 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 with presence of antibiotic-impregnated cement spacer Seizure Back pain Bradycardia Infected prosthesis of left hip Raspy voice Bilateral knee pain COPD (chronic obstructive pulmonary disease) Left hand paresthesia Vitamin D deficiency Skull lesion Irritable bowel syndrome Insomnia GERD (gastroesophageal reflux disease) History of Helicobacter pylori infection Vitamin B12 deficiency Clostridium difficile infection Weight loss Epigastric pain Cocaine abuse Cannabis abuse Eczema Hepatitis B virus infection Migraine Osteoarthritis Polysubstance abuse Sinusitis Tobacco abuse disorder Cervical myelopathy Arthritis History of headache Numbness Asthma 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 Anxiety Depression Surgical History H/O colonoscopy History of bilateral knee arthroplasty History of hip replacement Hx of cervical spine surgery History of appendectomy H/O tubal ligation History of total left hip arthroplasty Social History Household Members: Significant Other Household Members Other:: 2 Housing: House Are you a primary home care physical therapist to a significant other at home: No Do you presently have visiting nurse or 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 Incision is clean dry and intact. It looks very healthy. There is no swelling, redness or abnormal appearance. It is mildly sensitive to light touch. Results Reviewed Results Reviewed: I personally reviewed relevant radiographs. Unchanged appearance status post revision left hip arthroplasty Assessment & Plan Assessment & Plan (1) History of revision of total replacement of left hip joint: Code(s): Z96.642 - Presence of left artificial hip joint Category: Surgical Plan: Leanne is doing well. She has still using a cane which is necessary and has some scar sensitivity. States she feels like she is having a hard time getting rid of the cane. This is not surprising given her radiographs and question whether her greater trochanter is actually healing but clinically she is improving. I do think she would benefit from physical therapy and so a prescription was written. Orders: Orders XR pelvis 1-2V Today M25.559 - Pain in unspecified hip Coding Level of Care Code Est Pt Level 3 (31278) Diagnoses History of revision of total replacement of left hip joint Z96.642
--- OUTSIDE RECORDS SUMMARY | 2024-12-26 11:02 | XMS_ITS | Encounter Summary ---
Author Organization [facility] Address [address] [place] [address] Care Team Providers Care Anesthesiology Faculty Name Role Phone Barbara Wolf MD Primary Care Provider [phone] Reason for Visit * Reason Onset Date Comments Results 12/02/2024 Sleep Apnea Encounter Details Date Type Department Care Team ([facility] st Contact Info) Description 12/02/2024 Telephone Internal Medicine - [place] [address] [place] [phone] Barbara Wolf MD [address] [place] [phone] Results (Sleep Apnea) Social History Tobacco Use Types Packs/Day Years Used Date Smoking Tobacco: Every Day Cigarettes 1 48 Started: 02/1975 Passive Smoke Exposure: Never Alcohol Use Standard Drinks/Week Comments Yes 0 (1 standard drink = 0.6 oz pur e alcohol) Comments No Sex and Gender Information Value Date Recorded Sex Assigned at Female 08/01/2024 9:01 AM EST Legal Sex Female 4:34 AM EST Gender Identity Female 08/01/2024 9:01 AM EST Sexual Orientation Straight 08/01/2024 9: 01 AM EST documented as of this encounter Progress Notes * Alexis Negro MA - 12/02/2024 11:14 AM EDT Results not available right now. * Savi M Leonid - 12/02/2024 9:42 AM EDT Patient called re: test results for Sleep apnea - documented in this encounter Plan of Treatment Upcoming Encounters Date Type Department Care Team (Late st Contact Info) Description 12/29/2024 9:45 AM EDT Office Visit Internal Medicine - [place] [address] [place] [phone] Barbara Wolf MD [address] [facility] [place] [phone] 01/02/2025 10:50 AM EDT Office Visit Gastroenterology - [place] [address] [place] [phone] Linda Moore PA [address] [place] [address] 01/17/2025 11:00 AM EDT Consult Orthopedic Surgery - [place] [address] [place] [phone] Precious Asher MD [address] [place] [address] 01/23/2025 11:00 AM EDT Office Visit [facility] - [place] [address] [place] [phone] Natasha Flood PA [address] [place] [address] 02/03/2025 10:00 AM EDT Consult Vascular Surgery - [place] [address] [place] [phone] Tara Melgoza PA [address] [place] [address] 02/17/2025 9:20 AM EDT Office Visit [facility] [address] [place] [address] Arcadio May MD [address] [place] [address] [address] [place] [address] 04/17/2025 10:00 AM EDT Office Visit General Surgery - [place] [address] [place] [phone] Pawel Hanna, DO [address] [facility] [address] [place] [address] documented as of this encounter Visit Diagnoses Not on filedocumented in this encounter Care Teams Anesthesiology Faculty Relationship Specialty Start Date End Date Barbara Wolf MD [address] [place] [address] PCP - General Internal Medicine 07/05/24 documented as of this encounter
--- OUTSIDE RECORDS SUMMARY | 2024-12-26 11:02 | XMS_ITS | Clinical Summary ---
[facility] Address [address] [place] [address] Phone Care Team Providers Care Prefabricator Name Role Phone Barbara Wolf MD Primary Care Provider [phone] Allergies Active Allergy Reactions Criticality Noted Date Comments Penicillins Rash 06/06/2015 Medications acetaminophen (TYLENOL) 500 mg tablet Active cholecalciferol (VITAMIN D-3) 50 mcg (2,000 unit) tablet Take 1 Tablet by mouth daily. Active cyanocobalamin (VITAMIN B-12) 500 mcg tablet Take 1 Tablet by mouth daily for 360 days. Active aluminum-magnes ium hydroxide-simet hicone (MAALOX) 200-200-20 mg/5 mL suspension Take 15 mL by mouth 4 times daily as needed (heartburn and nausea). Active albuterol 2.5 mg /3 mL (0.083 %) nebulizer solutionIndicat ions:Moderate persistent asthma without complication Take 3 mL (2.5 mg total) by nebulization every 6 (six) hours if needed for wheezing. 360 mL 2 024 Active albuterol HFA (Ventolin HFA) 90 mcg/actuation inhalerIndicati ons:Moderate persistent asthma without complication Inhale 2 puffs by mouth 4 (four) times a day. 18 each 1 025 Active naproxen (EC NAPROSYN) 500 mg EC tablet Take 1 tablet (500 mg total) by mouth 2 (two) times a day. Do not crush, chew, or split. Active pantoprazole (PROTONIX) 40 mg EC tablet TAKE 1 TAB ORALLY TWICE DAILY (BEFORE BREAKFAST AND DINNER) ON EMPTY STOMACH. WAIT 30 MINS THEN EAT 180 tablet 3 Active amitriptyline (ELAVIL) 50 mg tabletIndicatio ns:Intractable headache, unspecified chronicity pattern, unspecified headache type Take 1 tablet (50 mg total) by mouth at bedtime. 30 each 11 025 2025 Active SUMAtriptan (IMITREX) 50 mg tabletIndicatio ns:Intractable headache, unspecified chronicity pattern, unspecified headache type Take 1 tablet (50 mg total) by mouth 1 (one) time if needed for migraine (may repeat x1). May repeat dose once in 2 hours if no relief. Do not exceed 2 doses in 24 hours. 20 tablet 5 Active mometasone (ELOCON) 0.1 % creamIndication s:Flexural eczema Apply thin layer to affected area BID for 2 weeks then stop. Avoid face and groin. 30 g 3 Active amitriptyline (ELAVIL) 25 mg tablet Take 1 tablet (25 mg total) by mouth 1 (one) time each day. 30 tablet 2 2024 Discontinued SUMAtriptan (IMITREX) 50 mg tablet Take 1 tablet (50 mg total) by mouth 1 (one) time if needed for migraine (may repeat x1) for up to 1 dose. May repeat dose once in 2 hours if no relief. Do not exceed 2 doses in 24 hours. 9 tablet 5 2024 Discontinued(R eorder) Active Problems Problem Noted Date Diagnosed Date Bradycardia 09/17/2023 Cervical myelopathy (CMS/HCC V24, CMS/HCC V28) 0 09/09/2021 Overview (06/07/2024): Last Assessment & Plan: [...] anyone else, is on Suboxone. I checked [facility] records, only recent prescription was our prescription [...] concerns or questions. Sinusitis 09/06/2021 Polysubstance abuse ([facility] V24, [facility] V28) 0 09/06/2021 Overview (06/07/2024): H/o etoh, crack/cocaine. Osteoarthritis of hip 09/06/2021 Migraine headache 09/06/2021 Hepatitis B virus infection 09/06/2021 Overview (06/07/2024): unclear if active Hep B. History of HepBsAB positive Eczema 09/06/2021 Cannabis abuse 09/06/2021 Cocaine abuse ([facility] V24, [facility] V28) 021 Overview (06/07/2024): 04/13 positive UDS Weight loss 12/02/2018 Epigastric pain 12/02/2018 Clostridium difficile infection 10/05/2018 History of substance abuse ([facility] V24, [facility] V28) 07/06/2018 Overview (06/07/2024): Recovering alcoholic Vitamin B12 deficiency 12/28/2017 Depression 12/15/2017 GERD (gastroesophageal reflux disease) 8 Insomnia 12/15/2017 Irritable bowel syndrome 10/22/2017 Skull lesion 07/15/2017 Overview (06/07/2024): ? Unclear history Asthma 05/26/2017 Vitamin D deficiency 11/09/2016 Left hand paresthesia 12/29/2013 COPD (chronic obstructive pu lmonary disease) ([facility] V24, [facility] V28) 12/29/2013 Bilateral knee pain 12/29/2013 Allergic rhinitis 05/11/2013 Chronic headaches 08/12/2012 Raspy voice 09/19/2011 Overview (06/07/2024): F/u ENT; s/p laryngoscopy 12/09/[address] Back. Barium swallow (11/11/11) revealed mild GERD. Low back pain radiating to right lower extremity 09/19/2011 Overview (06/07/2024): F/u [facility]. Encounters Date Type Department Care Team Description 12/22/2024 11:00 AM EDT Office Visit Internal Medicine [facility] [address] [phone] Tonny Camarillo NP Intractable headache, unspecified chronicity pattern, unspecified headache type (Primary Dx); Ischemic brain damage; Osteoarthritis of hip, unspecified laterality, unspecified osteoarthritis type; Chronic pain of both knees; Moderate persistent asthma, unspecified whether complicated; Flexural eczema 12/20/2024 Telephone Internal Medicine [facility] [address] [phone] Barbara Wolf MD Dizziness 12/02/2024 Telephone Internal Medicine [facility] [address] [phone] Barbara Wolf MD Results (Sleep Apnea) 12/01/2024 11:00 AM EDT - 12/01/2024 11:59 PM EDT Hospital Encounter [facility] MRI [address] [place] [phone] Migraine without aura and without status migrainosus, not intractable; Occipital neuralgia of left side Discharge Disposition: Home or Self Care 11/29/2024 7:33 AM EDT - 11/29/2024 11:59 PM EDT Hospital Encounter [facility] Xray [address] [place] [address] Discharge Disposition: Home or Self Care 11/28/2024 6:52 AM EDT - 11/28/2024 10:19 AM EDT Emergency [facility] Emergency [address] [place] [address] Posterior knee pain, right (Primary Dx); Effusion of right knee Discharge Disposition: Home or Self Care 11/24/2024 1:00 PM EDT Office Visit Internal [facility] 175 [facility] [address] [place] [address] Barbara Wolf MD Right upper extremity numbness (Primary Dx); Chronic pain of both knees 11/24/2024 Telephone Internal Medicine [facility] [address] [phone] Barbara Wolf MD [place]: Orthopedic Referral 11/22/2024 1:30 PM EDT Consult [facility] 175 [facility] [address] [place] [address] Nilda Chang MD Migraine without aura and without status migrainosus, not intractable (Primary Dx); Nonintractable headache, unspecified chronicity pattern, unspecified headache type; Occipital neuralgia of left side 11/14/2024 9:00 AM EDT - 11/14/2024 1:39 PM EDT Emergency [facility] Emergency [address] [place] [address] Neck pain (Primary Dx); Acute nonintractable headache, unspecified headache type Discharge Disposition: Left Against Medical Advice 11/14/2024 Telephone Internal Medicine [facility] [address] [phone] Barbara Wolf MD Hospital Follow-up 11/08/2024 8:47 AM EDT - 11/08/2024 11:59 PM EDT Hospital Encounter [facility] Xray [address] [place] [address] Cervical pain Discharge Disposition: Home or Self Care 11/07/2024 11:30 AM EDT Office Visit Internal [facility] 175 [facility] [address] [place] [address] Tonny Camarillo NP Cervical pain (Primary Dx); Osteoarthritis of hip, unspecified laterality, unspecified osteoarthritis type; Chronic pain of both knees; Moderate persistent asthma, unspecified whether complicated 11/07/2024 Telephone Internal Medicine [facility] 175 [facility] [address] [place] [address] Tonny Camarillo NP Medical supply 10/21/2024 Telephone Internal Medicine [facility] [address] [address] Barbara Wolf MD [place]: Referral 10/17/2024 1:15 PM EST Consult General Surgery [address] [place] [address] Pawel Hanna, Soft tissue mass (Primary Dx); Epigastric abdominal pain 10/17/2024 Telephone Internal Medicine [facility] [address] [address] Barbara Wolf MD 10/04/2024 9:00 AM EST Office Visit Gastroenterology [address] [phone] Linda Moore PA Nausea and vomiting, unspecified vomiting type (Primary Dx); Cannabis abuse; Gastroesophageal reflux disease, unspecified whether esophagitis present 10/04/2024 Telephone Gastroenterology [address] [phone] Linda Moore PA from Last 3 Months Immunizations Name Administration [...] LIGATION PROCEDURE: HISTORICAL TUBAL LIGATION APPENDECTOMY PROCEDURE: MN APPENDECTOMY KNEE ARTHROSCOPY 2016 Bilateral PROCEDURE: MN ARTHROSCOPY AID TX SPINE&/FX KNEE W/O FIXJ; COMMENT: Dr. Alcazar OTHER SURGICAL HISTORY PROCEDURE: BIOPSY OF THROAT, HYPOPHARYNX; COMMENT: pt states benign OTHER SURGICAL HISTORY 01/15/2022 PROCEDURE: MN ARTHRD ANT INTERBODY MIN DSC CRV BELOW [...] of hip replacement History of substance abuse ( [facility] V24, [facility] V28) 07/06/2018 DX:History of substance abus e ([facility]); COMMENT: Recovering alcoholic Cocaine abuse ([facility] V24, [facility] V28) 04/25/2021 DX:Cocaine abuse ([facility]); COMM ENT: 04/13 positive UDS Anxiety state DX:Anxiety state [...] 49 Started: 02/1975 Passive Smoke Exposure: Never Tobacco Cessation:Ready to Q uit: Not Asked; Counseling Given: Not Answered Alcohol Use Standard Drinks/Week Comments Yes 0 (1 standard drink = 0.6 oz pur e alcohol) Comments No Sex and Gender Information Value Date Recorded Sex Assigned at Female 08/01/2024 9:01 AM EST Legal Sex Female 4:34 AM EST Gender Identity Female 08/01/2024 9:01 AM EST Sexual Orientation Straight 08/01/2024 9: 01 AM EST Obstetrics History Para Term AB IAB SAB Ectopic Multiple Livin g Live Births 2 Last Filed Vital Signs Vital Sign Reading Time Taken Comments Blood Pressure 104/68 12/22/2024 10:58 AM EDT Pulse 71 12/22/2024 10:58 AM EDT Temperature 36.2 ??C (97.1 ??F) 12/22/2024 10:58 AM E DT Respiratory Rate 16 11/28/2024 6:22 AM EDT Oxygen Saturation 96% 12/22/2024 10:58 AM EDT Inhaled Oxygen Concentration - - Weight 66.4 kg (146 lb 6.4 oz) 12/22/2024 10:58 AM EDT Height 162.6 cm (5' 4 ) 12/22/2024 10:58 AM EDT Body Mass Index 25.13 12/22/2024 10:58 AM EDT Plan of Treatment Upcoming Encounters Date Type Department Care Team (Late st Contact Info) Description 12/29/2024 9:45 AM EDT Office Visit Internal Medicine - [place] [address] [phone] Barbara Wolf MD 175 [facility] [address] [place] [phone] 01/02/2025 10:50 AM EDT Office Visit Gastroenterology - [place] 175 [facility] 175 [facility] [address] [place] [phone] Linda Moore PA 175 [facility] [address] [place] [address] 01/17/2025 11:00 AM EDT Consult Orthopedic Surgery - [place] [address] [facility] [address] [place] [address] Precious Asher MD 175 [facility] [address] [place] [address] 01/23/2025 11:00 AM EDT Office Visit [facility] [place] 175 [facility] [address] [place] [address] Natasha Flood PA 175 [facility] [address] [place] [address] 02/03/2025 10:00 AM EDT Consult Vascular Surgery - [place] [address] [place] [address] Tara Melgoza PA 300 [facility] [address] [place] [address] 02/17/2025 9:20 AM EDT Office Visit [facility] [address] [place] [address] Arcadio May MD [address] [place] [address] Dr [facility] [address] [place] [address] 04/17/2025 10:00 AM EDT Office Visit General Surgery - [place] 175 [facility] [address] [place] [phone] Pawel Hanna, 175 [facility] [address] [place] [address] Health Maintenance Due Date Last Done Comments Hepatitis A Vaccines (1 of 2 - Risk 2-dose series) 1985 Hepatitis B Vaccines (1 of 3 - 19+ 3-dose series) 1985 Cervical Cancer Screening: Pap Smear 1987 Pneumococcal Vaccine: 50+ Years (2 of 2 - PCV) 09/22/2007 09/22/2006 Pneumococcal Vaccine: Pediatrics (0 to 5 Years) and At-Risk Patients (6 to 64 Years) (2 of 2 - PCV) 09/22/2007 09/22/2006 DTaP,Tdap,and Td Vaccines (1 - Tdap) 07/27/2008 07/26/2008 Zoster Vaccines (1 of 2) 2016 HIV Screening 08/02/2022 Hepatitis C Screening 08/02/2022 Social Influencers of Health Screening 08/02/2022 COVID-19 Vaccine ( season) 2024 08/21/2021, 12/05/2020, 11/07/2020 Depression Screening 03/08/2025 03/08/2024 Influenza Vaccine (Season Ended) 2025 06/01/2020, 06/18/2017, 05/11/2013, Additional history exists Lung Cancer Screening (Low Dose CT) 09/06/2025 [...] patient's age to complete this topic Meningococcal B Vaccine Aged Out No l onger eligible based on patient's age to complete this topic RSV Immunization Patients Under 20 months Aged Out No longer eligible based on patient's age to complete this topic Varicella Vaccines Aged Out No longer eligible based on patient's age to complete this topic Procedures Procedure Name Priority Date/Time Associated Diagnosis Comments MR BRAIN WO AND W CONTRAST Routine 12/01/2024 1:33 PM EDT Migraine without aura and without status migrainosus, not intractable Occipital neuralgia of left side XR UGI W AIR CONTRAST Routine 11/29/2024 8:13 AM EDT Cannabinoid hyperemesis syndrome Gastroesophageal reflux disease, unspecified whether esophagitis present Epigastric abdominal pain EXTERNAL XRAY REPORT 11/29/2024 VAS US DUPLEX LOWER EXT VENOUS RIGHT STAT 11/28/2024 9:25 AM EDT Posterior knee pain, right XR KNEE 4+ VIEWS RIGHT STAT 11/28/2024 8:14 AM EDT EXTERNAL VASCULAR ULTRASOUND 11/28/2024 CBC WITH AUTO DIFFERENTIAL STAT 11/14/2024 9:15 AM EDT COMPREHENSIVE METABOLIC PANEL STAT 11/14/2024 9:15 AM EDT CBC AND DIFFERENTIAL STAT 11/14/2024 9:15 AM EDT XR CERVICAL SPINE 4-5 VIEWS Routine 11/08/2024 9:21 AM EDT Cervical pain CT LUNG SCREENING Routine 09/06/2024 2:3 4 PM EST Encounter for screening for malignant neoplasm of respiratory organs Nicotine dependence, cigarettes, uncomplicated MG MAMMO DIGITAL SCREENING W HESHAM BILAT Routine 08/04/2024 8:26 AM EST Encounter for screening mammogram for breast cancer HM DEPRESSION SCREENING Routine 03/08/2024 LIPID PANEL Routine 04/08/2023 COLONOSCOPY Routine 10/02/2017 from Last 3 Months or Most Recently Relevant to Health Maintenance Results * MR Brain wo and w Contrast (12/01/2024 1:33 PM EDT) Anatomical Region Laterality Modality Head and Neck Magnetic Resonan ce 12/01/2024 2:58 PM EDT Impressions 12/01/2024 3:30 PM EDT No acute findings or abnormal intracranial enhancement. Mild nonspecific T2 hyperintense foci throughout the supratentorial white matter, predominantly frontal and subcortical in distribution. ??Pattern suggests sequelae of chronic migraine or chronic small vessel ischemic changes. 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 Advanced degenerative changes at the left C1-2 articulation, possibly a source of cervicogenic headache -------- FINAL REPORT -------- Dictated By: LG KAY Dictated Date: 12/01/2024 14:58 ET Assigned Physician: LG KAY Reviewed and Electronically Signed By: LG KAY Signed Date: 12/01/2024 15:30 ET Workstation ID: [id number] Transcribed By: Self Edit Transcribed Date: 12/01/2024 14:58 ET Narrative 12/01/2024 3:30 PM EDT PROCEDURE: Brain MRI INDICATION: Headache, fall TECHNIQUE: Multiplanar, multisequence MRI of the brain without and with contrast. ??15 mL Dotarem injected intravenously from a 15 mL vial with the remainder discarded COMPARISON: ??Cervical spine MRI 06/06/2021. FINDINGS: No acute infarct, mass effect, or intracranial hemorrhage. Mild nonspecific T2 hyperintense foci throughout the supratentorial white matter are predominantly frontal and subcortical in distribution. No abnormal intracranial enhancement or susceptibility artifact. Ventricles, sulci, and cisterns are normal in size and configuration. ??No hydrocephalus. Sella is within normal limits. ??Cervical fusion hardware noted. 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 ??There is severe degenerative change with associated edema/inflammation at the left C1-2 articulation, only partially imaged Major intracranial arterial flow voids are within normal limits. ??Major dural venous sinuses enhance normally with contrast. Sinuses are clear noting hypoplastic frontal sinuses. ??Mastoid air cells are clear. Orbits and extracranial soft tissues are normal. ??Calvarium is normal. Procedure Note Lg Kay MD - 12/01/2024 PROCEDURE: Brain MRI INDICATION: Headache, fall TECHNIQUE: Multiplanar, multisequence MRI of the brain without and withcontrast. 15 mL Dotarem injected intravenously from a 15 mL vial with theremainder discarded COMPARISON: Cervical spine MRI 06/06/2021. FINDINGS: No acute infarct, mass effect, or intracranial hemorrhage. Mild nonspecific T2 hyperintense foci throughout the supratentorial whitematter are predominantly frontal and subcortical in distribution. No abnormal intracranial enhancement or susceptibility artifact. Ventricles, sulci, and cisterns are normal in size and configuration. Nohydrocephalus. Sella is within normal limits. Cervical fusion hardware noted. Unchangedplatybasia with basilar invagination of the dens and mild narrowing theforamen magnum, similar dating back to 2020. There is severe degenerativechange with associated edema/inflammation at the left C1-2 articulation,only partially imaged Major intracranial arterial flow voids are within normal limits. Majordural venous sinuses enhance normally with contrast. Sinuses are clear noting hypoplastic frontal sinuses. Mastoid air cellsare clear. Orbits and extracranial soft tissues are normal. Calvarium is normal. IMPRESSION: No acute findings or abnormal intracranial enhancement. Mild nonspecific T2 hyperintense foci throughout the supratentorial whitematter, predominantly frontal and subcortical in distribution. Patternsuggests sequelae of chronic migraine or chronic small vessel ischemicchanges. 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 Advanced degenerative changes at the left C1-2 articulation, possibly asource of cervicogenic headache -------- FINAL REPORT -------- Dictated By: LG KAY Dictated Date: 12/01/2024 14:58 ET Assigned Physician: LG KAY Reviewed and Electronically Signed By: LG KAY Signed Date: 12/01/2024 15:30 ET Workstation ID: [id number] Transcribed By: Self Edit Transcribed Date: 12/01/2024 14:58 ET Nilda Chang MD IMG MRI PROCEDURES Final Result * XR UGI w Air Contrast (11/29/2024 8:13 AM EDT) Anatomical Region Laterality Modality Body Radiographic Rin ging 11/29/2024 12:2 9 PM EDT Impressions 11/29/2024 4:08 PM EDT 1. Moderate esophageal dysmotility. 2. Small, sliding, axial hiatal hernia with small amounts of spontaneous gastroesophageal reflux visualized. -------- FINAL REPORT -------- Dictated By: Saskia Pandya Dictated Date: 11/29/2024 12:29 ET Assigned Physician: Chan French Reviewed and Electronically Signed By: Chan French Signed Date: 11/29/2024 16:08 ET Workstation ID: [id number] Transcribed By: Self Edit Transcribed Date: 11/29/2024 12:34 ET Resident/PA/SALESPERSON FURS: Saskia Pandya Narrative 11/29/2024 4:08 PM EDT FINDINGS: Double contrast UGI performed. COMPARISON: No prior upper GI imaging. Barium swallow imaging from 2011 HISTORY: Patient is a 59-year-old female with history of cannabis hyperemesis syndrome, GERD, vomiting. ELECTRICIAN OUTSIDE radiographs: Cash Processing Specialist AP radiograph of the abdomen obtained. Bowel gas pattern is nonobstructive. Visualized lung bases appear clear. There is mild levoscoliosis of the lumbar spine. Hardware noted to bilateral hips. FINDINGS: Effervescent crystals were administered orally. Thick and thin barium was then administered orally under fluoroscopic control. Esophagus: There is moderate esophageal dysmotility as demonstrated by tertiary contractions and slow transit of contrast down the esophagus. Normal distensibility and mucosal pattern. There is no evidence of obstruction. There is a small, sliding, axial hiatal hernia. ?? Stomach: Normal distensibility and motility. Prompt passage of contrast from the stomach into the duodenal bulb and sweep. No gastric mass or ulceration. Visualization of proximal small bowel is within normal limits. ?? Gastroesophageal reflux: Small amount of spontaneous gastroesophageal reflux visualized. DAP: 647.9 Gycm^2 Procedure Note Chan French MD - 11/29/2024 FINDINGS: Double contrast UGI performed. COMPARISON: No prior upper GI imaging. Barium swallow imaging from 2011 HISTORY: Patient is a 59-year-old female with history of cannabishyperemesis syndrome, GERD, vomiting. ELECTRICIAN OUTSIDE radiographs: Cash Processing Specialist AP radiograph of the abdomen obtained. Bowel gas pattern isnonobstructive. Visualized lung bases appear clear. There is mildlevoscoliosis of the lumbar spine. Hardware noted to bilateral hips. FINDINGS: Effervescent crystals were administered orally. Thick and thinbarium was then administered orally under fluoroscopic control. Esophagus: There is moderate esophageal dysmotility as demonstrated bytertiary contractions and slow transit of contrast down the esophagus.Normal distensibility and mucosal pattern. There is no evidence ofobstruction. There is a small, sliding, axial hiatal hernia. Stomach: Normal distensibility and motility. Prompt passage of contrastfrom the stomach into the duodenal bulb and sweep. No gastric mass orulceration. Visualization of proximal small bowel is within normal limits. Gastroesophageal reflux: Small amount of spontaneous gastroesophagealreflux visualized. DAP: 647.9 Gycm^2 IMPRESSION: 1. Moderate esophageal dysmotility. 2. Small, sliding, axial hiatal hernia with small amounts of spontaneousgastroesophageal reflux visualized. -------- FINAL REPORT -------- Dictated By: Saskia Pandya Dictated Date: 11/29/2024 12:29 ET Assigned Physician: Chan French Reviewed and Electronically Signed By: Chan French Signed Date: 11/29/2024 16:08 ET Workstation ID: [id number] Transcribed By: Self Edit Transcribed Date: 11/29/2024 12:34 ET Resident/PA/SALESPERSON FURS: Saskia Pandya Linda GRANGER IMG FLUOROSCOPY PROCEDURES Fi nal Result * External Xray Report (11/29/2024) Anatomical Region Laterality Modality Radiographic Rin ging Provider [facility] IMG XR PROCEDURES Final Result * Vascular US duplex lower extremity venous right (11/28/2024 9:25 AM EDT) Anatomical Region Laterality Modality Vascular, Abdomen Ultrasound 11/28/2024 9:45 AM EDT Impressions 11/28/2024 9:49 AM EDT NO RIGHT LOWER EXTREMITY DEEP VENOUS THROMBOSIS. -------- FINAL REPORT -------- Dictated By: LG KAY Dictated Date: 11/28/2024 09:45 ET Assigned Physician: LG KAY Reviewed and Electronically Signed By: LG KAY Signed Date: 11/28/2024 09:49 ET Workstation ID: [id number] Transcribed By: Self Edit Transcribed Date: 11/28/2024 09:45 ET Narrative 11/28/2024 9:49 AM EDT PROCEDURE: VAS US DUPLEX LOWER EXT VENOUS RIGHT INDICATION: Pain TECHNIQUE: 2-D and color Doppler imaging of the right lower extremity venous vasculature with compression and augmentation maneuvers. COMPARISON: No priors available. FINDINGS: There is normal flow, compression, and augmentation from the common femoral through the popliteal vein. Visualized calf veins are patent. ??Right knee effusion Procedure Note Lg Kay MD - 11/28/2024 PROCEDURE: VAS US DUPLEX LOWER EXT VENOUS RIGHT INDICATION: Pain TECHNIQUE: 2-D and color Doppler imaging of the right lower extremityvenous vasculature with compression and augmentation maneuvers. COMPARISON: No priors available. FINDINGS: There is normal flow, compression, and augmentation from the commonfemoral through the popliteal vein. Visualized calf veins are patent.Right knee effusion IMPRESSION: NO RIGHT LOWER EXTREMITY DEEP VENOUS THROMBOSIS. -------- FINAL REPORT -------- Dictated By: LG KAY Dictated Date: 11/28/2024 09:45 ET Assigned Physician: LG KAY Reviewed and Electronically Signed By: LG KAY Signed Date: 11/28/2024 09:49 ET Workstation ID: [id number] Transcribed By: Self Edit Transcribed Date: 11/28/2024 09:45 ET Cynthia GRANGER CV VASCULAR PROCEDURES F inal Result * XR Knee 4+ Views Right (11/28/2024 8:14 AM EDT) Anatomical Region Laterality Modality Lower Extremities, Knee Right Radiogra phic Imaging 11/28/2024 8:19 AM EDT Impressions 11/28/2024 8:36 AM EDT FINDINGS/IMPRESSION: No acute fracture or dislocation. ??Moderate joint effusion. ??Joint spaces are preserved. ??No focal soft tissue swelling. -------- FINAL REPORT -------- Dictated By: LG KAY Dictated Date: 11/28/2024 08:19 ET Assigned Physician: LG KAY Reviewed and Electronically Signed By: LG KAY Signed Date: 11/28/2024 08:36 ET Workstation ID: [id number] Transcribed By: Self Edit Transcribed Date: 11/28/2024 08:20 ET Narrative 11/28/2024 8:36 AM EDT XR KNEE 4+ VIEWS RIGHT INDICATION: ??Pain TECHNIQUE: XR KNEE 4+ VIEWS RIGHT COMPARISON: No priors available. Procedure Note Lg Kay MD - 11/28/2024 XR KNEE 4+ VIEWS RIGHT INDICATION: Pain TECHNIQUE: XR KNEE 4+ VIEWS RIGHT COMPARISON: No priors available. IMPRESSION: FINDINGS/IMPRESSION: No acute fracture or dislocation. Moderate jointeffusion. Joint spaces are preserved. No focal soft tissue swelling. -------- FINAL REPORT -------- Dictated By: LG KAY Dictated Date: 11/28/2024 08:19 ET Assigned Physician: LG KAY Reviewed and Electronically Signed By: LG KAY Signed Date: 11/28/2024 08:36 ET Workstation ID: [id number] Transcribed By: Self Edit Transcribed Date: 11/28/2024 08:20 ET Cynthia GRANGER IMG XR PROCEDURES Final Result * External Vascular Ultrasound (11/28/2024) Anatomical Region Laterality Modality Ultrasound Provider [facility] CV VASCULAR PROCEDURES F inal Result * (ABNORMAL) CBC auto differential (11/14/2024 9:15 AM EDT) WBC 6.5 4.8 - 10.8 K/[facility] LAB HEMETOLOGY METHOD 11/14/2024 9:40 AM EDT [facility] RBC 4.30 3.80 - 4.80 M/[facility] LAB HEMETOLOGY METHOD 11/14/2024 9:40 AM EDT [facility] Hemoglobin 13.4 11.5 - 16.0 g/dL LAB HEMETOLOGY METHOD 11/14/2024 9:40 AM [facility] Hematocrit 40.9 35.0 - 47.0 % LAB HEMETOLOGY METHOD 11/14/2024 9:40 AM [facility] MCV 95.8 79.0 - 98.0 FL LAB HEMETOLOGY METHOD 11/14/2024 9:40 AM [facility] MCH 31.4 27.0 - 32.0 pcg LAB HEMETOLOGY METHOD 11/14/2024 9:40 AM [facility] MCHC 32.8 32.0 - 37.0 g/dL LAB HEMETOLOGY METHOD 11/14/2024 9:40 AM [facility] RDW 14.1 11.0 - 15.0 % LAB HEMETOLOGY METHOD 11/14/2024 9:40 AM [facility] Platelets 199 130 - 400 K/mcL LAB HEMETOLOGY METHOD 11/14/2024 9:40 AM [facility] MPV 11.5(H) 7.0 - 11.0 FL LAB HEMETOLOGY METHOD 11/14/2024 9:40 AM [facility] NRBC 0.0 <1.0 % LAB HEMETOLOGY METHOD 11/14/2024 9:40 AM [facility] NRBC Absolute 0.00 <0.10 K/mcL LAB HEMETOLOGY METHOD 11/14/2024 9:40 AM [facility] Neutrophils Relative 53.6 % LAB HEMETOLOGY METHOD 11/14/2024 9:40 AM [facility] Lymphocytes Relative 35.1 % LAB HEMETOLOGY METHOD 11/14/2024 9:40 AM [facility] Monocytes Relative 6.7 % LAB HEMETOLOGY METHOD 11/14/2024 9:40 AM EDT [facility] Eosinophils Relative 3.3 % LAB HEMETOLOGY METHOD 11/14/2024 9:40 AM EDT [facility] Basophils Relative 1.1 % LAB HEMETOLOGY METHOD 11/14/2024 9:40 AM EDT [facility] Immature Granulocytes Relative 0.2 % LAB HEMETOLOGY METHOD 11/14/2024 9:40 AM EDT [facility] Neutrophils Absolute 3.47 1.50 - 7.00 K/mcL LAB HEMETOLOGY METHOD 11/14/2024 9:40 AM EDT [facility] Lymphocytes Absolute 2.27 1.00 - 5.00 K/mcL LAB HEMETOLOGY METHOD 11/14/2024 9:40 AM EDT [facility] Monocytes Absolute 0.43 0.20 - 1.00 K/mcL LAB HEMETOLOGY METHOD 11/14/2024 9:40 AM EDT [facility] Eosinophils Absolute 0.21 0.00 - 0.50 K/mcL LAB HEMETOLOGY METHOD 11/14/2024 9:40 AM EDT [facility] Basophils Absolute 0.07 0.00 - 0.20 K/mcL LAB HEMETOLOGY METHOD 11/14/2024 9:40 AM EDT [facility] Immature Granulocytes Absolute 0.01 0.00 - 0.03 K/mcL LAB HEMETOLOGY METHOD 11/14/2024 9:40 AM EDT [facility] Blood Venous blood specimen / Unknown Venipuncture / Unknown 11/14/2024 9:15 AM EDT 11/14/2024 9:28 AM EDT us Antonio Finley MD LAB BLOOD ORDERABLES Final Resu lt [facility] [address] [place] [address], * (ABNORMAL) Comprehensive metabolic panel (11/14/2024 9:15 AM EDT) Sodium 145 133 - 145 mmol/L LAB CHEMISTRY METHOD 11/14/2024 9:55 AM [facility] Potassium 4.5 3.5 - 5.5 mmol/L LAB CHEMISTRY METHOD 11/14/2024 9:55 AM [facility] Chloride 113(H) 96 - 110 mmol/L LAB CHEMISTRY METHOD 11/14/2024 9:55 AM [facility] CO2 26 21 - 32 mmol/L LAB CHEMISTRY METHOD 11/14/2024 9:55 AM [facility] Anion Gap 6 3 - 11 LAB CHEMISTRY METHOD 11/14/2024 9:55 AM [facility] Glucose 102(H) 70 - 100 mg/dL LAB CHEMISTRY METHOD 11/14/2024 9:55 AM [facility] BUN 14 5 - 25 mg/dL LAB CHEMISTRY METHOD 11/14/2024 9:55 AM [facility] Creatinine 0.71 0.50 - 1.10 mg/dL LAB CHEMISTRY METHOD 11/14/2024 9:55 AM [facility] eGFR 99 >=60 mL/min/1. 73m2 LAB CHEMISTRY METHOD 11/14/2024 9:55 AM [facility] Comment:Calculation based on the??Chronic Kidney Disease Epidemiology Collaboration (CKD-EPI) equation refit??without adjustment for race. BUN/Creatinine Ratio 19.7 LAB CHEMISTRY METHOD 11/14/2024 9:55 AM [facility] Calcium 9.0 8.5 - 10.5 mg/dL LAB CHEMISTRY METHOD 11/14/2024 9:55 AM [facility] AST (SGOT) 16 10 - 42 unit/L LAB CHEMISTRY [facility] ALT (SGPT[facility] 16 10 - 60 unit/L LAB CHEMISTRY METHOD 11/14/2024 9:55 AM EDT [facility] Alkaline Phosphatase 115 42 - 121 unit/L LAB CHEMISTRY METHOD 11/14/2024 9:55 AM EDT [facility] Total Protein 6.5 6.0 - 8.0 g/dL LAB CHEMISTRY METHOD 11/14/2024 9:55 AM EDT [facility] Albumin 3.5 3.2 - 5.0 g/dL LAB CHEMISTRY METHOD 11/14/2024 9:55 AM EDT [facility] Total Bilirubin 0.5 0.0 - 1.4 mg/dL LAB CHEMISTRY METHOD 11/14/2024 9:55 AM EDT [facility] Blood Venous blood specimen / Unknown Venipuncture / Unknown 11/14/2024 9:15 AM EDT 11/14/2024 9:28 AM EDT us Antonioyoko Finley MD LAB BLOOD ORDERABLES Final Resu lt [facility] [address] [place] [address], * XR Cervical Spine 4-5 Views (11/08/2024 9:21 AM EDT) Anatomical Region Laterality Modality Spine, C-spine Radiographic Rin ging 11/08/2024 9:44 AM EDT Impressions 11/08/2024 9:49 AM EDT No acute findings. Satisfactory appearance following previous anterior fusion at the C3-6 levels which was performed on 01/15/2022. There has been nearly complete bony fusion of the C6 and C7 vertebral bodies which may represent previous surgery or which may be congenital. There is moderate bony narrowing of the right C3-4, C4- 5, and C5-6 neural foramina. Code 12610 -------- FINAL REPORT -------- Dictated By: Korey Newman Dictated Date: 11/08/2024 09:44 ET Assigned Physician: Korey Newman Reviewed and Electronically Signed By: Korey Newman Signed Date: 11/08/2024 09:49 ET Workstation ID: [id number] Transcribed By: Self Edit Transcribed Date: 11/08/2024 09:44 ET Narrative 11/08/2024 9:49 AM EDT HISTORY: The patient is a 59-year-old female with left-sided neck pain. The patient fell 6 years previously. Information provided with prior studies indicates that the patient underwent cervical spine surgery on 01/15/2022. FINDINGS: AP, lateral, open-mouth, and right and left oblique views of the cervical spine are obtained. On the lateral and oblique views, an earring is present overlying the upper and mid cervical spine. This study demonstrates anterior fixation hardware at the C3-4, C4-5, and C5-6 levels; this anterior fixation procedure was performed on 01/15/2022. The surgical hardware appears well-positioned and intact. There has also been nearly complete fusion of the C6 and C7 vertebral bodies which may be consequent to previous surgery or which may represent a congenital variant. There is straightening of the cervical lordosis consistent with surgery. No fracture is seen. There is moderate bony narrowing of the right C3-4, C4-5, and C5-6 neural foramina. The remaining neural foramina appear widely patent. There is no prevertebral soft tissue swelling. Procedure Note Korey Newman MD - 11/08/2024 HISTORY: The patient is a 59-year-old female with left-sided neck pain.The patient fell 6 years previously. Information provided with priorstudies indicates that the patient underwent cervical spine surgery on01/15/2022. FINDINGS: AP, lateral, open-mouth, and right and left oblique views of thecervical spine are obtained. On the lateral and oblique views, an earringis present overlying the upper and mid cervical spine. This studydemonstrates anterior fixation hardware at the C3-4, C4-5, and C5-6levels; this anterior fixation procedure was performed on 01/15/2022. Thesurgical hardware appears well-positioned and intact. There has also beennearly complete fusion of the C6 and C7 vertebral bodies which may beconsequent to previous surgery or which may represent a congenitalvariant. There is straightening of the cervical lordosis consistent withsurgery. No fracture is seen. There is moderate bony narrowing of theright C3-4, C4-5, and C5-6 neural foramina. The remaining neural foraminaappear widely patent. There is no prevertebral soft tissue swelling. IMPRESSION: No acute findings. Satisfactory appearance following previous anteriorfusion at the C3-6 levels which was performed on 01/15/2022. There has beennearly complete bony fusion of the C6 and C7 vertebral bodies which mayrepresent previous surgery or which may be congenital. There is moderatebony narrowing of the right C3-4, C4-5, and C5-6 neural foramina. Code 17639 -------- FINAL REPORT -------- Dictated By: Korey Newman Dictated Date: 11/08/2024 09:44 ET Assigned Physician: Korey Newman Reviewed and Electronically Signed By: Korey Newman Signed Date: 11/08/2024 09:49 ET Workstation ID: [id number] Transcribed By: Self Edit Transcribed Date: 11/08/2024 09:44 ET Tonny Camarillo NP IMG XR PROCEDURES Final Result * CT Lung Screening (09/06/2024 2:34 PM EST) Anatomical Region Laterality Modality Chest Computed Tomogra phy 09/14/2024 12:4 9 PM EST Impressions 09/14/2024 12:58 PM EST Impression: No suspicious pulmonary nodule. Lung-RADS Category: ??Lung-RADS 1: No nodules or definitely benign nodules. Continue annual screening with Low Dose Chest CT in 12 months. [facility] [place]ÁRB[place] ([id number]) -------- FINAL REPORT -------- Dictated By: Estephania Lockwood Dictated Date: 09/14/2024 12:49 ET Assigned Physician: Estephania Lockwood Reviewed and Electronically Signed By: Estephania Lockwood Signed Date: 09/14/2024 12:58 ET Workstation ID: [id number] Transcribed By: Self Edit Transcribed Date: 09/14/2024 12:49 ET Narrative 09/14/2024 12:58 PM EST History: ??59 year-old 48 pack-year current smoker, asymptomatic, for lung cancer screening. Baseline exam. Comparison: No comparison imaging at this institution. Technique: Helical volumetric imaging of the thorax was performed, using low- dose technique, without IV contrast. DLP: 161.03 mGy/cm ??CTDIvol: 4.83 mGy GE ARDACOpeed VCT Iterative reconstruction technique Findings: Lungs and [...] DLP: 161.03 mGy/cm CTDIvol: 4.83 mGy GE ARDACOpeed VCT Iterative reconstruction technique Findings: Lungs and [...] Dose Chest CT in 12 months. [place] ([id number]) -------- FINAL REPORT -------- Dictated By: Estephania Lockwood Dictated Date: 09/14/2024 12:49 ET Assigned Physician: Estephania Lockwood Reviewed and Electronically Signed By: Estephania Lockwood Signed Date: 09/14/2024 12:58 ET Workstation ID: [id number] Transcribed By: Self Edit Transcribed Date: 09/14/2024 12:49 ET Julian Garza MD IMG CT PROCEDURES Final Result * MG Mammo Digital Screening w [facility] [...] Signed Date: 08/04/2024 09:49 ET Workstation ID: [id number] Transcribed By: Self Edit Transcribed Date: 08/04/2024 [...] Signed Date: 08/04/2024 09:49 ET Workstation ID: [id number] Transcribed By: Self Edit Transcribed Date: 08/04/2024 09:43 ET Self Referral Sppl IMG BI PROCEDURES Final Resul t * Depression Screening (03/08/2024) Depression Screening abstracted Historical Provider HEALTH MAINTENANCE Final Result * Lipid panel (04/08/2023) [facility] LDL/HDL Ratio 3 0 - 4 Triglycerides 129 0 - 150 mg/dL Cholesterol 167 0 - 200 mg/dL HDL 56 >=40 mg/dL LDL Cholesterol 86 0 - 100 mg/dL Blood Venous blood specimen / Unknown Historical Provider LAB BLOOD ORDERABLES Adelaida l Result * Colonoscopy (10/02/2017) Pathologist [facility] Colonoscopy no interpretation abstracted Anatomical Region Laterality Modality Other Historical Provider HEALTH MAINTENANCE Final Result from Last 3 Months or Most Recently Relevant to Health Maintenance Insurance [facility] Care Teams Prefabricator Relationship Specialty Start Date End Date Barbara Wolf MD [address] [facility] [address] [place] [address] PCP - General Internal Medicine 07/05/24
--- OUTSIDE RECORDS SUMMARY | 2024-12-26 11:02 | XMS_ITS | Clinical Summary ---
Author Organization [facility] Address [address] [place] [address] Care Team Providers Care Fryer Operator Name Role Phone Ciara Foreman Primary Care Provider [phone] Source Comments PLEASE NOTE, if this patient [...] g 2 4 Active albuterol sulfate hfa (PROVENTIL,IBLL TASNEEM,PROAIR) 90 mcg/actuation inhalerIndicatio ns:COPD (chronic obstructive pulmonary disease) ([facility]) Inhale 2 Puffs into the lungs every [...] pain 12/29/2013 COPD (chronic obstructive pulmonary disease) ([facility]) 12/29/2013 Left hand paresthesia 12/29/2013 Allergic rhinitis due to allergen 05/11/2013 Chronic headaches 08/12/2012 Vitamin D deficiency disease 09/22/2011 Overview (05/11/2013): =7. Anxiety and depression 09/19/2011 Overview (05/11/2013): Psych F/u @ [employer]. Therapist (Jaxon Lal #[phone]). Insomnia 09/19/2011 Overview (05/11/2013): Psych f/u @ [employer]. LBP radiating to right leg 09/19/2011 Overview (05/11/2013): F/u [facility]. 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 Back. Barium swallow (11/11/11) revealed mild GERD. Tobacco abuse disorder Marijuana abuse Polysubstance abuse ([facility]) Overview (05/11/2013): H/o etoh, crack/cocaine. [...] Screening 09/29/2016 Pap Smear 09/29/2016 09/29/2013, 09/22/2012 [id number] ( season) 2024 021, 11/07/2020 Imm-Influenza (#1) [...] EDT) HEPATITIS B SURFACE ANTIBODY POSITIVE(A) NEGATIVE [facility] Comment:Performer: [facility] (ML) HEPATITIS B SURFACE ANTIGEN NEGATIVE NEGATIVE [facility] [employer] [facility] Comment:Performer: [employer] [facility] (ML) HEPATITIS C VIRUS ANTIBODY NEGATIVE NEGATIVE [facility] Comment:Performer: [facility] (ML) HEPATITIS A ANTIBODY TOTAL NEGATIVE NEGATIVE [facility] Comment:Performer: [facility] (ML) HEPATITIS B CORE ANTIBODY POSITIVE(A) NEGATIVE [facility] Comment:Performer: [facility] (ML) Blood specimen (specimen) Blood / Unknown 05/11/2013 4:05 PM EDT 05/11/2013 4:05 PM EDT Narrative [facility] - 05/11/2013 6:54 PM EDT [employer] [address] [place] [address] [place] [id number] ORD# [id number] Ciara GRANGER LAB - BLOOD DRAW Edited [facility] [employer] [address] [place] [address], * COMPRE METAB PANEL (05/11/2013 4:05 PM EDT) GLUCOSE 93 70 - 100 mg/dL [facility] Comment: Performer: [facility] (ML) Reference range applicable to fasting specimens only BUN 14 5 - 25 mg/dL [facility] Comment:Performer: [facility] (ML) CREAT 0.65 0.5 - 1.1 mg/dL [facility] Comment:Performer: [facility] (ML) GLOMERULAR FILTRATION RATE >60 [facility] Comment: Performer: [facility] (ML) If patient is -Icelandic, multiply result by 1.21 Chronic Kidney Disease: < 60 ml/min/1.73 square meters Kidney Failure: < 15 ml/min/1.73 square meters SODIUM 143 133 - 145 mEq/L [facility] Comment:Performer: [facility] (ML) POTASSIUM 4.3 3.5 - 5.5 mEq/L [facility] Comment:Performer: [facility] (ML) CHLORIDE 106 96 - 110 mEq/L [facility] Comment:Performer: [facility] (ML) CO2 30 21 - 32 mEq/L [facility] Comment:Performer: [facility] (ML) ANION GAP 7 3 - 11 [facility] Comment:Performer: [facility] (ML) CALCIUM 9.0 8.5 - 10.5 mg/dL [facility] Comment:Performer: [facility] (ML) TOTAL PROTEIN 6.7 6.0 - 8.0 G/dL [facility] Comment:Performer: [facility] (ML) ALBUMIN 4.1 3.2 - 5.0 G/dL [facility] Comment:Performer: [facility] (ML) BILI, TOTAL 0.2 0.0 - 1.4 mg/dL [facility] Comment:Performer: [facility] (ML) SGOT 18 10 - 42 U/L [facility] Comment:Performer: [facility] (ML) SGPT 19 10 - 60 U/L [facility] Comment:Performer: [facility] (ML) ALK PHOS 69 42 - 121 U/L [facility] Comment:Performer: [facility] (ML) Blood specimen (specimen) Blood / Unknown 05/11/2013 4:05 PM EDT 05/11/2013 4:05 PM EDT Narrative [facility] - 05/11/2013 6:39 PM EDT [facility] [employer] [address] [place] [address] [place] [id number] ORD# [id number] us Ciara GRANGER LAB - BLOOD DRAW Final Res ult [facility] [address] [place] [address], from Last 3 Months or Most Recently Relevant to Health Maintenance Insurance [facility] [employer] PLAN Member Subscriber Plan / Payer (Ef fective 2018-Present) Name:Leanne Back Relation to Subscriber:Self Name:Leanne Back Payer ID:[id number] Group ID:[id number] Type:Medicaid Address: [facility] [address] [place] [address] Care Teams Fryer Operator Relationship Specialty Start Date End Date Ciara Foreman PA [address] [place] [address] PCP - General Internal Medicine 01/11/14
--- OUTSIDE RECORDS SUMMARY | 2024-12-26 11:02 | XMS_ITS | Encounter Summary ---
Author Organization [facility] Address [address] [place] [address] Care Team Providers Care Habilitation Training Specialist Name Role Phone Barbara Wolf MD Primary Care Provider [phone] Reason for Visit * Reason Onset Date Comments Dizziness 12/20/2024 Encounter Details Date Type Department Care Team (Late st Contact Info) Description 12/20/2024 Telephone Internal Medicine - [place] [address] [facility] [place] [phone] Barbara Wolf MD [address] [facility] [place] [phone] Dizziness Social History Tobacco Use Types Packs/Day Years [...] as of this encounter Progress Notes * Radha Bright RN - 12/21/2024 10:54 AM EDT Call to pt # [phone], spoke to pt Pt c/o dizzy loss of vision when she stands, she is eating and she still getting black outs. Advised going to the ER, pt refused. Scheduled next day appt * Radha Bright RN - 12/21/2024 8:49 AM EDT Call to pt # [phone], left message to call back 2nd attempt to reach pt * Radha Bright RN - 12/20/2024 9:14 AM EDT Call to pt # [phone], left message to call back * Sofía Norman - 12/20/2024 9:10 AM EDT Patient called and requested to be seen because she is getting very dizzy since yesterday and losesher vision when she stands, she is eating and she still getting black outs and she would like to know why. Please advise Cb# [phone] documented in this encounter Plan of Treatment Upcoming Encounters Date Type Department Care Team (Late st Contact Info) Description 12/29/2024 9:45 AM EDT Office Visit Internal Medicine - [place] [address] [phone] Barbara Wolf MD [address] [phone] 01/02/2025 10:50 AM EDT Office Visit Gastroenterology - [place] [address] [phone] Linda Moore PA [address] [address] 01/17/2025 11:00 AM EDT Consult Orthopedic Surgery - [place] [address] [place] [phone] Precious Asher MD [address] [place] [address] 01/23/2025 11:00 AM EDT Office Visit [facility] [place] [address] [place] [phone] Natasha Flood PA [address] [place] [address] 02/03/2025 10:00 AM EDT Consult Vascular Surgery - [place] [address] [place] [phone] Tara Melgoza PA [address] [place] [address] 02/17/2025 9:20 AM EDT Office Visit [facility] [address] [place] [phone] Arcadio aMy MD [address] [place] [address] [address] [place] [address] 04/17/2025 10:00 AM EDT Office Visit General Surgery - [place] [address] [place] [phone] Pawel Hanna, DO [address] [place] [address] documented as of this encounter Visit Diagnoses Not on filedocumented in this encounter Care Teams Habilitation Training Specialist Relationship Specialty Start Date End Date Barbara Wolf MD [address] [place] [phone] PCP - General Internal Medicine 07/05/24 documented as of this encounter
--- OUTSIDE RECORDS SUMMARY | 2024-12-26 11:02 | XMS_ITS | Encounter Summary ---
Author Organization [facility] Address [id number] [place] [phone] Care Team Providers Care X Ray Physician Name Role Phone Barbara Wolf MD Primary Care Provider [phone] Reason for Visit * Reason Comments Headache Encounter Details Date Type Department Care Team (Latest Contact Info) Description 12/22/2024 11:00 AM EDT Office Visit Internal Medicine - [place] [address] [facility] [address] [place] [address] Tonny Camarillo NP [address] [facility] [address] [place] [address] Intractable headache, unspecified chronicity pattern, unspecified headache type (Primary Dx); Ischemic brain damage; Osteoarthritis of hip, unspecified laterality, unspecified osteoarthritis type; Chronic pain of both knees; Moderate persistent asthma, unspecified whether complicated; Flexural eczema Social History Tobacco Use Types Packs/Day Years [...] AM EST documented as of this encounter Last Filed Vital Signs Vital Sign Reading Time Taken Comments Blood Pressure 104/68 12/22/2024 10:58 AM EDT Pulse 71 12/22/2024 10:58 AM EDT Temperature 36.2 ??C (97.1 ??F) 12/22/2024 10:58 AM E DT Respiratory Rate - - Oxygen Saturation 96% 12/22/2024 10:58 AM EDT Inhaled Oxygen Concentration - - Weight 66.4 kg (146 lb 6.4 oz) 12/22/2024 10:58 AM EDT Height 162.6 cm (5' 4 ) 12/22/2024 10:58 AM EDT Body Mass Index 25.13 12/22/2024 10:58 AM EDT documented in this encounter Ordered Prescriptions Prescription Sig Dispense Quantity Refills Last Filled Start Date End Date mometasone (ELOCON) 0.1 % creamIndications:F lexural eczema Apply thin layer to affected area BID for 2 weeks then stop. Avoid face and groin. 30 g 3 12/22/2024 SUMAtriptan (IMITREX) 50 mg tabletIndications: Intractable headache, unspecified chronicity pattern, unspecified headache type Take 1 tablet (50 mg total) by mouth 1 (one) time if needed for migraine (may repeat x1). May repeat dose once in 2 hours if no relief. Do not exceed 2 doses in 24 hours. 20 tablet 5 12/22/2024 amitriptyline (ELAVIL) 50 mg tabletIndications: Intractable headache, unspecified chronicity pattern, unspecified headache type Take 1 tablet (50 mg total) by mouth at bedtime. 30 each 11 12/22/2024 documented in this encounter Progress Notes * Tonny Camarillo NP - 12/22/2024 11:00 AM EDT CHIEF COMPLAINT: Headache IDENTIFIER: Leanne Back is a 59 y.o. old female. HPI: vitamin b12 and D deficiency, GERD, IBS, migraines, depression, insomnia, history of subtance abuse, osteoarthritis of hip, bilateral knee pain, allergic rhinitis, eczema, asthma, COPD, hip surgery, insomnia Leanne is a 59-year-old female who presents today for headaches, Dizziness and blurry vision. Takessumatriptan, which helps for about a half hour, but the headache comes back. Endorsed that she has been taking second doses because the pain comes back. Endorses eczema on her right thumb. She rips off her skin with her teeth. ROS: See HPI. PAST MEDICAL HISTORY: Patient Active Problem List Diagnosis Date Noted Bradycardia 09/17/2023 Cervical myelopathy [place] [place] [facility] [place]28[place] 09/09/2021 Sinusitis 09/06/2021 Polysubstance abuse ([facility] [place], [facility] V28) 09/06/2021 Osteoarthritis of hip 09/06/2021 Migraine headache 09/06/2021 Hepatitis B virus infection 09/06/2021 Eczema 09/06/2021 Cannabis abuse 09/06/2021 Cocaine abuse ([facility] [place], [facility] V28) 04/25/2021 Weight loss 12/02/2018 Epigastric pain 12/02/2018 Clostridium difficile infection 10/05/2018 History of substance abuse ([facility] [place]24, [facility] V28) 07/06/2018 Vitamin B12 deficiency 12/28/2017 Depression 12/15/2017 GERD (gastroesophageal reflux disease) 12/15/2017 Insomnia 12/15/2017 Irritable bowel syndrome 10/22/2017 Skull lesion 07/15/2017 Asthma 05/26/2017 Vitamin D deficiency 11/09/2016 Left hand paresthesia 12/29/2013 COPD (chronic obstructive pulmonary disease) ([facility] [place], [facility] V28) 12/29/2013 Bilateral knee pain 12/29/2013 Allergic rhinitis 05/11/2013 Chronic headaches 08/12/2012 Raspy voice 09/19/2011 Low back pain radiating to right lower extremity 09/19/2011 Past Surgical History: Procedure Laterality Date APPENDECTOMY PROCEDURE: HISTORICAL APPENDECTOMY APPENDECTOMY PROCEDURE: IN APPENDECTOMY HIP ARTHROPLASTY Bilateral PROCEDURE: HISTORICAL HIP REPLACEMENT; COMMENT: Right YVONNE 2004, Left YVONNE 2008 KNEE ARTHROSCOPY Bilateral 2017 PROCEDURE: IN ARTHROSCOPY AID TX SPINE&/FX KNEE W/O FIXJ; COMMENT: Dr. Alcazar OTHER SURGICAL HISTORY PROCEDURE: BIOPSY OF THROAT, HYPOPHARYNX; COMMENT: pt states benign OTHER SURGICAL HISTORY 01/15/2022 PROCEDURE: IN ARTHRD ANT INTERBODY MIN DSC CRV BELOW C2; COMMENT: C3-4, C4-5, C5-6 fusion, Dr. Heard TUBAL LIGATION PROCEDURE: HISTORICAL TUBAL LIGATION SOCIAL HISTORY: Social History Tobacco Use Smoking status: Every Day Average packs/day: 1 pack/day for 48.0 years (48.0 ttl pk-yrs) Types: Cigarettes Start date: 02/1975 Passive exposure: Never Smokeless tobacco: Not on file Substance Use Topics Alcohol use: Yes FAMILY HISTORY: Family History Problem Relation Name Age of Onset Diabetes Sister Marietta Breast cancer Cousin Family Status Relation Name Status Mother Father Sister Marietta (Not Specified) Cousin Alive No partnership data on file MEDICATIONS DISCONTINUED/REORDERED: Medications Discontinued During This Encounter Medication Reason amitriptyline (ELAVIL) 25 mg tablet SUMAtriptan (IMITREX) 50 mg tablet Reorder ACTIVE MEDICATIONS: Outpatient Medications Marked as Taking for the 12/22/24 encounter (Office Visit) with Tonny Camarillo NP Medication Sig Dispense Refill acetaminophen (TYLENOL) 500 mg tablet albuterol 2.5 mg /3 mL (0.083 %) nebulizer solution Take 3 mL (2.5 mg total) by nebulization every 6 (six) hours if needed for wheezing. 360 mL 2 albuterol HFA (Ventolin HFA) 90 mcg/actuation inhaler Inhale 2 puffs by mouth 4 (four) times a day.18 each 1 aluminum-magnesium hydroxide-simethicone (MAALOX) 200-200-20 mg/5 mL suspension Take 15 mL by mouth4 times daily as needed (heartburn and nausea). cholecalciferol (VITAMIN D-3) 50 mcg (2,000 unit) tablet Take 1 Tablet by mouth daily. cyanocobalamin (VITAMIN B-12) 500 mcg tablet Take 1 Tablet by mouth daily for 360 days. naproxen (EC NAPROSYN) 500 mg EC tablet Take 1 tablet (500 mg total) by mouth 2 (two) times a day. Do not crush, chew, or split. pantoprazole (PROTONIX) 40 mg EC tablet TAKE 1 TAB ORALLY TWICE DAILY (BEFORE BREAKFAST AND DINNER)ON EMPTY STOMACH. WAIT 30 MINS THEN EAT 180 tablet 3 SUMAtriptan (IMITREX) 50 mg tablet Take 1 tablet (50 mg total) by mouth 1 (one) time if needed for migraine (may repeat x1). May repeat dose once in 2 hours if no relief. Do not exceed 2 doses in 24 hours. 20 tablet 5 [DISCONTINUED] amitriptyline (ELAVIL) 25 mg tablet Take 1 tablet (25 mg total) by mouth 1 (one) time each day. 30 tablet 2 [DISCONTINUED] SUMAtriptan (IMITREX) 50 mg tablet Take 1 tablet (50 mg total) by mouth 1 (one) timeif needed for migraine (may repeat x1) for up to 1 dose. May repeat dose once in 2 hours if no relief. Do not exceed 2 doses in 24 hours. 9 tablet 5 ALLERGIES: Allergies Allergen Reactions Penicillins Rash PHYSICAL EXAM: Visit Vitals BP 104/68 (BP Location: Left arm, Patient Position: Sitting, BP Cuff Size: Adult) Pulse 71 Temp 36.2 ??C (97.1 ??F) (Temporal) Ht 1.626 m (64 ) Wt 66.4 kg (146 lb 6.4 oz) SpO2 96% BMI 25.13 kg/m?? OB Status Postmenopausal Smoking Status Every Day BSA 1.71 m?? Physical Exam Constitutional: Appearance: Normal appearance. Cardiovascular: Rate and Rhythm: Normal rate and regular rhythm. Pulses: Normal pulses. Heart sounds: Normal heart sounds. Pulmonary: Effort: Pulmonary effort is normal. Breath sounds: Normal breath sounds. Neurological: General: No focal deficit present. Mental Status: She is alert and oriented to person, place, and time. Motor: Weakness (uses cane) present. Psychiatric: Mood and Affect: Mood normal. Behavior: Behavior normal. LABS/IMAGING: Admission on 11/14/2024, Discharged on 11/14/2024 Component Date Value Ref Range Status Sodium 11/14/2024 145 133 - 145 mmol/L Final Potassium 11/14/2024 4.5 3.5 - 5.5 mmol/L Final Chloride 11/14/2024 113 (H) 96 - 110 mmol/L Final CO2 11/14/2024 26 21 - 32 mmol/L Final Anion Gap 11/14/2024 6 3 - 11 Final Glucose 11/14/2024 102 (H) 70 - 100 mg/dL Final BUN 11/14/2024 14 5 - 25 mg/dL Final Creatinine 11/14/2024 0.71 0.50 - 1.10 mg/dL Final eGFR 11/14/2024 99 >=60 mL/min/1.73m2 Final BUN/Creatinine Ratio 11/14/2024 19.7 Final Calcium 11/14/2024 9.0 8.5 - 10.5 mg/dL Final AST (SGOT) 11/14/2024 16 10 - 42 unit/L Final ALT (SGPT) 11/14/2024 16 10 - 60 unit/L Final Alkaline Phosphatase 11/14/2024 115 42 - 121 unit/L Final Total Protein 11/14/2024 6.5 6.0 - 8.0 g/dL Final Albumin 11/14/2024 3.5 3.2 - 5.0 g/dL Final Total Bilirubin 11/14/2024 0.5 0.0 - 1.4 mg/dL Final WBC 11/14/2024 6.5 4.8 - 10.8 K/mcL Final RBC 11/14/2024 4.30 3.80 - 4.80 M/mcL Final Hemoglobin 11/14/2024 13.4 11.5 - 16.0 g/dL Final Hematocrit 11/14/2024 40.9 35.0 - 47.0 % Final MCV 11/14/2024 95.8 79.0 - 98.0 FL Final MCH 11/14/2024 31.4 27.0 - 32.0 pcg Final MCHC 11/14/2024 32.8 32.0 - 37.0 g/dL Final RDW 11/14/2024 14.1 11.0 - 15.0 % Final Platelets 11/14/2024 199 130 - 400 K/mcL Final MPV 11/14/2024 11.5 (H) 7.0 - 11.0 FL Final NRBC 11/14/2024 0.0 <1.0 % Final NRBC Absolute 11/14/2024 0.00 <0.10 K/mcL Final Neutrophils Relative 11/14/2024 53.6 % Final Lymphocytes Relative 11/14/2024 35.1 % Final Monocytes Relative 11/14/2024 6.7 % Final Eosinophils Relative 11/14/2024 3.3 % Final Basophils Relative 11/14/2024 1.1 % Final Immature Granulocytes Relative 11/14/2024 0.2 % Final Neutrophils Absolute 11/14/2024 3.47 1.50 - 7.00 K/mcL Final Lymphocytes Absolute 11/14/2024 2.27 1.00 - 5.00 K/mcL Final Monocytes Absolute 11/14/2024 0.43 0.20 - 1.00 K/mcL Final Eosinophils Absolute 11/14/2024 0.21 0.00 - 0.50 K/mcL Final Basophils Absolute 11/14/2024 0.07 0.00 - 0.20 K/mcL Final Immature Granulocytes Absolute 11/14/2024 0.01 0.00 - 0.03 K/mcL Final Appointment on 07/20/2024 Component Date Value Ref Range Status Sodium 07/20/2024 138 133 - 145 mmol/L Final Potassium 07/20/2024 4.2 3.5 - 5.5 mmol/L Final Chloride 07/20/2024 108 96 - 110 mmol/L Final CO2 07/20/2024 23 21 - 32 mmol/L Final Anion Gap 07/20/2024 7 3 - 11 Final Glucose 07/20/2024 73 70 - 100 mg/dL Final BUN 07/20/2024 9 5 - 25 mg/dL Final Creatinine 07/20/2024 0.62 0.50 - 1.10 mg/dL Final eGFR 07/20/2024 104 >=60 mL/min/1.73m2 Final BUN/Creatinine Ratio 07/20/2024 14.5 Final Calcium 07/20/2024 9.1 8.5 - 10.5 mg/dL Final AST (SGOT) 07/20/2024 21 10 - 42 unit/L Final ALT (SGPT) 07/20/2024 17 10 - 60 unit/L Final Alkaline Phosphatase 07/20/2024 125 (H) 42 - 121 unit/L Final Total Protein 07/20/2024 6.8 6.0 - 8.0 g/dL Final Albumin 07/20/2024 3.7 3.2 - 5.0 g/dL Final Total Bilirubin 07/20/2024 0.9 0.0 - 1.4 mg/dL Final TSH 07/20/2024 0.83 0.40 - 4.00 mcIU/mL Final WBC 07/20/2024 7.2 4.8 - 10.8 K/mcL Final RBC 07/20/2024 4.40 3.80 - 4.80 M/mcL Final Hemoglobin 07/20/2024 12.7 11.5 - 16.0 g/dL Final Hematocrit 07/20/2024 39.7 35.0 - 47.0 % Final MCV 07/20/2024 90.4 79.0 - 98.0 FL Final MCH 07/20/2024 28.9 27.0 - 32.0 pcg Final MCHC 07/20/2024 32.0 32.0 - 37.0 g/dL Final RDW 07/20/2024 19.2 (H) 11.0 - 15.0 % Final Platelets 07/20/2024 232 130 - 400 K/mcL Final MPV 07/20/2024 12.0 (H) 7.0 - 11.0 FL Final NRBC 07/20/2024 0.0 <1.0 % Final NRBC Absolute 07/20/2024 0.00 <0.10 K/mcL Final Neutrophils Relative 07/20/2024 43.2 % Final Lymphocytes Relative 07/20/2024 43.9 % Final Monocytes Relative 07/20/2024 9.6 % Final Eosinophils Relative 07/20/2024 2.2 % Final Basophils Relative 07/20/2024 0.8 % Final Immature Granulocytes Relative 07/20/2024 0.3 % Final Neutrophils Absolute 07/20/2024 3.09 1.50 - 7.00 K/mcL Final Lymphocytes Absolute 07/20/2024 3.14 1.00 - 5.00 K/mcL Final Monocytes Absolute 07/20/2024 0.69 0.20 - 1.00 K/mcL Final Eosinophils Absolute 07/20/2024 0.16 0.00 - 0.50 K/mcL Final Basophils Absolute 07/20/2024 0.06 0.00 - 0.20 K/mcL Final Immature Granulocytes Absolute 07/20/2024 0.02 0.00 - 0.03 K/mcL Final IMPRESSION: 1. Intractable headache, unspecified chronicity pattern, unspecified headache type 2. Ischemic brain damage 3. Osteoarthritis of hip, unspecified laterality, unspecified osteoarthritis type 4. Chronic pain of both knees 5. Moderate persistent asthma, unspecified whether complicated 6. Flexural eczema PLAN: 1. Intractable headache, unspecified chronicity pattern, unspecified headache type amitriptyline (ELAVIL) 50 mg tablet SUMAtriptan (IMITREX) 50 mg tablet 2. Ischemic brain damage 3. Osteoarthritis of hip, unspecified laterality, unspecified osteoarthritis type 4. Chronic pain of both knees 5. Moderate persistent asthma, unspecified whether complicated 6. Flexural eczema mometasone (ELOCON) 0.1 % cream 1. Migraines, ischemic brain damage: Increase amitriptyline to 50 mg at bedtime. Continue sumatriptan as needed. Patient has neurology and vascular appointments coming up next month. 2. Osteoarthritis of hip, chronic pain of both knees: Motorized wheelchair scooter ordered DME. Take naproxen as needed for pain. 3. Asthma: Stable. Continue ProAir inhaler. 4. Eczema: Use mometasone cream twice daily affected area. Advised against biting the skin off of her thumb. Patient scheduled to follow-up with PCP next week. Advised the patient to call me if any problems. Patient understands the plan. Patient is in agreement with the plan. Tonny Camarillo NP on 12/22/2024 at 2:20 PM EDT documented in this encounter Plan of Treatment Upcoming Encounters Date Type Department Care Team (Late st Contact Info) Description 12/29/2024 9:45 AM EDT Office Visit Internal Medicine - [place] 175 [facility] [address] [place] [phone] Barbara Wolf MD 175 [facility] [address] [place] [phone] 01/02/2025 10:50 AM EDT Office Visit Gastroenterology - [place] 175 [facility] 175 [facility] [address] [place] [phone] Linda Moore PA 175 [facility] 200 [place] [address] 01/17/2025 11:00 AM EDT Consult Orthopedic Surgery - [place] 160 [address] [facility] [address] [place] [phone] Precious Asher MD 175 [facility] [address] [place] [address] 01/23/2025 11:00 AM EDT Office Visit [facility] [place] [address] [facility] [address] [place] [phone] Natasha Flood PA [address] [place] [address] 02/03/2025 10:00 AM EDT Consult Vascular Surgery - [place] [address] [place] [phone] Tara Megloza PA [address] [place] [address] 02/17/2025 9:20 AM EDT Office Visit [facility] [address] [place] [address] [address] [place] [phone] Arcadio May MD [address] [place] [address] [address] [place] [address] 04/17/2025 10:00 AM EDT Office Visit General Surgery - [place] 175 [facility] [address] [place] [phone] Pawel Hanna DO 175 [facility] [address] [place] [address] documented as of this encounter Visit Diagnoses Diagnosis Intractable headache, unspecified chronicity pattern, unspecified headache type- Primary Ischemic brain damage Osteoarthritis of hip, unspecified laterality, unspecified osteoarthritis type Chronic pain of both knees Moderate persistent asthma, unspecified whether complicated Flexural eczema Other atopic dermatitis and related conditions documented in this encounter Discontinued Medications Medication Sig Discontinue Reason Start Date End Da te amitriptyline (ELAVIL) 25 mg tablet Take 1 tablet (25 mg total) by mouth 1 (one) time each day. 11/22/2024 12/22/2024 SUMAtriptan (IMITREX) 50 mg tablet Take 1 tablet (50 mg total) by mouth 1 (one) time if needed for migraine (may repeat x1) for up to 1 dose. May repeat dose once in 2 hours if no relief. Do not exceed 2 doses in 24 hours. Reorder 11/22/2024 12/22/2024 documented as of this encounter Care Teams X Ray Physician Relationship Specialty Start Date End Date Barbara Wolf MD [address] [phone] PCP - General Internal Medicine 07/05/24 documented as of this encounter
--- OUTSIDE RECORDS SUMMARY | 2024-12-26 11:02 | XMS_ITS | Encounter Summary ---
Author Organization [facility] Address [address] [place] [address] Care Team Providers Care Second Butler Name Role Phone Barbara Wolf MD Primary Care Provider [phone] Reason for Visit * Reason Onset Date Comments Medical supply 11/07/2024 Encounter Details Date Type Department Care Team (Late st Contact Info) Description 11/07/2024 Telephone Internal Medicine - [place] [address] [facility] [address] [place] [phone] Tonny Camarillo NP [address] [facility] [address] [place] [address] Medical supply Social History Tobacco Use Types Packs/Day Years [...] as of this encounter Progress Notes * Gale Back MA - 12/23/2024 8:02 AM EDT Re-faxed * Gale Back MA - 11/08/2024 2:47 PM EDT Faxed to [facility] [employer] [phone] * Tonny Camarillo NP - 11/07/2024 12:10 PM EDT Gilmar Beasley I ordered a motorized scooter for this patient. Could you please fax? Thank you. documented in this encounter Plan of Treatment Upcoming Encounters Date Type Department Care Team (Late st Contact Info) Description 12/29/2024 9:45 AM EDT Office Visit Internal Medicine - [place] [address] [place] [phone] Barbara Wolf MD [address] [place] [phone] 01/02/2025 10:50 AM EDT Office Visit Gastroenterology [facility] [address] [place] [phone] Linda Moore PA [address] [place] [address] 01/17/2025 11:00 AM EDT Consult Orthopedic Surgery - [place] [address] [place] [phone] Precious Asher MD [address] [place] [address] 01/23/2025 11:00 AM EDT Office Visit [facility] - [place] [address] [place] [phone] Natasha Flood PA [address] [place] [address] 02/03/2025 10:00 AM EDT Consult Vascular Surgery - [place] [address] [place] [address] Tara Melgoza PA [address] [place] [address] 02/17/2025 9:20 AM EDT Office Visit [facility] [address] [place] [address] Arcadio May MD [address] [place] [address] [address] [place] [address] 04/17/2025 10:00 AM EDT Office Visit General Surgery - [place] [address] [place] [phone] Pawel Hanna, DO 175 [facility] [address] [place] [address] documented as of this encounter Visit Diagnoses Not on filedocumented in this encounter Care Teams Second Butler Relationship Specialty Start Date End Date Barbara Wolf MD 175 [facility] [address] [place] [phone] PCP - General Internal Medicine 07/05/24 documented as of this encounter
== END 2024-12-26 10:18 | disposition home or self-care (01) ==
LOC: HO.HOS 09:54
PROVIDERS: PCP Internal Medicine; Visit Provider Orthopaedic Surgery
DX: Z47.89 Encounter for other orthopedic aftercare (principal); Z96.642 Presence of left artificial hip joint
CPT/HCPCS: 99213

== ENCOUNTER → 2024-12-26 09:55 | Outpatient (BNV) | payer OTHER, SELFPAY | PROVIDERS: Visit Provider Student in an Organized Health Care Education/Training Program | DX: Z96.643 Presence of artificial hip joint, bilateral (principal) | CPT/HCPCS: 72170 ==

== ENCOUNTER 2025-05-15 13:20 | Outpatient (REF) | payer OTHER, SELFPAY ==
--- NOTE | ~2025-05-15 | XR_ITS ---
CLINICAL HISTORY: M25.552 - Pain in left hip --- Additional Notes or Special Instructions: pelvis 4 view, pelvis and left hip Comparison: DX/SR - XR HIP 2 OR MORE VIEWS LEFT - 12/31/23 09:51 EDT Findings: Right hip replacement with stable appearance. Revision of the left hip prosthesis. 3.9 mm periprosthetic lucency of the left acetabulum. There is additional compression plate of the left proximal femur. Fracture of the wires surrounding the left proximal femur. No acute bony fracture. IMPRESSION: Status post revision of the left hip prosthesis. There is 3.9 mm periprosthetic lucency of the left acetabulum. Fracture of the wires surrounding the left proximal femur. This document has been electronically signed by: Marlene Pro MD on 05/16/2025 16:16:16
--- OUTSIDE RECORDS SUMMARY | 2025-05-15 12:58 | XMS_ITS ---
Author Name [facility] Organization Unknown Care Team Organization Name Specialty Phone Email Start Date End Da te [facility] 07/01/2022 04/11/20 24
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
--- OUTSIDE RECORDS SUMMARY | 2025-05-15 12:58 | XMS_ITS | Clinical Summary ---
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 Active albuterol 2.5 mg /3 mL (0.083 %) nebulizer solutionIndicati ons:Moderate persistent asthma without complication Take 3 mL (2.5 mg total) by nebulization every 6 (six) hours if needed for wheezing. 360 mL 2 07/20/20 24 Active albuterol HFA (Ventolin HFA) 90 mcg/actuation inhalerIndicatio ns:Moderate persistent asthma without complication Inhale 2 puffs by mouth 4 (four) times a day. 18 each 1 09/12/19 25 Active mometasone (ELOCON) 0.1 % creamIndications :Flexural eczema Apply thin layer to affected area BID for 2 weeks then stop. Avoid face and groin. 30 g 3 12/23/19 25 Active pantoprazole (PROTONIX) 40 mg EC tablet Take 1 tablet (40 mg total) by mouth 1 (one) time each day before breakfast. Do not crush, chew, or split. 30 tablet 3 01/03/20 25 Active amitriptyline (ELAVIL) 25 mg tabletIndication s:Intractable headache, unspecified chronicity pattern, unspecified headache type Take 1 tablet (25 mg total) by mouth at bedtime. 30 each 01/24/20 25 026 Active ergocalciferol (VITAMIN D-2) 1,250 mcg (50,000 unit) capsule Take 1 capsule (50,000 Units total) by mouth 1 (one) time per week. 4 each 02/07/20 25 026 Active cyanocobalamin (VITAMIN B-12) 2,000 mcg tablet TAKE 1 TABLET BY MOUTH EVERY DAY 30 tablet 02/09/20 25 Active methadone HCl (METHADONE INTENSOL ORAL) Take by mouth. 40 mg everyday Active naproxen (EC NAPROSYN) 500 mg EC tablet Take 1 tablet (500 mg total) by mouth 2 (two) times a day. Do not crush, chew, or split. 60 tablet 1 04/12/20 25 Active lidocaine (LIDODERM) 5 % patchIndications :Cervicalgia PLACE 1 PATCH ONTO THE SKIN EVERY 12 HOURS. APPLY FOR NO MORE THAN 12 HOURS IN ANY 24 HOUR PERIOD. 30 patch 5 04/17/20 25 Active SUMAtriptan (IMITREX) 50 mg tabletIndication s:Intractable headache, unspecified chronicity pattern, unspecified headache type Take 1 tablet (50 mg total) by mouth 1 (one) time if needed for migraine (may repeat x1). May repeat dose once in 2 hours if no relief. Do not exceed 2 doses in 24 hours. 20 tablet 5 05/03/20 25 Active SUMAtriptan (IMITREX) 50 mg tabletIndication s:Intractable headache, unspecified chronicity pattern, unspecified headache type Take 1 tablet (50 mg total) by mouth 1 (one) time if needed for migraine (may repeat x1). May repeat dose once in 2 hours if no relief. Do not exceed 2 doses in 24 hours. 20 tablet 5 12/23/19 25 025 Discontin ued(Reord er) Active Problems Problem Noted Date Diagnosed Date Other chest pain 03/24/2025 Assessment & Plan (03/24/2025 2:11 PM EDT): Orders: Transthoracic echocardiogram (TTE) complete with PRN contrast, bubble, strain, and 3D order panel; Future perflutren lipid microsphere (DEFINITY) 1.3 mL in sodium chloride 0.9% 8.7 mL injection Exercise stress test; Future Comprehensive metabolic panel; Future Lipid panel with reflex to direct LDL; Future Current smoker 03/24/2025 Assessment & Plan (03/24/2025 2:11 PM EDT): Bradycardia 09/17/2023 Assessment & Plan (03/24/2025 2:11 PM EDT): Orders: ECG 12 lead Cardiac holter monitor (<= 48 hours); Future Thyroid stimulating hormone; Future Cervical myelopathy ([facility] V24, [facility] V28) 0 09/09/2021 Overview (06/07/2024): Last Assessment [...] anyone else, is on Suboxone. I checked [facility] records, only recent prescription was our prescription [...] concerns or questions. Sinusitis 09/06/2021 Polysubstance abuse ([facility] V24, [facility] V28) 0 09/06/2021 Overview (06/07/2024): H/o etoh, crack/cocaine. Osteoarthritis of hip 09/06/2021 Migraine headache 09/06/2021 Hepatitis B virus infection 09/06/2021 Overview (06/07/2024): unclear if active Hep B. History of HepBsAB positive Eczema 09/06/2021 Cannabis abuse 09/06/2021 Cocaine abuse ([facility] V24, [facility] V28) 021 Overview (06/07/2024): 04/13 positive UDS Weight loss 12/02/2018 Epigastric pain 12/02/2018 Clostridium difficile infection 10/05/2018 History of substance abuse ([facility] V24, [facility] V28) 07/06/2018 Overview (06/07/2024): Recovering alcoholic Vitamin B12 deficiency 12/28/2017 Depression 12/15/2017 GERD (gastroesophageal reflux disease) 8 Insomnia 12/15/2017 Irritable bowel syndrome 10/22/2017 Skull lesion 07/15/2017 Overview (06/07/2024): ? Unclear history Asthma 05/26/2017 Vitamin D deficiency 11/09/2016 Left hand paresthesia 12/29/2013 COPD (chronic obstructive pu lmonary disease) ([facility] V24, [facility] V28) 12/29/2013 Bilateral knee pain 12/29/2013 Allergic rhinitis 05/11/2013 Chronic headaches 08/12/2012 Raspy voice 09/19/2011 Overview (06/07/2024): F/u ENT; s/p laryngoscopy 12/09/[address] Back. Barium swallow (11/11/11) revealed mild GERD. Low back pain radiating to right lower extremity 09/19/2011 Overview (06/07/2024): F/u [facility]. Encounters Date Type Department Care Team Description 05/03/2025 1:30 PM EDT Office Visit [facility] [address] [place] [address] Nilda Chang MD Polysubstance abuse ([facility] V24, [facility] V28) (Primary Dx); Intractable headache, unspecified chronicity pattern, unspecified headache type; Current smoker; Cervical neck pain with evidence of disc disease 04/26/2025 Telephone [facility] [place] [address] [place] [address] Barbara Wolf MD 04/20/2025 10:30 AM EDT Ancillary Procedure [facility] [address] [place] [phone] Bradycardia 03/24/2025 2:00 PM EDT Office Visit [facility] [address] [facility] [address] [place] [address] Felicity Smart MD Bradycardia (Primary Dx); Other chest pain; Current smoker 02/22/2025 Telephone [facility] [address] [place] [address] Felicity Smart MD from Last 3 Months Immunizations Name Administration [...] LIGATION PROCEDURE: HISTORICAL TUBAL LIGATION APPENDECTOMY PROCEDURE: NE APPENDECTOMY KNEE ARTHROSCOPY 2016 Bilateral PROCEDURE: NE ARTHROSCOPY AID TX SPINE&/FX KNEE W/O FIXJ; COMMENT: Dr. Alcazar OTHER SURGICAL HISTORY PROCEDURE: BIOPSY OF THROAT, HYPOPHARYNX; COMMENT: pt states benign OTHER SURGICAL HISTORY 01/15/2022 PROCEDURE: NE ARTHRD ANT INTERBODY MIN DSC CRV BELOW [...] hip replacement [facility] of [facility]) 07/06/2018 DX:History of substance abus e ([facility]); COMMENT: Recovering alcoholic [facility]aine abuse [facility] V28) 04/25/2021 DX:Cocaine abuse ([facility]); COMM ENT: 04/13 positive UDS Anxiety state [...] 49 Started: 02/1975 Passive Smoke Exposure: Never Smokeless Tobacco: Never Tobacco Cessation:Ready to Q uit: Not Asked; Counseling Given: Not Answered Alcohol Use Standard Drinks/Week Comments Yes 0 (1 standard drink = 0.6 oz pur e alcohol) rare Comments No Sex and Gender Information Value [...] Sign Reading Time Taken Comments Blood Pressure 114/77 05/03/2025 1:31 PM EDT Pulse 56 05/03/2025 1:31 PM EDT Temperature 36.2 C (97.1 F) 02/03/2025 10:48 AM EDT Respiratory Rate 16 11/28/2024 6:22 AM EDT Oxygen Saturation 91% 05/03/2025 1:31 PM EDT Inhaled Oxygen Concentration - - Weight 67.6 kg (149 lb) 05/03/2025 1:31 PM EDT Height 162.6 cm (5' 4 ) 05/03/2025 1:31 PM EDT Body Mass Index 25.58 05/03/2025 1:31 PM EDT Plan of Treatment Upcoming Encounters Date Type Department Care Team (Late st Contact Info) Description 05/22/2025 9:00 AM EDT Office Visit General Surgery [facility] [address] [facility] [address] [place] [phone] Pawel Hanna, 175 [facility] [address] [place] [address] 05/23/2025 11:30 AM EDT Telemedicine Vascular Surgery [facility] [address] [facility] [address] [place] [address] Tara Melgoza PA [address] [facility] [address] [place] [address] 05/24/2025 1:20 PM EDT Procedure visit [facility] [address] [facility] [address] [place] [phone] Nilda Chang MD [address] [place] [address] 05/25/2025 10:00 AM EDT Ancillary Procedure [facility] [address] [place] [phone] 07/26/2025 11:00 AM EST Office Visit [facility] [address] [place] [phone] Natasha Flood PA [address] [facility] [address] [place] [address] Health Maintenance Due Date Last Done Comments [...] 08/02/2022 Social Influencers of Health Screening 08/02/2022 Depression Screening 08/24/2024 03/08/2024 COVID-19 Vaccine ( - season) 2025 08/21/2021, 12/05/2020, 11/07/2020 Influenza Vaccine (#1) 2025 , 06/18/2017, 05/11/2013, Additional history exists Lung Cancer Screening (Low Dose CT) 09/06/2025 09/06/2024 Breast Cancer Screening 08/04/2026 08/04/2024 Colorectal Cancer Screening: Colonoscopy 10/02/2027 10/02/2017 Cholesterol Screening (Lipid Panel) 03/28/2030 03/28/2025, 04/08/2023 RSV Immunization Adult Patients (1 - 1-dose 75+ series) 2041 HIB Vaccines Aged Out No longer eligi [...] Procedure Name Priority Date/Time Associated Diagnosis Comments THYROID STIMULATING HORMONE Routine 03/28/2025 9:31 AM EDT Bradycardia LIPID PANEL WITH REFLEX TO DIRECT LDL Routine 03/28/2025 9:31 AM EDT Other chest pain COMPREHENSIVE METABOLIC PANEL Routine 03/28/2025 9:31 AM EDT Other chest pain ECG 12-LEAD Routine 03/24/2025 1:[address] LUNG SCREENING Routine 09/06/2024 2:3 4 PM EST Encounter for screening for malignant neoplasm of respiratory organs Nicotine dependence, cigarettes, uncomplicated MG MAMMO DIGITAL SCREENING W HESHAM BILAT Routine 08/04/2024 8:26 AM EST Encounter for screening mammogram for breast cancer DEPRESSION SCREENING Routine 03/08/2024 COLONOSCOPY Routine 10/02/2017 from Last 3 Months or Most Recently Relevant to Health Maintenance Results * Lipid panel with reflex to direct LDL (03/28/2025 9:31 AM EDT) Cholesterol 155 0 - 200 mg/dL LAB CHEMISTRY METHOD 03/28/2025 2:38 PM EDT [facility] Triglycerides 119 0 - 150 mg/dL LAB CHEMISTRY METHOD 03/28/2025 2:38 PM EDT [facility] HDL 52 >=40 mg/dL LAB CHEMISTRY METHOD 03/28/2025 2:38 PM EDT [facility] LDL Calculated 79 0 - 100 mg/dL LAB CHEMISTRY METHOD 03/28/2025 2:38 PM EDT [facility] Comment:Estimated LDL Calcul ated using equation: Total cholesterol - HDL cholesterol - (Triglycerides/5) VLDL Cholesterol Marshall 23.8 mg/dL LAB CHEMISTRY METHOD 03/28/2025 2:38 PM EDT [facility] Non HDL Chol. (LDL+VLDL) 103 <145 mg/dL LAB CHEMISTRY METHOD 03/28/2025 2:38 PM EDT [facility] Chol/HDL Ratio 3.0 0.0 - 4.4 LAB CHEMISTRY METHOD 03/28/2025 2:38 PM EDT [facility] Blood Venous blood specimen / Unknown Venipuncture / Unknown 03/28/2025 9:31 AM EDT 03/28/2025 9:31 AM EDT us Felicity Smart MD LAB BLOOD ORDERABLES F inal Result Performing Organization Address [facility]/ZIP Co de Phone Number [facility] [address] [place] [address], [place] [phone] * Thyroid stimulating hormone (03/28/2025 9:31 AM EDT) TSH 0.97 0.40 - 4.00 mcIU/mL LAB CHEMISTRY METHOD 03/28/2025 3:58 PM EDT [facility] Blood Venous blood specimen / Unknown Venipuncture / Unknown 03/28/2025 9:31 AM EDT 03/28/2025 9:31 AM EDT us Felicity Smart MD LAB BLOOD ORDERABLES F inal Result [facility] [address] [place] [address], [place] [phone] * (ABNORMAL) Comprehensive metabolic panel (03/28/2025 9:31 AM EDT) Sodium 142 133 - 145 mmol/L LAB CHEMISTRY METHOD 03/28/2025 2:38 PM [facility] Potassium 4.6 3.5 - 5.5 mmol/L LAB CHEMISTRY METHOD 03/28/2025 2:38 PM [facility] Chloride 110 96 - 110 mmol/L LAB CHEMISTRY METHOD 03/28/2025 2:38 PM [facility] CO2 29 21 - 32 mmol/L LAB CHEMISTRY METHOD 03/28/2025 2:38 PM [facility] Anion Gap 3 3 - 11 LAB CHEMISTRY METHOD 03/28/2025 2:38 PM [facility] Glucose 59(L) 70 - 100 mg/dL LAB CHEMISTRY METHOD 03/28/2025 2:38 PM [facility] BUN 10 5 - 25 mg/dL LAB CHEMISTRY METHOD 03/28/2025 2:38 PM [facility] Creatinine 0.75 0.50 - 1.10 mg/dL LAB CHEMISTRY METHOD 03/28/2025 2:38 PM [facility] eGFR 92 >=60 mL/min/1. 73m2 LAB CHEMISTRY METHOD 03/28/2025 2:38 PM [facility] Comment:Calculation based on the Chronic Kidney Disease Epidemiology Collaboration (CKD-EPI) equation refit without adjustment for race. BUN/Creatinine Ratio 13.3 LAB CHEMISTRY METHOD 03/28/2025 2:38 PM [facility] Calcium 9.2 8.5 - 10.5 mg/dL LAB CHEMISTRY METHOD 03/28/2025 2:38 PM [facility] AST (SGOT) 15 10 - 42 unit/L LAB CHEMISTRY METHOD 03/28/2025 2:38 PM EDT [facility] ALT (SGPT) 33 10 - 60 unit/L LAB CHEMISTRY METHOD 03/28/2025 2:38 PM EDT [facility] Alkaline Phosphatase 110 42 - 121 unit/L LAB CHEMISTRY METHOD 03/28/2025 2:38 PM EDT [facility] Total Protein 7.0 6.0 - 8.0 g/dL LAB CHEMISTRY METHOD 03/28/2025 2:38 PM EDT [facility] Albumin 4.1 3.2 - 5.0 g/dL LAB CHEMISTRY METHOD 03/28/2025 2:38 PM EDT [facility] Total Bilirubin 0.4 0.0 - 1.4 mg/dL LAB CHEMISTRY METHOD 03/28/2025 2:38 PM EDT [facility] Blood Venous blood specimen / Unknown Venipuncture / Unknown 03/28/2025 9:31 AM EDT 03/28/2025 9:31 AM EDT us Felicity Smart MD LAB BLOOD ORDERABLES F inal Result [facility] [address] [place] [address], * ECG 12 lead (03/24/2025 1:35 PM EDT) Ventricular Rate ECG 50 BPM GEMUSE Atrial Rate 50 BPM GEMUSE P-R Interval 132 ms GEMUSE QRS Duration 106 ms GEMUSE Q-T Interval 472 ms GEMUSE QTc 430 ms GEMUSE P Wave [place] 61 degrees GEMUSE R [place] 54 degrees GEMUSE T [place] 58 degrees GEMUSE ECG Interpretation Sinus bradycardia Otherwise normal ECG When compared with ECG of 13-JUN-2024 08:17, No significant change was found Confirmed by FELICITY SMART ([id number]) on 05/02/2025 8:53:40 AM GEMUSE 03/24/2025 1:35 PM EDT 05/02/2025 8:53 AM EDT us Felicity Smart MD ECG ORDERABLES Final Result GEMUSE * CT Lung Screening (09/06/2024 2:34 PM EST) Anatomical Region Laterality Modality Chest Computed Tomogra phy 09/14/2024 12:4 9 PM EST Impressions 09/14/2024 12:58 PM EST Impression: No suspicious pulmonary nodule. Lung-RADS Category: Lung-RADS 1: No nodules or definitely benign nodules. Continue annual screening with Low Dose Chest CT in 12 months. Telerad BÁRBARA ([id number]) -------- FINAL REPORT -------- Dictated By: Estephania Lockwood Dictated Date: 09/14/2024 12:49 ET Assigned Physician: Estephania Lockwood Reviewed and Electronically Signed By: Estephania Lockwood Signed Date: 09/14/2024 12:58 ET Workstation ID: [id number] Transcribed By: Self Edit Transcribed Date: 09/14/2024 12:49 ET Narrative 09/14/2024 12:58 PM EST History: 59 year-old 48 pack-year current smoker, asymptomatic, for lung cancer screening. Baseline exam. Comparison: No comparison imaging at this institution. Technique: Helical volumetric imaging of the thorax was performed, using low- dose technique, without IV contrast. DLP: 161.03 mGy/cm CTDIvol: 4.83 mGy Risen Energypeed VCT Iterative reconstruction technique Findings: Lungs and [...] contrast. DLP: 161.03 mGy/cm CTDIvol: 4.83 mGy AutoSpotT Iterative reconstruction technique Findings: Lungs and Airways: [...] Chest CT in 12 months. [employer]elerad BÁRBARA ([id number]) -------- FINAL REPORT -------- Dictated By: Estephania Lockwood Dictated Date: 09/14/2024 12:49 ET Assigned Physician: Estephania Lockwood Reviewed and Electronically Signed By: Estehpania Lockwood Signed Date: 09/14/2024 12:58 ET Workstation ID: [id number] Transcribed By: Self Edit Transcribed Date: 09/14/2024 12:49 ET us Julian Garza MD IM CT PROCEDURES Final Result * MG Mammo Digital Screening w Hesham bilat (08/04/2024 8:26 AM EST) Anatomical Region Laterality Modality Breast Bilateral Mammography 08/04/2024 9:43 AM EST Impressions 08/04/2024 9:49 AM EST No mammographic evidence of malignancy. A negative mammogram in the presence of a clinically suspicious palpable abnormality does not preclude the possibility of malignancy or alter the indications for biopsy. ASSESSMENT: BI-RADS 1: NEGATIVE RECOMMENDATION(S): 1: Routine screening mammogram BILATERAL in 1 year. -------- FINAL REPORT -------- Dictated By: Chan French Dictated Date: 08/04/2024 09:43 ET Assigned Physician: Chan French Reviewed and Electronically Signed By: Chan French Signed Date: 08/04/2024 09:49 ET Workstation ID: [id number] Transcribed By: Self Edit Transcribed Date: 08/04/2024 09:43 ET Narrative 08/04/2024 9:49 AM EST EXAM: SCREENING MAMMOGRAPHY, BILATERAL HISTORY: SCREENING. No additional history. COMPARISON: Initial exam TECHNIQUE: Synthesized CC and MLO projections of each breast. Tomosynthesis of each breast in the CC and MLO projections. ADDITIONAL IMAGING: None Computer-aided detection was employed with the [employer] AI 3-D. TISSUE DENSITY: There are scattered areas of fibroglandular density. (BI-RADS category B) FINDINGS: RIGHT BREAST: No suspicious mass. No suspicious calcification. No distortion. No additional suspicious right breast findings LEFT BREAST: No suspicious mass. No suspicious calcification. No distortion. No additional suspicious left breast findings Procedure [...] Signed Date: 08/04/2024 09:49 ET Workstation ID: [id number] Transcribed By: Self Edit Transcribed Date: 08/04/2024 09:43 ET us Self Referral Sppl IMG BI PROCEDURES Final Resul t * Depression Screening (03/08/2024) Depression Screening abstracted Historical Provider HEALTH MAINTENANCE Final Result * Colonoscopy (10/02/2017) Colonoscopy no interpretation abstracted Anatomical Region Laterality Modality Other Historical Provider HEALTH MAINTENANCE Final Result from Last 3 Months or Most Recently Relevant to Health Maintenance Insurance [facility] [employer] Care Teams Photoengraving Helper Relationship Specialty Start Date End Date Barbara Wolf MD [address] [facility] [address] [place] [address] PCP - General Internal Medicine 07/05/24
== END 2025-05-15 13:21 | disposition home or self-care (01) ==
LOC: HO.HOSX 13:20
PROVIDERS: Visit Provider Physician Assistant
DX: M25.552 Pain in left hip (principal); Z96.642 Presence of left artificial hip joint; Z79.899 Other long term (current) drug therapy
CPT/HCPCS: 73502; 99212

== ENCOUNTER 2025-05-15 14:06 | Outpatient (AMB) | payer OTHER, SELFPAY ==
--- NOTE | 2025-05-15 14:17 | A.OFFVIS_ITS ---
Vital Signs 05/15/25 14:23 Height 5 ft 4 in Weight 152 lb BMI 26.1 Intake Visit Reasons: OV-L YVONNE Revision w/NE 02/10/24 follow-up Intake Note: Leanne is a 59 year old woman who presents today for a follow up visit status post left YVONNE Revision w/NE DOS: 02/10/24. Patient expresses she has been in a lot of pain due to her left hip. She says she can not be active due to her symptoms. She has concern of a lump on the left side of her lower back and also of her pain radiating into her lower back. She reports numbness and tingling in the left leg especially after prolonged walking. She states she utilizes the wedges into her shoe and her cane but would like to be able to ambulate without the cane. She takes Tylenol but does not get relief. She is wondering if she c an get prescribed a pain medication that is not a narcotic. Reports she has been having frequent falls due to her left leg. Allergies Penicillins Allergy (Verified 05/15/25 14:23) Rash Medication List - Last Reconciled 05/15/25 by Daniella Aguirre PA-C albuterol sulfate 2.5 mg inhalation Q4H PRN amitriptyline 25 mg PO BEDTIME aspirin 325 mg PO BID 42 days calcium carbonate 200 mg PO TID cholecalciferol (vitamin D3) (Vitamin D3) 50 mcg PO DAILY cyanocobalamin (vitamin B-12) 500 mcg PO DAILY cyclobenzaprine 10 mg PO BID PRN methadone (Methadose) 36 mg PO DAILY naproxen 500 mg PO BID naratriptan mg PO nicotine 14 mg transdermal DAILY 30 days ondansetron HCl 4 mg PO Q8H PRN pantoprazole 40 mg PO BID pregabalin 150 mg PO BID [[employer] Worker As directed] sumatriptan succinate mg PO walker Folding Front wheeled walker HPI HPI OV-L YVONNE Revision w/NE 02/10/24 follow-up: Details: 59-year-old female returns to the office today complaining of some weakness of her left lower extremity but also a burning sensation down her leg. She states she occasionally falls. She comes in today not using her cane. She states she does have a shoe lift in the left leg. She has not done physical therapy which was ordered at her last visit with Dr. Callahan. 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 with presence of antibiotic-impregnated cement spacer Seizure Back pain Bradycardia Infected prosthesis of left hip Raspy voice Bilateral knee pain COPD (chronic obstructive pulmonary disease) Left hand paresthesia Vitamin D deficiency Skull lesion Irritable bowel syndrome Insomnia GERD (gastroesophageal reflux disease) History of Helicobacter pylori infection Vitamin B12 deficiency Clostridium difficile infection Weight loss Epigastric pain Cocaine abuse Cannabis abuse Eczema Hepatitis B virus infection Migraine Osteoarthritis Polysubstance abuse Sinusitis Tobacco abuse disorder Cervical myelopathy Arthritis History of headache Numbness Asthma 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 Anxiety Depression Surgical History H/O colonoscopy History of bilateral knee arthroplasty History of hip replacement Hx of cervical spine surgery History of appendectomy H/O tubal ligation History of total left hip arthroplasty Social History Household Members: Significant Other Household Members Other:: 2 Housing: House Are you a primary animal care attendant to a significant other at home: No Do you presently have visiting nurse or other home services: Yes (PATIENT AMBASSADOR) Alcohol intake: never Patient Tobacco Use Status: Current everyday Tobacco user Tobacco use type: Cigarette Cigarettes Per Day: 5 Second Hand Smoke Exposure: No Substance Use Type: Marijuana service: No Review of Systems Const All systems reviewed & are unremarkable except as noted in HPI and below Physical Exam Vital Signs: BMI result Body Mass Index 26.1 Extrem Other: Mild Trendelenburg gait. Incision is well healed. It is mildly sensitive to light touch. Results Reviewed Results Reviewed: Xrays were obtained in the office today and personally reviewed by me of the left hip: Unchanged appearance status post revision left hip arthroplasty Assessment & Plan Assessment & Plan (1) History of revision of total replacement of left hip joint: Code(s): Z96.642 - Presence of left artificial hip joint Category: Surgical Plan: I reassured the patient everything appears stable and consistent with her previous imaging studies. She did not attend physical therapy when she was prescribed at her last appointment therefore I did place a new order to do so. I reassured her working on strength and conditioning can help with her gait pattern along with a shoe lift. Patient does express understanding and will follow up as needed. Orders: Orders XR hip LT min 2V 05/15/25 M25.552 - Pain in left hip PT Evaluation and Treatment 05/15/25 Z96.642 - Presence of left artificial hip joint Coding Level of Care Code Est Pt Level 3 (82042) Complex EM visit Add On G2211 Diagnoses History of revision of total replacement of left hip joint Z96.642
[2025-05-15 14:23] VITALS: BMI 26.1
== END 2025-05-15 15:32 | disposition home or self-care (01) ==
LOC: HO.HOS 14:06
PROVIDERS: Visit Provider Physician Assistant
DX: Z47.89 Encounter for other orthopedic aftercare (principal); Z96.642 Presence of left artificial hip joint
CPT/HCPCS: 99213

== ENCOUNTER → 2025-05-15 14:07 | Outpatient (BNV) | payer OTHER, SELFPAY | PROVIDERS: Visit Provider Nuclear Medicine | DX: S72.002A Fracture of unspecified part of neck of left femur, initial encounter for closed fracture (principal); Z96.642 Presence of left artificial hip joint | CPT/HCPCS: 73502 ==

== ENCOUNTER 2025-05-17 09:46 | Outpatient (REF) | payer OTHER, SELFPAY ==
--- OUTSIDE RECORDS SUMMARY | 2025-05-18 11:40 | XMS_ITS | Clinical Summary ---
[facility] Address [address] [place] [address] Phone Care Team Providers Care Binder Stripper Machine Name Role Phone Barbara Wolf MD Primary Care Provider [phone] Allergies Active Allergy Reactions Criticality Noted Date [...] Other chest pain 03/24/2025 Assessment & Plan (05/16/2025 7:34 PM EDT): The patient came for evaluation due to episodes of chest pain. Description of symptoms: Atypical Risk factors for CAD: Current smoker Management plan: 1. Ischemic evaluation with an exercise stress test 2. Also, will order an echocardiogram to rule out any structural heart disease that may be contributing to the patient's symptoms: 3. During today's visit, we reviewed the warning signs that should prompt an urgent medical evaluation. Specifically, we discussed that the patient should go to the hospital if she develops any chest discomfort at rest lasting for more than 5 minutes or worsening chest discomfort with exertion. Orders: Transthoracic echocardiogram (TTE) complete with PRN contrast, bubble, strain, and 3D order panel; Future perflutren lipid microsphere (DEFINITY) 1.3 mL in sodium chloride 0.9% 8.7 mL injection Exercise stress test; Future Comprehensive metabolic panel; Future Lipid panel with reflex to direct LDL; Future Current smoker 03/24/2025 Assessment & Plan (05/16/2025 7:34 PM EDT): The patient is currently smoking cigarettes. She has been smoking cigarette use. During today's visit, we had a extensive conversation regarding the dangers of continual smoking including the development of CAD, the development of an CT (which can be fatal), the development of pulmonary disease, and the development of a malignancy. However, despite these warnings, the patient stated that she is not ready yet to quit smoking. Bradycardia 09/17/2023 Assessment & Plan (05/16/2025 7:34 PM EDT): The patient has a longstanding history of bradycardia. Her heart rate is usually in the 50s. Will order a Holter monitor To evaluate her heart rate range and rule out any profound bradycardia or significant pauses Orders: ECG 12 lead Cardiac holter monitor (<= 48 hours); Future Thyroid stimulating hormone; Future Cervical myelopathy (CMS/HCC V24, CMS/HCC V28) 0 [...] anyone else, [facility] was our prescription [...] concerns or questions. Sinusitis 09/06/2021 Polysubstance abuse ([facility] V24, [facility] V28) 0 09/06/2021 Overview (06/07/2024): H/o etoh, crack/cocaine. Osteoarthritis of hip 09/06/2021 Migraine headache 09/06/2021 Hepatitis B virus infection 09/06/2021 Overview (06/07/2024): unclear if active Hep B. History of HepBsAB positive Eczema 09/06/2021 Cannabis abuse 09/06/2021 Cocaine abuse ([facility] V24, [facility] V28) 021 Overview (06/07/2024): 04/13 positive UDS Weight loss 12/02/2018 Epigastric pain 12/02/2018 Clostridium difficile infection 10/05/2018 History of substance abuse ([facility] V24, [facility] V28) 07/06/2018 Overview (06/07/2024): Recovering alcoholic Vitamin B12 deficiency 12/28/2017 Depression 12/15/2017 GERD (gastroesophageal reflux disease) 8 Insomnia 12/15/2017 Irritable bowel syndrome 10/22/2017 Skull lesion 07/15/2017 Overview (06/07/2024): ? Unclear history Asthma 05/26/2017 Vitamin D deficiency 11/09/2016 Left hand paresthesia 12/29/2013 COPD (chronic obstructive pu lmonary disease) ([facility] V24, [facility] V28) 12/29/2013 Bilateral knee pain 12/29/2013 Allergic rhinitis 05/11/2013 Chronic headaches 08/12/2012 Raspy voice 09/19/2011 Overview (06/07/2024): F/u ENT; s/p laryngoscopy 12/09/[address] Back. Barium swallow (11/11/11) revealed mild GERD. Low back pain radiating to right lower extremity 09/19/2011 Overview (06/07/2024): F/u [facility]. Encounters Date Type Department Care Team Description 05/03/2025 1:30 PM EDT Office Visit [facility] [address] [place] [address] Nilda Chang MD Polysubstance abuse ([facility] V24, [facility] V28) (Primary Dx); Intractable headache, unspecified chronicity pattern, unspecified headache type; Current smoker; Cervical neck pain with evidence of disc disease 04/26/2025 Telephone Internal Medicine [facility] [address] [place] [phone] Barbara Wolf MD 04/20/2025 10:30 AM EDT Ancillary Procedure [facility] Cardiology [facility] [address] [place] [phone] Bradycardia 03/24/2025 2:00 PM EDT Office Visit [facility] Cardiology [place] [address] [place] [phone] Felicity Smart MD Bradycardia (Primary Dx); Other chest pain; Current smoker 02/22/[address] [facility]iology Associates [facility] [address] [place] [address] Marisol-Felicity Kumar MD from Last 3 Months Immunizations Name [...] LIGATION PROCEDURE: HISTORICAL TUBAL LIGATION APPENDECTOMY PROCEDURE: ME APPENDECTOMY KNEE ARTHROSCOPY 2017 Bilateral PROCEDURE: ME ARTHROSCOPY AID TX SPINE&/FX KNEE W/O FIXJ; COMMENT: Dr. Alcazar OTHER SURGICAL HISTORY PROCEDURE: BIOPSY OF THROAT, HYPOPHARYNX; COMMENT: pt states benign OTHER SURGICAL HISTORY 01/15/2022 PROCEDURE: ME ARTHRD ANT INTERBODY MIN DSC CRV BELOW [...] hip replacement History of substance abuse ( [facility] V24, [facility] V28) 07/06/2018 DX:History of substance abus e ([facility]); COMMENT: Recovering alcoholic Cocaine abuse ([facility] V24, [facility] V28) 04/25/2021 DX:Cocaine abuse ([facility]); COMM ENT: 04/13 positive UDS [...] 9:00 AM EDT Office Visit General [facility] - [place] [address] [facility] [address] [place] [phone] Pawel Hanna DO 175 [facility] [address] [place] [address] 05/23/2025 11:30 AM EDT Telemedicine Vascular Surgery - [place] [address] [facility] [address] [place] [address] Tara Melgoza PA 300 [facility] [address] [place] [address] 05/24/2025 1:20 PM EDT Procedure visit [facility] [address] [phone] Nilda Chang MD [address] [place] [address] 05/25/2025 10:00 AM EDT Ancillary Procedure [facility] - [facility] [address] [facility] [address] [place] [address] 07/26/2025 11:00 AM EST Office Visit [facility] [address] [phone] Natasha Flood PA [address] [address] Health Maintenance Due Date Last Done Comments [...] Depression Screening 08/24/2024 03/08/2024 COVID-19 Vaccine ( season) 2025 08/21/2021, 12/05/2020, 11/07/2020 Influenza Vaccine [...] LAB CHEMISTRY METHOD 03/28/2025 2:38 PM EDT [facility] Triglycerides 119 0 - 150 mg/dL LAB CHEMISTRY METHOD 03/28/2025 2:38 PM EDT [facility] HDL 52 >=40 mg/dL LAB CHEMISTRY METHOD 03/28/2025 2:38 PM T [facility] LDL Calculated 79 0 - 100 mg/dL LAB CHEMISTRY METHOD 03/28/2025 2:38 PM T [facility] Comment:Estimated LDL Calcul ated using equation: Total cholesterol - HDL cholesterol - (Triglycerides/5) VLDL Cholesterol Marshall 23.8 mg/dL LAB CHEMISTRY METHOD 03/28/2025 2:38 PM EDT [facility] Non HDL Chol. (LDL+VLDL) 103 <145 mg/dL LAB CHEMISTRY METHOD 03/28/2025 2:38 PM EDT [facility] Chol/HDL Ratio 3.0 0.0 - 4.4 LAB CHEMISTRY METHOD 03/28/2025 2:38 PM [facility] Blood Venous blood specimen / Unknown Venipuncture / Unknown 03/28/2025 9:31 AM EDT 03/28/2025 9:31 AM EDT Felicity Smart MD LAB BLOOD ORDERABLES F inal Result Performing Organization Address [facility]/ZIP Co de Phone Number [facility] [address] [place] [address], [place] [phone] * Thyroid stimulating hormone (03/28/2025 9:31 AM EDT) [facility] TSH 0.97 0.40 - 4.00 mcIU/mL LAB CHEMISTRY METHOD 03/28/2025 3:58 PM EDT [facility] Blood Venous blood specimen / Unknown Venipuncture / Unknown 03/28/2025 9:31 AM EDT 03/28/2025 9:31 AM EDT Felciity Smart MD LAB BLOOD ORDERABLES F inal Result Performing Organization Address [facility] de Phone Number [facility] [address] [place] [address], [place] [phone] * (ABNORMAL) Comprehensive metabolic panel (03/28/2025 9:31 AM EDT) [facility] Sodium 142 133 - 145 mmol/L LAB CHEMISTRY METHOD 03/28/2025 2:38 PM EDT [facility] Potassium 4.6 3.5 - 5.5 mmol/L LAB CHEMISTRY METHOD 03/28/2025 2:38 PM EDT [facility] Chloride 110 96 - 110 mmol/L LAB CHEMISTRY METHOD 03/28/2025 2:38 PM EDT [facility] CO2 29 21 - 32 mmol/L LAB CHEMISTRY METHOD 03/28/2025 2:38 PM EDT [facility] Anion Gap 3 3 - 11 LAB CHEMISTRY METHOD 03/28/2025 2:38 PM EDT [facility] Glucose 59(L) 70 - 100 mg/dL LAB CHEMISTRY METHOD 03/28/2025 2:38 PM EDT [facility] BUN 10 5 - 25 mg/dL LAB CHEMISTRY METHOD 03/28/2025 2:38 PM [facility] Creatinine 0.75 0.50 - 1.10 mg/dL LAB CHEMISTRY METHOD 03/28/2025 2:38 PM [facility] eGFR 92 >=60 mL/min/1. 73m2 LAB CHEMISTRY METHOD 03/28/2025 2:38 PM [facility] Comment:Calculation based on the Chronic Kidney Disease Epidemiology Collaboration (CKD-EPI) equation refit without adjustment for race. BUN/Creatinine Ratio 13.3 LAB CHEMISTRY METHOD 03/28/2025 2:38 PM [facility] Calcium 9.2 8.5 - 10.5 mg/dL LAB CHEMISTRY METHOD 03/28/2025 2:38 PM [facility] AST (SGOT) 15 10 - 42 unit/L LAB CHEMISTRY METHOD 03/28/2025 2:38 PM [facility] ALT (SGPT) 33 10 - 60 unit/L LAB CHEMISTRY METHOD 03/28/2025 2:38 PM [facility] Alkaline Phosphatase 110 42 - 121 unit/L LAB CHEMISTRY METHOD 03/28/2025 2:38 PM [facility] Total Protein 7.0 6.0 - 8.0 g/dL LAB CHEMISTRY METHOD 03/28/2025 2:38 PM [facility] Albumin 4.1 3.2 - 5.0 g/dL LAB CHEMISTRY METHOD 03/28/2025 2:38 PM [facility] Total Bilirubin 0.4 0.0 - 1.4 mg/dL LAB CHEMISTRY METHOD 03/28/2025 2:38 PM [facility] Blood Venous blood specimen / Unknown Venipuncture / Unknown 03/28/2025 9:31 AM EDT 03/28/2025 9:31 AM EDT Felicity Smart MD LAB BLOOD ORDERABLES F inal Result [facility] [address] [place] [address], [place] [phone] * ECG 12 lead (03/24/2025 1:35 PM EDT) Ventricular Rate ECG 50 BPM GEM[facility] Atrial Rate 50 BPM GEMUSE P-R Interval 132 ms GEMUSE QRS Duration 106 ms GEMUSE Q-T Interval 472 ms GEMUSE QTc 430 ms GEMUSE P Wave Gilman 61 degrees GEMUSE R Gilman 54 degrees GEMUSE T Gilman 58 degrees GEMUSE ECG Interpretation Sinus bradycardia Otherwise normal ECG When compared with ECG of 13-JUN-2024 08:17, No significant change was found Confirmed by FELICITY SMART ([id number]) on 05/02/2025 8:53:40 AM GEMUSE 03/24/2025 1:35 PM EDT 05/02/2025 8:53 AM EDT Felicity Smart MD ECG ORDERABLES Final Result Performing Organization Address City/[facility]/ZIP Co de Phone Number GEMUSE * CT Lung Screening (09/06/2024 2:34 PM EST) Anatomical Region Laterality Modality Chest Computed Tomogra phy 09/14/2024 12:4 9 PM EST Impressions 09/14/2024 12:58 PM EST Impression: No suspicious pulmonary nodule. Lung-RADS Category: Lung-RADS 1: No nodules or definitely benign nodules. Continue annual screening with Low Dose Chest CT in 12 months. Telerad BÁRBARA ([id number]) -------- FINAL REPORT -------- Dictated By: Estephania Lockwood Dictated Date: 09/14/2024 12:49 ET Assigned Physician: Estephania Lockwood Reviewed and Electronically Signed By: Estephania Lockwood Signed Date: 09/14/2024 12:58 ET Workstation ID: [id number] Transcribed By: Self Edit Transcribed Date: 09/14/2024 12:49 ET Narrative 09/14/2024 12:58 PM EST History: 59 year-old 48 pack-year current smoker, asymptomatic, for lung cancer screening. Baseline exam. Comparison: No comparison imaging at this institution. Technique: Helical volumetric imaging of the thorax was performed, using low- dose technique, without IV contrast. DLP: 161.03 mGy/cm CTDIvol: 4.83 mGy GE Fulcrum Microsystemspeed VCT Iterative reconstruction technique Findings: Lungs and [...] DLP: 161.03 mGy/cm CTDIvol: 4.83 mGy GE Fulcrum Microsystemspeed VCT Iterative reconstruction technique Findings: Lungs and [...] Dose Chest CT in 12 months. Telerad PA ([id number]) -------- FINAL REPORT -------- Dictated By: Estephania Lockwood Dictated Date: 09/14/2024 12:49 ET Assigned Physician: Estephania Lockwood Reviewed and Electronically Signed By: Estephania Lockwood Signed Date: 09/14/2024 12:58 ET Workstation ID: [id number] Transcribed By: Self Edit Transcribed Date: 09/14/2024 12:49 ET Julian Garza MD IM CT PROCEDURES Final [...] Signed Date: 08/04/2024 09:49 ET Workstation ID: [id number] Transcribed By: Self Edit Transcribed Date: 08/04/2024 [...] None Computer-aided detection was employed with the [employer] profound AI 3-D. TISSUE DENSITY: There are [...] Signed Date: 08/04/2024 09:49 ET Workstation ID: [id number] Transcribed By: Self Edit Transcribed Date: 08/04/2024 09:43 ET Self Referral Sppl IMG BI PROCEDURES Final Resul t * Depression Screening (03/08/2024) Depression Screening abstracted Historical Provider HEALTH MAINTENANCE Final Result * Colonoscopy (10/02/2017) Colonoscopy no interpretation abstracted Anatomical Region Laterality Modality Other Historical Provider HEALTH MAINTENANCE Final Result from Last 3 Months or Most Recently Relevant to Health Maintenance Insurance [facility] [place] [address] Care Teams Binder Stripper Machine Relationship Specialty Start Date End Date Barbara Wolf MD [address] [facility] [address] [place] [phone] PCP - General Internal Medicine 07/05/24
--- OUTSIDE RECORDS SUMMARY | 2025-05-18 11:40 | XMS_ITS | Clinical Summary ---
Author Organization [facility] Address [address] [place] [address] Care Team Providers Care Sausage Maker Name Role Phone Ciara Foreman Primary Care Provider [phone] Source Comments PLEASE NOTE, if this patient [...] 12/29/2013 COPD (chronic obstructive pu lmonary disease) ([facility]) 12/29/2013 Left hand paresthesia 12/29/2013 Allergic rhinitis due to allergen 05/11/2013 Chronic headaches 08/12/2012 Vitamin D deficiency disease 09/22/2011 Overview (05/11/2013): =7. Anxiety and depression 09/19/2011 Overview (05/11/2013): Psych F/u @ [facility] Therapist (Jaxon Lal #[phone] x [phone]). Insomnia 09/19/2011 Overview (05/11/2013): Psych f/u @ [facility]. LBP radiating to right leg 09/19/2011 Overview (05/11/2013): F/u [facility]. 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 Back. Barium swallow (11/11/11) revealed mild GERD. Tobacco abuse disorder Marijuana abuse Polysubstance abuse ([facility]) Overview (05/11/2013): H/o etoh, crack/cocaine. History of [...] Drug Screen 08/24/2024 Depression Annual Screen 08/24/2024 [id number] ( season) 2025 04/14/2 021, 11/07/2020 Imm-Influenza [...] EDT) HEPATITIS B SURFACE ANTIBODY POSITIVE(A) NEGATIVE [employer] [facility] Comment:Performer: [employer] (ML) HEPATITIS B SURFACE ANTIGEN NEGATIVE NEGATIVE [facility] Comment:Performer: [employer] (ML) HEPATITIS C VIRUS ANTIBODY NEGATIVE NEGATIVE [facility] Comment:Performer: [employer] (ML) HEPATITIS A ANTIBODY TOTAL NEGATIVE NEGATIVE [facility] Comment:Performer: [employer] (ML) HEPATITIS B CORE ANTIBODY POSITIVE(A) NEGATIVE [facility] Comment:Performer: [employer] (ML) Blood specimen (specimen) Blood / Unknown 05/11/2013 4:05 PM EDT 05/11/2013 4:[address] [facility] - 05/11/2013 6:54 PM EDT [employer] [address] [place] [address] [place] [id number] ORD# [id number] Ciara GRANGER LAB - BLOOD DRAW Edited [facility] [employer] [address], * COMPRE METAB PANEL (05/11/2013 4:05 PM EDT) GLUCOSE 93 70 - 100 mg/dL [facility] Comment: Performer: [employer] (ML) Reference range applicable to fasting specimens only BUN 14 5 - 25 mg/dL [facility] Comment:Performer: [employer] [facility] (ML) CREAT 0.65 0.5 - 1.1 mg/dL [facility] Comment:Performer: [employer] (ML) GLOMERULAR FILTRATION RATE >60 [facility] Comment: Performer: [employer] (ML) If patient is -Ukrainian, multiply result by 1.21 Chronic Kidney Disease: < 60 ml/min/1.73 square meters Kidney Failure: < 15 ml/min/1.73 square meters SODIUM 143 133 - 145 mEq/L [facility] Comment:Performer: [employer] [facility] (ML) POTASSIUM 4.3 3.5 - 5.5 mEq/L [facility] Comment:Performer: [employer] [facility] (ML) CHLORIDE 106 96 - 110 mEq/L [facility] Comment:Performer: [employer] (ML) CO2 30 21 - 32 mEq/L [facility] Comment:Performer: [employer] [facility] (ML) ANION GAP 7 3 - 11 [facility] Comment:Performer: [employer] (ML) CALCIUM 9.0 8.5 - 10.5 mg/dL [facility] Comment:Performer: [employer] [facility] (ML) TOTAL PROTEIN 6.7 6.0 - 8.0 G/dL [facility] Comment:Performer: [employer] (ML) ALBUMIN 4.1 3.2 - 5.0 G/dL [facility] Comment:Performer: [employer] [facility] (ML) BILI, TOTAL 0.2 0.0 - 1.4 mg/dL [facility] Comment:Performer: [employer] (ML) SGOT 18 10 - 42 U/L [facility] Comment:Performer: [employer] (ML) SGPT 19 10 - 60 U/L [facility] Comment:Performer: [employer] (ML) ALK PHOS 69 42 - 121 U/L [facility] Comment:Performer: [employer] [facility] (ML) Blood specimen (specimen) Blood / Unknown 05/11/2013 4:05 PM EDT 05/11/2013 4:[address] [facility] - 05/11/2013 6:39 PM EDT [facility] [employer] [address] [place] [address] [place] [id number] ORD# [id number] us Ciara GRANGER [facility] - BLOOD DRAW Final Res ult [facility] [address] [place] [address], from Last 3 Months or Most Recently Relevant to Health Maintenance Insurance [facility] Member Subscriber Plan / Payer (Ef fective 2018-Present) Name:Leanne Back Relation to Subscriber:Self Name:Leanne Back Payer ID:[id number] Group ID:[id number] Type:Medicaid Address: [id number] [place] [address] Care Teams Sausage Maker Relationship Specialty Start Date End Date Ciara Foreman PA [address] [place] [address] PCP - General Internal Medicine 01/11/14
--- OUTSIDE RECORDS SUMMARY | 2025-05-18 11:40 | XMS_ITS | Encounter Summary ---
Author Organization [facility] Address [address] [place] [address] Care Team Providers Care Mixing Tumbler Operator Name Role Phone Barbara Wolf MD Primary Care Provider [phone] Encounter Details Date Type Department Care Team (Late st Contact Info) Description 01/02/2025 Telephone Gastroenterology - [place] 175 [facility] [address] [place] [phone] Linda Moore PA [address] [place] [address] Social History Tobacco Use Types Packs/Day Years [...] as of this encounter Progress Notes * Saurabh Kelly - 05/18/2025 9:55 AM EDT SCHEDULED * Raisa Young MA - 01/09/2025 7:41 AM EDT 3rd attempt to schedule an appointment patient left message to call back and letter sent * Saurabh Kelly - 01/05/2025 3:35 PM EDT 2nd attempt to schedule an appointment patient left message to call back * Saurabh Kelly - 01/03/2025 9:51 AM EDT 1st attempt to schedule an appointment patient left message to call back LETICIA HDZ * BÁRBARA Ortega - 01/02/2025 4:50 PM EDT Please schedule endoscopy due to GERD, nausea, vomiting and follow-up with me thank you documented in this encounter Plan of Treatment Upcoming Encounters Date Type Department Care Team (Late st Contact Info) Description 05/22/2025 9:00 AM EDT Office Visit General Surgery - [place] 175 [facility] [address] [place] [phone] Pawel Hanna, DO 175 [facility] [address] [place] [address] 05/23/2025 11:30 AM EDT Telemedicine Vascular Surgery - [place] 300 [facility] [address] [place] [address] Tara Melgoza PA 300 [facility] [address] [place] [address] 05/24/2025 1:20 PM EDT Procedure visit [facility] 175 [facility] [address] [place] [phone] Nilda Chang MD 175 [place] [address] 05/25/2025 10:00 AM EDT Ancillary Procedure [facility] [address] 300 [facility] [address] [place] [phone] 07/26/2025 11:00 AM EST Office Visit [facility] [place] 175 [facility] [address] [place] [phone] Natasha Flood, PA 175 [facility] [address] [place] [address] documented as of this encounter Visit Diagnoses Not on filedocumented in this encounter Care Teams Mixing Tumbler Operator Relationship Specialty Start Date End Date Barbara Wolf MD 175 [facility] [address] [place] [phone] PCP - General Internal Medicine 07/05/24 documented as of this encounter
== END 2025-05-17 09:47 | disposition home or self-care (01) ==
LOC: HO.HOSX 09:46
PROVIDERS: Visit Provider Physician Assistant
DX: Z13.89 Encounter for screening for other disorder (principal)

== ENCOUNTER 2025-08-23 10:56 | Outpatient (REF) | payer OTHER, SELFPAY ==
--- OUTSIDE RECORDS SUMMARY | 2025-08-22 13:30 | XMS_ITS | Encounter Summary ---
Author Organization [facility] Address [address] [place] [address] Care Team Providers Care Folding Machine Feeder Name Role Phone Barbara Wolf MD Primary Care Provider [phone] Reason for Visit * Reason Comments Follow-up Encounter Details Date Type Department Care Team (Late st Contact Info) Description 2025 1:30 PM EST Office Visit [facility] Cardiology [facility] [address] [place] [phone] Arcadio May MD [address] [place] [address] [address] [place] [phone] Arrived Social History Tobacco Use Types Packs/Day [...] Care Team (Late st Contact Info) Description 09/11/2025 11:45 AM EST Appointment [facility] CT Scan [address] [place] [phone] 10/06/2025 10:30 AM EST Office Visit [facility] 175 [facility] [address] [place] [address] Natasha Flood, BÁRBARA [address] [place] [phone] documented as of this encounter Goals Goal Patient Goal Type Associated Problems Recent Progress Patient-Stated? Author Autogenerat ed Goal Care Plan Autogenerated Problem No Bahman Mendez documented as of this encounter Visit Diagnoses Not on filedocumented in this encounter Additional Health Concerns Active Problems Noted Date Diagnosed Date Autogenerated Problem 06/22/2025 documented as of this encounter Care Teams Folding Machine Feeder Relationship Specialty Start Date End Date Barbara Wolf MD 175 [facility] [address] [place] [phone] PCP - General Internal Medicine 07/05/24 documented as of this encounter
--- NOTE | ~2025-08-23 | XR_ITS ---
EXAMINATION: XR HIP 2 OR MORE VIEWS LEFT HISTORY: M25.552 - Pain in left hip COMPARISON: Comparison is made with the prior examination dated 05/15/2025. FINDINGS: Three AP views of the pelvis and 3 views of the left hip are submitted. The patient is again noted to be status post left total hip arthroplasty. The orthopedic elements are in anatomic alignment. There is no radiographic evidence of loosening. There is no fracture or dislocation. A right hip prosthesis is also noted. The soft tissues are unremarkable. XR/XR hip LT min 2V IMPRESSION: Status post left total hip arthroplasty. Electronically signed by: Aden Balderrama MD 08/23/2025 01:48 PM LA[facility]
--- OUTSIDE RECORDS SUMMARY | 2025-08-25 11:48 | XMS_ITS | Clinical Summary ---
[facility] Address [address] [place] [address] Phone Care Team Providers Care Delivery Person Name Role Phone Barbara Wolf MD Primary Care Provider [phone] Allergies Active Allergy Reactions Criticality Noted Date [...] 01/24/20 25 12/17/2 025 Discontin ued(Reord er) [facility], or Other Facility Administered Medication Ordered [...] development of CAD, the development of an IN (which can be fatal), the development of [...] Description 2025 1:30 PM EST Office Visit [facility] [address] [place] [address] Arcadio May MD Arrived 08/14/2025 8:45 AM EST Office Visit Internal Medicine - [place] [address] [place] [phone] Barbara Wolf MD Low back pain radiating to right lower extremity (Primary Dx); Vitamin B12 deficiency; Vitamin D deficiency; Gastroesophageal reflux disease, unspecified whether esophagitis present; Status post hip replacement, unspecified laterality 08/10/2025 9:00 AM EST Telemedicine Vascular Surgery - [place] [address] [place] [phone] Niurka Cunningham PA Right upper extremity numbness (Primary Dx) 08/09/2025 1:20 PM EST Procedure visit [facility] [place] - [place] [address] [place] [address] Nilda Chang MD Migraine without aura and without status migrainosus, not intractable (Primary Dx); Intractable headache, unspecified chronicity pattern, unspecified headache type 07/27/2025 Results Follow-Up Vascular Surgery - [place] [address] [place] [address] Tara Melgoza PA 07/26/2025 3:45 PM EST Ancillary Procedure [facility] [address] [place] [phone] Right upper extremity numbness; Poor circulation of extremity 07/26/2025 11:00 AM EST Office Visit [facility] [place] - [place] [address] [facility] [address] [place] [address] Natasha Flood PA Cervical neck pain with evidence of disc disease (Primary Dx) 07/11/[address] [place] [address] Arcadio May MD 07/11/[address] [place] [address] Arcadio May MD 07/11/[address] [place] [address] Arcadio May MD 07/04/2025 1:13 PM EST - 07/04/2025 11:59 PM EST Hospital Encounter [facility] Ultrasound [address] [place] [address] Soft tissue mass Discharge Disposition: Home or Self Care 06/30/2025 Telephone Gastroenterology [facility] [address] [facility] [address] [place] [address] Linda Moore PA 06/28/2025 12:15 PM EST Anesthesia Event [facility] Endoscopy [address] [place] [phone] Nino Villar DO 06/28/2025 10:48 AM EST - 06/28/2025 11:59 PM EST Hospital Encounter [facility] Endoscopy [address] [place] [phone] Alonso Charles MD Barnes, Tyanna R, CRNA Nausea and vomiting, unspecified vomiting type; Cannabis abuse; Gastroesophageal reflux disease, unspecified whether esophagitis present; Cannabinoid hyperemesis syndrome; Epigastric abdominal pain Discharge Disposition: Home or Self Care 06/22/2025 Telephone Gastroenterology - [place] [facility] [address] [facility] [address] [place] [phone] Baljinder Byers MD 06/19/2025 9:45 AM EDT Office Visit General Surgery [facility] [address] [facility] [address] [place] [phone] Pawel Hanna DO Soft tissue mass (Primary Dx); Epigastric abdominal pain 06/19/2025 Results Follow-Up [facility] [address] [place] [address] Arcadio May MD 06/19/[address] [place] [address] Dayan Paredes NP 06/09/2025 9:00 AM EDT Ancillary Procedure [facility] [address] [place] [address] Other chest pain 06/05/2025 7:00 AM EDT Ancillary Procedure [facility] [address] [place] [address] Other chest pain 05/28/2025 3:54 PM EDT - 05/28/2025 4:14 PM EDT Emergency [facility] Emergency [address] [place] [phone] Doc Brown MD Lumbar strain, initial encounter (Primary Dx) Discharge Disposition: Home or Self Care from Last 3 Months Immunizations Immunization Administration [...] LIGATION PROCEDURE: HISTORICAL TUBAL LIGATION APPENDECTOMY PROCEDURE: CO APPENDECTOMY KNEE ARTHROSCOPY 2016 Bilateral PROCEDURE: CO ARTHROSCOPY AID TX SPINE&/FX KNEE W/O FIXJ; COMMENT: Dr. Alcazar OTHER SURGICAL HISTORY PROCEDURE: BIOPSY OF THROAT, HYPOPHARYNX; COMMENT: pt states benign OTHER SURGICAL HISTORY 01/15/2022 PROCEDURE: CO ARTHRD ANT INTERBODY MIN DSC CRV BELOW [...] hip replacement History of substance abuse ( [facility] V24, [facility] V28) 07/06/2018 DX:History of substance abus e ([facility]); COMMENT: Recovering alcoholic Cocaine abuse ([facility] V24, [facility] V28) 04/25/2021 DX:Cocaine abuse ([facility]); COMM ENT: 04/13 positive UDS Anxiety state [...] Info) Description 09/11/2025 11:45 AM EST Appointment [facility] CT Scan [address] [place] [address] 10/06/2025 10:30 AM EST Office Visit [facility] [address] [facility] [address] [place] [address] Natasha Flood, PA [facility] [place] [address] Health Maintenance Due Date Last Done [...] Health Screening 08/02/2022 COVID-19 Vaccine ( season) 2025 08/21/2021, 12/05/2020, 11/07/2020 Influenza Vaccine (#1) 2025 , 06/18/2017, 05/11/2013, Additional history exists Depression Screening 08/24/2025 03/08/2024 Lung Cancer Screening (Low Dose CT) [...] Care Plan Autogenerated Problem No Bahman Mendez Medical Devices Implanted Type Area Hose Tubing Backer Device Identifier Shelf Expiration Date Model / [...] flow. The ulnar artery has monophasic flow. Studio Model Details A muñiz scale, color and doppler [...] Signed Date: 07/11/2025 09:18 ET Workstation ID: [id number] Transcribed By: Self Edit Transcribed Date: 07/11/2025 [...] Signed Date: 07/11/2025 09:18 ET Workstation ID: [id number] Transcribed By: Self Edit Transcribed Date: 07/11/2025 09:13 ET us Pawel Hanna DO IMG US PROCEDURES Final Result * EGD Anesthesia - MAC; [facility] ENDOSCOPY (06/28/2025 12:26 PM EST) Anatomical Region [...] clinical course. Narrative 06/28/2025 12:32 PM EST [facility] GI Patient Name: Figueroa Back Procedure Date: [...] duodenal bulb. Procedure Code(s): --- Professional --- 60645, Esophagogastroduodenoscopy, flexible, transoral; with biopsy, single or multiple Diagnosis Code(s): --- Professional --- K22.89, Other specified disease of esophagus K31.89, Other diseases of stomach and duodenum R11.0, Nausea CPT copyright 2020 [employer]. All rights reserved. The codes documented in this report are preliminary and upon telephone solicitor supervisor review may be revised to meet current compliance requirements. Alonso Charles MD 06/28/2025 12:32:12 PM This report has been signed electronically.Alonso Charles MD Number of Addenda: 0 Note Initiated On: 06/28/2025 12:17 PM Scope In: Scope Out: Endoscopy Department at [facility] - [address] [place] [phone] Procedure Note Alonso Charles MD - 06/28/2025 [facility] GI Patient Name: Figueroa Back Procedure Date: [...] duodenal bulb. Procedure Code(s): --- Professional --- 07487, Esophagogastroduodenoscopy, flexible, transoral; with biopsy, single or multiple Diagnosis Code(s): --- Professional --- K22.89, Other specified disease of esophagus K31.89, Other diseases of stomach and duodenum R11.0, Nausea CPT copyright 2020 [employer]. All rights reserved. The codes documented in this report are preliminary and upon telephone solicitor supervisor reviewmay be revised to meet current compliance requirements. Alonso Charles MD 06/28/2025 12:32:12 PM This report has been signed electronically.Alonso Charles MD Number of Addenda: 0 Note Initiated On: 06/28/2025 12:17 PM Scope In: Scope Out: Endoscopy Department at [facility] - [address] [place] [id number] IMPRESSION: - Z-line irregular, 38 cm from [...] above diagnosis. Control stains appropriately 1:11 PM [facility] at 1311 EST Gross Description [...] levels on one slide. KAT 1:11 PM [facility] Disclaimer NOTE: The immunohistochemical tests and in situ hybridization tests were developed and their performance characteristics were determined by [facility]ology [facility]. They have not been cleared [...] formalin fixed and paraffin embedded. 1:11 PM [facility] Tissue Stomach structure / Unknown 06/28/2025 12:22 PM EST 06/28/2025 1:15 PM EST Tissue specimen (specimen) Esophageal structure / Unknown 06/28/2025 12:24 PM EST 06/28/2025 1:15 PM EST us Alonso Charles MD LAB PATHOLOGY ORDERABLES Final R esult [facility] ([facility] [address] [place] [address], * NM LEXISCAN STRESS TEST W/ MYOCARDIAL [...] Function Comments Resting ejection fraction was 74%. us Arcadio May MD CV STRESS PROCEDURES F inal Result * TRANSTHORACIC ECHOCARDIOGRAM (TTE) COMPLETE (06/05/2025 7:40 AM EDT) Left At[facility] Minor [place] 5.5 cm CV PACS Left At[facility] [place] 5.8 cm CV PACS [place] Area Sys [...] LAB CHEMISTRY METHOD 03/28/2025 2:38 PM EDT [facility] Triglycerides 119 0 - 150 mg/dL LAB CHEMISTRY METHOD 03/28/2025 2:38 PM EDT [facility] HDL 52 >=40 mg/dL LAB CHEMISTRY METHOD 03/28/2025 2:38 PM EDT [facility] LDL Calculated 79 0 - 100 mg/dL LAB CHEMISTRY METHOD 03/28/2025 2:38 PM EDT [facility] Comment:Estimated LDL Calcul ated using equation: Total cholesterol - HDL cholesterol - (Triglycerides/5) VLDL Cholesterol [place] 23.8 mg/dL LAB CHEMISTRY METHOD 03/28/2025 2:38 PM EDT [facility] Non HDL Chol. (LDL+VLDL) 103 <145 mg/dL LAB CHEMISTRY METHOD 03/28/2025 2:38 PM EDT [facility] Chol/HDL Ratio 3.0 0.0 - 4.4 LAB CHEMISTRY METHOD 03/28/2025 2:38 PM EDT [facility] Blood Venous blood specimen / Unknown Venipuncture / Unknown 03/28/2025 9:31 AM EDT 03/28/2025 9:31 AM EDT Arcadio May MD LAB BLOOD ORDERABLES F inal Result [facility] [address] [place] [address], [place] [phone] * CT Lung Screening (09/06/2024 2:34 PM EST) Anatomical Region Laterality Modality Chest Computed Tomogra phy 09/14/2024 12:4 9 PM EST Impressions 09/14/2024 12:58 PM EST Impression: No suspicious pulmonary nodule. Lung-RADS Category: Lung-RADS 1: No nodules or definitely benign nodules. Continue annual screening with Low Dose Chest CT in 12 months. [facility] PA ([id number]) -------- FINAL REPORT -------- Dictated By: Estephania Lockwood Dictated Date: 09/14/2024 12:49 ET Assigned Physician: Estephania Lockwood Reviewed and Electronically Signed By: Estephania Lockwood Signed Date: 09/14/2024 12:58 ET Workstation ID: [id number] Transcribed By: Self Edit Transcribed Date: 09/14/2024 12:49 ET Narrative 09/14/2024 12:58 PM EST History: 59 year-old 48 pack-year current smoker, asymptomatic, for lung cancer screening. Baseline exam. Comparison: No comparison imaging at this institution. Technique: Helical volumetric imaging of the thorax was performed, using low- dose technique, without IV contrast. DLP: 161.03 mGy/cm CTDIvol: 4.83 mGy Microweber VCT Iterative reconstruction technique Findings: Lungs and [...] contrast. DLP: 161.03 mGy/cm CTDIvol: 4.83 mGy KidsCashpeautoGraph VCT Iterative reconstruction technique Findings: Lungs and [...] Chest CT in 12 months. Telerad BÁRBARA ([id number]) -------- FINAL REPORT -------- Dictated By: Estephania Lockwood Dictated Date: 09/14/2024 12:49 ET Assigned Physician: Estephania Lockwood Reviewed and Electronically Signed By: Estephania Lockwood Signed Date: 09/14/2024 12:58 ET Workstation ID: [id number] Transcribed By: Self Edit Transcribed Date: 09/14/2024 12:49 ET us Julian Garza MD [facility] CT PROCEDURES Final Result * MG Mammo [...] Signed Date: 08/04/2024 09:49 ET Workstation ID: [id number] Transcribed By: Self Edit Transcribed Date: 08/04/2024 09:43 ET Narrative 08/04/2024 9:49 AM EST EXAM: SCREENING MAMMOGRAPHY, BILATERAL HISTORY: SCREENING. No additional history. COMPARISON: Initial exam TECHNIQUE: Synthesized CC and MLO projections of each breast. Tomosynthesis of each breast in the CC and MLO projections. ADDITIONAL IMAGING: None Computer-aided detection was employed with the MicroTransponder AI 3-D. TISSUE DENSITY: There are scattered [...] None Computer-aided detection was employed with the MicroTransponder AI 3-D. TISSUE DENSITY: There are scattered [...] Signed Date: 08/04/2024 09:49 ET Workstation ID: [id number] Transcribed By: Self Edit Transcribed Date: 08/04/2024 [...] Date Diagnosed Date Autogenerated Problem 06/22/2025 Insurance [facility] [employer] Care Teams Delivery Person Relationship Specialty Start Date End Date Barbara Wolf MD [address] [place] [phone] PCP - General Internal Medicine 07/05/24
--- OUTSIDE RECORDS SUMMARY | 2025-08-25 11:48 | XMS_ITS | Encounter Summary ---
Author Organization [facility] Address [address] [place] [address] Care Team Providers Care Escort Blind Name Role Phone Barbara Wolf MD Primary Care Provider Encounter Details Date Type Department Care Team (Late st Contact Info) Description 06/19/2025 Results Follow-Up [facility] [address] [place] [phone] Arcadio May MD [address] [place] [address] [address] [place] [phone] Social History Tobacco Use Types Packs/Day Years [...] Info) Description 09/11/2025 11:45 AM EST Appointment [facility] CT Scan [address] [place] [phone] 10/06/2025 10:30 AM EST Office Visit [facility] [address] [facility] [address] [place] [phone] Natasha Flood, BÁRBARA [facility] [place] [address] documented as of this encounter Visit Diagnoses Not on filedocumented in this encounter Care Teams Escort Blind Relationship Specialty Start Date End Date Barbara Wolf MD [address] [facility] [address] [place] [phone] PCP - General Internal Medicine 07/05/24 documented as of this encounter
--- OUTSIDE RECORDS SUMMARY | 2025-08-25 11:48 | XMS_ITS | Encounter Summary ---
Author Organization [facility] Address [address] [place] [address] Care Team Providers Care Valve Inspector Name Role Phone Barbara Wolf MD Primary Care Provider [phone] Encounter Details Date Type Department Care Team (Late Contact Info) Description 07/27/2025 Results Follow-Up Vascular Surgery - [place] [address] [place] [address] Tara Melgoza PA [address] [place] [phone] Social History Tobacco Use Types Packs/Day Years [...] Department Care Team (Late Contact Info) Description 09/11/2025 11:45 AM EST Appointment [facility] CT Scan [address] [place] [address] 10/06/2025 10:30 AM EST Office Visit [facility] [address] [facility] [address] [place] [address] Natasha Flood, PA [address] [place] [address] documented as of this encounter Goals Goal Patient Goal Type Associated Problems Recent Progress Patient-Stated? Author Autogenerat ed Goal Care Plan Autogenerated Problem No Bahman Mendez documented as of this encounter Visit Diagnoses Not on filedocumented in this encounter Additional Health Concerns Active Problems Noted Date Diagnosed Date Autogenerated Problem 06/22/2025 documented as of this encounter Care Teams Valve Inspector Relationship Specialty Start Date End Date Barbara Wolf MD [address] [facility] [address] [place] [phone] PCP - General Internal Medicine 07/05/24 documented as of this encounter
== END 2025-08-23 10:57 | disposition home or self-care (01) ==
LOC: HO.HOSX 10:56
PROVIDERS: Visit Provider Physician Assistant
DX: Z47.1 Aftercare following joint replacement surgery (principal); M25.552 Pain in left hip; M54.50 Low back pain, unspecified; Z96.642 Presence of left artificial hip joint
CPT/HCPCS: 73502; 99212

== ENCOUNTER 2025-08-23 13:24 | Outpatient (AMB) | payer OTHER, SELFPAY ==
--- OUTSIDE RECORDS SUMMARY | 2025-08-22 13:30 | XMS_ITS | Encounter Summary ---
Author Organization [facility] Address [address] [place] [address] Care Team Providers Care Air Conditioning Unit Tester Name Role Phone Barbara Wolf MD Primary Care Provider [phone] Reason for Visit * Reason Comments Follow-up Encounter Details Date Type Department Care Team (Late st Contact Info) Description 2025 1:30 PM EST Office Visit [facility] Cardiology [facility] [address] [place] [phone] Arcadio May MD [address] [place] [address] [address] [place] [phone] Arrived Social History Tobacco Use Types Packs/Day Years Used Date Smoking Tobacco: Every Day Cigarettes 1 48 Started: 02/1975 Passive Smoke Exposure: Never Smokeless Tobacco: Never Alcohol Use Standard Drinks/Week Comments Not Currently 0 (1 standard drink = 0.6 oz pur e alcohol) rare Interpersonal Safety Answer Date Record ed Physical Abuse Unrecognized value 06/28/2025 Verbal Abuse Unrecognized value 06/28/2025 Comments No Sex and Gender Information Value Date Recorded Sex Assigned at Female 08/01/2024 9:01 AM EST Legal Sex Female 4:34 AM EST Gender Identity Female 08/01/2024 9:01 AM EST Sexual Orientation Straight 08/01/2024 9: 01 AM EST documented as of this encounter Last Filed Vital Signs Vital Sign Reading Time Taken Comments Blood Pressure 118/70 2025 12:57 PM EST Pulse 66 2025 12:57 PM EST Temperature - - Respiratory Rate - - Oxygen Saturation 95% 2025 12:57 PM EST Inhaled Oxygen Concentration - - Weight 71.7 kg (158 lb) 2025 12:57 PM EST Height 162.6 cm (5' 4 ) 2025 12:57 PM EST Body Mass Index 27.12 2025 12:57 PM EST documented in this encounter Plan of Treatment Upcoming Encounters Date Type Department Care Team (Late st Contact Info) Description 10/06/2025 10:30 AM EST Office Visit [facility] [address] [facility] [address] [place] [address] Natasha Flood PA [address] [place] [phone] documented as of this encounter Goals Goal Patient Goal Type Associated Problems Recent Progress Patient-Stated? Author Autogenerat ed Goal Care Plan Autogenerated Problem No Bahman Mendez documented as of this encounter Visit Diagnoses Not on filedocumented in this encounter Additional Health Concerns Active Problems Noted Date Diagnosed Date Autogenerated Problem 06/22/2025 documented as of this encounter Care Teams Air Conditioning Unit Tester Relationship Specialty Start Date End Date Barbara Wolf MD [address] [facility] [address] [place] [phone] PCP - General Internal Medicine 07/05/24 documented as of this encounter
--- NOTE | 2025-08-23 13:37 | MHC.OFFVIS ---
Vital Signs 08/23/25 13:53 Height 5 ft 4 in Weight 152 lb BMI 26.1 Intake Visit Reasons: s/p Left YVONNE Revision from 02/10/24 Intake Note: Leanne is a 59 year old female who presents today with concerns of a painful lump at surgical site status post left YVONNE Revision, performed by Dr. Callahan on 02/10/24. Today patient reports pain at the lateral side. She has complaints of incision area as it does not look normal. She also mentions area is tender to the touch. Complaints of a lumo on lower back that has been present since after her surgery. Denies injury. Allergies Penicillins Allergy (Verified 08/23/25 13:53) Rash Medication List - Last Reconciled 08/23/25 by Daniella Aguirre PA-C albuterol sulfate 2.5 mg inhalation Q4H PRN amitriptyline 25 mg PO BEDTIME aspirin 325 mg PO BID 42 days calcium carbonate 200 mg PO TID cholecalciferol (vitamin D3) (Vitamin D3) 50 mcg PO DAILY cyanocobalamin (vitamin B-12) 500 mcg PO DAILY cyclobenzaprine 10 mg PO BID PRN diclofenac sodium 1% 4 grams topical QID 30 days methadone (Methadose) 36 mg PO DAILY naproxen 500 mg PO BID naratriptan mg PO nicotine 14 mg transdermal DAILY 30 days ondansetron HCl 4 mg PO Q8H PRN pantoprazole 40 mg PO BID pregabalin 150 mg PO BID [Parimutuel Clerk As directed] sumatriptan succinate mg PO walker Folding Front wheeled walker HPI Comments Details: History of Present Illness The patient is a 60 year old female presenting for follow-up of a left hip revision surgery performed on February 10, 2024. She reports a new, painful popping sensation over the surgical hardware on her left hip, which she describes as feeling like her skin is coming out. She has been sleeping on her left side, which may be contributing to irritation over the hardware. The patient also reports a new painful lump on her back near the middle of her spine. For symptomatic relief of her hip pain, she uses Voltaren gel, which she finds helpful. Functionally, she reports getting tired when walking and uses a shoe lift. Her medical history is significant for multiple surgeries on the left hip, leading to significant scar tissue. She continues to take methadone for pain management. Recent X-rays of the hip are unchanged since her last visit. Social History - Medications: The patient reports taking methadone. - Functional Status: The patient reports getting tired with walking and sometimes stays in bed all day. - Nutrition/Habits: She reports a love of sleeping and eating. 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 with presence of antibiotic-impregnated cement spacer Seizure Back pain Bradycardia Infected prosthesis of left hip Raspy voice Bilateral knee pain COPD (chronic obstructive pulmonary disease) Left hand paresthesia Vitamin D deficiency Skull lesion Irritable bowel syndrome Insomnia GERD (gastroesophageal reflux disease) History of Helicobacter pylori infection Vitamin B12 deficiency Clostridium difficile infection Weight loss Epigastric pain Cocaine abuse Cannabis abuse Eczema Hepatitis B virus infection Migraine Osteoarthritis Polysubstance abuse Sinusitis Tobacco abuse disorder Cervical myelopathy Arthritis History of headache Numbness Asthma 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 Anxiety Depression Surgical History H/O colonoscopy History of bilateral knee arthroplasty History of hip replacement Hx of cervical spine surgery History of appendectomy H/O tubal ligation History of total left hip arthroplasty Social History Household Members: Significant Other Household Members Other:: 2 Housing: House Are you a primary intensive care medicine specialist to a significant other at home: No Do you presently have visiting nurse or other home services: Yes ([employer]) Alcohol intake: never Patient Tobacco Use Status: Current everyday Tobacco user Tobacco use type: Cigarette Cigarettes Per Day: 5 Second Hand Smoke Exposure: No Substance Use Type: Marijuana service: No Review of Systems Narrative Review of Systems - Constitutional: Reports fatigue with walking. - Musculoskeletal: Reports a painful popping sensation over her left hip surgical site and a painful lump on her back near the spine. - Integumentary: Reports a sensation of her skin popping out over the left hip hardware. - Psychological: Denies depression. Physical Exam Exam Exam: Physical Exam - General: Patient stands erect. - Back: Tenderness to palpation over a lump in the mid-spine area. - Integumentary: Surgical incision over the left hip is intact without evidence of dehiscence. - Musculoskeletal: Significant scar tissue noted over the left hip surgical site. Vital Signs: BMI result Body Mass Index 26.1 Assessment & Plan Assessment & Plan (1) History of revision of total replacement of left hip joint: Code(s): Z96.642 - Presence of left artificial hip joint Category: Surgical (2) Low back pain: Code(s): M54.50 - Low back pain, unspecified Plan Plan 1. Pain In Left Hip The patient's left hip pain and popping sensation are attributed to irritation of soft tissues and scar tissue over the surgical hardware, exacerbated by sleeping on her left side. X-rays are stable and unchanged. Soft tissue massage was suggested to help with the scar tissue, and the patient was advised to avoid sleeping on her left side. A refill of Voltaren gel will be sent for symptomatic relief. 2. Dorsalgia, Unspecified The patient complains of a new, painful lump in her back, which may represent a muscle knot or underlying spinal arthritis. She has been referred to the in-office system integration engineer for further evaluation, including potential back X-rays. The patient was advised to make an appointment with the system integration engineer. Consent Patient was informed and verbally consented to the use of an ambient scribe for clinic note documentation during this visit. Orders: Orders XR hip LT min 2V Today M25.552 - Pain in left hip Medications: New diclofenac sodium 1% apply 4grams to affected area four times a day as needed 4 grams topical QID 100 grams 6RF 30 days Coding Level of Care Code Est Pt Level 3 (24738) Add On Problem Visit Only Diagnoses History of revision of total replacement of left hip joint Z96.642 Low back pain M54.50
[2025-08-23 13:53] VITALS: BMI 26.1
--- OUTSIDE RECORDS SUMMARY | 2025-08-23 14:50 | XMS_ITS | Encounter Summary ---
Author Organization [facility] Address [address] [place] [address] Care Team Providers Care Glassware Selector Name Role Phone Barbara Wolf MD Primary Care Provider [phone] Encounter Details Date Type Department Care Team (Late st Contact Info) Description 06/19/2025 Results Follow-Up [facility] Associates [facility] [address] [place] [phone] Arcadio May MD [address] [place] [address] [address] [place] [phone] Social History Tobacco Use Types Packs/Day Years [...] as of this encounter Progress Notes * Jazmín Gutierrez MA - 06/19/2025 1:59 PM EDT Letter mailed documented in this encounter Plan of Treatment Upcoming Encounters Date Type Department Care Team (Late st Contact Info) Description 10/06/2025 10:30 AM EST Office Visit [facility] [address] [facility] [address] [place] [address] Natasha Flood, PA [address] [place] [phone] documented as of this encounter Visit Diagnoses Not on filedocumented in this encounter Care Teams Glassware Selector Relationship Specialty Start Date End Date Barbara Wolf MD [address] [facility] [address] [place] [phone] PCP - General Internal Medicine 07/05/24 documented as of this encounter
--- OUTSIDE RECORDS SUMMARY | 2025-08-23 14:50 | XMS_ITS | Clinical Summary ---
[facility] Address [address] [place] [address] Phone Care Team Providers Care Spring Fitter Name Role Phone Barbara Wolf MD Primary Care Provider Allergies Active Allergy Reactions Criticality Noted Date [...] split. 30 tablet 3 01/03/20 25 Active ergocalciferol (VITAMIN D-2) 1,250 mcg (50,000 unit) capsule Take 1 capsule (50,000 Units total) by mouth 1 (one) time per week. 4 each 02/07/20 25 026 Active cyanocobalamin (VITAMIN B-12) 2,000 mcg tablet TAKE 1 TABLET BY MOUTH EVERY DAY 30 tablet 11 02/09/20 25 Active methadone HCl (METHADONE INTENSOL [...] hours. 20 tablet 5 05/03/20 25 Active cyclobenzaprine (FLEXERIL) 10 mg tablet Take 1 tablet (10 mg total) by mouth 2 (two) times a day if needed for muscle spasms for up to 10 days. 20 tablet 05/28/20 25 Active tiZANidine (ZANAFLEX) 4 mg tablet 1 po hs PRN 30 tablet 2 07/26/20 25 Active amitriptyline (ELAVIL) 25 mg tabletIndication s:Intractable headache, unspecified chronicity pattern, unspecified headache type Take 1 tablet (25 mg total) by mouth at bedtime. 30 each 5 08/09/20 25 026 Active amitriptyline (ELAVIL) 25 mg tabletIndication s:Intractable headache, unspecified chronicity pattern, unspecified headache type Take 1 tablet (25 mg total) by mouth at bedtime. 30 each 5 01/24/20 25 12/17/2 025 Discontin ued(Reord er) [facility], or Other Facility Administered Medication Ordered Dose Route Frequency Start Date End Date Status onabotulinumtoxinA (BOTOX) 200 unit injection 200 UnitsIndications:Migraine without aura and without status migrainosus, not intractable 200 Units IM Once 08/09/2025 08/09/2025 Ended Active Problems Problem Noted Date Diagnosed Date [...] development of CAD, the development of an CO (which can be fatal), the development of [...] 48 hours); Future Thyroid stimulating hormone; Future Sinusitis 09/06/2021 Polysubstance abuse 09/06/2021 Overview (06/07/2024): [...] D deficiency 11/09/2016 Left hand paresthesia 12/29/2013 Bilateral knee pain 12/29/2013 Allergic rhinitis 05/11/2013 Chronic headaches 08/12/2012 Raspy voice 09/19/2011 Overview (06/07/2024): F/u ENT; s/p laryngoscopy 12/09/[address] Back. Barium swallow (11/11/11) revealed mild GERD. Low back pain radiating to right lower extremity 09/19/2011 Overview (06/07/2024): F/u NEOS. Resolved Problems Problem Noted Date Diagnosed Date Resolved Date Cervical myelopathy 09/09/2021 08/14/20 25 Overview (06/07/2024): Last Assessment & Plan: Patient [...] to call with any concerns or questions. COPD (chronic obstructive pulmonary disease) 4 08/14/2025 Encounters Date Type Department Care Team Description 2025 1:30 PM EST Office Visit [facility] [address] [place] [address] Arcadio May MD Arrived 08/14/2025 8:45 AM EST Office Visit Internal Medicine - [place] [address] [place] [phone] Barbara Wolf MD Low back pain radiating to right lower extremity (Primary Dx); Vitamin B12 deficiency; Vitamin D deficiency; Gastroesophageal reflux disease, unspecified whether esophagitis present; Status post hip replacement, unspecified laterality 08/10/2025 9:00 AM EST Telemedicine Vascular Surgery - [place] [address] [place] [phone] Niurka Cunningham PA Right upper extremity numbness (Primary Dx) 08/09/2025 1:20 PM EST Procedure visit [facility] [place] [address] [place] [address] Nilda Chang MD Migraine without aura and without status migrainosus, not intractable (Primary Dx); Intractable headache, unspecified chronicity pattern, unspecified headache type 07/27/2025 Results Follow-Up Vascular Surgery - [place] [address] [place] [address] Tara Melgoza PA 07/26/2025 3:45 PM EST Ancillary Procedure [facility] - [address] [place] [phone] Right upper extremity numbness; Poor circulation of extremity 07/26/2025 11:00 AM EST Office Visit [facility] [place] [address] [place] [address] Natasha Flood PA Cervical neck pain with evidence of disc disease (Primary Dx) 07/11/[address] [place] [address] Arcadio May MD 07/11/[address] [place] [address] Arcadio May MD 07/11/[address] [place] [address] Arcadio May MD 07/04/2025 1:13 PM EST - 07/04/2025 11:59 PM EST Hospital Encounter [facility] Ultrasound [address] [place] [address] Soft tissue mass Discharge Disposition: Home or Self Care 06/30/2025 Telephone Gastroenterology [facility] [address] [facility] [address] [place] [address] Linda Moore PA 06/28/2025 12:15 PM EST Anesthesia Event [facility] Endoscopy [address] [place] [phone] Nino Villar DO 06/28/2025 10:48 AM EST - 06/28/2025 11:59 PM EST Hospital Encounter [facility] Endoscopy [address] [place] [phone] Alonso Charles MD Barnes, Tyanna R, CRNA Nausea and vomiting, unspecified vomiting type; Cannabis abuse; Gastroesophageal reflux disease, unspecified whether esophagitis present; Cannabinoid hyperemesis syndrome; Epigastric abdominal pain Discharge Disposition: Home or Self Care 06/22/2025 Telephone Gastroenterology - [place] [address] [facility] [address] [place] [phone] Baljinder Byers MD 06/19/2025 9:45 AM EDT Office Visit General Surgery [facility] [address] [place] [phone] Pawel Hanna DO Soft tissue mass (Primary Dx); Epigastric abdominal pain 06/19/2025 Results Follow-Up [facility] [address] [place] [address] Arcadio May MD 06/19/[address] [place] [address] Dayan Paredes NP 06/09/2025 9:00 AM EDT Ancillary Procedure [facility] - [address] [place] [address] Other chest pain 06/05/2025 7:00 AM EDT Ancillary Procedure [facility] - [address] [place] [address] Other chest pain 05/28/2025 3:54 PM EDT - 05/28/2025 4:14 PM EDT Emergency [facility] Emergency [address] [place] [address] Doc Brown MD Lumbar strain, initial encounter (Primary Dx) Discharge Disposition: Home or Self Care 05/23/2025 Telephone Vascular Surgery - [place] [address] [place] [address] Tara Melgoza PA from Last 3 Months Immunizations Immunization Administration Dates Next Due Influenza Quadravalent, MDCK [...] LIGATION PROCEDURE: HISTORICAL TUBAL LIGATION APPENDECTOMY PROCEDURE: OR APPENDECTOMY KNEE ARTHROSCOPY 2016 Bilateral PROCEDURE: OR ARTHROSCOPY AID TX SPINE&/FX KNEE W/O FIXJ; COMMENT: Dr. Alcazar OTHER SURGICAL HISTORY PROCEDURE: BIOPSY OF THROAT, HYPOPHARYNX; COMMENT: pt states benign OTHER SURGICAL HISTORY 01/15/2022 PROCEDURE: OR ARTHRD ANT INTERBODY MIN DSC CRV BELOW C2; COMMENT: C3-4, C4-5, C5-6 fusion, Dr. Heard COLONOSCOPY ESOPHAGOGASTRODUODENOSCOPY Medical History Medical History Date Comments Asthma [...] hip replacement History of substance abuse ( [facility] V24, [facility] V28) 07/06/2018 DX:History of substance abus e ([facility]); COMMENT: Recovering alcoholic Cocaine abuse ([facility] V24, [facility] V28) 04/25/2021 DX:Cocaine abuse ([facility]); COMM ENT: 04/13 positive UDS [...] Not Answered Alcohol Use Standard Drinks/Week Comments Not Currently [...] Pulse 66 2025 12:57 PM EST Temperature 36.1 C (97 F) 06/28/2025 12:27 PM EST Respiratory Rate 16 06/28/2025 12:47 PM EST Oxygen Saturation 95% 2025 12:57 PM EST Inhaled Oxygen Concentration - - Weight 71.7 kg (158 lb) 2025 12:57 PM EST Height 162.6 cm (5' 4 ) 2025 12:57 PM EST Body Mass Index 27.12 2025 12:57 PM EST Plan of Treatment Upcoming Encounters Date Type Department Care Team (Late st Contact Info) Description 10/06/2025 10:30 AM EST Office Visit [facility] [address] [place] [address] Natasha Flood, [address] [address] Health Maintenance Due Date Last Done Comments Hepatitis A Vaccines (1 of 2 - Risk 2-dose series) 1985 Hepatitis B Vaccines (1 of 3 - 19+ 3-dose series) 1985 Cervical Cancer Screening: Pap Smear 1987 Pneumococcal Vaccine: 50+ Years (2 of 2 - PCV) 09/22/2007 09/22/2006 DTaP,Tdap,and Td Vaccines (1 - Tdap) 07/27/2008 07/26/2008 RSV Immunization Adult Patients (1 - Risk 50-74 years 1-dose series) 2016 Zoster Vaccines (1 of 2) 2016 HIV Screening 08/02/2022 Hepatitis C Screening 08/02/2022 Social Influencers of Health Screening 08/02/2022 Depression Screening 08/24/2024 03/08/2024 COVID-19 Vaccine ( season) 2025 08/21/2021, 12/05/2020, 11/07/2020 Influenza Vaccine (#1) 2025 0, 06/18/2017, 05/11/2013, Additional history exists Lung Cancer Screening (Low Dose CT) 09/06/2025 09/06/2024 Breast Cancer Screening 08/04/2026 08/04/2024 Colorectal Cancer Screening: Colonoscopy 10/02/2027 10/02/2017 Cholesterol Screening (Lipid Panel) 03/28/2030 03/28/2025, 04/08/2023 HIB Vaccines Aged Out No longer [...] on patient's age to complete this topic Goals Goal Patient Goal Type Associated Problems Recent Progress Patient-Stated? Author Autogenerat ed Goal Care Plan Autogenerated Problem No Vanessa Bahman Medical Devices Implanted Type Area Media Specialist Device Identifier Shelf Expiration Date Model / Serial / Lot Joints Hip Joints Hip Bilateral : Hip Procedures Procedure Name Priority Date/Time Associated Diagnosis Comments VAS US DUPLEX UPPER EXT ARTERY RIGHT Routine 07/26/2025 3:53 PM EST Right upper extremity numbness Poor circulation of extremity US ABDOMEN LIMITED Routine 07/04/2025 1: 29 PM EST Soft tissue mass EGD Routine 06/28/2025 12:26 PM EST Nausea and vomiting, unspecified vomiting type Cannabis abuse Gastroesophageal reflux disease, unspecified whether esophagitis present Cannabinoid hyperemesis syndrome Epigastric abdominal pain TISSUE EXAM Routine 06/28/2025 12:22 PM EST Nausea and vomiting, unspecified vomiting type Cannabis abuse Gastroesophageal reflux disease, unspecified whether esophagitis present Cannabinoid hyperemesis syndrome Epigastric abdominal pain NM LEXISCAN STRESS TEST W/ MYOCARDIAL PERFUSION STAT 06/09/2025 2:23 PM EDT Other chest pain TRANSTHORACIC ECHOCARDIOGRAM (TTE) COMPLETE Routine 06/05/2025 7:40 AM EDT Other chest pain LIPID PANEL WITH REFLEX TO DIRECT LDL Routine 03/28/2025 9:31 AM EDT Other chest pain CT LUNG SCREENING Routine 09/06/2024 2:3 4 PM EST Encounter for screening for malignant neoplasm of respiratory organs Nicotine dependence, cigarettes, uncomplicated MG MAMMO DIGITAL SCREENING W HESHAM BILAT Routine 08/04/2024 8:26 AM EST Encounter for screening mammogram for breast cancer DEPRESSION SCREENING Routine 03/08/2024 COLONOSCOPY Routine 10/02/2017 from Last 3 Months or Most Recently Relevant to Health Maintenance Results * Vascular US duplex upper extremity arteries right (07/26/2025 3:53 PM EST) Upper arterial right arm axillary sys max 70 cm/s CV VAS LAB UPPER ARTERIAL RIGHT BRACHIAL DIST PSV 22 cm/s CV VAS LAB Right Dist Subclavian PSV 61 cm/s CV VAS LAB Right Prox Subclavian PSV 183 cm/s CV VAS LAB Right vertebral sys 59 cm/s CV VAS LAB BSA 1.75 m2 CV VAS LAB UPPER ARTERIAL RIGHT RADIAL DIST PSV 33 cm/s CV VAS LAB UPPER ARTERIAL RIGHT ULNAR DISTAL PSV 58 cm/s CV VAS LAB Anatomical Region Laterality Modality Vascular, Abdomen Ultrasound Narrative 07/27/2025 1:07 PM EST Right: 1. Normal antegrade vertebral artery flow 2. Patent right subclavian artery without significant stenosis. 2. Patent right axillary, brachial, ulnar and radial arteries without significant stenosis. Right Upper Arterial Duplex The subclavian artery has triphasic flow. The axillary artery has triphasic flow. The brachial artery has triphasic flow. The radial artery has monophasic flow. The ulnar artery has monophasic flow. Drilling Engineer Details A muñiz scale, color and doppler analysis ultrasound was performed. During the study longitudinal views were obtained. Continuous wave doppler and pulsed wave doppler was performed. Overall the study quality was good. us Tara GRANGER CV VASCULAR PROCEDURES Final R esult * US Abdomen Limited (07/04/2025 1:29 PM EST) Anatomical Region Laterality Modality Body Ultrasound 07/11/2025 9:13 AM EST Impressions 07/11/2025 9:18 AM EST Circumscribed superficial abdominal wall mass has slowly increased in size. Possibilities include a sebaceous cyst or epidermal inclusion cyst. The imaging findings are nonspecific. The patient should be managed on the basis of the physical exam and history -------- FINAL REPORT -------- Dictated By: Chan French Dictated Date: 07/11/2025 09:13 ET Assigned Physician: Chan French Reviewed and Electronically Signed By: Chan French Signed Date: 07/11/2025 09:18 ET Workstation ID: [id number] Transcribed By: Self Edit Transcribed Date: 07/11/2025 09:13 ET Narrative 07/11/2025 9:18 AM EST EXAMINATION: US. UPPER ABDOMINAL WALL VENTRAL EPIGASTRIC REGION CLINICAL INFORMATION: Palpable mass in the epigastric soft tissues COMPARISON: Selected portions of previous CT TECHNIQUE: High-frequency linear transducer examination with attention to the area of clinical concern A high-frequency linear transducer examination was performed targeting an area of palpable concern in the ventral abdominal wall epigastric region. FINDINGS: QUALITY: Adequate There is a sharply circumscribed oval hypoechoic abnormality immediately beneath the skin with a sharp interface with the adjacent deeper structures. There are low- level internal echoes. No definite mobility or color signal. There is posterior enhancement. No definite gas within the abdominal wall fascia. There are some internal bright reflectors. 07/04/25-4.[address] 09/06/24-3.[address] 06/14/18-2.5 x 1.[address] the average Hounsfield units are -4.0 Procedure Note Chan French MD - 07/11/2025 EXAMINATION: US. UPPER ABDOMINAL WALL VENTRAL EPIGASTRIC REGION CLINICAL INFORMATION: Palpable mass in the epigastric soft tissues COMPARISON: Selected portions of previous CT TECHNIQUE: High-frequency linear transducer examination with attention to the area ofclinical concern A high-frequency linear transducer examination was performed targeting anarea of palpable concern in the ventral abdominal wall epigastricregion. FINDINGS: QUALITY: Adequate There is a sharply circumscribed oval hypoechoic abnormality immediatelybeneath the skin with a sharp interface with the adjacent deeperstructures. There are low- level internal echoes. No definite mobility orcolor signal. There is posterior enhancement. No definite gas within the abdominal wall fascia. There are some internalbright reflectors. 07/04/25-4.[address] 09/06/24-3.[address] 06/14/18-2.5 x 1.[address] the average Hounsfield units are -4.0 IMPRESSION: Circumscribed superficial abdominal wall mass has slowly increased insize. Possibilities include a sebaceous cyst or epidermal inclusioncyst. The imaging findings are nonspecific. The patient should be managed on the basis of the physical exam andhistory -------- FINAL REPORT -------- Dictated By: Chan French Dictated Date: 07/11/2025 09:13 ET Assigned Physician: Chan French Reviewed and Electronically Signed By: Chan French Signed Date: 07/11/2025 09:18 ET Workstation ID: [id number] Transcribed By: Self Edit Transcribed Date: 07/11/2025 09:13 ET us Pawel Hanna DO IMG US PROCEDURES Final Result * EGD Anesthesia - MAC; [facility] ENDOSCOPY (06/28/2025 12:26 PM EST) Anatomical Region Laterality Modality Other 06/28/2025 12:1 7 PM EST Impressions 06/28/2025 12:32 PM EST - Z-line irregular, 38 cm from the incisors. Biopsied. - Erythematous mucosa in the stomach. Biopsied. - Extrinsic compression in the anterior wall of the stomach. - Erythematous duodenopathy. Recommendation: - Await pathology results. - Observe patient's clinical course. Narrative 06/28/2025 12:32 PM EST [facility] GI Patient Name: Figueroa Back Procedure Date: 06/28/2025 12:17 PM Date of : 1965 Age: 59 Gender: Female Note Status: Finalized Attending MD: Alonso Charles MD, Procedure Date No Time: 06/28/2025 Procedure: Upper GI endoscopy Indications: Nausea Providers: Alonso Charles MD Referring MD: Alonso Charles MD Medicines: Propofol per Anesthesia Complications: No immediate complications. Estimated Blood Loss: Estimated blood loss was minimal. Procedure: Pre-Anesthesia Assessment: - ASA Grade Assessment: II - A patient with mild systemic disease. After obtaining informed consent, the endoscope was passed under direct vision. Throughout the procedure, the patient's blood pressure, pulse, and oxygen saturations were monitored continuously.The Endoscope was introduced through the mouth, and advanced to the second part of duodenum. The upper GI endoscopy was accomplished without difficulty. The patient tolerated the procedure well. Findings: The Z-line was irregular and was found 38 cm from the incisors. Biopsies were taken with a cold forceps for histology. Estimated blood loss was minimal. Patchy mildly erythematous mucosa without bleeding was found in the stomach. Biopsies were taken with a cold forceps for histology. Estimated blood loss was minimal. Extrinsic compression on the stomach was found on the anterior wall of the stomach. Patchy mildly erythematous mucosa was found in the duodenal bulb. Procedure Code(s): --- Professional --- 55407, Esophagogastroduodenoscopy, flexible, transoral; with biopsy, single or multiple Diagnosis Code(s): --- Professional --- K22.89, Other specified disease of esophagus K31.89, Other diseases of stomach and duodenum R11.0, Nausea CPT copyright 2020 [employer]. All rights reserved. The codes documented in this report are preliminary and upon designer and patternmaker review may be revised to meet current compliance requirements. Alonso Charles MD 06/28/2025 12:32:12 PM This report has been signed electronically.Alonso Charles MD Number of Addenda: 0 Note Initiated On: 06/28/2025 12:17 PM Scope In: Scope Out: Endoscopy Department at [facility] - [address] [place] [phone] Procedure Note Alonso Charles MD - 06/28/2025 [facility] GI Patient Name: Figueroa Back Procedure Date: 06/28/2025 12:17 PM Date of : 1965 Age: 59 Gender: Female Note Status: Finalized Attending MD: Alonso Charles MD, Procedure Date No Time: 06/28/2025 Procedure: Upper GI endoscopy Indications: Nausea Providers: Alonso Charles MD Referring MD: Alonso Charles MD Medicines: Propofol per Anesthesia Complications: No immediate complications. Estimated Blood Loss: Estimated blood loss was minimal. Procedure: Pre-Anesthesia Assessment: - ASA Grade Assessment: II - A patient with mild systemic disease. After obtaining informed consent, the endoscope was passed under direct vision. Throughout theprocedure, the patient's blood pressure, pulse, and oxygen saturations were monitored continuously.TheEndoscope was introduced through the mouth, and advanced tothe second part of duodenum. The upper GI endoscopy was accomplished without difficulty. The patienttolerated the procedure well. Findings: The Z-line was irregular and was found 38 cm fromthe incisors. Biopsies were taken with a cold forcepsfor histology. Estimated blood loss was minimal. Patchy mildly erythematous mucosa without bleedingwas found in the stomach. Biopsies were taken with acold forceps for histology. Estimated blood loss was minimal. Extrinsic compression on the stomach was found onthe anterior wall of the stomach. Patchy mildly erythematous mucosa was found in the duodenal bulb. Procedure Code(s): --- Professional --- 20376, Esophagogastroduodenoscopy, flexible, transoral; with biopsy, single or multiple Diagnosis Code(s): --- Professional --- K22.89, Other specified disease of esophagus K31.89, Other diseases of stomach and duodenum R11.0, Nausea CPT copyright 2020 [employer]. All rights reserved. The codes documented in this report are preliminary and upon designer and patternmaker reviewmay be revised to meet current compliance requirements. Alonso Charles MD 06/28/2025 12:32:12 PM This report has been signed electronically.Alonso Charles MD Number of Addenda: 0 Note Initiated On: 06/28/2025 12:17 PM Scope In: Scope Out: Endoscopy Department at [facility] - [address] [place] [phone] IMPRESSION: - Z-line irregular, 38 cm from the incisors. Biopsied. - Erythematous mucosa in the stomach. Biopsied. - Extrinsic compression in the anterior wall of the stomach. - Erythematous duodenopathy. Recommendation: - Await pathology results. - Observe patient's clinical course. us Alonso Charles MD GI~PROCEDURE ORDERABLES Final Re sult * Tissue exam (06/28/2025 12:22 PM EST) Final Diagnosis Stomach, body, biopsies: Helicobacter pylori gastritis. Note: No Helicobacter was identified on routine stains. Because of superficial pattern of gastritis, immunohistochemical stain for H. pylori was performed and is interpreted as positive, supporting the above diagnosis. Control stains appropriately. B. Esophagus, distal, biopsies: Gastroesophageal mucosa with chronic inflammation and reactive changes. No intestinal metaplasia or dysplasia identified. Note: Alcian blue stain is performed and is interpreted as negative for goblet cell metaplasia, supporting the above diagnosis. Control stains appropriately 1:11 PM [facility] at 1311 EST Gross Description A. Stomach, body stomach biopsies: Labeled stomach, body . Received in formalin are two irregular miguel mucosal tissue fragments, each measuring approximately 0.5 cm in greatest dimension, which are wrapped in paper and submitted in toto in one cassette, two pieces, multiple levels on one side. B. Esophagus, distal esophagus biopsies: Labeled esophagus distal . Received in formalin is a 0.3 cm irregular pink-white mucosal tissue fragment which is wrapped in paper and submitted in toto in one cassette, one piece, multiple levels on one slide. KAT 1:11 PM [facility] Disclaimer NOTE: The immunohistochemical tests and in situ hybridization tests were developed and their performance characteristics were determined by [facility]. They have not been cleared or approved by the U.S. Food and Drug Administration. The FDA has determined that such clearance or approval is not necessary. These tests are used for clinical purposes. They should not be regarded as investigational or for research. This laboratory is certified under the Clinical Laboratory Improvement Amendments of 1988 (CLIA) as qualified to perform high complexity clinical laboratory testing. (controls appropriate) Unless otherwise specified, all tissue is 10% NB formalin fixed and paraffin embedded. 1:11 PM [facility] Tissue Stomach structure / Unknown 06/28/2025 12:22 PM EST 06/28/2025 1:15 PM EST Tissue specimen (specimen) Esophageal structure / Unknown 06/28/2025 12:24 PM EST 06/28/2025 1:15 PM EST us Alonso Charles MD LAB PATHOLOGY ORDERABLES Final R esult [facility] [address] [place] [address], [place] [phone] * NM LEXISCAN STRESS TEST W/ MYOCARDIAL PERFUSION (06/09/2025 2:23 PM EDT) Exercise/inject ion duration (min) 0 CV PACS STRESS Exercise/inject ion duration (sec) 38 CV PACS STRESS Peak SBP 130 mmHg CV PACS STRESS Peak DBP 70 mmHg CV PACS STRESS Peak HR 85 bpm CV PACS STRESS Baseline HR 78 bpm CV PACS STRESS Baseline SBP 108 mmHg CV PACS STRESS Baseline DBP 73 mmHg CV PACS STRESS Estimated workload 1.0 METS CV PACS STRESS Percent HR 52 % CV PACS STRESS Rate Pressure Product 11,050.0 mmHg*bpm CV PACS STRESS Target HR 138 bpm CV PACS STRESS Max HR Percent 52 % CV PA CS STRESS ST Depression (mm) 0 mm CV PACS STRESS O2 sat rest 96 % CV PACS STRESS O2 sat peak 97 % CV PACS STRESS TID 1.11 CV PACS STRESS Nuc Stress EF 72 % CV PAC S STRESS Nuc Rest EF 74 % CV PACS STRESS BSA 1.76 m2 CV PACS STRESS Anatomical Region Laterality Modality Nuclear Medicine 06/09/2025 10:1 4 AM EDT 06/09/2025 10:36 AM EDT Impressions 06/13/2025 10:17 AM EDT Abnormal Regadenoson stress test with nuclear imaging. No chest pain or EKG changes consistent with ischemia. Nuclear imaging revealed a fixed, medium size, moderate perfusion defect of the apical anterior, apical septal, apical wall consistent with possible infarct There is a normal TID ratio. Gated SPECT imaging was performed and revealed an LVEF of 74 %. No significant coronary artery calcification observed Overall findings are suspicious for soft tissue attenuation artifact although cannot exclude perfusion abnormalities, if clinical suspicion is high for CAD suggest alternative modality for assessment, coronary CTA may be considered as there is limited coronary calcification observed Narrative 06/13/2025 10:17 AM EDT Stress Findings A pharmacological stress test was performed using regadenoson, 0.4 mg IV over 10-15 seconds, followed by radiopharmacological injection 10 seconds post infusion. Total stress time was 0 min and 38 sec. The patient reached the end of the protocol. No low level exercise was used during pharmacological stress test. The patient's hemodynamic response was inadequate for diagnosis. Blood pressure demonstrated a normal response. Heart rate demonstrated a normal response. Onset of symptoms occurred at Stage 0.5 of the protocol. The patient reported dyspnea during the stress test. ECG Mrs Back is a 59 year old female with past medical history of bradycardia, tobacco use, past history of opiate use on chronic methadone, anxiety, arthritis, asthma, GERD who presents for Regadenoson Nuclear stress test due to chest pain. The ECG shows sinus bradycardia. There is no ST segment changes during stress. The result of the stress ECG was non-diagnostic for ischemia due to failure to achieve 85 percent of the maximum age-predicted heart rate. Nuclear Study Quality Study technique: MPI, SPECT, multi, rest and stress, 1 day and gated. Overall image quality is good. CT attenuation correction was utilized. No radiopharmaceutical dose was extravasated. Stress Function Comments Stress ejection fraction is 72%. Rest Function Comments Resting ejection fraction was 74%. Arcadio May MD CV STRESS PROCEDURES F inal Result * TRANSTHORACIC ECHOCARDIOGRAM (TTE) COMPLETE (06/05/2025 7:40 AM EDT) Left Atrium Minor Duenweg 5.5 cm CV PACS Left Atrium Major Duenweg 5.8 cm CV PACS LA Area Sys (A2C) 21 cm2 CV PACS LA Area Sys (A4C) 20 cm2 CV PACS LA Volume (BP) 60 mL CV PACS RA Area 17.0 cm2 CV PACS RA 2D Volume 43 mL CV PACS AV Mean Gradient 4 mmHg CV PACS Ao VTI 30.5 cm CV PACS AV Peak Ishaan 1.3 m/s CV PACS AV Peak Gradient 6 mmHg CV PACS AV Area Continuity Equation 2.3 cm2 CV PACS AV Area Peak Velocity 2.6 cm2 CV PACS Aortic Sinus Valsalva 3.3 cm CV PACS Ascending Aorta 3.1 cm CV PACS IVC Proximal 1.3 cm CV PACS IVSD 0.9 0.6 - 0.9 cm CV PACS LVIDD 4.6 3.8 - 5.2 cm CV PACS LVIDS 3.2 2.2 - 3.5 cm CV PACS LVOT Diameter 1.9 cm CV PACS LVOT Mean Ishaan 0.7 m/s CV PACS LVOT Mean Grad 3 mmHg CV PACS LVOT Peak VTI 25.0 cm CV PACS LVOT Peak Ishaan 1.1 m/s CV PACS LVOT Peak Gradient 5 mmHg CV PACS LVPWD 0.9 0.6 - 0.9 cm CV PACS MV E' Tissue Velocity Lateral 10 cm/s CV PACS MV E' Tissue Velocity Septal 7 cm/s CV PACS LVOT Area 2.8 cm2 CV PACS LVOT Stroke Volume 71 mL CV PACS E Wave Deceleration Time 208 119 - 242 ms CV PACS MV Peak A Ishaan 0.83 m/s CV PACS MV Peak E Ishaan 0.81 m/s CV PACS PV Acceleration Time 180 ms CV PACS PV Acceleration Time 180 ms CV PACS RV Diastolic Basal Dimension 4.1 2.5 - 4.1 cm CV PACS RV S' 11 cm/s CV PACS TAPSE 28 mm CV PACS TR Peak Velocity 2.59 m/s CV PACS TR Peak Gradient 27 mmHg CV PACS E/E' Ratio Septal 12 CV PACS E/E' Ratio Averaged 10 CV PACS LVOT Stroke Index 40 mL/m2 CV PACS Relative Wall Thickness ratio 0.39 CV PACS LVOT:AV VTI Index 0.82 CV PACS FS 30 % CV PACS LV Mass 2D 138 g CV PACS Ascending Aorta Index 1.76 cm/m2 CV PACS LVOT flow 198 mL/s CV PACS RA 2D Volume Index 24 mL/m2 CV PACS MARLY Index (VTI) 1.32 cm2/m2 CV PACS MARLY Index (Pk Ishaan) 1.48 cm2/m2 CV PACS LVIDD Index 2.61 cm/m2 CV PACS LVIDS Index 1.82 cm/m2 CV PACS AV Velocity Ratio 0.85 CV PACS E/A Ratio 1.0 CV PACS E/E' Ratio Lateral 8 CV PACS LA Volume Index (BP) 34 mL/m2 CV PACS LV Mass Index 2D 78 g/m2 CV PACS BSA 1.78 m2 CV PACS Right Ventricular Peak Systolic Pressure 30 mmHg CV PACS Est. RA Pressure 3 mmHg CV PACS Anatomical Region Laterality Modality Ultrasound Narrative 06/19/2025 1:54 PM EDT Left ventricle cavity size is normal. Left ventricular systolic function is in the normal range with an ejection fraction of 55-60%. No regional LV wall motion abnormalities noted. Left ventricle wall thickness is normal. Right ventricle cavity is normal. Right ventricular systolic function is normal. TAPSE 28 mm. RV S' 11 cm/sec. Mitral Valve: There is mild regurgitation. Tricuspid Valve: There is mild regurgitation. Left Ventricle Left ventricle cavity size is normal. Wall thickness is normal. Systolic function is normal with an ejection fraction of 55-60%. There are no regional LV wall motion abnormalities. There is no diastolic dysfunction. Right Ventricle Right ventricle cavity appears normal. Systolic function is normal. RV S' 11 cm/sec. Normal TAPSE (> 17 mm), measuring 28 mm. Left Atrium Left atrium volume index is normal. Right Atrium Right atrium cavity is normal. IVC/SVC Inferior vena cava structure is normal. RA pressures is estimated to be 3 mmHg (IVC diameter <21 mm and decreases >50% during inspiration). Mitral Valve Mitral valve structure is normal. There is mild regurgitation. There is no evidence of mitral valve stenosis. Tricuspid Valve Tricuspid valve structure is normal. There is mild regurgitation. There is no evidence of tricuspid valve stenosis. The right ventricular systolic pressure is normal. Estimated RA pressure is 3 mmHg. The RVSP is estimated at 30 mmHg. Aortic Valve The aortic valve is trileaflet. There is no regurgitation or stenosis. Pulmonic Valve Visualized portions of the pulmonic valve appear normal. No significant pulmonic valve regurgitation. There is no evidence of pulmonic valve stenosis. Ascending Aorta The aorta appears normal in size. Pericardium Pericardium appears normal. There is no pericardial effusion. Study Details Overall the study quality was adequate. Study was difficult due to: patient body habitus. Wall Scoring Baseline Score Index: 1.00 The left ventricular wall motion is normal. Arcadio May MD CV ECHO PROCEDURES Fin al Result * Lipid panel with reflex to direct LDL (03/28/2025 9:31 AM EDT) Cholesterol 155 0 - 200 mg/dL LAB CHEMISTRY METHOD 03/28/2025 2:38 PM EDT [facility] Triglycerides 119 0 - 150 mg/dL LAB CHEMISTRY METHOD 03/28/2025 2:38 PM EDT [facility] HDL 52 >=40 mg/dL LAB CHEMISTRY METHOD 03/28/2025 2:38 PM EDT [facility] LDL Calculated 79 0 - 100 mg/dL LAB CHEMISTRY METHOD 03/28/2025 2:38 PM EDT [facility] Comment:Estimated LDL Calcul ated using equation: Total cholesterol - HDL cholesterol - (Triglycerides/5) VLDL Cholesterol Marshall 23.8 mg/dL LAB CHEMISTRY METHOD 03/28/2025 2:38 PM EDT [facility] Non HDL Chol. (LDL+VLDL) 103 <145 mg/dL LAB CHEMISTRY METHOD 03/28/2025 2:38 PM EDT [facility] Chol/HDL Ratio 3.0 0.0 - 4.4 LAB CHEMISTRY METHOD 03/28/2025 2:38 PM EDT [facility] Blood Venous blood specimen / Unknown Venipuncture / Unknown 03/28/2025 9:31 AM EDT 03/28/2025 9:31 AM EDT Arcadio May MD LAB BLOOD ORDERABLES F inal Result [facility] [address] [place] [address], [place] [phone] * CT Lung Screening (09/06/2024 2:34 PM EST) Anatomical Region Laterality Modality Chest Computed Tomogra phy 09/14/2024 12:4 9 PM EST Impressions 09/14/2024 12:58 PM EST Impression: No suspicious pulmonary nodule. Lung-RADS Category: Lung-RADS 1: No nodules or definitely benign nodules. Continue annual screening with Low Dose Chest CT in 12 months. [employer] PA ([id number]) -------- FINAL REPORT -------- Dictated By: Estephania Lockwood Dictated Date: 09/14/2024 12:49 ET Assigned Physician: Estephania Lockwood Reviewed and Electronically Signed By: Estephania Lockwood Signed Date: 09/14/2024 12:58 ET Workstation ID: [id number] Transcribed By: Self Edit Transcribed Date: 09/14/2024 12:49 ET Narrative 09/14/2024 12:58 PM EST History: 59 year-old 48 pack-year current smoker, asymptomatic, for lung cancer screening. Baseline exam. Comparison: No comparison imaging at this institution. Technique: Helical volumetric imaging of the thorax was performed, using low- dose technique, without IV contrast. DLP: 161.03 mGy/cm CTDIvol: 4.83 mGy [employer] VCT Iterative reconstruction technique Findings: Lungs and [...] contrast. DLP: 161.03 mGy/cm CTDIvol: 4.83 mGy [employer] VCT Iterative reconstruction technique Findings: Lungs and [...] Chest CT in 12 months. [employer] BÁRBARA ([id number]) -------- FINAL REPORT -------- Dictated By: Estephania Lockwood Dictated Date: 09/14/2024 12:49 ET Assigned Physician: Estephania Lockwood Reviewed and Electronically Signed By: Estephania Lockwood Signed Date: 09/14/2024 12:58 ET Workstation ID: [id number] Transcribed By: Self Edit Transcribed Date: 09/14/2024 12:49 ET us Julian Garza MD IMG CT PROCEDURES Final [...] Signed Date: 08/04/2024 09:49 ET Workstation ID: [id number] Transcribed By: Self Edit Transcribed Date: 08/04/2024 09:43 ET Narrative 08/04/2024 9:49 AM EST EXAM: SCREENING MAMMOGRAPHY, BILATERAL HISTORY: SCREENING. No additional history. COMPARISON: Initial exam TECHNIQUE: Synthesized CC and MLO projections of each breast. Tomosynthesis of each breast in the CC and MLO projections. ADDITIONAL IMAGING: None Computer-aided detection was employed with the [employer] AI 3-D. TISSUE DENSITY: There are scattered [...] None Computer-aided detection was employed with the [employer] AI 3-D. TISSUE DENSITY: There are scattered [...] Signed Date: 08/04/2024 09:49 ET Workstation ID: [id number] Transcribed By: Self Edit Transcribed Date: 08/04/2024 09:43 ET Self Referral Sppl IMG BI PROCEDURES Final Resul t * Depression Screening (03/08/2024) Depression Screening abstracted Historical Provider MD HEALTH MAINTENANCE Final Result * Colonoscopy (10/02/2017) Colonoscopy no interpretation abstracted Anatomical Region Laterality Modality Other Historical Provider MD HEALTH MAINTENANCE Final Result from Last 3 Months or Most Recently Relevant to Health Maintenance Additional Health Concerns Active Problems Noted Date Diagnosed Date Autogenerated Problem 06/22/2025 Insurance [facility] [place] [address] Care Teams Spring Fitter Relationship Specialty Start Date End Date Chaganti, Barbara D, MD [address] [place] [phone] PCP - General Internal Medicine 07/05/24
--- OUTSIDE RECORDS SUMMARY | 2025-08-23 14:50 | XMS_ITS | Encounter Summary ---
Author Organization [facility] Address [address] [place] [address] Care Team Providers Care Farm Advisor Name Role Phone Barbara Wolf MD Primary Care Provider [phone] Encounter Details Date Type Department Care Team (Late Contact Info) Description 07/27/2025 Results Follow-Up Vascular Surgery - [place] [address] [place] [address] Tara Melgoza PA [address] [place] [phone] Social History Tobacco Use Types Packs/Day Years [...] AM EST documented as of this encounter Plan of Treatment Upcoming Encounters Date Type Department Care Team (Late Contact Info) Description 10/06/2025 10:30 AM EST Office Visit [facility] [place] [address] [place] [address] Natasha Flood PA [address] [place] [phone] documented as of this encounter Goals Goal Patient Goal Type Associated Problems Recent Progress Patient-Stated? Author Autogenerat ed Goal Care Plan Autogenerated Problem No Bahman Mendez documented as of this encounter Visit Diagnoses Not on filedocumented in this encounter Additional Health Concerns Active Problems Noted Date Diagnosed Date Autogenerated Problem 06/22/2025 documented as of this encounter Care Teams Farm Advisor Relationship Specialty Start Date End Date Barbara Wolf MD [address] [place] [phone] PCP - General Internal Medicine 07/05/24 documented as of this encounter
== END 2025-08-23 14:22 | disposition home or self-care (01) ==
PROVIDERS: Visit Provider Physician Assistant
DX: Z47.89 Encounter for other orthopedic aftercare (principal); Z96.642 Presence of left artificial hip joint; M54.50 Low back pain, unspecified
CPT/HCPCS: 99213

== ENCOUNTER → 2025-08-23 13:33 | Outpatient (BNV) | payer OTHER, SELFPAY | PROVIDERS: Visit Provider Radiology Diagnostic Radiology | DX: M25.552 Pain in left hip (principal); Z96.642 Presence of left artificial hip joint | CPT/HCPCS: 73502 ==